=== PATIENT | male | born 1965 | race Caucasian/White ===

== ENCOUNTER 2021-11-30 10:17 | Emergency (ER) | payer OTHER, SELFPAY ==
--- NOTE | 2021-11-30 10:21 | ED.URI ---
HPI - URI/Sore Throat General Chief Complaint: Upper Respiratory Infection Stated Complaint: Sinus,Rt Ear Irritation Time Seen by Provider: 11/30/21 10:21 Source: patient and RN notes reviewed History of Present Illness HPI Narrative: Patient is a 56-year-old male who presents the urgent care with complaints of right sinus congestion/facial pain. Patient states its extending from the right ear. States that he had COVID last week and this is his first day out of quarantine. Patient states most of his symptoms were fatigue and some sinus congestion. Patient took Tylenol and ibuprofen and is denied of any fevers recently. Patient had not had treatment for COVID. No other acute complaints. No acute distress noted. Patient aware of the plan of care. Some parts of this dictation were generated by voice recognition software and may contain typographical and/or grammatical inaccuracies. Related Data Home Medications Medication Instructions Recorded Confirmed aspirin 81 mg tablet,delayed 81 mg PO DAILY 11/30/21 11/30/21 release atorvastatin 20 mg tablet 20 mg PO DAILY 11/30/21 11/30/21 telmisartan 40 1 tablet PO DAILY 11/30/21 11/30/21 mg-hydrochlorothiazide 12.5 mg tablet Allergies Allergy/AdvReac Type Severity Reaction Status Date / Time No Known Allergies Allergy Verified 11/30/21 10:28 Review of Systems Review of Systems: CONSTITUTIONAL: Denies fever, chills, or sweats. EYES: Denies visual changes, redness, or discharge. ENT: Denies rhinorrhea, congestion, sore throat, or otalgia. Reports of right facial pain CARDIOVASCULAR: Denies chest pain, palpitations, or edema. RESPIRATORY: Denies cough or dyspnea. GASTROINTESTINAL: Denies abdominal pain, nausea, vomiting, or diarrhea. GENITOURINARY: Denies dysuria or hematuria. SKIN: Denies rash or itching. MUSCULOSKELETAL: Denies back pain, joint pain, or myalgia. NEUROLOGIC: Denies headache, numbness, or weakness. All other systems reviewed are negative, except as documented in HPI. [facility] Family History Family History (Updated 07/23/12 @ 10:52 by DOCTOR UNKNOWN) Other Diabetes mellitus Hypertension Social History Social History Alcohol intake: current Comments At the time of my signature, I reviewed and agree with the nursing past medical, surgical, social, and family history. There is no relevant family history pertinent to the patient complaint. Exam Narrative: GENERAL: This is a well-nourished, well-developed patient, in no apparent distress. HEAD: normocephalic, atraumatic. Mild maxillary sinus tenderness to the right EYES: PERRL. Sclera clear/white. Vision is grossly intact. EARS: External ears normal, auditory canals clear and without drainage, TMs normal without perforation. Hearing grossly intact. NOSE: External nose normal with no obvious nasal discharge, nares without redness, no rhinorrhea. THROAT: Mucous membranes moist, posterior pharynx clear. Mild postnasal drainage NECK: Neck supple, non-tender without lymphadenopathy CARDIOVASCULAR: Regular rate and rhythm without murmurs, gallops, or rubs. RESPIRATORY: Clear to auscultation. Breath sounds equal bilaterally. No wheezes, rales, or rhonchi. SKIN: warm, intact with no suspicious lesions or rash, good texture and turgor. NEURO: awake, alert, and oriented to person, place and time. There were no obvious focal neurologic abnormalities. Facial nerve intact. Facial symmetry EXTREMITIES: No clubbing, cyanosis, or edema. Course Course Level of Care: Express Care Visit Vital Signs Vital signs: Vital Signs Temperature 97.3 F L 11/30/21 10:23 Pulse Rate 60 11/30/21 10:23 Respiratory Rate 16 11/30/21 10:23 Blood Pressure 147/77 H 11/30/21 10:23 Pulse Oximetry 99 11/30/21 10:23 Oxygen Delivery Room Air 11/30/21 10:23 Temperature 97.3 F L 11/30/21 10:28 Pulse Rate 60 11/30/21 10:28 Respiratory Rate 16 11/30/21 10:28 Blood Pressure 147/77 H
[2021-11-30 10:23] VITALS: BP 147/77; PULSE 60; RESP 16; TEMP 36.3; O2SAT 99
[2021-11-30 10:28] VITALS: BP 147/77; PULSE 60; RESP 16; TEMP 36.3; O2SAT 99
== END 2021-11-30 10:56 | disposition home or self-care (01) ==
PROVIDERS: Emergency Provider Nurse Practitioner Family
DX: R53.83 Other fatigue (principal); J34.89 Other specified disorders of nose and nasal sinuses; U09.9 Post COVID-19 condition, unspecified; E78.00 Pure hypercholesterolemia, unspecified; I10 Essential (primary) hypertension
CPT/HCPCS: 99213; G0463

== ENCOUNTER 2022-09-27 00:13 | Day surgery (SDC) | payer OTHER, SELFPAY ==
[2022-09-12 14:30] VITALS: BMI 38.2
--- NOTE | 2022-09-26 15:00 | PM.HPGS ---
History of Present Illness History of Present Illness Consent: Risks, benefits, and alternatives have been discussed and questions answered. Patient agrees to proceed with procedure. Chief complaint: personal hx of colon polyps Narrative: Adriel Kenny is a 57 year old male referred for colon cancer screening. His last colonoscopy, 5 years ago was unremarkable except for diverticulosis. He does however have a prior history of having had polyps. He had a polyp or 2 removed about 8 years ago elsewhere. He has a family history of colon cancer in his maternal grandmother. Also a Nephew as Crohn's disease. Review of Systems Review of Systems: All systems reviewed & are unremarkable except as noted in HPI and below PMFSH Family History Family History Other Diabetes mellitus Hypertension Social History Social History Smoking packs per day: 1 Smoking cigarettes per day: 20.0 Years smoked: 30 Smoking pack-years: 30.00 Smoking status: Former smoker Alcohol intake: current Alcohol use details: socially Substance use: never Substance use type: does not use Living arrangements: with family Spiritual care concerns: No Meds Home Medications and Allergies Home Medications Medication Instructions Recorded Confirmed Type aspirin 81 mg tablet,delayed 81 mg PO DAILY 11/30/21 09/12/22 History release atorvastatin 20 mg tablet 20 mg PO DAILY 11/30/21 09/12/22 History fluticasone propionate 50 2 spray intranasal DAILY #15.8 mL 11/30/21 09/12/22 Rx mcg/actuation nasal spray,suspension (Flonase Allergy Relief) prednisone 20 mg tablet 40 mg PO DAILY 7 days #14 tabs 11/30/21 09/12/22 Rx telmisartan 40 1 tablet PO DAILY 11/30/21 09/12/22 History mg-hydrochlorothiazide 12.5 mg tablet Allergies Allergy/AdvReac Type Severity Reaction Status Date / Time No Known Allergies Allergy Verified 09/27/22 06:48 Exam Resp: Auscultation: clear to auscultation bilaterally Cardio: Rate: regular rate Rhythm: regular rhythm GI: GI Palp: Yes Soft to palpation and No Tenderness to palpation present (GI) Assessment and Plan Assessment and plan (1) Colon cancer screening: Code(s): Z12.11 - Encounter for screening for malignant neoplasm of colon Status: Acute Assessment and Plan: Colonoscopy with possible biopsy or polypectomy or cautery or injection of substances.
[2022-09-27 06:49] VITALS: BP 142/78; PULSE 72; RESP 18; TEMP 36.2; O2SAT 99
[2022-09-27] MEDS: LACTATED RINGERS 1,000 ML 150 ML IV CONT (07:02)
--- NOTE | 2022-09-27 07:28 | P.PNAN_ITS ---
Anes - Initial Pre Proc Eval Procedure: Operation Date: 09/27/22 08:00 Proposed Procedures p Colonoscopy - Nate Downs MD Date/Time: 09/27/22 07:28 Surgeon: Nate Downs MD Pre Op Diagnosis: personal hx of colon polyps Patient Data Age: 57 Gender: M Height: 1.73 m Weight: 116.5 kg Last Vital Signs Temp 97.1 F L 09/27/22 06:49 Pulse 72 09/27/22 06:49 Resp 18 09/27/22 06:49 BP 142/78 H 09/27/22 06:49 Pulse Ox 99 09/27/22 06:49 O2 Del Method Room Air 09/27/22 06:49 Allergies Allergy/AdvReac Type Severity Reaction Status Date / Time No Known Allergies Allergy Verified 09/27/22 06:48 Home Medications Medication Instructions Recorded Confirmed Type aspirin 81 mg tablet,delayed 81 mg PO DAILY 11/30/21 09/12/22 History release atorvastatin 20 mg tablet 20 mg PO DAILY 11/30/21 09/12/22 History fluticasone propionate 50 2 spray intranasal DAILY #15.8 mL 11/30/21 09/12/22 Rx mcg/actuation nasal spray,suspension (Flonase Allergy Relief) prednisone 20 mg tablet 40 mg PO DAILY 7 days #14 tabs 11/30/21 09/12/22 Rx telmisartan 40 1 tablet PO DAILY 11/30/21 09/12/22 History mg-hydrochlorothiazide 12.5 mg tablet Patient hx anesthesia problems: none Family hx anesthesia problems: none Results Review: All pre-operative results and documents have been reviewed as part of the pre- operative evaluation. PMFSH Family History Family History Other Diabetes mellitus Hypertension Social History Social History Smoking packs per day: 1 Smoking cigarettes per day: 20.0 Years smoked: 30 Smoking pack-years: 30.00 Smoking status: Former smoker Alcohol intake: current Alcohol use details: socially Substance use: never Substance use type: does not use Living arrangements: with family Spiritual care concerns: No Anes - Eval Final PreProcedure Day of Procedure 05/17/23 07:28 Patient weight: morbidly obese Heart: regular rate and rhythm Lungs: clear to auscultation Airway: Mallampati scale class II Neurological: alert and oriented Last oral intake: >/= 8 hours ASA classification: III Emergent: no Anesthetic plan: proceed Anesthesia type and monitoring: general GIVS and standard monitoring Results Review: All pre-operative results and documents have been reviewed as part of the pre- operative evaluation. Informed Consent: The patient's anesthetic plan and its attendant risks and benefits were discussed with the patient/family/POA. Questions were solicited and answers provided to the satisfaction of the patient/family/POA.
[2022-09-27 08:12] VITALS: BP 116/72; PULSE 76; RESP 18; O2SAT 99
[2022-09-27 08:22] VITALS: BP 116/80; PULSE 72; RESP 20; O2SAT 100
[2022-09-27 08:32] VITALS: BP 125/83; PULSE 65; RESP 18; O2SAT 100
== END 2022-09-27 08:42 | disposition home or self-care (01) ==
PROVIDERS: Visit Provider Internal Medicine Gastroenterology
PROC: 0DJD8ZZ Inspection of Lower Intestinal Tract, Via Natural or Artificial Opening Endoscopic (ICD-10-PCS; CPT 45378; principal; 2022-09-27 08:00)
DX: Z12.11 Encounter for screening for malignant neoplasm of colon (principal); D12.0 Benign neoplasm of cecum; K57.30 Diverticulosis of large intestine without perforation or abscess without bleeding; Z87.891 Personal history of nicotine dependence
CPT/HCPCS: 45385; 88305; J2704; J7120

== ENCOUNTER 2024-11-23 08:42 | Emergency (ER) | payer OTHER, SELFPAY ==
--- OUTSIDE RECORDS SUMMARY | 2024-11-23 08:46 | XMS_ITS | Encounter Summary ---
Author Organization [facility] Address [address] [place] [id number] Care Team Providers Care Batch Heat Treat Operator Name Role Phone Keeley Parra Primary Care Provider [phone] Encounter Details Date Type Department Care Team (Late Contact Info) Description 11/22/2023 [place] Message Enc [facility] [address] [place] [address] Tho, [facility] Provider Stress test looks good Social History Tobacco Use Types Packs/Day Years Used Date Smoking Tobacco: Former Cigarettes Q uit: 08/28/2015 Smokeless Tobacco: Never Alcohol Use Standard Drinks/Week Comments Yes 20 (1 standard drink = 0.6 oz pu re alcohol) Sex and Gender Information Value Date Recorded Sex Assigned at Not on file 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 [facility] [address] [place], [place] [id number] documented as of this encounter Visit Diagnoses Not on filedocumented in this encounter Care Teams Batch Heat Treat Operator Relationship Specialty Start Date End Date Keeley Parra PA [address] [facility] [address] [place], [place] [id number] PCP - General PHYSICIAN AWAKE OVERNIGHT MONITOR 08/16/23 documented as of this encounter
--- OUTSIDE RECORDS SUMMARY | 2024-11-23 08:46 | XMS_ITS | Continuity of Care Document ---
Author Name [facility] Organization [facility] Care Team Providers [employer] Teacher Name Role Phone [facility] Unavailable Unavailable Problems Combined list of problems from 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 It does not include entries that were removed or entered in error. Problem Status Onset Date Problem Type Date of Resolution Comments Source Essential hypertension Active 025 Diagnosis - [facility] Well adult monitoring check done Active 025 Diagnosis [facility] Sinusitis Active 025 Diagnosis - [facility] Cervicalgia Active Condition [facility] Diabetes Mellitus Type 2 ([facility] [id number]) Active Condition [facility] Exposure to potentially hazardous substance Active Condition [facility] h/o tobacco use Active Condition Jan 07, 2023 Entered By: JASON CONTRERAS Comment: in remission since 2015 [facility] H/O: multiple allergies Active Condition Jan 07, 2023 Entered By: JASON CONTRERAS Comment: seeing sample selector [facility] HTN - Hypertension (SCT [id number]) Active Condition [facility] Hyperlipidemia ([facility] [id number]) Active Condition [facility] LBP - Low back pain Active Condition Jan 07, 2023 Entered By: JASON CONTRERAS Comment: with radiculopathy [facility] Obesity (SCT [id number]) Active Condition [facility] Coronary artery disease Active Condition [facility] Hyperlipidemia Active Condition [facility] Hypertension Active Condition [facility] Morbid obesity Active Condition Unknown Organization Sinusitis Active Condition [facility] Type 2 diabetes mellitus Active Condition [facility] Abnormal results of function studies of other organs and systems Active Condition [facility] Essential (primary) hypertension Active Condition [facility] Hyperlipidemia, unspecified Active Condition [facility] PREDIABETES (IMPAIRED GLUCOSE TOLERANCE) Active Condition Do[facility] PIRIFORMIS SYNDROME Inactive Condition Do[facility] Shoulder Muscle Spasm Trapezius Inactive Condition DoD GANGLION LEFT KNEE Active Condition Do[facility] COMPOUND NEVUS Active Condition DoD CERVICALGIA Active Condition [facility] NON-NEOPLASTIC NEVUS Active Condition [facility] Body Mass Index Inactive Condition [facility] Outpatient Physician Consultation Active Condition [facility] ABSCESS OF LIPS Active Condition DoD anxiety Active Condition DoD joint pain, localized in the wrist Active Condition DoD PINGUECULA Active Condition DoD CATARACT SENILE NUCLEAR Active Condition DoD ACUTE BRONCHITIS Inactive Condition DoD blurry vision Active Condition DoD HYPERLIPIDEMIA Active Condition [facility] SINUSITIS Active Condition Do[facility] visit for: administrative purpose Inactive Condition DoD PRESBYOPIA Active Condition DoD ASTIGMATISM Active Condition DoD REFRACTIVE ERROR - MYOPIA Active Condition DoD HYPOGLYCEMIA REACTIVE Inactive Condition Do[facility] Laboratory Studies Inactive Condition DoD visit for: issue repeat prescription for medication Inactive Condition [facility] ASSESSMENT OF PATIENT CONDITION WORK-RELATED Inactive Condition DoD DIABETIC HYPOGLYCEMIA Inactive Condition DoD ACROCHORDON Inactive Condition DoD MUSCLE SPASM Inactive Condition DoD COMMON COLD Inactive Condition Avoid decongestants due to effects on BP. DoD FAILURE TO THRIVE IN CHILDHOOD Inactive Condition DoD visit for: services physical Inactive Condition DoD ESSENTIAL HYPERTENSION Inactive Condition will trial switch clases if still with Ed problems recommend back to lisinopril and trail of ED meds DoD BUNDLE BRANCH BLOCK RIGHT INCOMPLETE Inactive Condition echo normal - no wall abnormaliteis - discussed meaning of rbbb > 20 minutes with pt - also advised strongly to stop smoking - will get cholesterol accomplished by next week and f/u with pcm DoD Laboratory Studies Inactive Condition PICC removal DoD HOSPITAL-ACQUIRED PNEUMONIA Inactive Condition PICC dressing change DoD HYPERTENSION (SYSTEMIC) Active Condition Avoid decongestants. Home BPs weekly. RTC quarterly for rechecks. Lifestyle. DoD tobacco use Active Condition DoD OBESITY Active Condition DoD joint pain in the toes Inactive Condition DoD visit for: screening exam hypertension Inactive Condition DoD Blood Pressure Isolated Elevated Inactive Condition See above for BP measured after 15 min of rest. DoD difficulty breathing (dyspnea) Inactive Condition DoD accident caused by hand tools Inactive Condition DoD SUPERFICIAL INJURY OF HANDS Inactive Condition No bony ttp. No s/s of infection. Home obs. RTC if sx worsen. DoD ESSENTIAL HYPERTENSION BENIGN Inactive Condition RTC when need RF. Do another bp check without pain. No cp, sob, de dios, hematuria. F/u in 30 d or less. DoD Diagnosis: ICD-10-CM Z00.00 Encntr for general adult medical exam w/o abnormal findings Active Diagnosis [facility] Diagnosis: ICD-10-CM M54.50 Low back pain, unspecified Active Diagnosis [facility] Diagnosis: ICD-10-CM M54.[address] [facility] Diagnosis: ICD-10-CM E11.9 Type 2 diabetes mellitus without complications Active Diagnosis [facility] Medications Combined list of outpatient medications from 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Medications provided include 1) outpatient medications from the last 15 months, and 2) patient-reported medications. Medication Details Route Status Patient Instructions Prescription Expires Prescription Number Last Dispense Date Ordering Provider Order Date Order Qty Source ASPIRIN 81MG TAB,EC TAKE ONE TABLET BY MOUTH ONCE A DAY ORAL ACTIVE ROSARIO CONTRERAS [address] [facility] ASPIRIN EC (U/D) 81 MG ORAL TBEC Take with food/mil sybil.Daviano w whole. 04/29/2024 [id number] 3 2023 90 [facility] [place] ([facility] aspirin EC 81 mg tablet See Instruct ions, # 90 EA, 2 total refill(s ), Acute Complet ed 04/16/2023 3 2022 90.0 Ambulat ory Pharmac y Aspirin Low Dose 81 mg oral delayed release tablet 1 tab(s), Oral, Daily, 90 tab(s), 0 Refill(s ), # 90 tab(s), 0 total refill(s ), Hard Stop, Pharmacy : [facility] Oral (given by mouth) Complet ed 09/08/2024 5 2024 90.0 0055C[facility] Aspirin Low Dose 81 mg oral delayed release tablet 90 tab(s), 0 Refill(s ), 0 total refill(s ), Soft Stop Discont inued 04/30/20232022 0055C-3 [facility] Aspirin Low Dose 81 mg oral delayed release tablet 1 tab(s), Oral, Daily, 90 tab(s), 0 Refill(s ), # 90 tab(s), 3 total refill(s ), Hard Stop, Pharmacy : [facility] Oral (given by mouth) Complet ed 06/16/2024 4 2024 90.0 0055C-[address] [place] [address] Aspirin Low Dose 81 mg oral delayed release tablet 1 tab(s), Oral, Daily, # 30 tab(s), 0 total refill(s ), Hard Stop, Pharmacy : [facility] Oral (given by mouth) Complet ed 10/03/2024 5 2024 30.0 0055C-[address] [place] [address] Aspirin Low Dose 81 mg oral delayed release tablet 1 tab(s), Oral, Daily, # 90 tab(s), 3 total refill(s ), [facility], Pharmacy : [facility] Oral (given by mouth) Ordered 5 2024 90.0 0055C-[address] [place] [address] atorvastati n 20 mg oral tablet 1 tab(s), Oral, Daily, 90 tab(s), 0 Refill(s ), # 90 tab(s), 3 total refill(s ), [facility], Pharmacy : [facility] Oral (given by mouth) Discont inued 04/30/2023 3 2022 90.0 0055C-[address] [place] [address] atorvastati n 20 mg oral tablet 1 tab(s), Oral, Daily, 90 tab(s), 0 Refill(s ), # 90 tab(s), 3 total refill(s ), [facility], Pharmacy : [facility] Oral (given by mouth) Discont inued 01/16/2024 4 2023 90.0 0055C-3 [facility] atorvastati n 20 mg oral tablet 90 tab(s), 0 Refill(s ), 0 total refill(s ), Soft Stop Discont inued 04/30/20232022 0055C-[address] [place] [address] atorvastati n 20 mg tablet See Instruct ions, # 90 EA, 2 total refill(s ), Acute Complet ed 04/16/2023 3 2022 90.0 Ambulat ory Pharmac y atorvastati n 40 mg oral tablet 40 mg, Oral, Daily, # 90 EA, 0 total refill(s ), Hard Stop, Pharmacy : [facility] Oral (given by mouth) Complet ed 09/08/2024 5 2024 90.0 0055C-3 [facility] atorvastati n 40 mg oral tablet 40 mg, Oral, Daily, # 30 EA, 0 total refill(s ), Hard Stop, Pharmacy : [facility] Oral (given by mouth) Complet ed 10/03/2024 5 2024 30.0 0055C-3 [facility] atorvastati n 40 mg oral tablet 40 mg, Oral, Daily, # 30 EA, 0 total refill(s ), Hard Stop, Pharmacy : [facility] Oral (given by mouth) Discont inued 10/03/20242024 30.0 0055C-3 [facility] atorvastati n 40 mg oral tablet 40 mg, Oral, Daily, # 90 EA, 3 total refill(s ), Hard Stop, Pharmacy : [facility] Oral (given by mouth) Cancele d 10/07/20242024 90.0 0055C-3 [facility] atorvastati n 40 mg oral tablet 40 mg, Oral, Daily, # 90 EA, 3 total refill(s ), Hard Stop, [id number] Oral (given by mouth) Complet ed 06/16/20242024 90.0 0055C-3 [facility] atorvastati n 40 mg oral tablet 40 mg, Oral, Daily, # 90 tab(s), 3 total refill(s ), Maintena nce, Pharmacy : [facility] Oral (given by mouth) Ordered 5 2024 90.0 0055C-3 [facility] atorvastati n 40 mg tablet = 1 tab(s), Oral, Daily, # 90 EA, 2 total refill(s ), Hard Stop Oral (given by mouth) Discont inued 06/16/2024 4 2024 90.0 Ambulat ory Pharmac y atorvastati n 40 mg tablet 40 mg, Oral, Daily, # 90 EA, 1 total refill(s ), Hard Stop Oral (given by mouth) Discont inued 04/23/2024 4 2023 90.0 Ambulat ory Pharmac y ATORVASTATI N CA 80MG TAB TAKE ONE-HALF TABLET BY MOUTH EVERY EVENING ORAL ACTIVE Hao CHERRY [address] [facility] CETIRIZINE (U/D) 10 MG ORAL TAB May cause drowsine ss.Obtmerced n advice for OTCs. 04/29/2024 [id number] 3 2023 90 [facility] [place] ([facility] cetirizine 10 mg oral tablet 1 tab(s), Oral, Daily, 90 tab(s), 0 Refill(s ), # 90 tab(s), 0 total refill(s ), Hard Stop, 09/08/24 2:25:44 PM CDT, Pharmacy : [facility] Oral (given by mouth) Complet ed 09/08/2024 5 2024 90.0 0055C-3 [facility] cetirizine 10 mg oral tablet 1 tab(s), Oral, Daily, 90 tab(s), 0 Refill(s ), # 90 tab(s), 3 total refill(s ), Mary aze, Pharmacy : [facility] Oral (given by mouth) Discont inued 04/30/2023 3 2022 90.0 0055C-3 [facility] cetirizine 10 mg oral tablet 1 tab(s), Oral, Daily, 90 tab(s), 0 Refill(s ), # 90 tab(s), 3 total refill(s ), Hard Stop, 06/16/24 4:25:28 PM ACTUARIAL TRAINEE, Pharmacy : [facility] Oral (given by mouth) Complet ed 06/16/2024 4 2024 90.0 0055C-3 [facility] cetirizine 10 mg oral tablet 1 tab(s), Oral, Daily, # 30 tab(s), 0 total refill(s ), Hard Stop, 10/03/24 10:44:16 AM CDT, Pharmacy : [facility] Oral (given by mouth) Complet ed 10/03/2024 5 2024 30.0 0055C-3 [facility] cetirizine 10 mg oral tablet 1 tab(s), Oral, Daily, # 30 tab(s), 0 total refill(s ), Hard Stop, 10/03/24 4:11:10 PM CDT, Pharmacy : [facility] Oral (given by mouth) Discont inued 10/03/20242024 30.0 0055C-3 [facility] cetirizine 10 mg oral tablet 1 tab(s), Oral, Daily, # 90 tab(s), 3 total refill(s ), Hard Stop, 10/07/24 11:53:25 AM CDT, Pharmacy : [facility] Oral (given by mouth) Cancele d 10/07/20242024 90.0 0055C-3 [facility] cetirizine 10 mg oral tablet 90 tab(s), 0 Refill(s ), 0 total refill(s ), Soft Stop Discont inued 04/30/20232022 0055C-3 [facility] cetirizine 10 mg oral tablet 1 tab(s), Oral, Daily, # 90 tab(s), 3 total refill(s ), Maintena nce, Pharmacy : [facility] Oral (given by mouth) Ordered 5 2024 90.0 0055C-3 [facility] cetirizine 10 mg tablet See Instruct ions, # 90 EA, 2 total refill(s ), Acute Complet ed 04/16/2023 3 2022 90.0 Ambulat ory Pharmac y CETIRIZINE HCL 10MG TAB TAKE ONE TABLET BY MOUTH ONCE A DAY ORAL ACTIVE ROSARIO CONTRERAS 2022 [facility] Flonase 50 mcg/inh nasal spray 50 mcg, Nostril- Both, BID, shake well before using, # 16 g, 0 total refill(s ), Hard Stop, Pharmacy : [facility] Nostri l-Both (into the nose) Complet ed 09/08/2024 5 2024 16.0 0055C-3 [facility] Flonase 50 mcg/inh nasal spray 50 mcg, Nostril- Both, BID, shake well before using, # 16 g, 5 total refill(s ), Maintena nce, Pharmacy : [facility] Nostri l-Both (into the nose) Discont inued 04/30/2023 3 2022 16.0 0055C-3 [facility] Flonase 50 mcg/inh nasal spray 50 mcg, Nostril- Both, BID, shake well before using, # 16 g, 5 total refill(s ), Hard Stop, Pharmacy : [facility] Nostri l-Both (into the nose) Complet ed 06/16/2024 4 2024 16.0 0055C-3 [facility] Flonase 50 mcg/inh nasal spray 50 mcg, Nostril- Both, BID, shake well before using, # 16 g, 0 total refill(s ), Hard Stop, Pharmacy : [facility] Nostri l-Both (into the nose) Complet ed 10/03/2024 5 2024 16.0 0055C-3 [facility] Flonase 50 mcg/inh nasal spray 50 mcg, Nostril- Both, BID, shake well before using, # 16 g, 0 total refill(s ), Hard Stop, Pharmacy : [facility] Nostri l-Both (into the nose) Cancele d 10/07/20242024 16.0 0055C-3 [facility] FLONASE-OTC (BRAND) 50 MCG ANCA SPSN [9.9] Take or use exactly as directed .For the nose. 04/29/2024 [id number] 3 2023 16 [facility] [place] ([facility] fluticasone 50 mcg/inh nasal spray 50 mcg, Nostril- Both, BID, # 16 g, 5 total refill(s ), Maintena nce, Pharmacy : [facility] Nostri l-Both (into the nose) Ordered 5 2024 16.0 0055C-3 [facility] fluticasone 50 mcg/inh nasal spray [16g] See dose instruct ions in comments , # 32 g, 1 total refill(s ), Acute Complet ed 04/16/2023 3 2022 32.0 Ambulat ory Pharmac y FLUTICASONE PROPIONATE 50MCG/SPRAY SOLN,NASAL, 16GM INSTILL 2 SPRAYS IN NOSTRIL( S) ONCE A DAY NASAL ACTIVE ROSARIO CONTRERAS 2022 [facility] HYDROCHLORO THIAZIDE 12.5MG/TELM ISARTAN 40MG TAB TAKE ONE TABLET BY MOUTH ONCE A DAY ORAL ACTIVE Hao CHERRYE 2023 [facility] meclizine 25 mg oral tablet 1 tab(s), Oral, TID, PRN as needed for dizzines s, # 30 tab(s), 0 total refill(s ), Acute, 07/29/24 12:00:00 AM CDT, Pharmacy : [id number] Oral (given by mouth) Complet ed 07/29/20242024 30.0 0055C-3 [facility] metFORMIN 1000 mg oral tablet 1 tab(s), Oral, BID, for diabetes , # 180 tab(s), 3 total refill(s ), Maintena aze, Pharmacy : [facility] Oral (given by mouth) Ordered 5 2024 180.0 0055C-3 [facility] metFORMIN 500 mg oral tablet 1 tab(s), Oral, BID, Take with food, # 60 tab(s), 0 total refill(s ), Maintena aze, Pharmacy : [facility] Oral (given by mouth) Discont inued 04/16/20244 60.0 0055C-3 [facility] metFORMIN 500 mg oral tablet, extended release 1 tab(s), Oral, BID, Take one tablet two times daily with food for blood sugar, # 60 tab(s), 0 total refill(s ), Maintena nce, Pharmacy : [facility] Oral (given by mouth) Discont inued 01/16/2024 4 2023 60.0 0055C-3 [facility] metFORMIN 500 mg oral tablet, extended release 1 tab(s), Oral, BID, # 180 tab(s), 0 total refill(s ), Hard Stop, Pharmacy : [facility] Oral (given by mouth) Complet ed 09/08/2024 5 2024 180.0 0055C-3 [facility] metFORMIN 500 mg oral tablet, extended release See Instruct ions, Oral, take one tablet by mouth every evening with food for 7 days, then take one tablet two times daily with food for blood sugar., # 53 tab(s), 0 total refill(s ), Maintena nce, 30 days, Pharmacy : [facility] Oral (given by mouth) Discont inued 04/30/2023 3 2022 53.0 0055C-3 [facility] metFORMIN 500 mg oral tablet, extended release See Instruct ions, Oral, take one tablet by mouth every evening with food for 7 days, then take one tablet two times daily with food for blood sugar., # 53 tab(s), 0 total refill(s ), Maintena nce, 30 days, Pharmacy : [facility] Oral (given by mouth) Discont inued 06/04/20232023 53.0 0055C-3 [facility] metFORMIN 500 mg oral tablet, extended release 1 tab(s), Oral, BID, # 60 tab(s), 0 total refill(s ), Maintena nce, Pharmacy : [facility] Oral (given by mouth) Ordered 5 2024 60.0 0055C-3 [facility] metFORMIN 500 mg oral tablet, extended release 1 tab(s), Oral, BID, # 60 tab(s), 0 total refill(s ), Maintena nce, Pharmacy : [facility] Oral (given by mouth) Discont inued 04/23/2024 2023 60.0 0055C-3 [facility] metFORMIN 500 mg oral tablet, extended release 1 tab(s), Oral, BID, # 180 tab(s), 1 total refill(s ), Hard Stop, Pharmacy : [id number] Oral (given by mouth) Complet ed 06/16/20242024 180.0 0055C-3 [facility] metFORMIN 500 mg oral tablet, extended release See Instruct ions, Oral, Take one tablet two times daily with food for blood sugar., # 120 tab(s), 0 total refill(s ), Maintena nce, bridge to f/u appointn ment, Pharmacy : [facility][id number] Oral (given by mouth) Cancele d 12/28/20232023 120.0 0055A-3 [facility] metFORMIN 500 mg oral tablet, extended release See Instruct ions, Oral, Take one tablet two times daily with food for blood sugar., # 120 tab(s), 0 total refill(s ), Hard Stop, bridge to f/u appointn ment, Pharmacy : [facility] #[id number] Oral (given by mouth) Complet ed 11/09/20232023 120.0 0055C-3 [facility] metFORMIN 500 mg oral tablet, extended release See Instruct ions, Oral, Take one tablet two times daily with food for blood sugar., # 120 tab(s), 0 total refill(s ), Maintena nce, 30 days, Pharmacy : [facility] Oral (given by mouth) Discont inued 08/08/2023 2023 120.0 0055C-3 [facility] metFORMIN 500 mg oral tablet, extended release 1 tab(s), Oral, BID, Take one tablet two times daily with food for blood sugar, # 60 tab(s), 0 total refill(s ), Maintena nce, Pharmacy : [facility] Oral (given by mouth) Discont inued 10/03/2024 4 2024 60.0 0055C[facility]3 [facility] metFORMIN 500 mg oral tablet, extended release See Instruct ions, Oral, Take one tablet two times daily with food for blood sugar., # 180 tab(s), 0 total refill(s ), Mary yu, 30 days, Pharmacy : [facility] Oral (given by mouth) Discont inued 11/02/2023 4 2023 180.0 0055C-3 [facility] METFORMIN HCL 500MG 24HR TAB,SA TAKE ONE TABLET BY MOUTH ONCE A DAY ORAL ACTIVE Hao CHERRY 2023 [facility] METFORMIN HCL ER (metformin HCl), 500 MG, TAB ER 24H, ORAL, GRANULES PHARMA, 1000 ea. BOTTLE Active [id number] 4 2023 120 Pharmac y [employer] y metFORMIN XR 500 mg/24 hour tablet = 1 tab(s), Oral, BID, # 180 EA, 0 total refill(s ), Hard Stop Oral (given by mouth) Discont inued 10/07/2024 4 2024 180.0 Ambulat ory Pharmac y Micardis HCT 40 mg- 12.5 mg tablet See Instruct ions, # 90 EA, 2 total refill(s ), Acute Complet ed 04/16/2023 3 2022 90.0 Ambulat ory Pharmac y propranolol 40 mg oral tablet 60 tab(s), 0 Refill(s ), 0 total refill(s ), Soft Stop Discont inued 07/10/20242024 0055C-3 [facility] Sudafed 30 mg oral tablet 2 tab(s), Oral, every 6 hr, PRN as needed for congesti on, # 48 tab(s), 0 total refill(s ), Acute, 07/10/24 8:23:00 AM ACTUARIAL TRAINEE, Pharmacy : [id number] Oral (given by mouth) Discont inued 07/10/20242024 48.0 0055C-3 [facility] telmisartan -hydroCHLOR Othiazide 40mg-12.5mg oral tablet 1 tab(s), Oral, Daily, # 90 tab(s), 0 total refill(s ), Hard Stop, Pharmacy : [facility] Oral (given by mouth) Complet ed 09/08/2024 5 2024 90.0 0055C-3 [facility] telmisartan -hydroCHLOR Othiazide 40mg-12.5mg oral tablet 1 tab(s), Oral, Daily, 90 tab(s), 0 Refill(s ), # 90 tab(s), 3 total refill(s ), Mainbharata aimee, Pharmacy : [facility] Oral (given by mouth) Discont inued 04/30/2023 3 2022 90.0 0055C-3 [facility] telmisartan -hydroCHLOR Othiazide 40mg-12.5mg oral tablet 1 tab(s), Oral, Daily, 90 tab(s), 0 Refill(s ), # 90 tab(s), 3 total refill(s ), Hard Stop, Pharmacy : [facility] Oral (given by mouth) Complet ed 06/16/2024 4 2024 90.0 0055C-3 [facility] telmisartan -hydroCHLOR Othiazide 40mg-12.5mg oral tablet 1 tab(s), Oral, Daily, # 30 tab(s), 0 total refill(s ), Hard Stop, Pharmacy : [facility] Oral (given by mouth) Complet ed 10/03/2024 5 2024 30.0 0055C-3 [facility] telmisartan -hydroCHLOR Othiazide 40mg-12.5mg oral tablet 90 tab(s), 0 Refill(s ), 0 total refill(s ), Soft Stop Discont inued 04/30/20232022 0055C-3 [facility] telmisartan -hydroCHLOR Othiazide 40mg-12.5mg oral tablet 1 tab(s), Oral, Daily, # 90 tab(s), 3 total refill(s ), Mary isake, Pharmacy : [facility] Oral (given by mouth) Ordered 5 2024 90.0 0055C-3 [facility] telmisartan /HCTZ (UD) 40-12.5MG ORAL TAB Be careful if taking OTCs.Vince e with food/mil k.Avoid exposure to sun.Take or use exactly as directed .Do not take if . 04/29/2024 [id number] 3 [address] [place] [address] [facility] ([facility] Allergies, Adverse Reactions, Alerts Combined list of allergies from 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 It does not include entries that were removed or entered in error. Substance Category Reaction Severity Reaction type Status Date Reported Comments Source No Known Allergies Drug allergy (disorder) active 04/30/[address] [place] [address] [facility] ([facility] Immunizations Combined list of available immunizations from the 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 Immunization Series Date Given Administered By Site Reaction Lot Number CVX Code Drug Manager Commission Status Comments Source INFLUENZA, UNSPECIFIED FORMULATION 2021 88 complet ed HISTORICA L INFORMATI ON - FROM PATIENT'S RECALL, [facility] zoster vaccine, inactivated 2021 zzRig ht Arm [id number] 187 [employer] complet ed zoster vaccine, inactivat ed 07/21/21 Given Ambulat ory Pharmac y zoster vaccine recombinant 1 2021 Unknown, Provider 5F3T5 187 [facility] ([facility]) complet ed zoster vaccine recombina nt DoD zoster vaccine, inactivated 2020 zzLef t Arm [id number] 187 [employer] complet ed zoster vaccine, inactivat ed 04/26/21 Given Ambulat ory Pharmac y tetanus-dipht h toxoids (Td) adult/adol 2020 zzLef t Arm [id number] 09 sanofi pasteur complet ed tetanus-d iphth toxoids (Td) adult/ado l 04/26/21 Given Ambulat ory Pharmac y tetanus and diphtheria toxoids, adsorbed, preservative free, for adult use (2 Lf of tetanus toxoid and 2 Lf of diphtheria toxoid) 1 2020 Unknown, Provider [id number] Sanofi Pasteur (PMC) complet ed tetanus and diphtheri a toxoids, adsorbed, preservat frandy free, for adult use (2 Lf of tetanus toxoid and 2 Lf of diphtheri a toxoid) [facility] zoster vaccine recombinant 1 2020 Unknown, Provider [id number] [facility] (SKB) complet ed zoster vaccine recombina nt DoD influenza virus vaccine, unspecified 2020 TRANSCR IBED 88 complet ed influenza virus vaccine, unspecifi ed 03/30/21 Given Ambulat ory Pharmac y INFLUENZA, INJECTABLE, MDCK, PRESERVATIVE FREE, QUADRIVALENT 4 2020 171 complet ed HISTORICA L INFORMATI ON - [facility] influenza virus vaccine, unspecified formulation 1 2020 Unknown, Provider 88 Transcribed (TRS) complet ed influenza virus vaccine, unspecifi ed formulati on [facility] Influenza, injectable, MDCK, preservative free, quadrivalent 2020 RAÚL, () Not Given Influenza , injectabl e, MDCK, preservat frandy free, quadrival ent DoD COVID Vaccine Pfizer 2020 [id number] PFIZER complet ed COVID Vaccine Pfizer 08/05/20 Given Ambulat ory Pharmac y COVID-19 (PFIZER), MRNA, LNP-S, PF, 30 MCG/0.3 ML DOSE 2 2020 208 complet ed HISTORICA L INFORMATI ON - FROM OTHER REGISTRY, [facility] SARS-COV-2 (COVID-19) vaccine, mRNA, spike protein, LNP, preservative free, 30 mcg/0.3mL dose 2 2020 Unknown, Provider [id number] Pfizer, Inc (PFR) complet ed SARS-COV- 2 (COVID-19 ) vaccine, mRNA, spike protein, LNP, preservat frandy free, 30 mcg/0.3mL dose DoD COVID Vaccine Pfizer 2020 [id number] PFIZER complet ed COVID Vaccine Pfizer 07/15/20 Given Ambulat ory Pharmac y COVID-19 (PFIZER), MRNA, LNP-S, PF, 30 MCG/0.3 ML DOSE 1 2020 208 complet ed HISTORICA L INFORMATI ON - FROM OTHER [facility], [facility] SARS-COV-2 (COVID-19) vaccine, mRNA, spike protein, LNP, preservative free, 30 mcg/0.3mL dose 1 2020 Unknown, Provider [id number] Pfizer, Inc (PFR) complet ed SARS-COV- 2 (COVID-19 ) vaccine, mRNA, spike protein, LNP, preservat frandy free, 30 mcg/0.3mL dose DoD influenza virus vaccine, inactivated 2019 88 Seqirus complet ed influenza virus vaccine, inactivat ed 02/20/20 Given Ambulat ory Pharmac y INFLUENZA, INJECTABLE, MDCK, PRESERVATIVE FREE, QUADRIVALENT 3 2019 171 complet ed HISTORICA L INFORMATI ON - FROM OTHER [facility], [facility] Influenza, injectable, MDCK, preservative free, quadrivalent 2019 ALUL, () Not Given Influenza , injectabl e, MDCK, preservat frandy free, quadrival ent DoD INFLUENZA, INJECTABLE, QUADRIVALENT 2018 158 complet ed HISTORICA L INFORMATI ON - FROM OTHER PROVIDER, Partner: [facility]. Administe red by: RAMA TOBAR ([phone]). Partner 58 Lot#: [id number] Mfr: SEQIRUS; Dosage: 0.5 [facility] influenza, injectable, quadrivalent, preservative free 2018 ALUL, () Not Given influenza , injectabl e, quadrival ent, preservat frandy free DoD influenza, injectable, quadrivalent- pf 2017 150 sanofi pasteur complet ed influenza , injectabl e, quadrival ent-pf 03/19/18 Given Ambulat ory Pharmac y INFLUENZA, INJECTABLE, QUADRIVALENT, PRESERVATIVE FREE 1 2017 150 complet ed HISTORICA L INFORMATI ON - FROM OTHER [facility], [facility] influenza, seasonal, injectable-pf 2015 zzClarita Arm [id number] Seqirus complet ed influenza , seasonal, injectabl e-pf 04/13/16 Given Ambulat ory Pharmac y Influenza, seasonal, injectable, preservative free 1 2015 Unknown, Provider [id number] 140 Seqirus (SEQ) complet ed Influenza , seasonal, injectabl e, preservat frandy free DoD influenza, live, intranasal,qu adrivalent 2013 [id number] Medimmune Inc comple t ed influenza , live, intranasa l,quadriv alent 04/01/14 Given Ambulat ory Pharmac y influenza, live, intranasal, quadrivalent 1 2013 Unknown, Provider [id number] 149 MedImmune, Inc. (MED) complet ed influenza , live, intranasa l, quadrival ent DoD influenza, live, intranasal,qu adrivalent 2012 [id number] 149 Medimmune Inc comple t ed influenza , live, intranasa l,quadriv alent 02/28/13 Given Ambulat ory Pharmac y influenza, live, intranasal, quadrivalent 14 2012 Unknown, Provider [id number] 149 MedImmune, Inc. (MED) complet ed influenza , live, intranasa l, quadrival ent DoD influenza virus vaccine, live 2011 [id number] 111 Medimmune Inc comple t ed influenza virus vaccine, live 03/19/12 Given Ambulat ory Pharmac y influenza virus vaccine, live, attenuated, for intranasal use 13 2011 Unknown, Provider [id number] 111 MedImmune, Inc. (MED) complet ed influenza virus vaccine, live, attenuate d, for intranasa l use DoD influenza, seasonal, injectable 2010 zNelia t Arm [id number] 141 sanofi pasteur complet ed influenza , seasonal, injectabl e 02/22/11 Given Ambulat ory Pharmac y Influenza, seasonal, injectable 1 2010 Unknown, Provider [id number] 141 Sanofi Pasteur ([facility]) complet ed Influenza , seasonal, injectabl e DoD tetanus, diphtheria, acellular pertu is 2007 [id number] 115 sanofi pasteur complet ed tetanus, diphtheri a, acellular pertussis 12/16/07 Given Ambulat ory Pharmac y tetanus toxoid, reduced diphtheria toxoid, and acellular pertu is vaccine, adsorbed 1 2007 [id number] 115 Sanofi Pasteur ([facility]) complet ed tetanus toxoid, reduced diphtheri a toxoid, and acellular pertussis vaccine, adsorbed DoD influenza virus vaccine,split 2006 [id number] 15 sanofi pasteur complet ed influenza virus vaccine,s plit 03/20/07 Given Ambulat ory Pharmac y influenza virus vaccine, split virus (incl. purified surface antigen)-reti red CODE 1 2006 [id number] 15 Sanofi Pasteur ([facility]) complet ed influenza virus vaccine, split virus (incl. purified surface antigen)- retired CODE DoD influenza virus vaccine,split 2005 [id number] 15 sanofi pasteur complet ed influenza virus vaccine,s plit 04/24/06 Given Ambulat ory Pharmac y influenza virus vaccine, split virus (incl. purified surface antigen)-reti red CODE 1 2005 [id number] 15 Sanofi Pasteur ([facility]) complet ed influenza virus vaccine, split virus (incl. purified surface antigen)- retired CODE DoD influenza virus vaccine, live 2004 [id number] 111 Medimmune Inc comple t ed influenza virus vaccine, live 02/22/05 Given Ambulat ory Pharmac y influenza virus vaccine, live, attenuated, for intranasal use 1 2004 [id number] 111 MedImmune, Inc. (MED) complet ed influenza virus vaccine, live, attenuate d, for intranasa l use DoD influenza virus vaccine, live 2004 [id number] 111 Medimmune Inc comple t ed influenza virus vaccine, live 06/09/04 Given Ambulat ory Pharmac y influenza virus vaccine, live, attenuated, for intranasal use 0 2004 [id number] 111 MedImmune, Inc. (MED) complet ed influenza virus vaccine, live, attenuate d, for intranasa l use [facility] tuberculin purified protein derivative 2002 zzLef t Arm [id number] 96 sanofi pasteur complet ed Patient Tolerance : Negative Ambulat ory Pharmac y tuberculin skin test; purified protein derivative solution, intradermal 1 2002 Unknown, Provider [id number] 96 Sanofi Pasteur (PMC) complet ed tuberculi n skin test; purified protein derivativ e solution, intraderm al [facility] influenza virus vaccine, whole virus 2002 [id number] 16 [employer] complet ed influenza virus vaccine, whole virus 03/09/03 Given Ambulat ory Pharmac y influenza virus vaccine, whole virus 0 2002 [id number] 16 [employer] (PWJ) complet ed influenza virus vaccine, whole virus DoD tuberculin purified protein derivative 2001 zzLef t Arm [id number] 96 sanofi pasteur complet ed Patient Tolerance : Negative Ambulat ory Pharmac y tuberculin skin test; purified protein derivative solution, intradermal 1 2001 Unknown, Provider [id number] 96 Sanofi Pasteur (PMC) complet ed tuberculi n skin test; purified protein derivativ e solution, intraderm al DoD influenza virus vaccine, whole virus 2001 [id number] 16 [facility] complet ed influenza virus vaccine, whole virus 04/03/02 Given Ambulat ory Pharmac y influenza virus vaccine, whole virus 0 2001 [id number] 16 [facility] ([facility]) complet ed influenza virus vaccine, whole virus [facility] Ecuadorean Encephalitis vaccine, RI 2001 [id number] 39 sanofi pasteur complet ed Ecuadorean Encephali tis vaccine, RI 08/30/01 Given Ambulat ory Pharmac y Ecuadorean Encephalitis Vaccine RI 3 2001 [id number] 39 Sanofi Pasteur (PMC) complet ed Ecuadorean Encephali tis Vaccine [facility] Ecuadorean Encephalitis vaccine, RI 2001 [id number] 39 sanofi pasteur complet ed Ecuadorean Encephali tis vaccine, RI 08/23/01 Given Ambulat ory Pharmac y Ecuadorean Encephalitis Vaccine RI 2 2001 [id number] 39 Sanofi Pasteur (PMC) complet ed Ecuad[place] Encephali tis Vaccine [facility] Ecuadorean Encephalitis vaccine, RI 2001 [id number] 39 sanofi pasteur complet ed Ecuadorean Encephali tis vaccine, RI 08/16/01 Given Ambulat ory Pharmac y Ecuadorean Encephalitis Vaccine RI 1 2001 [id number] 39 Sanofi Pasteur (PMC) complet ed Ecu[place] Encephali tis Vaccine [facility] influenza virus vaccine, whole virus 2001 [id number] 16 sanofi pasteur complet ed influenza virus vaccine, whole virus 05/29/01 Given Ambulat ory Pharmac y influenza virus vaccine, whole virus 0 2001 [id number] 16 Sanofi Pasteur (PMC) complet ed influenza virus vaccine, whole virus DoD tuberculin purified protein derivative 2000 [id number] 96 [facility] complet ed Patient Tolerance : Negative Ambulat ory Pharmac y tuberculin skin test; purified protein derivative solution, intradermal 1 2000 Unknown, Provider [id number] 96 [facility] (CON) complet ed tuberculi n skin test; purified protein derivativ e solution, intraderm al DoD influenza virus vaccine, whole virus 1999 [id number] 16 [facility] complet ed influenza virus vaccine, whole virus 04/16/00 Given Ambulat ory Pharmac y influenza virus vaccine, whole virus 0 1999 [id number] 16 [facility] (CON) complet ed influenza virus vaccine, whole virus DoD anthrax vaccine 1998 [id number] 24 [employer] complet ed anthrax vaccine 04/11/99 Given Ambulat ory Pharmac y anthrax vaccine 5 1998 [id number] 24 [facility] complet ed anthrax vaccine DoD influenza virus vaccine, whole virus 1998 [id number] 16 [facility] complet ed influenza virus vaccine, whole virus 03/28/99 Given Ambulat ory Pharmac y influenza virus vaccine, whole virus 0 1998 [id number] 16 [facility] (CON) complet ed influenza virus vaccine, whole virus DoD tuberculin purified protein derivative 1998 [id number] 96 [facility] complet ed Patient Tolerance : Negative Ambulat ory Pharmac y tuberculin skin test; purified protein derivative solution, intradermal 1 1998 Unknown, Provider [id number] 96 [facility] complet ed tuberculi n skin test; purified protein derivativ e solution, intraderm al DoD anthrax vaccine 1998 [id number] 24 [employer] complet ed anthrax vaccine 10/05/98 Given Ambulat ory Pharmac y tuberculin purified protein derivative 1998 [id number] 96 [facility] complet ed tuberculi n purified protein derivativ e 10/05/98 Given Ambulat ory Pharmac y anthrax vaccine 4 1998 [id number] 24 [facility] complet ed anthrax vaccine DoD anthrax vaccine 1997 [id number] 24 [employer] complet ed anthrax vaccine 03/26/98 Given Ambulat ory Pharmac y influenza virus vaccine, whole virus [id number] 16 P[employer] complet ed influenza virus vaccine, whole virus 03/26/98 Given Ambulat ory Pharmac y influenza virus vaccine, whole virus 0 [id number] 16 [employer] (Inactive) ([place]) complet ed influenza virus vaccine, whole virus DoD anthrax vaccine 3 1997 [id number] 24 [employer] ([facility]) complet ed anthrax vaccine DoD anthrax vaccine 1997 [id number] 24 [employer] complet ed anthrax vaccine 03/05/98 Given Ambulat ory Pharmac y anthrax vaccine 2 1997 [id number] 24 [employer] [place] (MIP) complet ed anthrax vaccine DoD anthrax vaccine 1997 [id number] 24 [employer] complet ed anthrax vaccine 02/19/98 Given Ambulat ory Pharmac y anthrax vaccine 1 1997 [id number] 24 [employer] [place] ([facility]) complet ed anthrax vaccine DoD meningococcal polysaccharid e (MPSV4) [id number] 32 [facility] complet ed meningoco ccal polysacch aride (MPSV4) 11/23/97 Given Ambulat ory Pharmac y typhoid vaccine, live, oral 1997 [id number] 25 [employer] complet ed typhoid vaccine, live, oral 11/23/97 Given Ambulat ory Pharmac y typhoid vaccine, live, oral 0 1997 [id number] 25 [facility] ([place]) complet ed typhoid vaccine, live, oral DoD meningococcal polysaccharid e vaccine (MPSV4) 0 [id number] 32 [facility] (CON) complet ed meningoco ccal polysacch aride vaccine (MPSV4) DoD tuberculin purified protein derivative 1997 596 96 [facility] complet ed Patient Tolerance : Negative Ambulat ory Pharmac y tetanus-dipht h toxoids (Td) adult/adol 1997 09 complet ed tetanus-d iphth toxoids (Td) adult/ado l 09/21/97 Given Ambulat ory Pharmac y tetanus and diphtheria toxoids, adsorbed, preservative free, for adult use (2 Lf of tetanus toxoid and 2 Lf of diphtheria toxoid) 0 1997 09 () complet ed tetanus and diphtheri a toxoids, adsorbed, preservat frandy free, for adult use (2 Lf of tetanus toxoid and 2 Lf of diphtheri a toxoid) DoD tuberculin skin test; purified protein derivative solution, intradermal 1 1997 Unknown, Provider [id number] 96 [place] ([place]) complet ed tuberculi n skin test; purified protein derivativ e solution, intraderm al DoD influenza virus vaccine, whole virus [id number] 16 [employer] complet ed influenza virus vaccine, whole virus 03/16/97 Given Ambulat ory Pharmac y influenza virus vaccine, whole virus 0 19962352 [id number] 16 [employer] (Inactive) ([place]) complet ed influenza virus vaccine, whole virus DoD hepatitis A adult vaccine 19958150 [id number] 52 [employer] complet ed hepatitis A adult vaccine 10/03/95 Given Ambulat ory Pharmac y hepatitis A vaccine, adult dosage 2 19957096 [id number] 52 [employer] (Inactive) ([place]) complet ed hepatitis A vaccine, adult dosage DoD yellow fever vaccine 19941837 [id number] 37 P[employer] complet ed yellow fever vaccine 10/22/94 Given Ambulat ory Pharmac y yellow fever vaccine 0 19947690 [id number] 37 [employer] (Inactive) ([place]) complet ed yellow fever vaccine DoD yellow fever vaccine 19943534 [id number] 37 [employer] complet ed yellow fever vaccine 05/24/94 Given Ambulat ory Pharmac y yellow fever vaccine 0 19948399 [id number] 37 [place] (CON) complet ed yellow fever vaccine DoD measles/mumps /rubella virus vaccine 1989 03 complet ed measles/m umps/rube lla virus vaccine 10/04/89 Given Ambulat ory Pharmac y measles, mumps and rubella virus vaccine 0 1989 03 () complet ed measles, mumps and rubella virus vaccine DoD tetanus-dipht h toxoids (Td) adult/adol 1985 09 complet ed tetanus-d iphth toxoids (Td) adult/ado l 02/09/86 Given Ambulat ory Pharmac y tetanus and diphtheria toxoids, adsorbed, preservative free, for adult use (2 Lf of tetanus toxoid and 2 Lf of diphtheria toxoid) 0 1985 09 () complet ed tetanus and diphtheri a toxoids, adsorbed, preservat frandy free, for adult use (2 Lf of tetanus toxoid and 2 Lf of diphtheri a toxoid) DoD poliovirus vaccine, live, oral 1983 02 complet ed polioviru s vaccine, live, oral 08/20/83 Given Ambulat ory Pharmac y trivalent poliovirus vaccine, live, oral 0 1983 02 () complet ed trivalent polioviru s vaccine, live, oral DoD Results Combined list of recent chemistry, hematology and other laboratory results from [facility], ranging from 15 months to all on record, depending upon the facility. Order Name Results Value Reference Range Date Interpretation Specimen Comments Source Hematology Baso Absolute 0.0 x10^3/ mcL 0.0 - 0.1103 10/01 N 005-[address] [place] [address] Hematology Eosinophil % Auto 4 % 0 - 5 10/01 N 0055A-[address] [place] [address] Hematology Eos Absolute 0.3 x10^3/ mcL 0.0 - 0.7103 10/01 N 0055A-[address] [place] [address] Hematology Monocyte % Auto 8 % 1 - 12 10/01 N 0055A-[address] [place] [address] Hematology Moody Absolute 0.6 x10^3/ mcL 0.2 - 0.8103 10/01 N 0055A-[address] [place] [address] Hematology Basophil % Auto 0.5 % 0.0 - 2.5 10/01 N 0055A-[address] [place] [address] Hematology Neutro Absolute 4.0 x10^3/ mcL 2.0 - 7.0103 10/01 N 0055A-[address] [place] [address] Hematology Lymphocyte % Auto 32 % 20 - 40 10/01 N 0055A-[address] [place] [address] Hematology Lymph Absolute 2.3 x10^3/ mcL 1.2 - 4.0103 10/01 N 0055A-[address] [place] [address] Hematology Neutrophil % Auto 55 % 46 - 77 10/01 N 0055A-[address] [place] [address] Chemistry Hemoglobin A1c 6.9 % 4.0 - 5.6 10/01 H Interpretive Data: Normal: 4.0 - 5.6% Increased Risk: 5.7 - 6.4% Diabetic Range: 6.5% For patients without diabetes, the normal range for the hemoglobin A1c test is between 4% and 5.6%. Hemoglobin A1c levels between 5.7% and 6.4% indicate increased risk of diabetes, and levels of 6.5% or higher indicate diabetes. Because studies have repeatedly shown that [id number] ol diabetes results in complication s from the disease, the goal for people with diabetes is a hemoglobin A1c less than 7%. The higher the hemoglobin A1c, the higher the risks of developing complication s related to diabetes. If confirmation is needed, consider recalling the patient and ordering Hemoglobin Electrophore sis. [address] [place] [address] Chemistry eAvg Glucose 151 mg/dL 10/[address] [place] [address] Chemistry HDL Cholesterol 38 mg/dL 40 - 59 10/01 L Interpretive Data: HDL (HIGH DENSITY LIPOPROTEIN) : ADULTS: Low: < 40 mg/dL High: >/= 60 mg/dL AGES 0 -19: Low: < 40 mg/dL Borderline Low: 40 - 45 mg/dL Acceptable: > 45 mg/dL [address] [place] [address] Chemistry LDL 66 mg/dL 100 - 130 10/01 L Interpretive Data: AGES 0-19: Desirable: < 110 mg/dL Borderline High: 110-129 mg/dL High: >/= 130 mg/dL ADULTS: Desirable: <100 mg/dL Near/above optimal: 100-130 mg/dL Borderline High: 131-159 mg/dL High: 160-189 mg/dL Very High: 190 mg/dL [address] [place] [address] Chemistry LDL/HDL 2 10/[address] [place] [address] Chemistry Triglycerid es 131 mg/dL 7 - 149 10/01 N Interpretive Data: AGES 0-9: Desirable: < 75 mg/dL Borderline High: 75-99 mg/dL High: >/= 100 mg/dL AGES 10-19: Desirable: < 90 mg/dL Borderline High: 90-129 mg/dL High: >/= 130 mg/dL ADULTS: Desirable: < 150 mg/dL Borderline High: 150-199 mg/dL High: >/= 240 mg/dL Very High: >/= 500 mg/dL [address] [place] [address] Chemistry Chol/HDL 3 mg/dL 10/[address] [place] [address] Chemistry Cholesterol Total 114 mg/dL 10/01 N Interpretive Data: According to the [place]: AGES 0-19: Desirable: < 170 mg/dL Borderline High: 170-199 mg/dL High Blood Cholesterol: >/= 200 mg/dL ADULTS: Desirable < 200 mg/dL Borderline High: 200-239 mg/dL High Blood Cholesterol: >/= 240 mg/dL [address] [place] [address] Hematology WBC 7.3 x10^3/ mcL 4.0 - 11.0103 10/01 N - [address] [place] [address] Hematology MCH 33 pg 28 - 33 10/01 N - [address] [place] [address] Hematology MCV 93 fL 80 - 97 10/01 N -[address] [place] [address] Hematology RDW 11.8 % 11.0 - 14.9 10/01 N -[address] [place] [address] Hematology Platelets 232 x10^3/ mcL 150 - [id number] 10/01 N -[address] [place] [address] Hematology MCHC 35.2 g/dL 33.0 - 36.5 10/01 N -[address] [place] [address] Hematology Differentia l? Auto ( 7:49 AM) 10/01 N -[address] [place] [address] Hematology MPV 9.2 fL 7.4 - 10.4 10/01 N -[address] [place] [address] Hematology Hematocrit 41 % 40 - 49 10/01 N -[address] [place] [address] Hematology Hemoglobin 14.3 g/dL 13.0 - 16.3 10/01 N -[address] [place] [address] RBC 4.4 x10^6/ mcL 4.0 - 5.6106 10/01 N -[address] [place] [address] Chemistry Potassium Lvl 4.3 mmol/L 3.5 - 5.1 10/01 N 0055A-[address] [place] [address] Chemistry Sodium 138 mmol/L 136 - 145 10/01 N 0055A-[address] [place] [address] Chemistry Creatinine Level 0.68 mg/dL 0.72 - 1.25 10/01 L 5A-[address] [place] [address] Chemistry Glucose Lvl 162 mg/dL 74 - 99 10/01 H 5A-[address] [place] [address] Chemistry Chloride 99 mmol/L 98 - 107 10/01 N 0055A-[address] [place] [address] Chemistry CO2 28 mmol/L 22 - 29 10/01 N 5A-[address] [place] [address] Chemistry Calcium 9.3 mg/dL 8.4 - 10.2 10/01 N -[address] [place] [address] Chemistry Protein Total 6.9 g/dL 6.4 - 8.3 10/01 N 5A-[address] [place] [address] Chemistry Bilirubin Total 0.7 mg/dL 0.2 - 1.2 10/01 N 0055A-[address] [place] [address] Chemistry BUN 8 mg/dL 8 - 26 10/01 N 5A-[address] [place] [address] Chemistry BUN/Creat Ratio 12 mg/dL 12 - 20 10/01 N 5A-[address] [place] [address] Chemistry AST 26 U/L 5 - 34 10/01 N 5A-[address] [place] [address] Chemistry ALT 27 U/L 5 - 55 10/01 N 0055A-[address] [place] [address] Chemistry Alk Phos 61 U/L 40 - 150 10/01 N 0055A-[address] [place] [address] Chemistry Albumin 4.10 g/dL 3.50 - 5.20 10/01 N 0055A-[address] [place] [address] Chemistry AGAP 11.00 0.00 - 15.00 10/01 N 0055A-[address] [place] [address] Chemistry eGFR CKD EPI 106 mL/min /1.73_ m2 10/01 Interpretive Data: Estimated Glomerular Filtration Rate (eGFR) calculated using the 2020 Chronic Kidney Disease-Epid emiology (CKD-EPI) Collaboratio n creatinine equation; units of measure are mL/min/1.73 m2. Results are only valid for adults (>=18 years) whose serum creatinine is in steady state. eGFR calculations are not valid for patients with acute kidney injury and for patients on dialysis. Creatinine-b ased estimates of kidney function may also be inaccurate in patients with reduced creatinine generation due to decreased muscle mass (e.g., malnutrition , severe hypoalbumine candice, sarcopenia, chronic neuromuscula r disease, amputations, severe heart failure or liver disease) and in patients with increased creatinine generation due to increased muscle mass (e.g., muscle builders, anabolic steroids) or increased dietary intake. CKD is diagnosed based on abnormalitie s of kidney structure or function, present for >3 months, with implications for health and disease. CKD is classified and staged based on cause, eGFR and albuminuria (quantified as urine albumin to creatinine ratio). An eGFR >60 mL/min/1.73 m2 in the absence of increased urine albumin excretion or structural abnormalitie s does not CKD. eGFR provides only an estimate of measured GFR within +/- 30% for most patients. As mentioned, nutritional status and muscle mass, among many factors, may lead to inaccuracy in the estimate. Consider ordering the creatinine-c ystatin C panel if better accuracy is needed for clinical decision-oz ing. eGFR (mL/min/1.73 m2) CKD stage Interpretati on Normal 60-89 Mild decrease 45-59 Mild to moderate decrease 30-44 Moderate to severe decrease 15-29 Severe decrease <15 Kidney failure -[address] [place] [address] Neutrophil % Auto 57.6 % 46.0 - 77.0 06/26 N -[address] [place] [address] Hematology Baso Absolute 0.0 x10^3/ mcL 0.0 - 0.1103 06/26 N -[address] [place] [address] Hematology Basophil % Auto 0.6 % 0.0 - 2.5 06/26 N - [address] [place] [address] Hematology Eosinophil % Auto 3 % 0 - 5 06/26 N -[address] [place] [address] Eos Absolute 0.3 x10^3/ mcL 0.0 - 0.7103 06/[address] [place] [address] Hematology Moody Absolute 0.6 x10^3/ mcL 0.2 - 0.8103 06/26 N 0055A-[address] [place] [address]- [facility] Neutro Absolute 4.8 x10^3/ mcL 2.0 - 7.0103 06/26 N 0055A-[address] [place] [address] Hematology Monocyte % Auto 7 % 1 - 12 06/26 N 0055A-[address] [place] [address]- [facility] Lymph Absolute 2.6 x10^3/ mcL 1.2 - 4.0103 06/26 N 005-[address] [place] [address]- [facility] Lymphocyte % Auto 31.2 % 20.0 - 40.0 06/26 N 0055A-[address] [place] [address]- [facility] Chemistry BUN/Creat Ratio 13 mg/dL 12 - 20 06/26 N 005-[address] [place] [address] Chemistry Bilirubin Total 0.9 mg/dL 0.2 - 1.2 06/26 N 0055A-[address] [place] [address]- [facility] Chemistry BUN 9 mg/dL 8 - 26 06/26 N 0055A-[address] [place] [address] Chemistry AST 33 U/L 5 - 34 06/26 N 0055A-[address] [place] [address]- [facility] Chemistry Albumin 4.40 g/dL 3.50 - 5.20 06/26 N 0055A-[address] [place] [address]- [facility] Chemistry AGAP 8.00 0.00 - 15.00 06/26 N 0055A-[address] [place] [address]- [facility] Chemistry ALT 41 U/L 5 - 55 06/26 N 0055A-[address] [place] [address] Chemistry Alk Phos 61 U/L 40 - 150 06/26 N 0055A-[address] [place] [address]- [facility] Chemistry Calcium 9.5 mg/dL 8.4 - 10.2 06/26 N 0055A-[address] [place] [address]- [facility] Chloride 98 mmol/L 98 - 107 06/26 N 0055A-[address] [place] [address]- [facility] Protein Total 7.7 g/dL 6.4 - 8.3 06/26 N 0055A-[address] [place] [address]- [facility] Chemistry Sodium 132 mmol/L 136 - 145 06/26 L 5A-[address] [place] [address]- [facility] Potassium Lvl 4.2 mmol/L 3.5 - 5.1 06/[address] [place] [address] Chemistry Glucose Lvl 180 mg/dL 74 - 99 06/[address] [place] [address] Chemistry Creatinine Level 0.70 mg/dL 0.72 - 1.25 06/[address] [place] [address] Chemistry CO2 26 mmol/L 22 - 29 06/[address] [place] [address] Chemistry Hemoglobin A1c 7.2 % 4.0 - 5.6 06/26 H Interpretive Data: Normal: 4.0 - 5.6% Increased Risk: 5.7 - 6.4% Diabetic Range: 6.5% For patients without diabetes, the normal range for the hemoglobin A1c test is between 4% and 5.6%. Hemoglobin A1c levels between 5.7% and 6.4% indicate increased risk of diabetes, and levels of 6.5% or higher indicate diabetes. Because studies have repeatedly shown that zio-ap-uvkbg ol diabetes results in complication s from the disease, the goal for people with diabetes is a hemoglobin A1c less than 7%. The higher the hemoglobin A1c, the higher the risks of developing complication s related to diabetes. If confirmation is needed, consider recalling the patient and ordering Hemoglobin Electrophore sis. [address] [place] [address] Chemistry eAvg Glucose 160 mg/dL 06/[address] [place] [address] Chemistry LDL 60 mg/dL 100 - 130 06/26 L Interpretive Data: AGES 0-19: Desirable: < 110 mg/dL Borderline High: 110-129 mg/dL High: >/= 130 mg/dL ADULTS: Desirable: <100 mg/dL Near/above optimal: 100-130 mg/dL Borderline High: 131-159 mg/dL High: 160-189 mg/dL Very High: 190 mg/dL [address] [place] [address] Chemistry HDL Cholesterol 38 mg/dL 40 - 59 06/26 L Interpretive Data: HDL (HIGH DENSITY LIPOPROTEIN) : ADULTS: Low: < 40 mg/dL High: >/= 60 mg/dL AGES 0 -19: Low: < 40 mg/dL Borderline Low: 40 - 45 mg/dL Acceptable: > 45 mg/dL [address] [place] [address] Chemistry Triglycerid es 156 mg/dL 7 - 149 06/26 H Interpretive Data: AGES 0-9: Desirable: < 75 mg/dL Borderline High: 75-99 mg/dL High: >/= 100 mg/dL AGES 10-19: Desirable: < 90 mg/dL Borderline High: 90-129 mg/dL High: >/= 130 mg/dL ADULTS: Desirable: < 150 mg/dL Borderline High: 150-199 mg/dL High: >/= 240 mg/dL Very High: >/= 500 mg/dL [address] [place] [address] Chemistry LDL/HDL 2 06/[address] [place] [address] Chemistry Cholesterol Total 96 mg/dL 06/26 N Interpretive Data: According to the [employer]: AGES 0-19: Desirable: < 170 mg/dL Borderline High: 170-199 mg/dL High Blood Cholesterol: >/= 200 mg/dL ADULTS: Desirable < 200 mg/dL Borderline High: 200-239 mg/dL High Blood Cholesterol: >/= 240 mg/dL [address] [place] [address] Chemistry Chol/HDL 3 mg/dL 06/[address] [place] [address] Hematocrit 40 % 40 - 49 06/26 N - [address] [place] [address] Hematology Hemoglobin 14.2 g/dL 13.0 - 16.3 06/[address] [place] [address] Hematology MCH 32 pg 28 - 33 06/26 N [address] [place] [address] Hematology WBC 8.2 x10^3/ mcL 4.0 - 11.0103 06/26 N -[address] [place] [address] Hematology RDW 11.9 % 11.0 - 14.9 06/26 N - [address] [place] [address] Hematology Platelets 208.0 x10^3/ mcL 150.0 - 450.0103 06/26 N -[address] [place] [address] Hematology MPV 8.6 fL 7.4 - 10.4 06/[address] [place] [address] Hematology RBC 4.4 x10^6/ mcL 4.0 - 5.6106 06/26 N - [address] [place] [address] Hematology MCV 92 fL 80 - 97 06/[address] [place] [address] Hematology MCHC 35.2 g/dL 33.0 - 36.5 06/[address] [place] [address] Chemistry eGFR CKD EPI 106 mL/min /1.73_ m2 06/26 Interpretive Data: Estimated Glomerular Filtration Rate (eGFR) calculated using the 2020 Chronic Kidney Disease-Epid emiology (CKD-EPI) Collaboratio n creatinine equation; units of measure are mL/min/1.73 m2. Results are only valid for adults (>=18 years) whose serum creatinine is in steady state. eGFR calculations are not valid for patients with acute kidney injury and for patients on dialysis. Creatinine-b ased estimates of kidney function may also be inaccurate in patients with reduced creatinine generation due to decreased muscle mass (e.g., malnutrition , severe hypoalbumine candice, sarcopenia, chronic neuromuscula r disease, amputations, severe heart failure or liver disease) and in patients with increased creatinine generation due to increased muscle mass (e.g., muscle builders, anabolic steroids) or increased dietary intake. CKD is diagnosed based on abnormalitie s of kidney structure or function, present for >3 months, with implications for health and disease. CKD is classified and staged based on cause, eGFR and albuminuria (quantified as urine albumin to creatinine ratio). An eGFR >60 mL/min/1.73 m2 in the absence of increased urine albumin excretion or structural abnormalitie s does not CKD. eGFR provides only an estimate of measured GFR within +/- 30% for most patients. As mentioned, nutritional status and muscle mass, among many factors, may lead to inaccuracy in the estimate. Consider ordering the creatinine-c ystatin C panel if better accuracy is needed for clinical decision-oz ing. eGFR (mL/min/1.73 m2) CKD stage Interpretati on Normal 60-89 Mild decrease 45-59 Mild to moderate decrease 30-44 Moderate to severe decrease 15-29 Severe decrease <15 Kidney failure [facility] Chemistry Prostate Specific Ag LC 0.4 ng/mL 0.0 - 4.0 06/26 Result Comment: David ECLIA methodology. According to the [place] [employer], Serum PSA should decrease and remain at undetectable levels after radical prostatectom y. The AUA defines biochemical recurrence as an initial PSA value 0.2 ng/mL or greater followed by a subsequent confirmatory PSA value 0.2 ng/mL or greater. Values obtained with different assay methods or kits cannot be used interchangea [place]ville. Results cannot be interpreted as absolute evidence of the presence or absence of malignant disease. [facility] % Free PSA LC 40.0 % 06/26 Result Comment: The table below lists the probability of prostate cancer for men with non-suspicio us BURKE results and total PSA between 4 and 10 ng/mL, by patient age (Estrella et al, LESLY 1998, 279:1542). % Free PSA 50-64 yr 65-75 yr 0.00-10.00% 56% 55% 10.01-15.00% 24% 35% 15.01-20.00% 17% 23% 20.01-25.00% 10% 20% >25.00% 5% 9% Please note: Estrella et al did not make specific recommendati ons regarding the use of percent free PSA for any other population of men. Performed At: [address] [id number] Carolynn Olvera PhD Ph:[phone] [facility] PSA Free LC 0.16 ng/mL N/A 06/26 Result Comment: David ECLIA methodology. [address] [place], [place] [id number] Ur Microalb/Ur Creat Ratio TNP 01/07 Result Comment: Result out of detectable range of analyzer, calculation can not be performed.// [facility] Ur Creat 52 mg/dL 01/[address] [place], [place] [address] Ur Microalbumi n <5 mg/L 01/07 N Result Comment: Below detectable range of analyzer.//K MB Interpretive Data: To minimize intra-indivi dual variation, analysis of three random urine samples collected over the course of a week has also been recommended. [facility] eAvg Glucose 140 mg/dL 01/[address] [place] [address] Chemistry Hemoglobin A1c 6.5 % 4.0 - 5.6 01/07 H Interpretive Data: Normal: 4.0 - 5.6% Increased Risk: 5.7 - 6.4% Diabetic Range: 6.5% For patients without diabetes, the normal range for the hemoglobin A1c test is between 4% and 5.6%. Hemoglobin A1c levels between 5.7% and 6.4% indicate increased risk of diabetes, and levels of 6.5% or higher indicate diabetes. Because studies have repeatedly shown that gmc-mh-pbvab ol diabetes results in complication s from the disease, the goal for people with diabetes is a hemoglobin A1c less than 7%. The higher the hemoglobin A1c, the higher the risks of developing complication s related to diabetes. If confirmation is needed, consider recalling the patient and ordering Hemoglobin Electrophore sis. [address] [place] [address] Chemistry Triglycerid es 156 mg/dL 7 - 149 01/07 H Interpretive Data: AGES 0-9: Desirable: < 75 mg/dL Borderline High: 75-99 mg/dL High: >/= 100 mg/dL AGES 10-19: Desirable: < 90 mg/dL Borderline High: 90-129 mg/dL High: >/= 130 mg/dL ADULTS: Desirable: < 150 mg/dL Borderline High: 150-199 mg/dL High: >/= 240 mg/dL Very High: >/= 500 mg/dL [address] [place] [address] [facility] LDL/HDL 2 01/[address] [place] [address] Chemistry LDL 63 mg/dL 100 - 130 01/07 L Interpretive Data: AGES 0-19: Desirable: < 110 mg/dL Borderline High: 110-129 mg/dL High: >/= 130 mg/dL ADULTS: Desirable: <100 mg/dL Near/above optimal: 100-130 mg/dL Borderline High: 131-159 mg/dL High: 160-189 mg/dL Very High: 190 mg/dL [address] [place] [address] [facility] HDL Cholesterol 40 mg/dL 40 - 59 01/07 N Interpretive Data: HDL (HIGH DENSITY LIPOPROTEIN) : ADULTS: Low: < 40 mg/dL High: >/= 60 mg/dL AGES 0 -19: Low: < 40 mg/dL Borderline Low: 40 - 45 mg/dL Acceptable: > 45 mg/dL [address] [place] [address]- [facility] Chemistry Cholesterol Total 118 mg/dL 01/07 N Interpretive Data: According to the [employer]: AGES 0-19: Desirable: < 170 mg/dL Borderline High: 170-199 mg/dL High Blood Cholesterol: >/= 200 mg/dL ADULTS: Desirable < 200 mg/dL Borderline High: 200-239 mg/dL High Blood Cholesterol: >/= 240 mg/dL [address] [place] [address]- [facility] Chemistry Chol/HDL 3 mg/dL 01/07-[address] [place] [address] Chemistry Creatinine Level 0.80 mg/dL 0.72 - 1.25 01/07 N -[address] [place] [address] Chemistry Protein Total 7.1 g/dL 6.4 - 8.3 01/07 N -[address] [place] [address] Chemistry Sodium 135 mmol/L 136 - 145 01/07 L -[address] [place] [address] Chemistry Potassium Lvl 4.2 mmol/L 3.5 - 5.1 01/07 N -[address] [place] [address] Chemistry Glucose Lvl 151 mg/dL 74 - 99 01/07 H -[address] [place] [address] Chemistry BUN/Creat Ratio 12 mg/dL 12 - 20 01/07 N -[address] [place] [address] Chemistry BUN 10 mg/dL 8 - 26 01/07 N 5A-[address] [place] [address] Chemistry CO2 26 mmol/L 22 - 29 01/07 N 5A-[address] [place] [address] Chemistry Chloride 99 mmol/L 98 - 107 01/07 N 5A-[address] [place] [address] Chemistry Calcium 9.6 mg/dL 8.4 - 10.2 01/07 N 5A-[address] [place] [address] Chemistry Alk Phos 60 U/L 40 - 150 01/07 N 0055A-[address] [place] [address] Chemistry Albumin 4.20 g/dL 3.50 - 5.20 01/07 N 5A-[address] [place] [address] Chemistry AGAP 10.00 0.00 - 15.00 01/[address] [place] [address] Chemistry Bilirubin Total 0.8 mg/dL 0.2 - 1.2 01/[address] [place] [address] Chemistry AST 21 U/L 5 - 34 01/[address] [place] [address] Chemistry ALT 25 U/L 5 - 55 01/[address] [place] [address] Chemistry eGFR CKD EPI 102 mL/min /1.73_ m2 01/07 Interpretive Data: Estimated Glomerular Filtration Rate (eGFR) calculated using the 2020 Chronic Kidney Disease-Epid emiology (CKD-EPI) Collaboratio n creatinine equation; units of measure are mL/min/1.73 m2. Results are only valid for adults (>=18 years) whose serum creatinine is in steady state. eGFR calculations are not valid for patients with acute kidney injury and for patients on dialysis. Creatinine-b ased estimates of kidney function may also be inaccurate in patients with reduced creatinine generation due to decreased muscle mass (e.g., malnutrition , severe hypoalbumine candice, sarcopenia, chronic neuromuscula r disease, amputations, severe heart failure or liver disease) and in patients with increased creatinine generation due to increased muscle mass (e.g., muscle builders, anabolic steroids) or increased dietary intake. CKD is diagnosed based on abnormalitie s of kidney structure or function, present for >3 months, with implications for health and disease. CKD is classified and staged based on cause, eGFR and albuminuria (quantified as urine albumin to creatinine ratio). An eGFR >60 mL/min/1.73 m2 in the absence of increased urine albumin excretion or structural abnormalitie s does not CKD. eGFR provides only an estimate of measured GFR within +/- 30% for most patients. As mentioned, nutritional status and muscle mass, among many factors, may lead to inaccuracy in the estimate. Consider ordering the creatinine-c ystatin C panel if better accuracy is needed for clinical decision-oz ing. eGFR (mL/min/1.73 m2) CKD stage Interpretati on Normal 60-89 Mild decrease 45-59 Mild to moderate decrease 30-44 Moderate to severe decrease 15-29 Severe decrease <15 Kidney failure - [address] [place] [address] Chemistry Glucose Lvl 154 mg/dL 74 - 99 10/[address] [place] [address] Chemistry Creatinine Level 0.80 mg/dL 0.72 - 1.25 10/29 N 0055A-[address] [place] [address] Chemistry AGAP 9.00 0.00 - 15.00 10/29 N 0055A-[address] [place] [address] Chemistry Potassium Lvl 4.3 mmol/L 3.5 - 5.1 10/29 N 0055A-[address] [place] [address] Chemistry Protein Total 6.7 g/dL 6.4 - 8.3 10/29 N 0055A-[address] [place] [address] Chemistry Sodium 136 mmol/L 136 - 145 10/29 N 5A-[address] [place] [address] Chemistry Albumin 4.20 g/dL 3.50 - 5.20 10/29 N 5A-[address] [place] [address] Chemistry Bilirubin Total 0.7 mg/dL 0.2 - 1.2 10/29 N 5A-[address] [place] [address] Chemistry AST 20 U/L 5 - 34 10/29 N 0055A-[address] [place] [address] Chemistry ALT 24 U/L 5 - 55 10/29 N 5A-[address] [place] [address] Chemistry Alk Phos 57 U/L 40 - 150 10/29 N 0055A-[address] [place] [address] Chemistry BUN/Creat Ratio 15 mg/dL 12 - 20 10/29 N 0055A-[address] [place] [address] Chemistry BUN 12 mg/dL 8 - 26 10/29 N 0055A-[address] [place] [address] Chemistry Calcium 9.2 mg/dL 8.4 - 10.2 10/29 N 0055A-[address] [place] [address] Chemistry Chloride 100 mmol/L 98 - 107 10/29 N 0055A-[address] [place] [address] Chemistry CO2 27 mmol/L 22 - 29 10/29 N 0055A-[address] [place] [address] Chemistry Ur Microalbumi n <5 mg/L 10/29 N Result Comment: Below detectable range of analyzer. Interpretive Data: To minimize intra-indivi dual variation, analysis of three random urine samples collected over the course of a week has also been recommended. 0055A-[address] [place] [address] Chemistry Hemoglobin A1c 6.8 % 4.0 - 5.6 10/29 H Interpretive Data: Normal: 4.0 - 5.6% Increased Risk: 5.7 - 6.4% Diabetic Range: 6.5% For patients without diabetes, the normal range for the hemoglobin A1c test is between 4% and 5.6%. Hemoglobin A1c levels between 5.7% and 6.4% indicate increased risk of diabetes, and levels of 6.5% or higher indicate diabetes. Because studies have repeatedly shown that zcf-ue-shvaz ol diabetes results in complication s from the disease, the goal for people with diabetes is a hemoglobin A1c less than 7%. The higher the hemoglobin A1c, the higher the risks of developing complication s related to diabetes. If confirmation is needed, consider recalling the patient and ordering Hemoglobin Electrophore sis. [address] [place] [address] Chemistry eAvg Glucose 148 mg/dL 10/[address] [place] [address] Chemistry Chol/HDL 3 mg/dL 10/[address] [place] [address] Chemistry HDL Cholesterol 36 mg/dL 40 - 59 10/29 L Interpretive Data: HDL (HIGH DENSITY LIPOPROTEIN) : ADULTS: Low: < 40 mg/dL High: >/= 60 mg/dL AGES 0 -19: Low: < 40 mg/dL Borderline Low: 40 - 45 mg/dL Acceptable: > 45 mg/dL [address] [place] [address] Chemistry Cholesterol Total 114 mg/dL 10/29 N Interpretive Data: According to the [employer]: AGES 0-19: Desirable: < 170 mg/dL Borderline High: 170-199 mg/dL High Blood Cholesterol: >/= 200 mg/dL ADULTS: Desirable < 200 mg/dL Borderline High: 200-239 mg/dL High Blood Cholesterol: >/= 240 mg/dL [address] [place] [address] Chemistry LDL/HDL 2 10/[address] [place] [address] Chemistry LDL 62 mg/dL 100 - 130 10/29 L Interpretive Data: AGES 0-19: Desirable: < 110 mg/dL Borderline High: 110-129 mg/dL High: >/= 130 mg/dL ADULTS: Desirable: <100 mg/dL Near/above optimal: 100-130 mg/dL Borderline High: 131-159 mg/dL High: 160-189 mg/dL Very High: 190 mg/dL [facility] Chemistry Triglycerid es 112 mg/dL 7 - 149 10/29 N Interpretive Data: AGES 0-9: Desirable: < 75 mg/dL Borderline High: 75-99 mg/dL High: >/= 100 mg/dL AGES 10-19: Desirable: < 90 mg/dL Borderline High: 90-129 mg/dL High: >/= 130 mg/dL ADULTS: Desirable: < 150 mg/dL Borderline High: 150-199 mg/dL High: >/= 240 mg/dL Very High: >/= 500 mg/dL [facility] Chemistry eGFR CKD EPI 102 mL/min /1.73_ m2 10/29 Interpretive Data: Estimated Glomerular Filtration Rate (eGFR) calculated using the 2020 Chronic Kidney Disease-Epid emiology (CKD-EPI) Collaboratio n creatinine equation; units of measure are mL/min/1.73 m2. Results are only valid for adults (>=18 years) whose serum creatinine is in steady state. eGFR calculations are not valid for patients with acute kidney injury and for patients on dialysis. Creatinine-b ased estimates of kidney function may also be inaccurate in patients with reduced creatinine generation due to decreased muscle mass (e.g., malnutrition , severe hypoalbumine candice, sarcopenia, chronic neuromuscula r disease, amputations, severe heart failure or liver disease) and in patients with increased creatinine generation due to increased muscle mass (e.g., muscle builders, anabolic steroids) or increased dietary intake. CKD is diagnosed based on abnormalitie s of kidney structure or function, present for >3 months, with implications for health and disease. CKD is classified and staged based on cause, eGFR and albuminuria (quantified as urine albumin to creatinine ratio). An eGFR >60 mL/min/1.73 m2 in the absence of increased urine albumin excretion or structural abnormalitie s does not CKD. eGFR provides only an estimate of measured GFR within +/- 30% for most patients. As mentioned, nutritional status and muscle mass, among many factors, may lead to inaccuracy in the estimate. Consider ordering the creatinine-c ystatin C panel if better accuracy is needed for clinical decision-oz ing. eGFR (mL/min/1.73 m2) CKD stage Interpretati on Normal 60-89 Mild decrease 45-59 Mild to moderate decrease 30-44 Moderate to severe decrease 15-29 Severe decrease <15 Kidney failure 5A-[address] [place] [address] Chemistry eAvg Glucose 137 mg/dL 08/02-[address] [place] [address] Chemistry Hemoglobin A1c 6.4 % 4.0 - 5.6 08/02 H Interpretive Data: Normal: 4.0 - 5.6% Increased Risk: 5.7 - 6.4% Diabetic Range: 6.5% For patients without diabetes, the normal range for the hemoglobin A1c test is between 4% and 5.6%. Hemoglobin A1c levels between 5.7% and 6.4% indicate increased risk of diabetes, and levels of 6.5% or higher indicate diabetes. Because studies have repeatedly shown that cdv-sb-virlu ol diabetes results in complication s from the disease, the goal for people with diabetes is a hemoglobin A1c less than 7%. The higher the hemoglobin A1c, the higher the risks of developing complication s related to diabetes. If confirmation is needed, consider recalling the patient and ordering Hemoglobin Electrophore sis. 0055A-[address] [place] [address] Chemistry AGAP 12.00 0.00 - 15.00 05/01 N 0055A-[address] [place] [address] Chemistry Albumin 4.30 g/dL 3.50 - 5.20 05/01 N 0055A-[address] [place] [address] Chemistry Alk Phos 68 U/L 40 - 150 05/01 N 0055A-[address] [place] [address] Chemistry ALT 36 U/L 5 - 55 05/01 N 0055A-[address] [place] [address] Chemistry AST 32 U/L 5 - 34 05/01 N 0055A-[address] [place] [address] Chemistry Bilirubin Total 0.8 mg/dL 0.2 - 1.2 05/01 N 0055A-[address] [place] [address] Chemistry BUN/Creat Ratio 10 mg/dL 12 - 20 05/01 L 0055A-[address] [place] [address] Chemistry Calcium 9.8 mg/dL 8.4 - 10.2 05/01 N 0055A-[address] [place] [address] Chemistry Chloride 95 mmol/L 98 - 107 05/[address] [place] [address] Chemistry BUN 8 mg/dL 8 - 26 05/[address] [place] [address] Chemistry Glucose Lvl 197 mg/dL 74 - 99 05/[address] [place] [address] Chemistry Potassium Lvl 3.9 mmol/L 3.5 - 5.1 05/[address] [place] [address] Chemistry Sodium 134 mmol/L 136 - 145 05/[address] [place] [address] Chemistry CO2 27 mmol/L 22 - 29 05/[address] [place] [address] Chemistry Creatinine Level 0.80 mg/dL 0.72 - 1.25 05/[address] [place] [address] Chemistry Protein Total 7.4 g/dL 6.4 - 8.3 05/[address] [place] [address] Chemistry % Free PSA LC N/A 05/[address] [place] [address] Chemistry Free PSA LC 0.083 ng/mL 05/01 Result Comment: Reference Range: Probability of prostate cancer based on Total PSA and Percent Free PSA results. Tot.PSA % Free PSA Probability of Cancer <2.0 N/A 1 2.0-4.0 N/A 15 4.1-10.0 0.0-10.0 56 10.1-15.0 28 15.1-20.0 20 20.1-25.0 16 >25.0 8 >10.0 N/A >50 Performed At: [address] [address] [place] [address] [id number] Maciej Dick MD Ph:[phone] [address] [place] [address] Chemistry Prostate Specific Antigen LC 0.441 ng/mL 05/01 Result Comment: This PSA result was determined using the Marco chemiluminom etric immunoassay and values obtained cannot be evaluated interchangea orville with different assay methods or kits. This PSA result alone cannot be interpreted as absolute evidence of the presence or absence of disease. Reference Range: >=40y: 97% of controls are <4.0. PSA levels have been reported to correlate with prostate size. Values >4.0 are common in patients with prostatic hyperplasia. - [facility] [employer] Osmolality. LC 280 mOsm/k g 05/01 Result Comment: Performed At: [address] [id number] Federico Monge MD Ph:[phone] - [facility] [employer] Chemistry eGFR CKD EPI 103 mL/min /1.73_ m2 05/01 Interpretive Data: Estimated Glomerular Filtration Rate (eGFR) calculated using the 2020 Chronic Kidney Disease-Epid emiology (CKD-EPI) Collaboratio n creatinine equation; units of measure are mL/min/1.73 m2. Results are only valid for adults (>=18 years) whose serum creatinine is in steady state. eGFR calculations are not valid for patients with acute kidney injury and for patients on dialysis. Creatinine-b ased estimates of kidney function may also be inaccurate in patients with reduced creatinine generation due to decreased muscle mass (e.g., malnutrition , severe hypoalbumine candice, sarcopenia, chronic neuromuscula r disease, amputations, severe heart failure or liver disease) and in patients with increased creatinine generation due to increased muscle mass (e.g., muscle builders, anabolic steroids) or increased dietary intake. CKD is diagnosed based on abnormalitie s of kidney structure or function, present for >3 months, with implications for health and disease. CKD is classified and staged based on cause, eGFR and albuminuria (quantified as urine albumin to creatinine ratio). An eGFR >60 mL/min/1.73 m2 in the absence of increased urine albumin excretion or structural abnormalitie s does not CKD. eGFR provides only an estimate of measured GFR within +/- 30% for most patients. As mentioned, nutritional status and muscle mass, among many factors, may lead to inaccuracy in the estimate. Consider ordering the creatinine-c ystatin C panel if better accuracy is needed for clinical decision-oz ing. eGFR (mL/min/1.73 m2) CKD stage Interpretati on Normal 60-89 Mild decrease 45-59 Mild to moderate decrease 30-44 Moderate to severe decrease 15-29 Severe decrease <15 Kidney failure 5A-3 75th [facility] Chemistry Hemoglobin A1c 7.6 % 4.0 - 5.6 04/17 H Interpretive Data: Normal: 4.0 - 5.6% Increased Risk: 5.7 - 6.4% Diabetic Range: 6.5% For patients without diabetes, the normal range for the hemoglobin A1c test is between 4% and 5.6%. Hemoglobin A1c levels between 5.7% and 6.4% indicate increased risk of diabetes, and levels of 6.5% or higher indicate diabetes. Because studies have repeatedly shown that doe-nk-hrvah ol diabetes results in complication s from the disease, the goal for people with diabetes is a hemoglobin A1c less than 7%. The higher the hemoglobin A1c, the higher the risks of developing complication s related to diabetes. If confirmation is needed, consider recalling the patient and ordering Hemoglobin Electrophore sis. -[address] [place] [address] Chemistry eAvg Glucose 171 mg/dL 04/[address] [place] [address] Chemistry ALT 27 U/L 5 - 55 04/17 N 0055A-[address] [place] [address] Chemistry Alk Phos 63 U/L 40 - 150 04/17 N 0055A-[address] [place] [address] Chemistry AGAP 11.00 0.00 - 15.00 04/17 N 0055A-[address] [place] [address] Chemistry Albumin 4.20 g/dL 3.50 - 5.20 04/17 N 0055A-[address] [place] [address] Chemistry BUN/Creat Ratio 12 mg/dL 12 - 20 04/17 N 0055A-[address] [place] [address] Chemistry AST 28 U/L 5 - 34 04/17 N 0055A-[address] [place] [address] Chemistry Bilirubin Total 1.0 mg/dL 0.2 - 1.2 04/17 N 0055A-[address] [place] [address] Chemistry BUN 10 mg/dL 8 - 26 04/17 N 0055A-[address] [place] [address] Chemistry Calcium 9.8 mg/dL 8.4 - 10.2 04/17 N 0055A-[address] [place] [address] Chemistry Chloride 95 mmol/L 98 - 107 04/17 L 5A-[address] [place] [address] Chemistry CO2 27 mmol/L 22 - 29 04/17 N 0055A-[address] [place] [address] Chemistry Creatinine Level 0.80 mg/dL 0.72 - 1.25 04/[address] [place] [address] Chemistry Glucose Lvl 192 mg/dL 74 - 99 04/[address] [place] [address] Chemistry Potassium Lvl 4.0 mmol/L 3.5 - 5.1 04/[address] [place] [address] Chemistry Sodium 133 mmol/L 136 - 145 04/[address] [place] [address] Chemistry Protein Total 7.2 g/dL 6.4 - 8.3 04/[address] [place] [address] Chemistry HDL Cholesterol 36 mg/dL 40 - 59 04/17 L Interpretive Data: HDL (HIGH DENSITY LIPOPROTEIN) : ADULTS: Low: < 40 mg/dL High: >/= 60 mg/dL AGES 0 -19: Low: < 40 mg/dL Borderline Low: 40 - 45 mg/dL Acceptable: > 45 mg/dL [address] [place] [address] Chemistry LDL 70 mg/dL 100 - 130 04/17 L Interpretive Data: AGES 0-19: Desirable: < 110 mg/dL Borderline High: 110-129 mg/dL High: >/= 130 mg/dL ADULTS: Desirable: <100 mg/dL Near/above optimal: 100-130 mg/dL Borderline High: 131-159 mg/dL High: 160-189 mg/dL Very High: 190 mg/dL [address] [place] [address] Chemistry LDL/HDL 2 04/[address] [place] [address] Chemistry Triglycerid es 179 mg/dL 7 - 149 04/17 H Interpretive Data: AGES 0-9: Desirable: < 75 mg/dL Borderline High: 75-99 mg/dL High: >/= 100 mg/dL AGES 10-19: Desirable: < 90 mg/dL Borderline High: 90-129 mg/dL High: >/= 130 mg/dL ADULTS: Desirable: < 150 mg/dL Borderline High: 150-199 mg/dL High: >/= 240 mg/dL Very High: >/= 500 mg/dL [address] [place] [address] Chemistry Chol/HDL 3 mg/dL 04/[address] [place] [address] Chemistry Cholesterol Total 125 mg/dL 04/17 N Interpretive Data: According to the [employer]: AGES 0-19: Desirable: < 170 mg/dL Borderline High: 170-199 mg/dL High Blood Cholesterol: >/= 200 mg/dL ADULTS: Desirable < 200 mg/dL Borderline High: 200-239 mg/dL High Blood Cholesterol: >/= 240 mg/dL - 75[facility] Chemistry eGFR CKD EPI 103 mL/min /1.73_ m2 04/17 Interpretive Data: Estimated Glomerular Filtration Rate (eGFR) calculated using the 2020 Chronic Kidney Disease-Epid emiology (CKD-EPI) Collaboratio n creatinine equation; units of measure are mL/min/1.73 m2. Results are only valid for adults (>=18 years) whose serum creatinine is in steady state. eGFR calculations are not valid for patients with acute kidney injury and for patients on dialysis. Creatinine-b ased estimates of kidney function may also be inaccurate in patients with reduced creatinine generation due to decreased muscle mass (e.g., malnutrition , severe hypoalbumine candice, sarcopenia, chronic neuromuscula r disease, amputations, severe heart failure or liver disease) and in patients with increased creatinine generation due to increased muscle mass (e.g., muscle builders, anabolic steroids) or increased dietary intake. CKD is diagnosed based on abnormalitie s of kidney structure or function, present for >3 months, with implications for health and disease. CKD is classified and staged based on cause, eGFR and albuminuria (quantified as urine albumin to creatinine ratio). An eGFR >60 mL/min/1.73 m2 in the absence of increased urine albumin excretion or structural abnormalitie s does not CKD. eGFR provides only an estimate of measured GFR within +/- 30% for most patients. As mentioned, nutritional status and muscle mass, among many factors, may lead to inaccuracy in the estimate. Consider ordering the creatinine-c ystatin C panel if better accuracy is needed for clinical decision-oz ing. eGFR (mL/min/1.73 m2) CKD stage Interpretati on Normal 60-89 Mild decrease 45-59 Mild to moderate decrease 30-44 Moderate to severe decrease 15-29 Severe decrease <15 Kidney failure - 75[facility] Vital Signs Combined list of inpatient and outpatient Vital Signs from Department of Defense and Veterans Affairs, ranging from 12 months to all on record, depending upon the facility. Vital Sign Value Date Comments Source SYSTOLIC BLOOD PRESSURE 152 01/02/2024 10:47:[address] [facility] DIASTOLIC BLOOD PRESSURE 79 01/02/2024 10:47:49 [facility] PULSE OXIMETRY 98 01/02/2024 10:47:49 S James IAM [facility] WEIGHT 267.2 01/02/2024 10:47:49 [facility] BMI 41 kg/m2 01/02/2024 10:47:[address] [facility] PAIN 0 01/02/2024 10:47:[address] [facility] HEIGHT 68 01/02/2024 10:47:[address] [facility] TEMPERATURE 98.3 01/02/2024 10:47:49 [facility] PULSE 63 01/02/2024 10:47:[address] [facility] RESPIRATION 18 01/02/2024 10:47:49 [facility] Mean Arterial Pressure, Calc 105 mm[Hg] 07/30/2023 15:43:00 [facility] Systolic Blood Pressure 149 mm[Hg] 07/30/2023 15:43:00 [facility] Diastolic Blood Pressure 83 mm[Hg] 07/30/2023 15:43:00 [facility] Peripheral Pulse Rate 68 bpm 07/30/2023 15:43:00 [facility] Temperature Oral 36.5 Nanda 07/30/2023 15:43:00 [facility] BP Site Left arm 07/30/2023 15:43:00 [facility] Respiratory Rate 14 br/min 07/30/2023 15:43:00 [facility] Blood Pressure Manual Automatic 07/30/2023 15:43:00 [facility] Mean Arterial Pressure, Calc 107 mm[Hg] 04/30/2023 15:25:00 [facility] Systolic Blood Pressure 156 mm[Hg] 04/30/2023 15:25:00 [facility] Diastolic Blood Pressure 83 mm[Hg] 04/30/2023 15:25:00 [facility] BP Site Left arm 04/30/2023 15:25:00 [facility] Temperature Oral 36.6 Nanda 04/30/2023 15:25:00 [facility] Peripheral Pulse Rate 68 bpm 04/30/2023 15:25:00 [facility] Respiratory Rate 16 br/min 04/30/2023 15:25:00 [facility] Peripheral Pulse Rate 77 bpm 07/10/2024 14:17:00 [facility] Mean Arterial Pressure, Calc 100 mm[Hg] 07/10/2024 14:17:00 [facility] Systolic Blood Pressure 153 mm[Hg] 07/10/2024 14:17:00 [facility] Diastolic Blood Pressure 74 mm[Hg] 07/10/2024 14:17:00 [facility] Mean Arterial Pressure, Calc 94 mm[Hg] 04/30/2023 17:59:00 [facility] Systolic Blood Pressure 126 mm[Hg] 04/30/2023 17:59:00 [facility] Diastolic Blood Pressure 78 mm[Hg] 04/30/2023 17:59:00 [facility] Temperature Oral 36.5 Nanda 02/22/2023 13:23:00 [facility] BP Site Right arm 02/22/2023 13:23:00 [facility] Respiratory Rate 20 br/min 02/22/2023 13:23:00 [facility] Peripheral Pulse Rate 67 bpm 02/22/2023 13:23:00 [facility] Mean Arterial Pressure, Calc 92 mm[Hg] 02/22/2023 13:23:00 [facility] Blood Pressure Manual Automatic 02/22/2023 13:23:00 [facility] Systolic Blood Pressure 129 mm[Hg] 02/22/2023 13:23:00 [facility] Diastolic Blood Pressure 73 mm[Hg] 02/22/2023 13:23:00 [facility] Encounters Combined list of: 1) Encounters from Department of Veterans Affairs facilities going backup to the last 18 months, not all VA inpatient encounters are included; 2) Encounters from the Department of Defense facilities going backup to 280 months. Location Location Details Encounter Type Encounter Number Reason For Visit Attending Provider ADM Date DC Date Status Disposition Source [facility] Primary Care) OUTPATIENT [id number] injury to l hand/pu ncture w/ screwdr iver SARINA MARKS 06/02 Released w/o Limitations [facility] Primary Care) [facility] Primary Care) OUTPATIENT [id number] Issues regardi ng fitness assesme nt testing SARINA MARKS 01/24 Released w/o Limitations [facility] Primary Care) [facility] Primary Care) TELE CONSULT [id number] 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 AGUEDA CAI 01/29 [facility] Primary [facility]) [facility] Primary Care) OUTPATIENT [id number] 3 day blood pressue check MARYANNE ROMO 02/09 [facility] Limitations [facility] Primary Care) [facility] Primary Care[facility] OUTPATIENT [id number] 1st BP check ESTELLE US 03/07 Released w/o Limitations [facility] Primary Care) [facility] Primary Care) OUTPATIENT [id number] f/u 3 day blood pressur e check SARINA MARKS 03/13 Released w/o Limitations [facility] Primary Care) [facility] Primary Care) OUTPATIENT [id number] f/u SARINA MARKS 04/24 Released w/o Limitations [facility] Primary Care) [place] [address](Rad iology Procedure s, [facility]) OUTPATIENT [id number] PICC dressin g change, labs per PICC - 2006 YOSHI BAILEY 06/25 [facility]ased w/o Limitations [facility] [place] [place] [address](R adiolog y Procedu res, [facility]) [facility] Primary Care) TELE CONSULT [id number] lab result SARINA MARKS Jennifer 06/26 [facility] Primary Care) [facility] Primary Care) OUTPATIENT [id number] f/u CONSUELO TAYLOR A 07/05 Released w/o Limitations [facility] Primary [facility]) [place] [address](Rad iology Procedure s, [facility]) OUTPATIENT [id number] PICC dressin g change and labs - October, YOSHI BAILEY 10/26 Released w/o Limitations [facility] [place] [address](R adiolog y Procedu res, [facility]) [facility] Primary Care) OUTPATIENT [id number] fitness form/cl earance for fitness CONSUELO TAYLOR A 01/21 Released w/o Limitations [facility] Primary Care) [facility] Primary Care) OUTPATIENT [id number] needs PHA LAMBERT CONRAD 01/22 Released w/o Limitations [facility] Primary Care) [place] [address](Rad iology Procedure s, [facility]) OUTPATIENT [id number] PICC placeme nt - 7A - , 2006 YOSHI BAILEY 03/28 Released w/o Limitations [facility] [place] [address](R adiolog y Procedu res, [facility]) [facility] Primary Care) OUTPATIENT [id number] sinus x2wks/m ed refill (hypert ension) ALISIA GRACIA 04/30 Released w/o Limitations [facility] Primary Care) [facility] Primary Care) OUTPATIENT [id number] upper back pain x 1 week ALISIA GRACIA BETH 09/04 Released w/o Limitations [facility] Primary Care) [facility] Primary Care) OUTPATIENT [id number] Ret Physica l CARLOSCH, LAMBERT N 12/15 Released w/o Limitations [facility] Primary Care) [facility] Primary Care) OUTPATIENT [id number] skin tag removal CARLOSCH, LAMBERT N 12/19 Released w/o Limitations [facility] Primary Care) [facility] Primary Care) OUTPATIENT [id number] online complet ed pha ALISIA GRACIAH 01/21 Released w/o Limitations [facility] Primary Care) [address] [place] [address] [facility] ([facility]Fam kiet Practice Non-GME FHI1) TELE CONSULT [id number] med refill 1 pill left CLAUDIA DUFFY 06/[address] [place] [address] [facility] ([facility])(F amily Practic e Non-GME FHI1) [address] [place] [address] [facility])(Fam kiet Med Tm B Non-AD BCC) TELE CONSULT [id number] lab results and f/u per LOUIS Vides 06/[address] [place] [address] [facility] ([facility])(F amily Med Tm B Non-AD BCC) [address] [place] [address] [facility])(Sco tt [facility] Team 3) OUTPATIENT [id number] f/u 2H GTT-don e Jun ODALYS PRESLEY A 07/07 Released w/o Limitations [address] [place] [address] [facility] ([facility])(S cott [facility] Team 3) [address] [place] [address] [facility] ([facility])(Opt ometry) OUTPATIENT [id number] HYPOGLY CEMIA REACTIV E CAESAR NELSON 07/16 Released w/o Limitations [address] [place] [address] [place] ([facility])(O ptometr y) [address] [place] [address] [facility] Team 3) OUTPATIENT [id number] REC REV AND AHLTA 2766 TRANSCI PTION MICAELANOE PARADA P 10/12 Released w/o Limitations [address] [place] [address] [facility] Team 3) [address] [place] [address] [employer] [facility] Team 3) OUTPATIENT [id number] Eval sinus issues [phone] RIVERA NIEVES 01/12 Released w/o Limitations [address] [place] [address] [employer] [facility] Team 3) [address] [place] [address] [employer] [facility] Team 3) TELE CONSULT [id number] T Con for med refill Dr Nelson Phone [phone] CLAUDIA DUFFY 01/[address] [place] [address] [facility])([facility] Team 3) [address] [place] [address] [employer] [facility] Team 3) OUTPATIENT [id number] f/u meds MONIQUE NELSON 02/03 Released w/o Limitations [address] [place] [address] [place] ([facility])([facility] Team 3) [address] [place] [address] [employer] [facility])(Opt ometry) OUTPATIENT [id number] eye exam... [id number] CAESAR NELSON 03/03 Released w/o Limitations [address] [place] [address] [employer] ([facility])(O ptometr y) [address] [place] [address] [employer] [facility] Team 3) OUTPATIENT [id number] cold... [id number] MONIQUE NELSON 03/04 Released w/o Limitations [address] [place] [address] [employer] [facility])([facility] Team 3) [address] [place] [address] [employer] [facility] Team 3) TELE CONSULT [id number] Per Dr. Nelson : Continu e meds and follow up in 6wks if smptom present or woren. AMIRA ARANDA 03/07 Referred for Appointment [address] [place] [address] [facility] Team 3) [address] [place] [address] [place] [facility] Team 3) TELE CONSULT [id number] renewal karyn lane cad/dkk [id number] ROSELINE FRANCOIS 11/[address] [place] [address] [place] [facility])([facility] Team 3) [address] [place] [address] [place] B [facility])([facility] Team 3) TELE CONSULT [id number] f/u labs results - Justin - roshni/pmh NESTORENRIQUETRACYOlivia AMIRA Patten 12/[address] [place] [address] [facility])([facility] Team 3) [address] [place] [address] [facility])([facility] Team 3) OUTPATIENT [id number] pt w/potas sium 5.4, pcm reqst for f/u MONIQUE NELSON 12/19 Released w/o Limitations [address] [place] [address] [place] [facility])([facility] Team 3) [address] [place] [address] [facility])([facility] Team 3) TELE CONSULT [id number] Results needed/ Justin /gal ALISIA GOEL 02/[address] [place] [address] [facility])([facility] Team 3) [address] [place] [address] [facility])([facility] Team 3) OUTPATIENT [id number] F/U HTN/HCT Z added in Dec/ l bring home B/P log to apt. MONIQUE NELSON 02/22 Released w/o Limitations [address] [place] [address] [facility])([facility] Team 3) [address] [place] [address] [place] B [facility])([facility] Team 3) TELE CONSULT [id number] Notes Entered by: TANYA GARCIA 19 Jul 2011 0803 ------- ------- ------- ------- -- Medicat ion refill- Antwan y/229-5 530/cad kk ROSELINE FRANCOIS 07/[address] [place] [address] [place] [facility] Team 3) [address] [place] [address] Drake [facility])([facility] Team 3) TELE CONSULT [id number] Notes Entered by: PATRICE ODEN 24 Aug 2011 0821 ------- ------- ------- ------- -- Med renewal /229.55 30/mnm ROSELINE FRANCOIS 08/[address] [place] [address])([facility] Team 3) [address] [place] [address])([facility] Team 3) TELE CONSULT [id number] Notes Entered by: ROBERTA MEHTA 04 Oct 2011 1237 ------- ------- ------- ------- -- Med refills Burkhol cintia cad AMIRA Coley 10/[address] [place] [address])([facility] Team 3) [address] [place] [address])(Opt ometry) OUTPATIENT [id number] routine eye exam glasses [id number] JETT REEVES 10/10 Released w/o Limitations [address] [place] [address])(O ptometr y) [address] [place] [address])([facility] Team 3) TELE CONSULT [id number] Notes Entered by: SHAHIDA TSE CIA 04 Jan 2012 0909 ------- ------- ------- ------- -- Med renewal and labs needed - Burkhol cintia - cad/[facility] PARMINDER SOLO 01/[address] [place] [address])([facility] Team 3) [address] [place] [address])(War rior Op Med Cln Tm A Ad) OUTPATIENT [id number] Wrist pain CRISTIAN ACHARYA 06/10 Released w/o Limitations [address] [place] [address])([facility] ar[facility] Op Med Cln Tm A Ad) [address] [place] [address])(War rior Op Med Cln Tm A Ad) TELE CONSULT [id number] Notes Entered by: DAMI DUMONT 14 Jun 2012 1040 ------- ------- ------- ------- -- Fear being enclose d request meds Jun/Mark contreras/[phone] PARMINDER SOLO 06/[address] [place] [address])(W arrior Op Med Cln Tm A Ad) [address] [place] [address])(War rior Op Med Cln Tm A Ad) TELE CONSULT [id number] Notes Entered by: ALICIA ACHARYA 20 Jun 2012 1543 ------- ------- ------- ------- -- Radiolo gy PARMINDER SOLO 06/[address] [place] [address])(W arrior Op Med Cln Tm A Ad) [address] [place] [address])(War rior Op Med Cln Tm A Ad) TELE CONSULT [id number] Notes Entered by: JETT THOMPSON 03 Jul 2012 0924 ------- ------- ------- ------- -- F/U x rays Dr Acharya ph [phone] PARMINDER SOLO 07/[address] [place] [address])(W arrior Op Med Cln Tm A Ad) [address] [place] [address])(War rior Op Med Cln Tm A Ad) OUTPATIENT [id number] MALGORZATA Franks 08/01 Released w/o Limitations [address] [place] [address])(W arrior Op Med Cln Tm A Ad) [address] [place] [address])(War rior Op Med Cln Tm A Ad) TELE CONSULT [id number] Notes Entered by: Itzel OCHOA 01 Jan 2013 0752 ------- ------- ------- ------- -- MICARE message left for med refills /Onesimo /[phone] [place] 01/01 Referred for Appointment [address] [place] [address])(W arrior Op Med Cln Tm A Ad) [employer] [facility])(Sco tt [facility] Team 3) TELE CONSULT [id number] Notes Entered by: BREONNA STEIN 16 Jan 2013 1340 ------- ------- ------- ------- -- Network Results - Orthope dics 07/23/12 CRISTIAN ACHARYA 01/16 [employer] ([facility])(S cott [facility] Team 3) [facility])(War rior Op Med Cln Tm A Ad) OUTPATIENT [id number] annual check up/labs done in Jun CRISTIAN ACHARYA 01/21 Released w/o Limitations [employer] ([facility])(W arrior Op Med Cln Tm A Ad) [facility])(War rior Op Med Cln Tm A Ad) OUTPATIENT [id number] Neck/sh oulder CRISTIAN ACHARYA 01/24 Released w/o Limitations [employer] [facility])(W arrior Op Med Cln Tm A Ad) [facility])(Cintia matology) OUTPATIENT [id number] non neoplas tic DRAKE Bey 02/28 Released w/o Limitations [employer] ([facility])(D ermatol ogy) [facility])(War rior Op Med Cln Tm A Ad) OUTPATIENT [id number] Knee pain CRISTIAN ACHARYA 03/28 Released w/o Limitations [employer] [facility])(W arrior Op Med Cln Tm A Ad) [facility])(War rior Op Med Cln Tm A Ad) OUTPATIENT [id number] shootin g pain down left leg x 2 days/ [phone] 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 DRIVER 05/20 Released w/o Limitations [employer] [facility])(W arrior Op Med Cln Tm A Ad) [address] [place] [address])(War rior Op Med Cln Tm A Ad) TELE CONSULT [id number] Notes Entered by: Eloy OCHOA 23 May 2013 0644 ------- ------- ------- ------- -- Needs aubrey [facility] GRIFFIN LEACH 05/23 Referred for Appointment [address] [place] [address])(W arrior Op Med Cln Tm A Ad) [address] [place] [address])(War rior Op Med Cln Tm A Ad) TELE CONSULT [id number] Notes Entered by: ESTEPHANIA ROSS 04 Jun 2013 1619 ------- ------- ------- ------- -- [facility] Stevenson 06/[address] [place] [address])(W arrior Op Med Cln Tm A Ad) [address] [place] [address])(War rior Op Med Cln Tm A Ad) TELE CONSULT [id number] Notes Entered by: ANMOL GIFFORD 13 Jun 2013 1503 ------- ------- ------- ------- -- Network Results - Physica l Therapy 4 CRISTIAN ACHARYA 06/[address] [place] [address])(W arrior Op Med Cln Tm A Ad) [address] [place] [address])(War rior Op Med Cln Tm A Ad) OUTPATIENT [id number] Followu p for back/le g numbnes s and pain CRISTIAN ACHARYA 06/24 Released w/o Limitations [address] [place] [address])(W arrior Op Med Cln Tm A Ad) [address] [place] [address])(War rior Op Med Cln Tm A Ad) TELE CONSULT [id number] Notes Entered by: ANMOL GIFFORD 24 Jun 2013 1435 ------- ------- ------- ------- -- Network Results - Physica l Therapy 4 CRISTIAN ACHARYA 06/[address] [place] [address])(W arrior Op Med Cln Tm A Ad) [address] [place] [address])(War rior Op Med Cln Tm A Ad) TELE CONSULT [id number] Notes Entered by: ALICIA ACHARYA 25 Jun 2013 1135 ------- ------- ------- ------- -- X-ray CRISTIAN ACHARYA 06/[address] [place] [address])(W arrior Op Med Cln Tm A Ad) [address] [place] [address])(War rior Op Med Cln Tm A Ad) TELE CONSULT [id number] Notes Entered by: ANMOL GIFFORD 10 Jul 2013 0757 ------- ------- ------- ------- -- Network Results - Physica l Therapy 4 CRISTIAN ACHARYA 07/[address] [place] [address])(W arrior Op Med Cln Tm A Ad) [address] [place] [address])(War rior Op Med Cln Tm A Ad) TELE CONSULT [id number] Notes Entered by: Eloy OCHOA 18 Jul 2013 0807 ------- ------- ------- ------- -- Med for anxiety Onesimo ROSELINE FRANCOIS 07/[address] [place] [address])(W arrior Op Med Cln Tm A Ad) [address] [place] [address])(War rior Op Med Cln Tm A Ad) TELE CONSULT [id number] Notes Entered by: JANINE BOTELLO 22 Jul 2013 1420 ------- ------- ------- ------- -- [facility] ROSELINE Padilla 07/22 [facility] [employer] ([facility])(W arrior Op Med Cln Tm A Ad) [address] [place] [address] Group [employer] ([facility])(War rior Op Med Cln Tm A Ad) TELE CONSULT [id number] Notes Entered by: ALICIA ACHARYA 12 Aug 2013 0928 ------- ------- ------- ------- -- [facility] CRISTIAN Rosales 08/[address] [place] [address] Group [employer] ([facility])(W arrior Op Med Cln Tm A Ad) [facility] [employer] ([facility])(Sco tt [facility] FAMRES Tm Blue) OUTPATIENT [id number] 2nd floor:S AFB/Pre op clinic DULCE CHAVEZ 08/25 Released w/o Limitations [facility] [employer] ([facility])(S cott [facility] FAMRES Tm Blue) [address] [place] [address] [facility])(Sco tt [facility] Fam Res Tm Green) OUTPATIENT [id number] 2nd floor [employer]/Sc GERTRUDE Solorzano 09/16 Released w/o Limitations [address] [place] [address] [facility])(S cott [facility] Fam Res Tm Green) [address] [place] [address] [employer] [facility])(War rior Op Med Cln Tm A Ad) TELE CONSULT [id number] Notes Entered by: CHAO QUAN 17 Sep 2013 0944 ------- ------- ------- ------- -- Network Results - PAIN MANAGEM ENT - 07/14 - 08/04 and 09/02/13 CRISTIAN ACHARYA 09/[address] [place] [address] Group [employer] [facility])(W arrior Op Med Cln Tm A Ad) [address] [place] [address] [employer] [facility])(Sco tt [facility] FAMRES Tm Blue) TELE CONSULT [id number] Notes Entered by: KARLA SCHMITT 18 Sep 2013 1353 ------- ------- ------- ------- -- Call back C-scope on [id number] - KARLA Aguayo 09/[address] [place] [address] [facility])(S [facility] FAMRES Tm Blue) [address] [place] [address] [facility])(Sco [facility] Fam Res Tm Green) TELE CONSULT [id number] Notes Entered by: GERTRUDE CHAO 25 Sep 2013 0740 ------- ------- ------- ------- -- Biopsy results GERTRUDE CHAO 09/[address] [place] [address] [facility])(S [facility] Fam Res Tm Green) [address] [place] [address] [facility])(Fam kiet Med Tm B Non-AD BCC) TELE CONSULT [id number] Notes Entered by: CHAO QUAN 31 Oct 2013 0804 ------- ------- ------- ------- -- Network Results - PAIN MANAGEM ENT - 08/04/13 CRISTIAN ACHARYA 10/[address] [place] [address] [facility])(F amily Med Tm B Non-AD BCC) [address] [place] [address] [facility])(Fam kiet Med Tm B Non-AD BCC) TELE CONSULT [id number] Notes Entered by: CHAO QUAN 02 Dec 2013 1544 ------- ------- ------- ------- -- Network Results - PAIN MANAGEM ENT - 10/28/13 and 09/22/13 CRISTIAN ACHARYA 12/[address] [place] [address] [facility])(F amily Med Tm B Non-AD BCC) [address] [place] [address] [facility])(Med ication Refill Clinic) TELE CONSULT [id number] Notes Entered by: Sybil MURDOCK 19 Jan 2014 0919 ------- ------- ------- ------- -- [facility] Lisbeth dias / HANSA Marroquin 01/[address] [place] [address] [facility])(Anjum toussaint on Refill Clinic) [address] [place] [address])(War rior Op Med Cln Tm A Ad) TELE CONSULT [id number] Notes Entered by: ALICIA ACHARYA 20 Jan 2014 1641 ------- ------- ------- ------- -- Hyperli pidemia and elevate d White blood cell count CRISTIAN ACHARYA 01/[address] [place] [address])(W arrior Op Med Cln Tm A Ad) [address] [place] [address])(War rior Op Med Cln Tm A Ad) OUTPATIENT [id number] Annual screeni CRISTIAN Savage 01/28 Released w/o Limitations [address] [place] [address])(W arrior Op Med Cln Tm A Ad) [address] [place] [address])(War rior Op Med Cln Tm A Ad) TELE CONSULT [id number] Notes Entered by: ALICIA ACHARYA 30 Jan 2014 1311 ------- ------- ------- ------- -- Elevate d White blood cell CRISTIAN ACHARYA 01/[address] [place] [address])(W arrior Op Med Cln Tm A Ad) [address] [place] [address])(War rior Op Med Cln Tm A Ad) TELE CONSULT [id number] Notes Entered by: ALICIA ACHARYA 04 Feb 2014 0726 ------- ------- ------- ------- -- Prediab CRISTIAN Moran 02/[address] [place] [address])(W arrior Op Med Cln Tm A Ad) [address] [place] [address])([facility] kiet Med Tm B Non-AD BCC) TELE CONSULT [id number] Notes Entered by: BREONNA STEIN 17 Feb 2014 1315 ------- ------- ------- ------- -- Network Results -PAIN MANAGEM ENT 12/29 and 01/22 and 12/31/13 CRISTIAN ACHARYA 02/[address] [place] [address] [employer] [facility])(F amily Med Tm B Non-AD BCC) [address] [place] [address] [facility])(War rior Op Med Cln Tm A Ad) TELE CONSULT [id number] Notes Entered by: ALICIA ACHARYA 27 Feb 2014 0721 ------- ------- ------- ------- -- Santiago labs CRISTIAN ACHARYA 02/[address] [place] [address] [facility])(W arrior Op Med Cln Tm A Ad) [address] [place] [address] [facility])(War rior Op Med Cln Tm A Ad) TELE CONSULT [id number] Notes Entered by: ALICIA ACHARYA 01 Apr 2014 1558 ------- ------- ------- ------- -- leukocy tosis CRISTIAN ACHARYA 04/[address] [place] [address] [facility])(W arrior Op Med Cln Tm A Ad) [address] [place] [address] [facility])(Fam kiet Med Tm B Non-AD BCC) TELE CONSULT [id number] Notes Entered by: NORMAN CANDELARIA 09 Feb 2015 1459 ------- ------- ------- ------- -- Bonniere Prescri ption - Renewal Request NORMAN CANDELARIA 02/09 Referred for Appointment [address] [place] [address] [employer] [facility])(F amily Med Tm B Non-AD BCC) [address] [place] [address] [facility])(War rior Op Med Cln Tm A Ad) OUTPATIENT [id number] Annual prescri ption renewal , LENNOX Sanon 02/23 Released w/o Limitations [address] [place] [address] [facility])(W arrior Op Med Cln Tm A Ad) [address] [place] [address] [facility])(Fam kiet Med Tm B Non-AD BCC) OUTPATIENT [id number] Discuss Quittin g Smoking PABLO POLLOCKKARISSA BURGESS 08/16 Released w/o Limitations [address] [place] [address] [employer] ([facility])(F amily Med Tm B Non-AD BCC) [address] [place] [address] [facility])(War rior Op Med Cln Tm A Ad) TELE CONSULT [id number] Notes Entered by: GILSON BORRERO 10 Sep 2015 1349 ------- ------- ------- ------- -- Medicat ion Refill JUAN JOSE WORTHY 09/[address] [place] [address] [employer] [facility])(W arrior Op Med Cln Tm A Ad) [address] [place] [address] [facility])(Fam kiet Med Tm B Non-AD BCC) OUTPATIENT [id number] Swollen and red area under armpit. PABLO POLLOCKKARISSA BURGESS 10/31 Released w/o Limitations [address] [place] [address] [facility])(F amily Med Tm B Non-AD BCC) [address] [place] [address] [facility])(Fam kiet Med Tm B Non-AD BCC) OUTPATIENT [id number] left armpit cyst follow up PHILL DULCE BURGESS 11/03 Released w/o Limitations [address] [place] [address] [employer] ([facility])(F amily Med Tm B Non-AD BCC) [address] [place] [address] [facility])(Cintia matology) OUTPATIENT [id number] L cheek poss cyst/TB SE CARLOZ MANZANO 12/09 Released w/o Limitations [address] [place] [address] [employer] ([facility])(D ermatol ogy) [address] [place] [address] [facility])(Cintia matology) OUTPATIENT [id number] L cheek cyst growth CARLOZ MANZANO 02/27 Released w/o Limitations [address] [place] [address] [facility])(D ermatol ogy) [address] [place] [address] [facility])(Cintia matology) OUTPATIENT [id number] F/u Cyst CARLOZ MANZANO 03/07 Released w/o Limitations [address] [place] [address] [facility])(D ermatol ogy) [address] [place] [address] [employer] ([facility])(Cintia matology) OUTPATIENT [id number] f/u cyst on L cheek CARLOZ MANZANO 04/03 Released w/o Limitations [address] [place] [address] [facility] [employer] ([facility])(D ermatol ogy) [address] [place] [address] [facility])(Cintia matology) OUTPATIENT [id number] Excisio n L cheek cyst CARLOZ MANZANO 04/11 Released w/o Limitations [address] [place] [address] [facility] ([facility])(D ermatol ogy) [address] [place] [address] [facility])(Fam kiet Med Tm B Non-AD BCC) OUTPATIENT [id number] Annual Check Up/Med refills DULCE POLLOCK 04/12 Released w/o Limitations [address] [place] [address] [facility] ([facility])(F amily Med Tm B Non-AD BCC) [address] [place] [address])([facility] matology) OUTPATIENT [id number] Notes Entered by: MARIA ELENA TORREZ 17 Apr 2016 0948 ------- ------- ------- ------- -- Suture Removal CARLOZ MANZANO 04/17 Released w/o Limitations [address] [place] [address] [facility] [place] ([facility])(D ermatol ogy) [address] [place] [address] [facility])(War rior Op Med Cln Tm A Ad) OUTPATIENT [id number] walk in throat culture YARI CHAMBERLAIN 06/02 Released w/o Limitations [address] [place] [address] [facility])(W arrior Op Med Cln Tm A Ad) [address] [place] [address] [facility])(Fam kiet Med Tm B Non-AD BCC) OUTPATIENT [id number] Annual Check Up/Pres criptio n Renew DULCE POLLOCK 03/19 Released w/o Limitations [address] [place] [address] [facility] ([facility])(F amily Med Tm B Non-AD BCC) [address] [place] [address] [facility])(Fam kiet Med Tm B Non-AD BCC) OUTPATIENT [id number] Foot Pain Big Toe STACI GRAYSON 08/24 Released w/o Limitations [address] [place] [address] [facility])(F amily Med Tm B Non-AD BCC) [facility] [employer] [facility] ([facility])(Fam kiet Med Tm B Non-AD BCC) TELE CONSULT [id number] Notes Entered by: ROBERT TOTH 28 Aug 2017 1455 ------- ------- ------- ------- -- XR results CLIFFORD WAGGONER 08/28 Referred for Appointment [employer] [facility] ([facility])(F amily Med Tm B Non-AD BCC) [facility] [employer] [facility] ([facility])(Fam kiet Med Tm B Non-AD BCC) OUTPATIENT [id number] Left Foot pain numbnes HARISH Carter 10/29 Released w/o Limitations [address] [place] [address] [employer] [facility] ([facility])(F amily Med Tm B Non-AD BCC) [address] [place] [address] [facility] ([facility])(Fam kiet Med Tm B Non-AD BCC) OUTPATIENT [id number] 6 Umbelli gus Hernia EZEQUIEL MAE 04/16 Released w/o Limitations [address] [place] [address] Group [employer] [facility] ([facility])(F amily Med Tm B Non-AD BCC) [address] [place] [address] Group [facility])(Sco tt Disease Managemen t) TELE CONSULT [id number] Notes Entered by: Sybil DUNCAN 16 Apr 2018 1519 ------- ------- ------- ------- -- Disease Managem ent-due for GURWINDER DUNCAN 04/16 Referred for [facility]ointment [facility] [employer] [facility] ([facility])(S cott Disease Managem ent) [facility] [employer] [facility] ([facility])(War rior Op Med Cln Tm A Ad) OUTPATIENT [id number] 4 resched ule- annual check-u p JAYLEEN AVILES 04/30 Released w/o Limitations [address] [place] [address] [employer] ([facility])(W arrior Op Med Cln Tm A Ad) [employer] ([facility])(Fam kiet Med Tm B Non-AD BCC) TELE CONSULT [id number] Notes Entered by: JAYLEEN TAI 05 May 2019 0744 ------- ------- ------- ------- -- f/u labs FLORECITA CHICAS Liya 05/05 Other Not Elsewhere Classified [address] [place] [address])(F amily Med Tm B Non-AD BCC) [address] [place] [address])(Fam kiet Med Tm B Non-AD BCC) TELE CONSULT [id number] Notes Entered by: JAYLEEN TAI 03 Jun 2019 1255 ------- ------- ------- ------- -- f/u CT chest screeni ng results LIANG CHICASFadia Nickerson 06/03 Other Not Elsewhere Classified [address] [place] [address])(F amily Med Tm B Non-AD BCC) [address] [place] [address])(War rior Op Med Cln Tm A Ad) TELE CONSULT [id number] Notes Entered by: Fadia MELGAR 15 Jul 2019 1114 ------- ------- ------- ------- -- Network results Cardiol ogy 020 JAYLEEN GILLIS 07/[address] [place] [address])(W arrior Op Med Cln Tm A Ad) [address] [place] [address])(War rior Op Med Cln Tm A Ad) TELE CONSULT [id number] Notes Entered by: Fadia MELGAR 31 Jul 2019 0932 ------- ------- ------- ------- -- Network results Cardiol ogy 020 ALD DANY LOWE 07/[address] [place] [address])(W arrior Op Med Cln Tm A Ad) [address] [place] [address])(War rior Op Med Cln Tm A Ad) TELE CONSULT [id number] Notes Entered by: MOUNIKA BARNES 28 Aug 2019 0932 ------- ------- ------- ------- -- Network Results [facility]ARDIOL OGY 08/27/19 [facility] [place] [address])(W arrior Op Med Cln Tm A Ad) [address] [place] [address])(War rior Op Med Cln Tm A Ad) TELE CONSULT [id number] Notes Entered by: MOUNIKA BARNES 11 Sep 2019 1437 ------- ------- ------- ------- -- Network Results CARDIOL OGY 07/29/19 [facility] 09[facility] [place] [address])(W arrior Op Med Cln Tm A Ad) [address] [place] [address])(Fam kiet Med Tm B Non-AD BCC) OUTPATIENT [id number] KENDRICK LEIGH 02/12 Released w/o Limitations [address] [place] [address] [facility])(F amily Med Tm B Non-AD BCC) [address] [place] [address])(War rior Op Med Cln Tm A Ad) TELE CONSULT [id number] Notes Entered by: ARLEN PRINCE 16 Feb 2020 1242 ------- ------- ------- ------- -- Lab and Xray Results KENDRICK LEIGH 02/[address] [place] [address])(W arrior Op Med Cln Tm A Ad) [address] [place] [address])(Fam kiet Med Tm B Non-AD BCC) TELE CONSULT [id number] Notes Entered by: Fadia MELGAR 04 Mar 2020 1039 ------- ------- ------- ------- -- Network results Physica l Therapy 020 ALD KENDRICK LEIGH 03/[address] [place] [address])(F amily Med Tm B Non-AD BCC) [address] [place] [address] [facility])(Fam kiet Med Tm B Non-AD BCC) TELE CONSULT [id number] Notes Entered by: NORMAN CANDELARIA 24 Jun 2020 0952 ------- ------- ------- ------- -- [facility]: Office Message SUREKHA OLIVER 06/24 Other Not Elsewhere Classified [address] [place] [address] [facility])(F amily Med Tm B Non-AD BCC) [address] [place] [address] Darke [facility])(Fam kiet Med Tm B Non-AD BCC) OUTPATIENT [id number] Foot /Ankle Pain JULIUS SOTO 01/27 Released w/o Limitations [address] [place] [address] [facility])(F amily Med Tm B Non-AD BCC) [address] [place] [address] [facility])(Fam kiet Med Tm B Non-AD BCC) TELE CONSULT [id number] Notes Entered by: JULIUS SOTO 27 Jan 2021 1139 ------- ------- ------- ------- -- XR results JULIUS SOTO 01/[address] [place] [address] [facility])(F amily Med Tm B Non-AD BCC) [address] [place] [address] [facility])(Fam kiet Med Tm B Non-AD BCC) TELE CONSULT [id number] Notes Entered by: Enma STRINGER 04 Mar 2021 1612 ------- ------- ------- ------- -- Network results PT Dischar ge Report 1 JULIUS CARRILLO 03/[address] [place] [address] [facility])(F amily Med Tm B Non-AD BCC) [address] [place] [address] [facility])(Fam kiet Med Tm B Non-AD BCC) TELE CONSULT [id number] Notes Entered by: WAQAS MARTINEZ 07 Mar 2021 1127 ------- ------- ------- ------- -- Network results Orthope dics 021 BF JULIUS SOTO 03/[address] [place] [address] [facility])(F amily Med Tm B Non-AD BCC) [address] [place] [address] [facility])(Fam kiet Med Tm B Non-AD BCC) TELE CONSULT [id number] Notes Entered by: NORMAN CANDELARIA 13 Apr 2021 1513 ------- ------- ------- ------- -- GENE Secure Marge recinos Note to Office NORMAN CANDELARIA 04/13 Released to Self Care [address] [place] [address] [facility])(F amily Med Tm B Non-AD BCC) [address] [place] [address] [facility])(Fam kiet Med Tm B Non-AD BCC) OUTPATIENT [id number] Annual Check Up, Complet e Labs, Prescri ptions Renewal JULIUS SOTO 04/20 Released w/o Limitations [address] [place] [address] [facility])(F amily Med Tm B Non-AD BCC) [address] [place] [address] [facility])(Fam kiet Med Tm B Non-AD BCC) TELE CONSULT [id number] Notes Entered by: JULIUS SOTO 28 Apr 2021 1225 ------- ------- ------- ------- -- CT results JULIUS SOTO 04/[address] [place] [address] [facility])(F amily Med Tm B Non-AD BCC) [address] [place] [address] [facility])(Fam kiet Med Tm B Non-AD BCC) OUTPATIENT [id number] DANY DIAMOND 08/25 Released w/o Limitations [address] [place] [address] [facility])(F amily Med Tm B Non-AD BCC) [address] [place] [address] [facility])(Fam kiet Med Tm B Non-AD BCC) OUTPATIENT [id number] Knee pain JULIUS SOTO 08/30 Released w/o Limitations [address] [place] [address])(F amily Med Tm B Non-AD BCC) [address] [place] [address] [facility])(Fam kiet Med Tm B Non-AD BCC) TELE CONSULT [id number] Notes Entered by: JULIUS SOTO 01 Sep 2021 1004 ------- ------- ------- ------- -- XR results JULIUS SOTO 09/[address] [place] [address])(F amily Med Tm B Non-AD BCC) [address] [place] [address])(Fam kiet Med Tm B Non-AD BCC) TELE CONSULT [id number] Notes Entered by: NORMAN CANDELARIA 07 Dec 2021 0834 ------- ------- ------- ------- -- GENE Secure Messagi ng Note to Office DANY DIAMOND 12/[address] [place] [address] [facility])(F amily Med Tm B Non-AD BCC) [address] [place] [address])(Fam kiet Med Tm B Non-AD BCC) OUTPATIENT [id number] [email or web address] Post COVID Sinus Numbnes s DANY DIAMOND 12/12 Released w/o Limitations [address] [place] [address] [facility])(F amily Med Tm B Non-AD BCC) [address] [place] [address] Drake [facility])([facility] kiet Med Tm B Non-AD BCC) TELE CONSULT [id number] Notes Entered by: NORMAN CANDELARIA 22 Mar 2022 1316 ------- ------- ------- ------- -- GENE Secure Messagi ng Note to Office NORMAN CANDELARIA 03/22 Released to Self Care [address] [place] [address])(F amily Med Tm B Non-AD BCC) [address] [place] [address] Drake P[facility]RA ([facility])(Fam kiet Med Tm B Non-AD BCC) OUTPATIENT [id number] Pastora taylor EVER JOHN J 03/29 Released w/o Limitations [address] [place] [address] Drake PEREYRA ([facility])(F amily Med Tm B Non-AD BCC) [address] [place] [address] Drake [facility] ([facility])(Fam kiet Med Tm B Non-AD BCC) OUTPATIENT [id number] Annual Check Up and Prescri ption Renewal s DANY DIAMOND 04/14 Released w/o Limitations [address] [place] [address] Drake Rima ([facility])(F amily Med Tm B Non-AD BCC) [address] [place] [address] Drake [facility])(Fam kiet Med Tm B Non-AD BCC) TELE CONSULT [id number] Notes Entered by: KEITH OLSEN 09 Jun 2022 0912 ------- ------- ------- ------- -- Network results Otolary ngology [ENT] 023 DANY GOMEZ 06/[address] [place] [address] Drake NEWMAN ([facility])(F amily Med Tm B Non-AD BCC) [address] [place] [address] Drake [facility])(Sco tt Internal Medicine Tm) TELE CONSULT [id number] Notes Entered by: GUERRERO CASAS 01 Aug 2022 1424 ------- ------- ------- ------- -- MELI Ramírez 08/01 Other Not Elsewhere Classified [address] [place] [address] Drake HAFSA ([facility])(S cott Interna l Medicin e Tm) [address] [place] [address] Drake TRENT ([facility])(Fam kiet Med Tm B Non-AD BCC) OUTPATIENT [id number] Left foot numb, ROSELINE Villarreal 08/03 Released w/o Limitations [address] [place] [address] Drake HAFSA ([facility])(F amily Med Tm B Non-AD BCC) [address] [place] [address] Drake HAFSA ([facility])(Fam kiet Med Tm B Non-AD BCC) TELE CONSULT [id number] Notes Entered by: Micah HUGO 08 Aug 2022 1316 ------- ------- ------- ------- -- Santiago dimas/ Colonos copy referra wynne /RAZIA Newman 08/08 Other Not Elsewhere Classified [address] [place] [address] Drake [facility])(F amily Med Tm B Non-AD BCC) [address] [place] [address] Drake [facility])(Fam kiet Med Tm B Non-AD BCC) TELE CONSULT [id number] 2 Notes Entered by: NORMAN CANDELARIA 28 Sep 2022 1039 ------- ------- ------- ------- -- NORMAN Laguna 09/28 Released to Self Care [address] [place] [address] Drake [facility] ([facility])(F amily Med Tm B Non-AD BCC) [facility] [id number] [id number] Diagnos is: ICD-10- CM E11.9 Type 2 diabete s mellitu s without complic ations NIMO STALEY 06/05 [facility] MANUAL THERAPY [place] [id number] Diagnos is: ICD-10- CM M54.50 Low back pain, unspeci fied MONO CORNELIUS TTHEW J 06/28 [facility] Outpatient Encounter [id number] 07/03 [facility] / [place] [id number] Diagnos is: ICD-10- CM M54.50 Low back pain, unspeci fied MONO CORNELIUS TTHEW J 07/23 [facility] MANUAL THERAPY 1/> [place] [id number] [id number] Diagnos is: ICD-10- CM M54.50 Low back pain, unspeci fied MONO CORNELIUS TTHEW J 08/13 [facility] ACUPUNCT W/O STIMUL 15 MIN [id number] [id number] Diagnos is: ICD-10- CM M54.50 Low back pain, unspeci fied MONO CORNELIUS TTHEW J 09/03 [facility] MANUAL THERAPY 1/> [place] [id number] [id number] Diagnos is: ICD-10- CM M54.2 Cervica lgia MONO CORNELIUS TTHEW J 09/03 [facility] ACUPUNCT W/O STIMUL 15 MIN [id number] [id number] Diagnos is: ICD-10- CM M54.50 Low back pain, unspeci fied MONO CORNELIUS TTHEW J 09/24 [facility] MANUAL THERAPY 1/> [place] 00025-9.65 [id number] Diagnos is: ICD-10- CM M54.50 Low back pain, unspeci fied MONO CORNELIUS TTHEW J 09/24 [facility] MANUAL THERAPY 1/> [place] 58361-8.65 [id number] Diagnos is: ICD-10- CM M54.50 Low back pain, unspeci fied MONO CORNELIUS TTHEW J 10/21 [facility] Outpatient Encounter [id number] 10/21 [facility] DIVISIO N [facility] Outpatient Encounter [id number] 10/29 [facility] N [facility] Outpatient Encounter [id number] 10/29 [facility] N [facility] Outpatient Encounter [id number] 11/05 [facility] MANUAL THERAPY 1/> [place] [id number] [id number] Diagnos is: ICD-10- CM M54.2 Cervica steffia MONO CORNELIUS TTHEW J 11/18 [facility] SELF CARE MNGMENT TRAINING [id number] [id number] Diagnos is: ICD-10- CM M54.50 Low back pain, unspeci THEO Cooper 12/25 [facility] OFFICE O/P EST MOD 30 MIN [id number] [id number] Diagnos is: ICD-10- CM Z00.00 Encntr for general adult medical exam w/o abnorma l finding s ARCHANA CHERRY 01/01 [facility] Outpatient Encounter [id number] 01/10 [facility] N 0055C-375 th [facility] Between Visit [id number] 09/08 Discharge Disposition: Home or Self Care 0055C-[address] [facility] 0055C-375 [facility] Between Visit [id number] 09/10 Discharge Disposition: Home or Self Care 0055C-3 [facility] [facility] 0055A-375 th [facility] Outpatient [id number] POLO ALVAREZ 10/01 Discharge Disposition: Home or Self Care 0055A-3 [facility] [facility] 0055C-375 th [facility] Between Visit [id number] Ely al (primar y) hyperte nsion,E ncounte r for general adult medical examina tion without abnorma l finding s,Chron ic sinusit is, unspeci fied 10/01 Discharge Disposition: Home or Self Care 5C- [address] [place] [address] [facility] -[address] [facility] Between Visit [id number] 10/07 Discharge Disposition: Home or Self Care - [address] [place] [address] Procedures Combined list of: 1) Procedures from Department of Veterans Affairs facilities going back up to thelast 18 months, not all VA non-surgical procedures are included; 2) All procedures from the Department of Defense facilities. Procedure Procedure Type Code Date Perfomer Comments Sourc e Colonoscopy Colonoscopy (procedure) [id number] [address] [place] [address] REMOVAL OF SKIN TAGS, MULTIPLE FIBROCUTANEOUS TAGS, ANY AREA; UP TO AND INCLUDING 15 LESIONS 2007 [facility] VISUAL FIELD EXAMINATION, UNI OR BILATERAL, WITH MEDICAL DIAGNOSTIC EVAL; LIMITED EXAM (EG, TANGENT SCREEN, AUTOPLOT, ARC PERIMETER, OR SINGLE STIMULUS LEVEL AUTO TEST, EG OCTOPUS 3 OR 7 EQUIVALENT) 2006 [facility] CARDIOVASCULAR STRESS TEST USING MAXIMAL OR SUBMAXIMAL TREADMILL OR BICYCLE EXERCISE,CONTINUOUS ELECTROCARDIOGRAPHIC MONITORING,AND/OR PHARMACOLOGICAL STRESS;W SUPERVISION,INTERPRETA TION AND REPORT 2004 [facility] SPIROMETRY, INCLUDING GRAPHIC RECORD, TOTAL AND TIMED VITAL CAPACITY, EXPIRATORY FLOW RATE MEASUREMENT(S), WITH OR WITHOUT MAXIMAL VOLUNTARY VENTILATION 2004 [facility] RHYTHM ECG, 1-3 LEADS; INTERPRETATION AND REPORT ONLY 2004 [facility] PRESCRIPTION OF OPTICAL AND PHYSICAL CHARACTERISTICS OF AND FITTING OF CONTACT LENS, WITH MEDICAL SUPERVISION OF ADAPTATION; CORNEAL LENS, BOTH EYES, EXCEPT FOR APHAKIA 2003 [facility] OPHTHALMOLOGICAL SERVICES: MEDICAL EXAMINATION AND EVALUATION, WITH INITIATION OR CONTINUATION OF DIAGNOSTIC AND TREATMENT PROGRAM; INTERMEDIATE, ESTABLISHED PATIENT 1998 [facility] OPHTHALMOLOGICAL SERVICES: MEDICAL EXAMINATION AND EVALUATION WITH INITIATION OF DIAGNOSTIC AND TREATMENT PROGRAM; INTERMEDIATE, NEW PATIENT 1998 [facility] TELE ASSESS & MGT SRV PROV QUAL NONPHYS HLTH CARE PRO TO EST PAT,PARENT,GUARD NOT ORIG REL ASSESS & MGT SRV PROV W/IN PREV 7 DAYS NOR LEAD ASSESS & MGT SRV/PX W/IN NXT 24 HR/SOON APT;5-10 MIN MED DIS 2022 DoD TELE ASSESS & MGT SRV PROV QUAL NONPHYS HLTH CARE PRO TO EST PAT,PARENT,GUARD NOT ORIG REL ASSESS & MGT SRV PROV W/IN PREV 7 DAYS NOR LEAD ASSESS & MGT SRV/PX W/IN NXT 24H/SOON APT; 11-20 MIN MED DIS 2022 DoD TELE ASSESS & MGT SRV PROV QUAL NONPHYS HLTH CARE PRO TO EST PAT,PARENT,GUARD NOT ORIG REL ASSESS & MGT SRV PROV W/IN PREV 7 DAYS NOR LEAD ASSESS & MGT SRV/PX W/IN NXT 24 HR/SOON APT;5-10 MIN MED DIS 2021 DoD TELE ASSESS & MGT SRV PROV QUAL NONPHYS HLTH CARE PRO TO EST PAT,PARENT,GUARD NOT ORIG REL ASSESS & MGT SRV PROV W/IN PREV 7 DAYS NOR LEAD ASSESS & MGT SRV/PX W/IN NXT 24 HR/SOON APT;5-10 MIN MED DIS 2021 DoD SELF-CARE EDUCATION PROVIDED TO PATIENT (HF) 2021 DoD TELE ASSESS & MGT SRV PROV QUAL NONPHYS HLTH CARE PRO TO EST PAT,PARENT,GUARD NOT ORIG REL ASSESS & MGT SRV PROV W/IN PREV 7 DAYS NOR LEAD ASSESS & MGT SRV/PX W/IN NXT 24 HR/SOON APT;5-10 MIN MED DIS 2020 DoD TELE ASSESS & MGT SRV PROV QUAL NONPHYS HLTH CARE PRO TO EST PAT,PARENT,GUARD NOT ORIG REL ASSESS & MGT SRV PROV W/IN PREV 7 DAYS NOR LEAD ASSESS & MGT SRV/PX W/IN NXT 24 HR/SOON APT;5-10 MIN MED DIS 2020 DoD TELE ASSESS & MGT SRV PROV QUAL NONPHYS HLTH CARE PRO TO EST PAT,PARENT,GUARD NOT ORIG REL ASSESS & MGT SRV PROV W/IN PREV 7 DAYS NOR LEAD ASSESS & MGT SRV/PX W/IN NXT 24 HR/SOON APT;5-10 MIN MED DIS 2019 DoD TELE ASSESS & MGT SRV PROV QUAL NONPHYS HLTH CARE PRO TO EST PAT,PARENT,GUARD NOT ORIG REL ASSESS & MGT SRV PROV W/IN PREV 7 DAYS NOR LEAD ASSESS & MGT SRV/PX W/IN NXT 24H/SOON APT; 21-30 MIN MED DIS 2017 DoD SELF-CARE EDUCATION PROVIDED TO PATIENT (HF) 2016 DoD POSTOPERATIVE FOLLOW-UP VISIT, NORMALLY INCLUDED IN THE SURGICAL PACKAGE, INDICATE THAT EVALUATION & MANAGEMENT SERVICE WAS PERFORMED DURING A POSTOPERATIVE PERIOD REASON RELATED ORIGINAL PROCEDURE 2015 DoD REPAIR, INTERMEDIATE, WOUNDS OF FACE, EARS, EYELIDS, NOSE, LIPS AND/OR MUCOUS MEMBRANES; 2.6 CM TO 5.0 CM 2015 DoD INCISION AND DRAINAGE OF ABSCESS (EG, CARBUNCLE, SUPPURATIVE HIDRADENITIS, CUTANEOUS OR SUBCUTANEOUS ABSCESS, CYST, FURUNCLE, OR PARONYCHIA); SIMPLE OR SINGLE 2015 DoD BODY MASS INDEX (BMI), DOCUMENTED (PV) 2013 DoD COLONOSCOPY, FLEXIBLE; WITH BIOPSY, SINGLE OR MULTIPLE 2013 DoD TELE ASSESS & MGT SRV PROV QUAL NONPHYS HLTH CARE PRO TO EST PAT,PARENT,GUARD NOT ORIG REL ASSESS & MGT SRV PROV W/IN PREV 7 DAYS NOR LEAD ASSESS & MGT SRV/PX W/IN NXT 24 HR/SOON APT;5-10 MIN MED DIS 2013 DoD TELE ASSESS & MGT SRV PROV QUAL NONPHYS HLTH CARE PRO TO EST PAT,PARENT,GUARD NOT ORIG REL ASSESS & MGT SRV PROV W/IN PREV 7 DAYS NOR LEAD ASSESS & MGT SRV/PX W/IN NXT 24 HR/SOON APT;5-10 MIN MED DIS 2013 DoD TELE ASSESS & MGT SRV PROV QUAL NONPHYS HLTH CARE PRO TO EST PAT,PARENT,GUARD NOT ORIG REL ASSESS & MGT SRV PROV W/IN PREV 7 DAYS NOR LEAD ASSESS & MGT SRV/PX W/IN NXT 24H/SOON APT; 21-30 MIN MED DIS 2012 DoD DETERMINATION OF REFRACTIVE STATE 2011 DoD TELE ASSESS & MGT SRV PROV QUAL NONPHYS HLTH CARE PRO TO EST PAT,PARENT,GUARD NOT ORIG REL ASSESS & MGT SRV PROV W/IN PREV 7 DAYS NOR LEAD ASSESS & MGT SRV/PX W/IN NXT 24 HR/SOON APT;5-10 MIN MED DIS 2011 DoD TELE ASSESS & MGT SRV PROV QUAL NONPHYS HLTH CARE PRO TO EST PAT,PARENT,GUARD NOT ORIG REL ASSESS & MGT SRV PROV W/IN PREV 7 DAYS NOR LEAD ASSESS & MGT SRV/PX W/IN NXT 24 HR/SOON APT;5-10 MIN MED DIS 2011 DoD TELE ASSESS & MGT SRV PROV QUAL NONPHYS HLTH CARE PRO TO EST PAT,PARENT,GUARD NOT ORIG REL ASSESS & MGT SRV PROV W/IN PREV 7 DAYS NOR LEAD ASSESS & MGT SRV/PX W/IN NXT 24 HR/SOON APT;5-10 MIN MED DIS 2010 DoD TELE ASSESS & MGT SRV PROV QUAL NONPHYS HLTH CARE PRO TO EST PAT,PARENT,GUARD NOT ORIG REL ASSESS & MGT SRV PROV W/IN PREV 7 DAYS NOR LEAD ASSESS & MGT SRV/PX W/IN NXT 24 HR/SOON APT;5-10 MIN MED DIS 2010 DoD FITTING OF SPECTACLES, EXCEPT FOR APHAKIA; BIFOCAL 2009 DoD DETERMINATION OF REFRACTIVE STATE 2008 DoD OPHTHALMOLOGICAL SERVICES: MEDICAL EXAMINATION AND EVALUATION WITH INITIATION OF DIAGNOSTIC AND TREATMENT PROGRAM; INTERMEDIATE, NEW PATIENT 2001 [facility] Non-Physician Phone Call To Pt/Provider Lengthy (21-30 min) Non-Physician Phone Call To Pt/Provider Lengthy (21-30 min) [id number] 2017 GURWINDER DUNCAN [facility] Disease management program, follow-up/mary e ment 2017 GURWINDER DUNCAN [facility] Patient Counseling Medical Management Individual Patient Patient Counseling Medical Management Individual Patient [id number] 2017 GURWINDER DUNCAN [facility] Oropharynx Culture Streptococcus Group A Beta Hemolytic Oropharynx Culture Streptococcus Group A Beta Hemolytic 73892 2016 NORMAN CANDELARIA Patient in for walk-in Strep test result, Negative, specimen sent to the lab. Patient instructed to return to clinic if condition does not improve or sooner if condition worsens. Patient education done per clinic protocol. E.g. warm salt water gargles BID, increase clear fluid intake (H2O) 2-3liters per day. Get a new tooth brush. Clean bed sheets & pillow cases. Take Motrin as directed for the anti-inflammat ory effect. If lab results are positive patient informed he/ she will be contacted and medication will be ready for pick-up. Patient verbalized understanding of instructions given. [facility] Postoperative Visit, Without Charge Postoperative Visit, Without Charge 08917 2015 CARLOZ MANZANO Layer Closure Of Wound Face 2.6 to 5.0 cm Layer Closure Of Wound Face 2.6 to 5.0 cm 78732 2015 CARLOZ MANZANO Excision Of Lesion Face Benign 1.1 to 2cm Excision Of Lesion Face Benign 1.1 to 2cm 09804 2015 CARLOZ MANZANO Incision And Drainage Of Skin Absce , Simple Incision And Drainage Of Skin Abscess, Simple 51614 2015 DULCE POLLOCK [facility] Preventive Medicine Results Documented/Reviewed Body Ma Index Preventive Medicine Results Documented/Reviewe d Body Mass Index 3008F 2013 CRISTIAN ACHARYA Colonoscopy For Forceps Biopsy 2013 GERTRUDE CHAO Complete Colonoscopy For Polyp Removal 2013 GERTRUDE CHAO Colorectal cancer screening; colonoscopy on individual not meeting criteria for high risk 2013 GERTRUDE CHAO Non-Physician Phone Call To Patient/Provider Brief (5-10min) Non-Physician Phone Call To Patient/Provider Brief (5-10min) 29167 2013 ROSELINE FRANCOIS Non-Physician Phone Call To Patient/Provider Brief (5-10min) Non-Physician Phone Call To Patient/Provider Brief (5-10min) 09817 2013 ROSELINE FRANCOIS Non-Physician Phone Call To Pt/Provider Lengthy (21-30 min) Non-Physician Phone Call To Pt/Provider Lengthy (21-30 min) [id number] 2012 LOUIS UNDERWOOD [facility] Determination Of Refractive State Determination Of Refractive State 45359 2011 JETT REEVES Ophthalmological Prior Patient Start Comprehensive Care Ophthalmological Prior Patient Start Comprehensive Care 58353 2011 JETT REEVES Non-Physician Phone Call To Patient/Provider Brief (5-10min) Non-Physician Phone Call To Patient/Provider Brief (5-10min) 28218 2011 ROSELINE FRANCOIS Non-Physician Phone Call To Patient/Provider Brief (5-10min) Non-Physician Phone Call To Patient/Provider Brief (5-10min) [id number] 2011 ROSELINE FRANCOIS Non-Physician Phone Call To Patient/Provider Brief (5-10min) Non-Physician Phone Call To Patient/Provider Brief (5-10min) 25505 2010 AMANDOALISIA Hyacinth Non-Physician Phone Call To Patient/Provider Brief (5-10min) Non-Physician Phone Call To Patient/Provider Brief (5-10min) 33246 2010 ROSELINE FRANCOIS [employer] [facility] Fitting Bifocals (Not For Aphakia) [employer] [facility] Fitting Bifocals (Not For Aphakia) 56065 2009 CAESAR NELSON Determination Of Refractive State Determination Of Refractive State 96028 2009 CAESAR NELSON Ophthalmological Prior Patient Start Comprehensive Care Ophthalmological Prior Patient Start Comprehensive Care [id number] 2009 CAESAR NELSON Visual Craig Test Intermediate Examination Visual Craig Test Intermediate Examination 96875 2008 CAESAR NELSON Determination Of Refractive State Determination Of Refractive State 23523 2008 CAESAR NELSON Ophthalmological New Patient Start Comprehensive Care Ophthalmological New Patient Start Comprehensive Care 06622 2008 CAESAR NELSON Skin Tag Removal Skin Tag Removal 52845 2007 LAMBERT VILLALTA Central IV Catheter Left Brachial Central IV Catheter Left Brachial 51138 2006 YOSHI BAILEY Visual Craig Test Limited Examination Visual Craig Test Limited Examination 88332 2006 LAMBERT CONRAD passed Amsler grid Near Visual Acuity R: 20/20 L: 20/20 OU: 20/30 uncorrected [facility] Hepatic Function Panel Hepatic Function Panel 11789 2006 YOSHI BAILEY Serum Testosterone, Total Serum Testosterone, Total 80421 2006 YOSHI BAILEY Serum Vitamin D Serum Vitamin D 14731 2006 YOSHI BAILEY Serum Intact PTH Serum Intact PTH 19116 2006 YOSHI BAILEY Renal Function Panel Renal Function Panel 69467 2006 YOSHI BAILEY [facility] TSH (3rd Generation) TSH (3rd Generation) 87037 2006 YOSHI BAILEY [facility] Serum Magnesium Serum Magnesium 00526 2006 YOSHI BAILEY [facility] Blood Counts - CBC Blood Counts - CBC 56635 2006 YOSHI BAILEY [facility] Coagulation Studies: INR Coagulation Studies: INR 05507 2006 YOSHI BAILEY [facility] Prothrombin Time (PT) Prothrombin Time (PT) 99179 2006 YOSHI BAILEY [facility] Renal Function Panel Renal Function Panel 78649 2006 YOSHI BAILEY [facility] Tonsillectomy With Adenoidectomy Tonsillectomy With Adenoidectomy 98989 2005 MEDELLIN, 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, With Neurectomy (Each) Amputation Of Little Finger, With Neurectomy (Each) 25418 1979 MEDELLIN, SOUZA P partial DoD Non-Physician Phone Call To Patient/Provider Brief (5-10min) Non-Physician Phone Call To Patient/Provider Brief (5-10min) 84420 FLORECITA CHICAS Non-Physician Phone Call To Pt/Provider Intermed (11-20 min) Non-Physician Phone Call To Pt/Provider Intermed (11-20 min) 65213 RAZIA CORRAL [facility] Social History Combined list of available smoking, tobacco, and other social history from 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 Social History Type Response Date Comment Sour e Tobacco smoking status NHIS VA-TOBACCO FORMER USER 01/02/2024 [facility] History of tobacco use [place]TO[place]AC[place] QUIT 1 5 YRS OR MORE 01/02/2024 [facility] History of tobacco use VA-TOBACCO FORMER USER 01/05/2023 [facility] Sex Representation Male (finding) 07/06/2022 Un known Organization Tobacco Frequent/Daily exposure to secondhand smoke in indoor/confined spaces No. Former-cigarette user Cigarette use:. About 2016 Years *Stopped cigarettes age (*required for former users to complete the Recommendation). Never-other tobacco user (not cigarettes) Other Tobacco use:. [facility] Sexual Orientation [facility] Gender identity [facility] This section is an empty social history section. DoD Assessment and Plan Combined list of future care activities from Department of Defense and Veterans Affairs facilities (e.g., assessment and plan notes, appointments, orders, and referrals). Additional future care activities may be listed in the Plan of Care section. Result Assessment and Plan Date Source Assessment and Plan Extracted from:Title : 0055 BCC annual/tinnitus Author: POLO IRBY NP, Family Medicine Date: 07/10/24 1. A bnormal wellness exam 58 y/o m anupama p resents for routine annual visit. D enies any recent UC/ED visits or hospitalizations. Has been doing well in the interim and is without complaints today. Outside MTF p roviders: Cardiology: sees every 9 months; stress test completed 6 months ago with normal results - R eviewedLabs -Discussed healthy diet (vegetable, fruits, lean meats) -Discussed intentional exercise (3-5x/week, 20-30 minutes of sustained cardiovascular training) General Prevention: 10yr ASCVD risk: Colon Cancer Screening: u tdrepeat in 5 years; n o blood i n stool, abnormal weight loss Lung CA screening: n /a q uit August 2015; s moked x 20 years; due for CT chest Flu Immunization: n /a PCV Immunization: n /a Zoster Immunization: n /a AAA screening (65-75): Osteoporosis screenin. H ypertension 58 y/o m anupama w ith hx of HTN. Currently well controlled. No firm evidence to suggest secondary hypertension. E levated during clinic appt. Checks BPs at home and stated to run in 130s/80s. Denies any chest pain, vision changes, headaches, swelling in legs, or changes in urinary output. - No medication changes currently -Recommended continued home BP monitoring and validating monitor -Discussed importance of low salt <2g/day, BP control, and exercise (5x/week, 20-30 sustained) -Follow up in 1 year or sooner as needed for elevated BPs 3. T ype 2 diabetes mellitus Not currently well-controlled. A1C elevated to 7.2 on recent labs. Previous values below 7. He reports lack of exercise in recent months d/t weather and knows what he has to do to improve values. Currently maintained on Metformin 500mg BID. No medication changes at this time. He will increase his activity and improve diet and we will repeat labs in 3 months. - Taking PEG-I/ARB, Statin, and ASA. - Checking f asting glucose a s recommended. - HgA1C slightly above goal at 7.2; no med changes at this time. Will consider in 3 months. Consider adding Jardiance for additional cardiovascular protection given hx. - LDL at goal of ~ 70 - Microalbumin/Cr at goal <30 -CKD stage: n o CKD - Discussed importance of healthy diet and exercise (5x/week, 20-30 minutes) - Follow up in 3 months or sooner if needed, call ahead for lab entry: Recheck BMP, A1C - Patient agrees with this plan 4. H yperlipidemia Currently well-controlled on atorvastatin. TG mildly elevated above goal. No SE. - Discussed importance of healthy diet and exercise (5x/week, 20-30 minutes of sustained cardiovascular training) - Recommended OTC fish oil ([place] 3) - will consider additional medication lowering TG, however at this point stressed dietary and lifestyle m odifications 5. C oronary artery disease Stable. Followed by outside [facility]. Stress testing completed 6 months ago with normal results. Denies CP, SOB, palpitations. 6. B uzzing in ear Located to left ear. Onset 1 month ago. He has been taking Sudafed with s ome temporary i mprovement. The h umming is s tated to rima e constant. S ome difficulty h earing on t hat s whtiney. N o fevers, drainage from ear. PE unremarkable. No evidence of fluid level, no edema, erythema. No TTP. Likely tinnitus. - referral to Audiology for exam 40 minutes total time spent on evaluation and management. Polo Irby R., Pablo, BENDING SHED WORKER-C [facility] [place] [address] Ordered: Referral Request 2.0 - DoD Extracted from:Title: 0055 [facility] Virtual lab f/u Author: CARLOZ ELIAS PA Date: 01/16/24 1. T ype 2 diabetes mellitus 58 Years-old M anupama p resenting v irtually f or l ab r esults. Verified name and . Pt has not other concerns at this time D iscussed the following findings: FINDINGS: - A1C 6.5% PLAN: - Refill Metformin 500mg BID - Follow up in clinic: 6 -12 months - All questions answered. Patient verbalized understanding and expressed comfort with this plan. Orders: metFORMIN(metFORMIN 500 mg oral tablet, extended release), 1 tab(s), Oral, BID, Take one tablet two times daily with food for blood sugar, # 60 tab(s), 0 total refill(s), Maintenance, 1 tab(s) Oral BID,Instr:Take one tablet two times daily with food for blood sugar, Pharmacy: [facility] [Not filled] Carloz Elias, 1st [employer], P A-[facility] [place] [address] Extracted from:Title: 0055 [facility] Virtual DM f/u Author: CARLOZ ELIAS PA Date: 08/08/23 1. T ype 2 diabetes mellitus 58 y /o m anupama here for virtual appointment. Verified name and . Discussed the following: F/u DM - Well controlled with no evidence of nephropathy, neuropathy, or retinopathy. - Taking PEG-I/ARB, Statin, and ASA. - Checking f asting glucose a s recommended. - HgA1C <7: No DM med changes currently. -No change to Metformin 1000mg Daily - Ordered the following screening tests: HgA1C, Lipids, Microalb/Cr, CMP - Discussed importance of healthy diet and exercise (5x/week, 20-30 minutes) - Follow up in 3 months or sooner if needed, call ahead for lab entry - Patient agrees with this plan Ordered: Comprehensive Metabolic Panel Hemoglobin A1c Lipid Panel Microalbumin Panel, Urine Orders: metFORMIN(metFORMIN 500 mg oral tablet, extended release), See Instructions, Oral, Take one tablet two times daily with food for blood sugar., # 180 tab(s), 0 total refill(s), Maintenance, 30 days, Take one tablet two times daily with food for blood sugar., Pharmacy: [facility] [Not filled] Extracted from:Title: 0055 [facility] Congestion / Dizziness Author: DANY DIAMOND PA Date: 07/30/23 1. C ongestion of mucosa 57 y/o male with a history of seasonal allergic rhinitis presents complaining of congestion with humming of the left ear along with Intermittent d izziness for the past 2-3 days. Patient states the dizziness lasts longer than a minute and is not reproducible by moving his head. Santee-Hallpike maneuver was negative. Patient does have mucus in his middle ears bilaterally. N o signs or symptoms of ear infections. Patient states he is currently taking Zyrtec and Flonase once daily. -Increase Zyrtec to 20 mg a day for the next 30 days then decrease back down to 10 mg. -Increase Flonase to 2 sprays per nostril once daily. -Take Sudafed 30 mg once every 6 hours as needed for congestion. -Take meclizine 25 mg 3 times a day as needed for dizziness. -F/u as needed. Ordered: pseudoephedrine(Sudafed 30 mg oral tablet), 2 tab(s), Oral, every 6 hr, PRN as needed for congestion, # 48 tab(s), 0 total refill(s), Acute, 07/29/2024, 2 tab(s) Oral every 6 hr,PRN:as needed for congestion, Pharmacy: [facility] #[id number] [External Rx] 2. D izziness Same as above. Orders: meclizine(meclizine 25 mg oral tablet), 1 tab(s), Oral, TID, PRN as needed for dizziness, # 30 tab(s), 0 total refill(s), Acute, 07/29/2024, 1 tab(s) Oral TID,PRN:as needed for dizziness, Pharmacy: [facility] #[id number] [External Rx] Extracted from:Title: 0055 [facility] Virtual Medication question Author: DANY DIAMOND PA Date: 07/10/23 1. A dministrative reason for encounter 57-year-old male presents for virtual appointment to discuss a prescription for Metanx. The pt states his cigarette inspector advised him to take it for his nerve pain. Pt was advised that this medications is not covered. Advised pt to discuss other options with cigarette inspector. F/u as needed. Extracted from:Title: 0055 [facility] Virtual Administrative Note Author: DANY DIAMOND PA Date: 06/11/23 1. A dministrative reason for encounter 57-year-old male with a history of diabetes presents via virtual appointment on the way that this appointment was made. Patient discussed his medications with ROSARIO Elias last week and does not have any further concerns at this time. Extracted from:Title: 0055 [facility] Virtual- Lab/CT review/Perscription renewal Author: CARLOZ ELIAS PA Date: 06/04/23 1. T ype 2 diabetes mellitus 57 y /o m anupama here for virtual appointment. Verified name and . Discussed the following: Pt needed refill on M etformin. Currently take 1000mg a day. 500mg in the morning and 500mg in the evening. States h e started taking medication after Marguerite. H e has n o complaints or AE at this time. -Will check A1C in 2mo -Will adjust dose is necessary -f/u as needed 2. C oronary artery disease Pt had questions on CT finding of severe Coronary artery disease. Pt has had no chest pains, SOB, pain referred to L arm/jaw, or s yncope. Discussed with pt the ways to manage stable CAD ( which is ASA 81mg daily, BP control, Cholesterol control, DM management, Exercise, Smoking cessation). He has BP and Cholesterol under control, We are working on DM management. Pt no longer smokes. -Discussed benefit of OTC fish oil supplement to prevent CV events -Recommended increase diet of fruits/vegetables (Mediterranean diet/DASH) and aerobic e xercise >150min/wk -Pt aware of signs of CV event (symptoms we discussed) -f/u as needed 3. W ell adult monitoring status Pt wanted to ensure his PSA was within normal limits which it is. No current LUT symptoms. -f/u as needed Orders: metFORMIN(metFORMIN 500 mg oral tablet, extended release), See Instructions, Oral, Take one tablet two times daily with food for blood sugar., # 120 tab(s), 0 total refill(s), Maintenance, 30 days, Take one tablet two times daily with food for blood sugar., Pharmacy: [facility] [Not filled] Extracted from:Title: 0055 [facility] Annual Well exam/TY2DM Initial Author: CARLOZ ELIAS PA Date: 04/30/23 1. W ell adult monitoring check done 57 y /o m anupama presents for routine annual visit. Pt is well appearing on exam, hoever h e had 1+ pitting edema on bilateral legs that he states is chronic. Kidney function/liver function look normal, pt is getting chest CT for lung cancer screen to eval cardiopulm. No abn finding on heart and lung auscultation. Pts concerns were addressed below. -Discussed lab results below -Discussed healthy diet (vegetable, fruits, lean meats) -Discussed intentional exercise (3-5x/week, 20-30 minutes of sustained cardiovascular training) -Pt gets annual PSA for the past several years; reordered for this year but discussed possibility of no longer needing checks is values are within range + no LUTS + no family hx General Prevention: 10yr ASCVD risk: 1 3% Colon Cancer Screening: u td Lung CA screening: s cheduled Flu Immunization: u td PCV Immunization: n /a Zoster Immunization: n /a Pt taking 81mg ASA Prostate Cancer Screening: Risks and benefits of PSA discussed, patient r equests testing Ordered: aspirin(Aspirin Low Dose 81 mg oral delayed release tablet), 1 tab(s), Oral, Daily, 90 tab(s), 0 Refill(s), # 90 tab(s), 3 total refill(s), Maintenance, 1 tab(s) Oral Daily,Instr:90 tab(s), 0 Refill(s), Pharmacy: [facility] [Federal Rx: #90 last filled 04/30/23] Free + Total PSA [id number] CT Low Dose Lung Screening 2. D iabetes mellitus type 2 Pts most recent A 1C was 7.6 and fasting glucose was 192. Looking at past labs shows A1C has been increasing steadily over the past few years. Pts renal and liver labs appear within range. Pt states he does not e at too many sweets and eats fairly healthy (meals consist of meat, starch+/-carb, vegetables, some fruits). His physical fitness has decreased since last year. Pt had foot surgery in 2021 and has balance issues and prolonged walking hurts. Pt states he has g ained weight since h is s urgery. Pt states b ilateral n umbness and tingling of feet all the time for the past 3 years. He reports no vision changes or or urinary changes. 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 -Will recommend if 3mo A1C check is still uncontrolled Ordered: metFORMIN(metFORMIN 500 mg oral tablet, extended release), See Instructions, Oral, take one tablet by mouth every evening with food for 7 days, then take one tablet two times daily with food for blood sugar., # 53 tab(s), 0 total refill(s), Maintenance, 30 days, take one tablet by mouth every evening with fo... Referral Request 2.0 3. E ssential hypertension Pt with hx of HTN. Currently well controlled s econd time taking BP was 126/78. No firm evidence to suggest secondary hypertension. - N o medication changes currently -Recommended continued home BP monitoring and validating monitor -Discussed importance of low salt <2g/day, BP control, and exercise (5x/week, 20-30 sustained) -Follow up in three months or sooner if needed (if BP is consistently >130/80 at home) Ordered: telmisartan-hydroCHLOROthiazide (telmisartan-hydroCHLOROthiazid e 40mg-12.5mg oral tablet), 1 tab(s), Oral, Daily, 90 tab(s), 0 Refill(s), # 90 tab(s), 3 total refill(s), Maintenance, 1 tab(s) Oral Daily,Instr:90 tab(s), 0 Refill(s), Pharmacy: [facility] [Not filled] 4. H yperlipidemia Pts lipid panel came back with HDL being decreased and triglycerides increased. LDL was within a good range. Pts ASCVD risk score was 13% and ACC recommends a mod-intensity statin for which the pt is already taking. -Continue with medication regimen of 20mg atorvastatin daily -f/u as needed Ordered: atorvastatin(atorvastatin 20 mg oral tablet), 1 tab(s), Oral, Daily, 90 tab(s), 0 Refill(s), # 90 tab(s), 3 total refill(s), Maintenance, 1 tab(s) Oral Daily,Instr:90 tab(s), 0 Refill(s), Pharmacy: [facility] [Not filled] 5. H yponatremia Pt had mild hyponatremia/hypochloremia on labs. He denies recent N/V, diarrhea/constipation, muscle aches, urinary changes. No polydipsia or polyuria. Pt h as been t aking HCTZ for the past few years with no complaints. Pt has untreated DM diagnosis as well. -Will recheck CMP and Sr Osm to narrow down cause of low sodium. -Discussed s/s of hyponatremia/hypochloremia to look out for -Discussed potential causes of decreased sodium/chloride (possible DM, renal causes, or HCTZ) -f/u in 1-2wks for lab results Ordered: Comprehensive Metabolic Panel Osmolality [id number] 6. S inusitis Chronic condition. Well controlled. No other concerns. -Will continue current medication regimen -f/u as needed Ordered: cetirizine(cetirizine 10 mg oral tablet), 1 tab(s), Oral, Daily, 90 tab(s), 0 Refill(s), # 90 tab(s), 3 total refill(s), Maintenance, 1 tab(s) Oral Daily,Instr:90 tab(s), 0 Refill(s), Pharmacy: [facility] [Not filled] fluticasone nasal(Flonase 50 mcg/inh nasal spray), 50 mcg, Nostril-Both, BID, shake well before using, # 16 g, 5 total refill(s), Maintenance, 50 mcg Nostril-Both BID,Instr:shake well before using, Pharmacy: [facility] [Not filled] Extracted from:Title: 0055 [facility] Finger cyst Author: ROSELINE FRANCOIS NP Date: 02/22/23 1. G anglion cyst Presentation most consistent with right second finger ganglion cyst. The patient would like this removed. We will send him to hand surgery for evaluation. Follow-up with primary care provider after being seen by a specialist. Ordered: Referral Request 2.0 [facility]20[id number] List of future care activities from [facility] facilities. Additional future care activities may be listed in the Assessment and Plan section. Date/Time Care Activity Care Activity Detail Facili ty 01/02/2025 AMBULATORY - MEDICINE AMBULATORY - MEDICI MISTY SANCHEZ [facility] Functional Status Combined list of recent functional and cognitive assessments recorded at Department of Defense and Veterans Affairs (VA).VA Functional [place] Measurement (FIM) Scale: 1 = Total Assistance (Subject = 0% +), 2 = Maximal Assistance (Subject = 25% +), 3 = Moderate Assistance (Subject = 50% +), 4 = Minimal Assistance (Subject = 75% +), 5 = Supervision, 6 = Modified [place] (Device), 7 = Complete [place] (Timely, Safely). Assessment Date/Time Source Assessment Type Assessment Skill Assessment Score Assessment Details No data available for this section
--- OUTSIDE RECORDS SUMMARY | 2024-11-23 08:46 | XMS_ITS | Clinical Summary ---
Author Organization [facility] Address [address] [place] [address] Care Team Providers Care Admin Secretary Name Role Phone Lyudmilahugo Ester Sheridan ROSARIO Primary Care Provider Dean Vásquez DO Unavailable [phone] Allergies No known active allergies Medications atorvastatin (LIPITOR) 20 mg tablet 01/26/2021 Active telmisartan-hydr ochlorothiazid (MICARDIS HCT) 40-12.5 mg per tablet 01/26/2021 Active aspirin 81 mg enteric coated tablet Take 1 tablet (81 mg total) by mouth 2 (two) times a day 30 tablet 05/17/2021 Active HYDROcodone-acet aminophen (NORCO) 5-325 mg per tabletIndication s:Pain Take 1 tablet by mouth every 6 (six) hours as needed for pain 30 tablet 05/17/2021 Active Active Problems Problem Noted Date Diagnosed Date Arthritis of right foot 04/19/2021 Overview (04/19/2021): Added automatically from request for surgery [id number] Surgical History Surgery Date Site/Laterality Comments HERNIA REPAIR 05/14/2018 - 05/13/2019 UMBILICAL TONSILLECTOMY 05/14/1969 - 05/13/1970 COLONOSCOPY W/ POLYPECTOMY 05/14/2015 - 05/13/2016 COLONOSCOPY 05/14/2018 - 05/13/2019 ok Medical History Medical History Date Comments Hypercholesteremia Hypertension Family History Medical History Relation Name Comments Heart disease Father Cancer Mother Diabetes Mother Heart disease Mother Relation Name Status Comments Father Mother Social History Tobacco Use Types Packs/Day Years Used Date Smoking Tobacco: Former Cigarettes Q uit: 2016 Smokeless Tobacco: Never AUDIT-C Answer Date Recorded Q1: How often do you have a drink containing alcohol? 4 or more times a week 05/05/2021 Q2: How many drinks containi ng alcohol do you have on a typical day when you are drinking? 1 or 2 Q3: How often do you have si x or more drinks on one occasion? 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 OFFICER Temperature 36.4 C (97.6 F) 05/17/2021 10:25 AM 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 VEHICLE OFFICER Respiratory Rate 18 05/17/2021 11:06 AM 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 OFFICER Oxygen Saturation 99% 05/17/2021 11:06 AM 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 VEHICLE OFFICER Inhaled Oxygen Concentration - - Weight 108.9 kg (240 lb) 03/02/2021 11:02 AM CDT Height 172.7 cm (5' 8) 03/02/2021 11:02 AM CDT Body Mass Index 36.49 03/02/2021 11:02 AM CDT Plan of Treatment Health Maintenance Due Date Last Done Comments Colon Cancer Screening-Colonoscopy 1964 Depression Screening 1964 Hepatitis C Screening 1964 Prostate Cancer Screening-PSA 1964 DTaP/Tdap/Td Vaccine (1 - Tdap) 08/08/1975 Hepatitis B Screening 1982 Regular Well Visit/Exam 18-64 1982 Zoster Vaccine (1 of 2) 2014 Covid-19 Vaccine (3 - 2023-2 5 season) 2024 08/05/2020, 07/15/2020 Influenza Vaccine (Season Ended) 2025 02/20/2020, 03/26/2019, 03/18/2018 Pneumococcal vaccine <65 Aged Out No longer eligible based on patient's age to complete this topic Medical Devices Implanted Type Area Mental Health Social Worker Device Identifier Shelf Expiration Date Model / Serial / Lot Right First Mtp Fusion Plate Implanted:Qty: 1 on 05/17/[address] [facility] Right: Ankle Synthes I ..230 / / Synthes .112 2.4mm 12mm Self Tap Lock Variable Angle Stardrive T8 Screw Bone - [id number] Implanted:Qty: 1 on 05/17/[address] [facility] Right: Ankle Synthes I .112 / / Synthes .116 2.4mm 16mm Self Tap Lock Variable Angle Stardrive T8 Screw Bone - [id number] Implanted:Qty: 1 on 05/17/[address] [facility] Right: Ankle Synthes I 210.116 / / Synthes .120 2.4mm 20mm Self Tap Lock Variable Angle Stardrive T8 Screw Bone - [id number] Implanted:Qty: 1 on 05/17/[address] [facility] Right: Ankle Synthes I 210.120 / / Synthes .118 2.4mm 18mm Self Tap Lock Variable Angle Stardrive T8 Screw Bone - [id number] Implanted:Qty: 3 on 05/17/[address] [facility] Right: Ankle Synthes I .118 / / Explanted Type Area Mental Health Social Worker Device Identifier Shelf Expiration Date Model / Serial / Lot Synthes 410 Lcp 1.6mm 150mm 10mm Thread Compression Wire Fixation Nonsterile - [id number] Explanted:Qty: 1 on 05/17/[address] [facility] Right: Ankle Synthes I .410 / / Description:For charge only. [place] [address] [facility] CLAIMS [place] [address] CLAIMS Care Teams Admin Secretary Relationship Specialty Start Date End Date Ester Nix PA [address] [place] [address] PCP - General Physician Hematology Nurse 02/03/21 Dean Vásquez DO [address] [facility] [address] [address] Consulting Physician Orthopedic Surgery 05/17/21
--- OUTSIDE RECORDS SUMMARY | 2024-11-23 08:46 | XMS_ITS | Data Portability ---
Author Organization [place] [facility], Main Office Address [address] [place] [address] Care Team Providers Care Hearing Dog Trainer Name Role Phone KOKI AFAdrianna REFERRAL MANAGEMENT Referring Provider Assessment No assessment recorded. Plan of Treatment Reminders Order Date Submit Date Provider Last Modified By Organization Details Last Modified Time Details Appointments None recorded. Lab None recorded. Referral None recorded. Procedures None recorded. Surgeries endoscopy, nasal/sinus , w/ maxillary antrostomy & tissue removal (SURG) 2022 023 [email or web address] Not available 3 08:56:05 septoplasty (SURG) 2022 023 [email or web address] Not available 3 08:56:05 endoscopy, nasal/sinus , with frontal sinus exploration (SURG) 2022 023 [email or web address] Not available 3 08:56:05 endoscopy, nasal/sinus , w/ total ethmoidecto my (SURG) 2022 023 [email or web address] Not available 3 08:56:05 Imaging None recorded. Medication Orders None recorded. Patient TargetsNo targets recorded. Patient Instructions Encounter Date Encounter Id Patient Instructions Last Modified By Organization Details Last Modified Time 09/14/2022 [id number] because of the eosinophilia the patient will be referred to an metal tank builder. [email or web address] Not available 09/14/2022 15:40:32 Reason for Referral None Reported. Results Created Date Observation Date Name Description Value Unit Range Abnormal Flag Note LastModifiedBy Organization Detail LastModifiedTime 09/09/19 23 09/08/2022 HEMOG LOBIN /MAI TOCRI T hemoglobin 14.4 g/dL 13.2-1 7.0 Not Available [facility] (Lab) [address] [place], [address], 09/08/2022 08:42:09 09/09/19 23 09/08/2022 HEMOG LOBIN /MAI TOCRI T hematocrit 42.3 % 39.3-5 0.0 Not Available [facility] (Lab) [address] [place], [address], 09/08/2022 08:42:09 09/09/19 23 09/08/2022 PLATE LET COUNT platelets 243 x10'3 /uL 150-40 0 Not Available [facility] (Lab) [address] [place], [address], 09/08/2022 08:42:12 09/09/19 23 09/08/2022 POTAS SIUM potassium 3.9 mmol/ L 3.5-5. 1 Not Available [facility] (Lab) [address] [place], [address], 09/08/2022 08:55:23 05/16/19 CT, sinus es, w/o contr ast No observ ation record ed. [email or web address]. Not Available 07/12/2022 20:41:47 05/16/19 23 04/03/2022 CT, head, w/o contr ast No observ ation record ed. [email or web address]. Not Available 07/12/2022 20:41:47 06/20/19 23 06/08/2022 CT, sinus es, w/o contr ast No observ ation record ed. [email or web address]. [facility] [address] [place], [address], 07/12/2022 20:41:47 06/23/19 23 06/16/2022 CT, sinus es, w/o contr ast No observ ation record ed. [email or web address]. Not Available 07/12/2022 20:41:47 Result Notes None recorded. Problems Name Problem SNOMED Code Status Onset Date Resolution Date Notes Provider Name and Address Organization Details Recorded Time Deviated nasal septum 720964217 Active 2022 Not Available [facility] 20:41:05 Hypertensi ve disorder 34435489 Active Not Available [facility] 20:41:05 Chronic sinusitis 81312942 Active 2022 Not Available [facility] 20:41:05 Chronic frontal sinusitis 34042591 Active 2022 Diallo Hammond MD [address], [address], [place], [address] , [facility] 15:46:13 Chronic ethmoidal sinusitis 55844587 Active 2022 Diallo Hammond MD [address], [address], [place], [address] , [facility] 15:46:22 Chronic maxillary sinusitis 75768772 Active 2022 Diallo Hammond MD [address], [address], [place], [address] , [facility] 15:46:31 Postoperat frandy pain 113304553 Active 2022 Diallo Hammond MD [address], [address], [place], [address] , [facility] 15:00:32 Acute postoperat frandy pain 4898663811615 05 Active 2022 Diallo Hammond MD [address], [place], [address] , [facility] 16:25:24 Seasonal allergic rhinitis 316741741 Active 2022 Cee Flood RN [facility], [facility] 15:38:42 Problem Notes None recorded. Procedures Surgical History Date Name Laterality Status Provider Name and Address Organization Details Recorded Time arthrodesis of interphalangeal joint of toe completed Not Available [facility] 07/12/2022 20:40:50 umbilical hernioplasty completed Not Available [facility] 07/12/2022 20:40:50 SEPTOPLASTY (SURG) completed Cee Flood RN [place] [facility] [employer] [facility] 09/11/2022 09:55:25 Imaging Results None recorded. Procedure Notes None recorded. Medical Equipment None Reported. Allergies No known drug allergies Medications Name Sig Start Date Stop Date Status Note LastModified by Organization Details LastModified Time telmisartan 40 mg-hydrochlo rothiazide 12.5 mg tablet active Not Available Not Available Not Available atorvastatin 20 mg tablet active Not Available Not Available Not Available cetirizine 10 mg tablet active Not Available Not Available Not Available atorvastatin 10 mg tablet 08/15 completed Not Available Not Available Not Available ibuprofen 800 mg tablet active Not Available Not Available Not Available hydrocodone 5 mg-acetamino phen 325 mg tablet 06/07 completed Not Available Not Available Not Available prednisone 20 mg tablet TAKE 2 TABLETS BY MOUTH DAILY FOR 7 DAYS 08/15 completed Not Available Not Available Not Available aspirin 81 mg tablet,delay ed release active Not Available Not Available N ot Available ketorolac 10 mg tablet 08/15 completed Not Available Not Available Not Available propranolol 40 mg tablet active Not Available Not Available Not Available hydrocodone 7.5 mg-acetamino phen 325 mg tablet Take 1 tablet every 4-6 hours by oral route as needed for 7 days. 09/12 completed Not Available Not Available Not Available fluticasone propionate 50 mcg/actuatio n nasal spray,suspen luann SHAKE LIQUID AND USE 2 SPRAYS IN EACH NOSTRIL DAILY active Not Available Not Available No t Available amoxicillin 875 mg-potassium clavulanate 125 mg tablet TAKE 1 TABLET BY MOUTH TWICE DAILY X 5 DAYS. 08/15 completed Not Available Not Available Not Available Voltaren 1 % topical gel 08/15 completed Not Available Not Available Not Available Fluzone Quad (PF) 60 mcg(15 mcgx4)/0.5 mL intramuscula r syringe ADM 0.5ML IM UTD active Not Available Not Available No t Available Vitals Date Recorded Body mass index (BMI) Body height Body temperature Body weight Provider Name and Address Organization Details Last Updated DateTime 06/08/2022 43.9 kg/m2 172.72 cm 97.8 [degF] 170887.1 9 g Not Available [employer] 07/12/2022 20:40:51 Date Recorded Body height Body mass index (BMI) Body weight Body temperature Provider Name and Address Organization Details Last Updated DateTime 08/16/2022 172.72 cm 40.7 kg/m2 012311.76 g 97.8 [degF] Jenny Bowersnasim [facility] [employer] 08/16/2022 15:33:22 Date Recorded Body height Body mass index (BMI) Body weight Body temperature Provider Name and Address Organization Details Last Updated DateTime 09/14/2022 172.72 cm 39.8 kg/m2 071514.2 g 97.8 [degF] Jenny Maxwell [facility] [employer] 09/14/2022 15:25:15 Social History None recorded. Functional Status Question Answer Note LastModified by Organization D etails LastModified Time What is your level of alcohol consumption? None [email or web address] Information not available 08/15/2022 Mental Status None recorded. Family History Relationship Description Onset Age of this Age Resolved Age Notes LastModified by Organization Details LastModified Time Father No current problems or disability [email or web address] Not available 08/15 15:12:34 Mother No current problems or disability [email or web address] Not available 08/15 15:12:34 Medical History Condition Response MRSA N SLEEP APNEA N ALLERGIES/HAYFEVER N LUNG DISEASE/DISORDER N HISTORY OF DRUG ABUSE N INSOMNIA N COPD N RADIATION / CHEMOTHERAPY N HIGH CHOLESTEROL / HYPERLIPIDEMIA N HYPERTHYROIDISM N BLOOD DISEASES N EAR OR HEARING PROBLEMS N HYPOTHYROIDISM N SHINGLES N DEPRESSION (INCLUDING POST ) N HAVE YOU BEEN HOSPITALIZED OR SEEN IN [facility] ER IN THE PAST YEAR ? N STROKE/TIA N ULCERS N OBESITY N ANEURYSM N HISTORY WITH COMPLICATIONS WITH ANESTHES IA ? N USE OF BLOOD THINNERS N NO SIGNIFICANT PAST MEDICAL HISTORY N DIABETES, TYPE N PARATHYROID DISEASE N ENT N SEASONAL ALLERGIES N HEARTBURN / REFLUX N HEPATITIS / LIVER DISEASE N SLEEP DISORDER N SEIZURES/EPILEPSY N HEADACHES/MIGRAINES N CHF N PACEMAKER N DIZZINESS N HEART DISEASE/HEART PROBLEMS N AIDS/HIV N FRACTURES N HYPERTENSION N CANCER: SPECIFY N TOURETTE'S N BLOOD TRANSFUSION N ANESTHESIA COMPLICATIONS N ANEMIA/BLOOD DISORDER N CHRONIC EAR INFECTIONS N AUTOIMMUNE DISEASE N TUBERCULOSIS N Past Encounters Encounter ID Performer Location Encounter Start Date Encounter Closed Date Diagnosis/Indication Diagnosis SNOMED-CT Code Diagnosis ICD10 Code Diagnosis Note [id number] MD [facility] [place] [address] [place] [address] 06/08/2022 00:00:00 06/08/2022 16:04:02 [id number] MD ARNEL [facility] [place] [address] [place] [address] 08/16/2022 15:28:12 08/16/2022 15:48:26 Deviated nasal septum 588172985 J34.2 Chronic sinusitis 854571 00 J32.9 Chronic fr ontal sinusitis 94579332 J32.1 Chronic et hmoidal sinusitis 92110474 J32.2 Chronic ma xillary sinusitis 00600758 J32.0 [id number] MD L[facility]I [facility] [place] [address] [place] [address] 09/14/2022 15:03:25 09/14/2022 16:05:15 Chronic sinusitis 29775461 J32.9 Health Concerns Section Related Observation LastModified by Organization Detai ls LastModified Time None Recorded Concern Status LastModified by Organization Details LastModified Time None Recorded Advance Directives Directive None Recorded Payers Insurance Date Sequence Insurance Name Policy Number Policy Davis Covered Member ID Davis Member ID Guarantor Name 09/12/2022 1 [facility] Adriel Kenny [id number] Adriel Kenny Notes Date Note Type Note Provider Name and Address Organization Details Recorded Time 08/16/2022 text/html the sinus CT reveals sphenoid sparing pansinusitis with left septal deviation and spur. Diallo Hammond MD [address], [place], [address], [facility] 08/16/2022 15:47:31 09/14/2022 text/html this patient is doing very well following sinus surgery. The pathology revealed eosinophilia. Diallo Hammond MD [address], [place], [address], [place] [facility] 09/14/2022 15:40:51
--- OUTSIDE RECORDS SUMMARY | 2024-11-23 08:46 | XMS_ITS | Encounter Summary ---
Author Organization [facility] Address [address] [place] [address] Care Team Providers Care Ceiling Cleaner Name Role Phone Keeley Parra Primary Care Provider [phone] Encounter Details Date Type Department Care Team (Late st Contact Info) Description 10/15/2023 Abstract [facility] [address] [place] [address] Elías Faulkner MA Social History Tobacco Use Types Packs/Day Years Used Date Smoking Tobacco: Never Assessed Sex and Gender Information Value Date Recorded Sex Assigned at Not on file Legal Sex 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 [facility] [address] [place] [address] documented as of this encounter Procedures Procedure Name Priority Date/Time Associated Diagnosis Comments HEMOGLOBIN, GLYCOSYLATED Routine 08/03/2023 COMPREHENSIVE METABOLIC PANEL Routine 04/17/2023 LIPID PANEL Routine 04/17/2023 HEMOGLOBIN, GLYCOSYLATED Routine 04/17/2023 documented in this encounter Results * HEMOGLOBIN, GLYCOSYLATED (08/03/2023) HGB A1C 6.4 % 08/03/2023 us Default History Genericprovider LABORATORY Final Result * (ABNORMAL) COMPREHENSIVE METABOLIC PANEL (04/17/2023) Pathologist [facility] SODIUM S/P/B 134 POTASSIUM S/P/B 3.9 CO2 27 CHLORIDE S/P/B 95 GLUCOSE 197 mg/dL CALCIUM S/P/B 9.8 BUN 8 CREATININE S/P/B 0.80 0.7 - 1.3 EGFR NON-AFR. AMER. 103(A) <=90 ALKALINE PHOSPHATASE S/P/B 68 ALT 36 AST 32 BILIRUBIN TOTAL S/P/B 0.8 ALBUMIN S/P/B 4.3 3.5 - 5.0 TOTAL PROTEIN S/P/B 7.4 04/17/2023 us Default History Genericprovider LABORATORY Edited Result - Final * HEMOGLOBIN, GLYCOSYLATED (04/17/2023) Pathologist [facility] HGB A1C 7.6 % 04/17/2023 Default History Genericprovider LABORATORY Edited Result - Final * LIPID PANEL (04/17/2023) Pathologist [facility] CHOLESTEROL 125 HDL 36 TRIGLYCERIDES 179 LDL (CALCULATED) 70 04/17/2023 Default History Genericprovider LABORATORY Edited Result - Final documented in this encounter Visit Diagnoses Not on filedocumented in this encounter Care Teams Ceiling Cleaner Relationship Specialty Start Date End Date Keeley Parra PA [address] [facility] [address] [place] [address] PCP - General PHYSICIAN SHAPE BRICK MOLDER 08/16/23 documented as of this encounter
--- OUTSIDE RECORDS SUMMARY | 2024-11-23 08:46 | XMS_ITS | Data Portability ---
Author Organization MD - [facility] OFFICE Address [address] [place] [address] Care Team Providers Care Tool Smith Name Role Phone JAYLEEN AVILES Primary Care Provider Unavailabl e Assessment No assessment recorded. Plan of Treatment Reminders Order Date Submit Date Provider Last Modified By Organization Details Last Modified Time Details Appointments None recorded. Lab None recorded. Referral None recorded. Procedures None recorded. Surgeries None recorded. Imaging US, echocardio gram, transthora cic, complete, w/ color flow 2019 020 [email or web address] Not available 0 09:22:51 Medication Orders atorvastat in 20 mg tablet 2019 020 INTERFACE [facility], [address] [place] [address], [id number], 0 22:25:05 atorvastat in 20 mg tablet 2019 020 INTERFACE [facility], [address] [place] [address], [id number], 0 16:56:55 Patient TargetsNo targets recorded. Patient Instructions Encounter Date Encounter Id Patient Instructions Last Modified By Organization Details Last Modified Time 06/10/2019 [id number] Weight loss 20 pounds Exercise advised Low cholesterol diet advised Low sodium diet advised Not available 06/10/2019 16:54:26 Scribed by Verenice Sommer PA-C Not available 06/10/2019 16:54:33 07/14/2019 [id number] Weight loss 20 pounds Exercise advised Low cholesterol diet advised Low sodium diet advised. [email or web address] Not available 07/14/2019 22:24:25 07/29/2019 [id number] Exercise advised Low cholesterol diet advised Low sodium diet advised Not available 07/29/2019 10:29:29 Scribed by Verenice Sommer PA-C Not available 07/29/2019 10:30:33 Reason for Referral None Reported. Results Created Date Observation Date Name Description Value Unit Range Abnormal Flag Note LastModifiedBy Organization Detail LastModifiedTime 06/13/19 20 06/10/2019 elect david gil am No observ ation record ed. [email or web address] Not Available 2019 12:40:50 06/16/19 20 06/06/2019 XR, chest , 1 view No observ ation record ed. [email or web address] Not Available 06/25 18:07:08 06/16/19 20 06/03/2019 LDCT, chest , for lung cance r laura tangg No observ ation record ed. [email or web address] Not Available 06/25 18:07:08 06/30/19 20 06/27/2019 US, echoc ardio gram No observ ation record ed. [facility] [address] [facility], [place], [address], 07/12/2019 07:51:01 07/16/19 20 06/27/2019 , echoc ardio gram No observ ation record ed. [email or web address] Not Available 2019 13:53:30 07/24/19 20 07/02/2019 tread mill nucle ar stres s test (PROC ) No observ ation record ed. [email or web address] Not Available 2019 16:19:35 08/22/19 20 06/24/2013 XR, lumba r spine No observ ation record ed. Not Available 2019 12:35:08 10/29/19 24 07/23/2019 paige cabezas ght - proce dure (PROC ) No observ ation record ed. [email or web address] Not Available 2023 09:26:43 Result Notes None recorded. Problems Name Problem SNOMED Code Status Onset Date Resolution Date Notes Provider Name and Address Organization Details Recorded Time Chest pain 75632710 Active 2019 Sita Mora [facility], [place] - [facility] 0 07:45:38 Dyspnea on exertion 37513627 Active 2019 Buckneradriel Mora [facility], [place] - [facility] 0 07:45:46 Family history of coronary arterioscleros is 980723695 Active 2019 Buckneradriel Mora [facility], [facility] 0 07:45:53 Essential hypertension 51661397 Active 2019 Buckneradriel Mora [facility], [facility] 0 07:46:00 Hyperlipidemia 74277325 Active 2019 Buckneradriel Mora [facility], [facility] 0 07:46:08 Heart murmur 94736094 Active 2019 Buckneradriel Mora [facility], [facility] 0 07:46:15 Obstructive sleep apnea syndrome 06502695 Active 2019 Buckneradriel Mora [facility] 0 11:23:04 Problem Notes None recorded. Medical Equipment None Reported. Medications Name Sig Start Date Stop Date Status Note LastModified by Organization Details LastModified Time atorvastatin 20 mg tablet Take 1 tablet every day by oral route. active Not Available Not Available No t Available Low-Dose Aspirin 81 mg tablet Take by oral route. active Not Available Not Available No t Available Micardis HCT 40 mg-12.5 mg tablet Take 1 tablet every day by oral route. 2019 active Not Available Not Available Not Avai lable Lipitor 10 mg tablet Take 1 tablet every day by oral route. 07/28 completed Not Available Not Available Not Available Vitals Date Recorded Body height Body mass index (BMI) Body weight Heart rate Oxygen saturation Oxygen saturation in Arterial blood by Pulse oximetry Systolic And Diastolic Provider Name and Address Organization Details Last Updated DateTime 0 172.72 cm 40 kg/m2 394032. 79 g 76 /min 96 % 96 % 138/88 mm[Hg] KORTNEY TIDWELL [facility] 0 16:16:42 Date Recorded Body height Body mass index (BMI) Body weight Heart rate Oxygen saturation Oxygen saturation in Arterial blood by Pulse oximetry Systolic And Diastolic Provider Name and Address Organization Details Last Updated DateTime 0 172.72 cm 39.2 kg/m2 461805. 83 g 74 /min 98 % 98 % 128/80 mm[Hg] Verenice Sommer [facility] - [facility] 0 10:13:54 Social History None recorded. Functional Status None recorded. Mental Status None recorded. Family History Nothing Reported. Medical History Condition Response Hyperlipidemia Y Hypertension Y Sleep Apnea Y Past Encounters Encounter ID Performer Location Encounter Start Date Encounter Closed Date Diagnosis/Indication Diagnosis SNOMED-CT Code Diagnosis ICD10 Code Diagnosis Note [id number] Nicko Cannon MD [facility] [address] [place] [address] 06/10/2019 15:44:40 08/04/2019 11:54:38 Chest pain 52246344 R07.9 Treadmill Myoview Stress test, has high [place] Risk score. Has Known CAD, or CAD risk equivalent . To look for any ischemia. Dyspnea on exertion 6084 5006 R06.09 Will order echo to evaluate for structural disease. Family his tory of coronary arteriosclerosis 574175211 Z82.49 CT scan -screen for lung cancer, showed calcificat ion of left main and LAD. Essential hypertension 72787390 I10 Fair control Hyperlipidemia 89757325 E78.5 Needs to keep LDL less than 70, and HDL more than 40 Will get fasting lipids for follow up05/01/20 19 LDL 101Will increase Atorvastat in to 20mg daily. Heart murmur 55501740 R0 1.1 Will order echo to evaluate for structural disease. [id number] Nicko Cannon MD [facility] [facility] [place] [address] 07/14/2019 15:49:56 07/14/2019 15:58:34 Chest pain 40928648 R07.9 Treadmill Myoview Stress test, was positive with inf ischemia The patient will be scheduled for left heart catheteriz ation, with coronary angiogram, and possible PTCA/Stent . The procedure was discussed with the patient, and risks, benefits, and alternativ e options were explained. The patient was given informatio n about heart catheteriz ation and interventi onal procedures . The patient agrees to proceed. Dyspnea on exertion 6084 5006 R06.09 The patient will be scheduled for left heart catheteriz ation, with coronary angiogram, and possible PTCA/Stent . The procedure was discussed with the patient, and risks, benefits, and alternativ e options were explained. The patient was given informatio n about heart catheteriz ation and interventi onal procedures . The patient agrees to proceed. Family his tory of coronary arteriosclerosis 187223453 Z82.49 CT scan -screen for lung cancer, showed calcificat ion of left main and LAD. Essential hypertension 00302125 I10 Fair control Hyperlipidemia 03253199 E78.5 Needs to keep LDL less than 70, and HDL more than 40 Will get fasting lipids for follow up05/01/20 19 LDL 101Will increase Atorvastat in to 20mg daily. Heart murmur 69056671 R0 1.1 with TR Obstructiv e sleep apnea syndrome 84633198 G47.33 Home sleep studyHe has leg swelling, fatigue, and snoring [id number] Nicko Cannon MD [facility] [address] [place] [address] 07/29/2019 09:40:08 07/30/2019 18:18:16 Chest pain 41530260 R07.9 LHC showed mild disease. Needs to keep LDL less than 70, and HDL more than 40 Symptoms resolved. Will get fasting lipids for follow up Dyspnea on exertion 6084 5006 R06.09 Recommend exercise. Family his tory of coronary arteriosclerosis 858448946 Z82.49 Essential hypertension 62180157 I10 Controlled . Hyperlipidemia 65316156 E78.5 Needs to keep LDL less than 70, and HDL more than 40 Will get fasting lipids for follow up05/01/20 19 LDL 101Recentl y increased Atorvastat in to 20mg daily. Heart murmur 52697791 R0 1.1 with TR Obstructiv e sleep apnea syndrome 46900550 G47.33 Home sleep study scheduled for 10/2019.He has leg swelling, fatigue, and snoring Health Concerns Section Related Observation LastModified by Organization Detai ls LastModified Time None Recorded Concern Status LastModified by Organization Details LastModified Time None Recorded Advance Directives Directive None Recorded Payers Insurance Date Sequence Insurance Name Policy Number Policy Davis Covered Member ID Davis Member ID Guarantor Name 02/01/2020 1 [employer] [facility] () Adriel Centeno [id number] Adriel Kenny Notes Date Note Type Note Provider Name and Address Organization Details Recorded Time 06/10/2019 text/html 06/10/19 CC: chest pain Patient is a 53 year old male with HTN, HLD, prediabetes, family history of early cardiovascular disease, presents for cardiac consultation. Had recent CT of chest showing significant calcification of the LAD and left main.Reports chest pain over past 2 months; episodes occur about once weekly, at rest. He does not exercise; reports dyspnea with exertion when climbing stairs; otherwise feels well and reports no limitations to daily activites. No shortness of breath at rest. No orthopnea. No PND's. No dizziness. No palpitation. No syncope or near syncope. No leg swelling. No nausea and vomiting. No side effects from medications. Former smoker, 30 pack year history; quit 2015. Brother with CABG age 51Mother had RI s/p PCI age 60Father had RI age 46, CABG age 58 Nicko Cannon MD [address] [place], [address], [facility] 08/04/2019 11:54:36 07/14/2019 text/html CC: chest pain Patient is a 53 year old male with HTN, HLD, prediabetes, family history of early cardiovascular disease, presents for cardiac consultation. Had recent CT of chest showing significant calcification of the LAD and left main.Reports chest pain over past 2 months; episodes occur about once weekly, at rest. He does not exercise; reports dyspnea with exertion when climbing stairs; otherwise feels well and reports dyspnea on exertion. Had a stress test with inferior ischemia No shortness of breath at rest. No orthopnea. No PND's. No dizziness. No palpitation. No syncope or near syncope. No leg swelling. No nausea and vomiting. No side effects from medications. Former smoker, 30 pack year history; quit 2015. Brother with CABG age 51Mother had RI s/p PCI age 60Father had RI age 46, CABG age 58 Nicko Cannon MD [address] [place], [address], [facility] 07/14/2019 22:25:06 07/29/2019 text/html 07/29/2019 CC: chest pain Patient is a 53 year old male with HTN, HLD, prediabetes, family history of early cardiovascular disease, presents for follow up after undergoing LHC, which showed mild disease. Had recent CT of chest showing significant calcification of the LAD and left main. cardiac catheterization was done showed mild LAD disease with most of the calcification residing externally with about 40% luminal disease Reports no recurrence of chest pain. He does not exercise; reports dyspnea with exertion when climbing stairs; otherwise feels well. No shortness of breath at rest. No orthopnea. No PND's. No dizziness. No palpitation. No syncope or near syncope. No leg swelling. No nausea and vomiting. No side effects from medications. Former smoker, 30 pack year history; quit 2015. Brother with CABG age 51Mother had RI s/p PCI age 60Father had RI age 46, CABG age 58 Results from this visit, or from the past:07/16/2019 : Glucose 122,BUN 13,Creati 0.80,Na 140,K 4.2,Cl 101,CO2 29,Ca 10.0 CBC: WBC 6.1,RBC 4.38,HGB 13.8,HCT 40.8,PLT 247; PT 11.2 INR 1.1 Nicko Cannon MD [address] [place], [address], [facility] 07/30/2019 18:18:15
--- OUTSIDE RECORDS SUMMARY | 2024-11-23 08:46 | XMS_ITS | Referral Summary ---
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 Sexual Orientation Straight 05/30/2021 11 :48 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 Last Filed Vital Signs Vital Sign Reading Time Taken Comments Blood Pressure 125/78 05/17/2021 11:06 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 Pulse 77 05/17/2021 11:06 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 Temperature 36.4 C (97.6 F) 05/17/2021 10:25 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 Respiratory Rate 18 05/17/2021 11:06 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 Oxygen Saturation 99% 05/17/2021 11:06 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 Inhaled Oxygen Concentration - - Weight 108.9 kg (240 lb) 03/02/2021 11:02 AM CDT Height 172.7 cm (5' 8) 03/02/2021 11:02 AM CDT Body Mass Index 36.49 03/02/2021 11:02 AM CDT Plan of Treatment Not on file Medical Devices Implanted Type Area Meat Clerk Device Identifier Shelf Expiration Date Model / Serial / Lot Right First Mtp Fusion Plate Implanted:Qty: 1 on 05/17/2021 at [facility] Right: Ankle Synthes I 02..230 / / Synthes .112 2.4mm 12mm Self Tap Lock Variable Angle Stardrive T8 Screw Bone - [id number] Implanted:Qty: 1 on 05/17/2021 at [facility] Right: Ankle Synthes I .112 / / Synthes .116 2.4mm 16mm Self Tap Lock Variable Angle Stardrive T8 Screw Bone - [id number] Implanted:Qty: 1 on 05/17/2021 at [facility] Right: Ankle Synthes I ..116 / / Synthes 210.120 2.4mm 20mm Self Tap Lock Variable Angle Stardrive T8 Screw Bone - [id number] Implanted:Qty: 1 on 05/17/2021 at [facility] Right: Ankle Synthes I 02.210.120 / / Synthes 210.118 2.4mm 18mm Self Tap Lock Variable Angle Stardrive T8 Screw Bone - [id number] Implanted:Qty: 3 on 05/17/2021 at [facility] Right: Ankle Synthes I 118 / / Explanted Type Area Meat Clerk Device Identifier Shelf Expiration Date Model / Serial / Lot Synthes Lcp 1.6mm 150mm 10mm Thread Compression Wire Fixation Nonsterile - [id number] Explanted:Qty: 1 on 05/17/2021 at [facility] Right: Ankle Synthes I / / Description:For charge only. Insurance [facility] CLAIMS [facility] CLAIMS Care Teams Tank Tester Relationship Specialty Start Date End Date Ester Nix PA [address] [place] [address] PCP - General Physician Courtesy Clerk 02/03/21 Dean Vásquez DO [address] [place] [address] Consulting Physician Orthopedic Surgery 05/17/21
--- OUTSIDE RECORDS SUMMARY | 2024-11-23 08:46 | XMS_ITS | Encounter Summary ---
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 This section includes the names of all active insurance providers for the patient. Insurance Provider Type of Coverage Plan Name Start of Policy Coverage End of Policy Coverage Group Number Member ID Insurance Provider's Telephone Number Policy Davis's Name Patient's Relationship to Policy Davis [facility] May 14, 2017 [facility] [id number] IRMAHENRI CHAVEZ PATIENT [facility] 2024 [facility] May 14, 2024 [facility] [id number] IRMA HENRI PATIENT Selected Encounter This section includes the information on record at [place] for the Encounter. Date/Time Encounter Type Encounter Description Reason Provider Source Dec 26, 2023 01:00 PM SELF CARE MNGMENT TRAINING PHYSICAL THERAPY ICD-10-CM M54.50 Low back pain, unspecified DULCE MELTON [facility] Encounter Template Text not used by [facility] Assessments - Encounter Diagnoses This section includes the primary and secondary diagnoses documented for the Encounter. Date/Time Primary/Secondary Diagnosis Diagnosis Name Provider Source Dec 26, 2023 02:03 PM PRIMARY Low back pain, unspecified DULCE MELTON [facility] Plan of Treatment: Future Appointments (+ 6 months) and Future Tests (+/- 45 days) The Plan of Treatment section includes future care activities for the patient from all [place] [facility]. This section includes future appointments and future orders which are active, pending or scheduled. Future Appointments This section includes appointments that were scheduled to occur 6 months from the date of the Encounter, up to a maximum of 20 appointments. The data comes from all [place] treatment facilities. Appointment Date/Time Appointment Type Appointme nt Facility Name Jan 02, 2024 11:00 AM AMBULATORY - MEDICINE [facility] Social History: Smoking Status (Most current) and Tobacco Use (All prior to encounter date) This section includes the most current, and the historical, smoking and tobacco- related health factors from the [place] facility where the Encounter took place. Current Smoking Status This section includes the most current smoking, or tobacco-related health factor, from the [place] facility where the Encounter took place. Date/Time Current Smoking Status Comment Facil ity Jan 05, 2023 08:30 AM [place] FORMER US[place] [facility] Tobacco Use History This section includes a history of the smoking, or tobacco-related health factors, that were collected on or before the date of the Encounter. The data comes from the [place] facility where the Encounter took place. Date/Time Smoking Status/Tobacco Use Comment F acility Jan 05, 2023 08:30 AM [place] 5 TO < 15 YRS [facility] Encounter Notes: All associated encounter notes This section contains the clinical notes associated to the Encounter. Date/Time Encounter Note(s) Provider Source Dec 26, 2023 07:34 AM PHYSICAL THERAPY C ONSULT: LOCAL TITLE: PT CONSULT ST[facility] STANDARD TITLE: PHYSICAL THERAPY CONSULT DATE OF NOTE: DEC 26, 2023@07:34 ENTRY DATE: DEC 26, 2023@07:34:14 AUTHOR: DULCE MELTON EXP COSIGNER: URGENCY: STATUS: COMPLETED Chart Review: PMH: SURGERIES: sinus surgery/deviated septum repair-09/2022 toe fusion R big toe 05/2021; hallux umbilical hernia in 2020 wisdom teeth and tonsillectomy Chart Reveiw: Imaging: --- Referring provider: KIMMY CORNELIUS Start of Care: 12/26/2023 Reevaluation due:01/26/2024 POC through: 03/27/2024 Visits to date: 1 No shows/cancellations: 0 Diagnosis: Low back pain, unspecified(ICD-10-CM M54.50) Treatment time: Total: 50 mins. Evaluation: 20 mins. Therapeutic exercise:15 mins. Self-care management:15 mins. Manual Therapy: mins SUBJECTIVE: Pt reports low back pain with numbness and pain down the left leg due to herniated disk down to the knee. States pain increases with standing, able to walk 10-15 minutes, holding weight. --Onset: Patient reports back pain for years. Reports having injections, chiro, PT, accupuncture. States injections helped for about a year. Hx of right big toe fusion. 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 --Pain Rating (0-10):Current: 3 Worst: 8 --Pt. goal(s): pain relief Oswestry Score: OBJECTIVE: Assistive Device: Cognition: Pt. is alert and oriented. Pt. is appropriate in conversation and answers questions directly. Gait: decreased push off on right SLS: poor stability b/l Functional squat:NT Posture: left toe out Active Trunk Motions: (*=pain) -sidebend right -sidebend left -forward bend WNL*(increased left trunk rotation, decreased rotation, less pain after repositiong) -trunk extension Neural Tension: L R Sciatic - - Femoral Strength: /5 L R Hip abd 5 5 Hip flex 5 5 Hip ext Hip add Hip IR 5 5 Hip ER 5 5 Knee ext 5 5 Knee flex 5 5 BKFO (bent knee fall out): Quadruped Rock Back: NT Functional abilities: bed mobility: supine to sitting: sit <-> stand: pulls back right foot Flexibility: L R Hamstring WNL WNL Hip flexor (Colton's) Pos Neg External rotators Internal rotators Treatment: Initial Evaluation Therapeutic exercise: Pt was instructed in and demonstrated independence with current HEP x 1 including: -reviewed current HEP(LTR, SKTC, clamshells, core strengthening -90/90 hip lift for left anterior innominate -supine piriformis stretch, hold 20 seconds x 3; 2x daily Patient education: -Patient was educated on sitting, driving, sleeping in sidelying, and standing postures. Patient was educated on repetitive lifting and rotating activities, proper lifting techniques. Manual Therapy: ASSESSMENT: Pt. presents in PT today with complaints of low back pain with radiating symptoms in left LE to the knee. Patient demonstrates pain with forward bending, Positive Obers on left indicating hip flexor tightness on left. Patient is also likely limited by 1st MTP fusion on right affection push off and increased supination with right stance. Patient woud benefit from PT to improve core strength, functional mobility, posture awareness. tx tolerance: decreased pain with forward bending after pelvic repositioning. CPT CODES: [x] [id number] PHYSICAL THERAPY EVALUATION: LOW COMPLEXITY Minutes spent on above code: [ ] [id number] PHYSICAL THERAPY EVALUATION: MODERATE COMPLEXITY Minutes spent on above code: [ ] [id number] PHYSICAL THERAPY EVALUATION: HIGH COMPLEXITY Minutes spent on above code: Goals: Short term: 3-4 weeks 1) Pt. will demonstrate independence with current HEP x 1 2) Pt. will report 6/10 pain at worst 3) Pt. to demonstrate independence with proper sitting, standing, and sleeping postures prison: 1) Pt to demonstrate independence with final HEP x 1 2) Pt. to report 4/10 pain at worst 3) Pt. to report improving walking tolerance to 45 mins --PATIENT'S RESPONSE TO PHYSICAL THERAPY INTERVENTION: --BARRIERS: [] NONE. [] Complexities/Conditions/Circ umstances that may impact treatment: [] Cognition: [] Home environment: [] Distance patient lives from facility: [] Support of family/friends to assist: [] Transportation to facility issues: [] Patients willingness to participate: [] Work issues: [] Difficulty getting time off: [] Requires certain time slots to accommodate work schedule: [x] Co-morbidities: right big toe fusion [x] Other: chronicity --REHABILITATION POTENTIAL: [] POOR - Limited potential for improvement. [] GUARDED - There exists a question of the potential for improvement [x] FAIR - Presents with the potential to improve in some areas while other deficits may remain unchanged. [] GOOD - Presents with the potential to improve to a level of functional independence, though may continue to demonstrate certain minimal limitations with consistent performance of HEP. [] EXCELLENT - Presents with the potential to fully recover with no residual deficits. --CONTINUED SKILLED THERAPY NEEDED TO ADDRESS THE FOLLOWING IMPAIRMENTS/FUNCTIONAL LIMITATIONS AND EDUCATIONAL NEEDS: [x] Pain: [x] Physiological impairments of: [x] Balance: [x] ROM: [] Strength: [] Other: [] ADL deficits: [] WB activities: [] Self-care: [] Other: [] Education needs: Individual(s) involved: [] Patient: [] Caregiver: [] Achieving (I) with home program: [] Gain further of understanding of self-management of condition: [] Self-Care: [] Caregiver education: [] Other: Equipment: Plan: Cont. PT 1X/2-4 wks. for up to 12 weeks for ROM, muscle strengthening, postural re-education, joint/soft tissue mobilization. --PATIENT EDUCATION DOCUMENTATION: Person(s) who received education: [x] Patient; [] Family: [] Other: Education Topic/Teaching Needs: [x] Home program: [] Why compliance with home program is important [] Regarding automated call/letter regarding scheduled appointment; two no show policy; late arriving for appointment; follow up appointment lengths. [] TENS [] Nature of condition [] Other: Methods used Included: [x] Handout(s): [x] Home program: [] Why compliance with home program is important [] Regarding automated call/letter regarding scheduled appointment; two no show policy; late arriving for appointment; follow up appointment lengths. [] TENS [] Other: [x] One-on one: [x] Verbal instructions [x] Visual instructions [x] Tactile cues. [] Other: Teaching Outcomes: [x] Good; [] Fair; [] Poor [x] Patient acknowledged understanding of instruction [] Family/Other acknowledged understanding of instruction /es/ DULCE MELTON Physical Therapist Signed: 12/26/2023 14:04 DULCE MELTON [facility]
--- NOTE | 2024-11-23 08:47 | ED_ITS ---
HPI - Back Pain/Injury General Chief Complaint: Back Pain/Injury Stated Complaint: Back Pain Time Seen by Provider: 11/23/24 08:53 Source: patient and RN notes reviewed Mode of arrival: ambulatory Limitations: no limitations History of Present Illness HPI Narrative: 59 year old male presents with concern for right mid-back pain for 1 week. He denies injury or fall. He reports he has had similar pain in the past but it went away with taking ibuprofen. Reports this pain is not improved with ibuprofen very much. He denies loss of bowel or bladder function, perianal anesthesia weakness in any extremity. He denies rash, redness, warmth. Denies abdominal pain or fever. MD elicited complaint: back pain Related Data Home Medications ?Medication ?Instructions ?Recorded ?Confirmed ?Last Taken ?Type aspirin 81 mg tablet,delayed 81 mg PO DAILY 11/30/21 11/23/24 09/26/22 History release atorvastatin 20 mg tablet 20 mg PO DAILY 11/30/21 11/23/24 09/26/22 History telmisartan 40 1 tablet PO DAILY 11/30/21 11/23/24 09/26/22 History mg-hydrochlorothiazide 12.5 mg tablet cetirizine 10 mg tablet mg 11/23/24 Unknown History metformin 1,000 mg tablet mg 11/23/24 Unknown History Allergies Allergy/AdvReac Type Severity Reaction Status Date / Time No Known Allergies Allergy Verified 11/23/24 08:47 Review of Systems Review of Systems: CONSTITUTIONAL: Denies malaise, chills, sweats, or fever. CARDIOVASCULAR: Denies chest pain, palpitations, or edema. RESPIRATORY: Denies cough or dyspnea. GASTROINTESTINAL: Denies abdominal pain, nausea, vomiting, diarrhea, loss of bowel function GENITOURINARY: Denies dysuria, hematuria, frequency, loss of bladder function. SKIN: Denies rash or itching. MUSCULOSKELETAL: Reports right mid-back pain NEUROLOGIC: Denies numbness, weakness, or headache. All systems reviewed & are unremarkable except as noted in HPI and below PMFSH Family History Family History Other Diabetes mellitus Hypertension Social History Social History Smoking packs per day: 1 Smoking cigarettes per day: 20.0 Years smoked: 30 Smoking pack-years: 30.00 Smoking status: Former smoker Alcohol intake: current Alcohol use details: socially Substance use: never Substance use type: does not use Living arrangements: with family Spiritual care concerns: No Comments At time of signature, agree with nursing past medical, surgical, social and family history. There is no relevant family history pertinent to the presenting complaint Exam Narrative: GENERAL: Well-appearing, well-nourished, and in no acute distress. HEAD: Normocephalic, atraumatic. EYES: PERRLA and EOMI. NECK: Supple. No lymphadenopathy. CHEST: Clear to auscultation. No respiratory distress. HEART: Regular rate and rhythm. Distal pulses palpable and equal, cap refill <3 seconds ABDOMEN: Soft, nontender, nondistended, normal active bowel sounds, no palpable or pulsatile masses. No CVA tenderness MUSCULOSKELETAL: Normal range of motion and strength in all extremities; 5/5 strength with hip flexion and extension, dorsiflexion and extension, knee flexion and extension, plantar flexion and extension. Normal sensation in dermatomal distributions with sensitivity to light touch and pain. No midline back tenderness to palpation. No paraspinal tenderness. Transfers from lying to sitting to standing. SKIN: Warm, dry, no rash. No ecchymosis, erythema, open wounds to back. NEURO: No focal deficits. Alert and oriented x3. Reflexes intact. Normal gait. PSYCH: Normal mood and affect Course Course Emergency Course: Patient is aware of diagnosis, understands and agrees to treatment plan. Anticipatory guidance given. Patient agrees to follow-up as directed and is aware of reasons to seek care at the emergency department. Portions of this record may have been created with voice recognition software Level of Care: Express Care Visit Vital Signs Vital signs: Reviewed. MDM - Back Pain/Injury MDM Narrative Medical decision making narrative: I evaluated this in the express care. History is obtained from patient who is an independent historian and physical exam was performed.? Available medical records were reviewed. ? Exam findings and relevant testing show no acute concerns or changes; patient is non-toxic appearing and is in no distress. No risk factors or findings concerning for epidural abscess, diskitis, vertebral osteomyelitis, cord compression, cauda equina, vertebral fracture or bone malignancy, AAA, or pyelonephritis. Patient instructed to consider further imaging and workup through their primary care physician as an outpatient if symptoms persist. ? Differential diagnosis and treatment plan were discussed with the patient. Shantell nt agrees with discussion and after shared medical decision making agrees with plan of care. All questions were answered to the patient's satisfaction. Patient is appropriate for outpatient treatment and follow-up. Critical Care Time Critical Care Time Critical Care Time: No Discharge Plan Discharge Clinical Impression: Back pain Patient Disposition: Home Condition: Stable Instructions: Back Pain (ED) Additional Instructions: Please follow up with your Primary Care Doctor within 48-72 hours - call for an appointment. Walking and other gentle exercising several times a week has been shown to improve back pain; bed rest is not recommended. Take prednisone as directed, take muscle relaxers every 8 hours as needed for muscle spasm- do not drive or make any important decisions while on this medication for it can make you drowsy. You may apply heat or cold to the area as needed. If you experience any worsening pain, swelling, numbness, weakness please go to ER. Contact your doctor or go to the emergency department if you develop problems with bladder or bowel function, weakness or loss of feeling in one or both of your legs, or any other serious concerns. Patient Language: Latvian Prescriptions: New cyclobenzaprine 10 mg tablet 10 mg PO TID PRN (Reason: muscle spasm) Qty: 20 0RF prednisone 50 mg tablet 50 mg PO DAILY 5 Days Qty: 5 0RF No Action cetirizine 10 mg tablet metformin 1,000 mg tablet telmisartan-hydrochlorothiazid 40-12.5 mg tablet 1 tablet PO DAILY atorvastatin 20 mg tablet 20 mg PO DAILY aspirin 81 mg tablet,delayed release (DR/EC) 81 mg PO DAILY fluticasone propionate [Flonase Allergy Relief] 50 mcg/actuation spray,s uspension 2 spray NASAL DAILY Qty: 15.8 0RF Rx Instructions: administer into each nostril Follow-up/Referrals: HAMILTON, [Primary Care Provider] - Time of Disposition: 09:15
--- OUTSIDE RECORDS SUMMARY | 2024-11-23 08:47 | XMS_ITS | Encounter Summary ---
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 This section includes the names of all active insurance providers for the patient. Insurance Provider Type of Coverage Plan Name Start of Policy Coverage End of Policy Coverage Group Number Member ID Insurance Provider's Telephone Number Policy Davis's Name Patient's Relationship to Policy Davis [facility] May 14, 2017 [facility] [id number] IRMAHENRI CHAVEZ PATIENT [facility] 2024 [facility]R May 14, 2024 [facility] [id number] IRMA HENRI PATIENT Selected Encounter This section includes the information on record at [place] for the Encounter. Date/Time Encounter Type Encounter Description Reason Provider Source Jan 02, 2024 11:00 AM OFFICE O/P EST MOD 30 MIN PRIMARY CARE/MEDICINE ICD-10-CM Z00.00 Encntr for general adult medical exam w/o abnormal findings ARMINDA CHERRY Encounter Template Text not used by [facility] Assessments - Encounter Diagnoses This section includes the primary and secondary diagnoses documented for the Encounter. Date/Time Primary/Secondary Diagnosis Diagnosis Name Provider Source Jan 02, 2024 12:01 PM PRIMARY Encntr for general adult medical exam w/o abnormal findings ARMINDA CHERRY [facility] Jan 02, 2024 12:01 PM SECONDARY Allergy status to unspecified drug/meds/biol subst ARMINDA CHERRY [facility] Jan 02, 2024 12:01 PM SECONDARY Athscl heart disease of [place] coronary artery w/o ang pctrs ARMINDA CHERRY [facility] Jan 02, 2024 12:01 PM SECONDARY Essential (primary) hypertension ARMINDA CHERRY [facility] Jan 02, 2024 12:01 PM SECONDARY Hyperlipidemia, unspecified PIPERDIPTIARMINDA E [facility] Jan 02, 2024 12:01 PM SECONDARY Low back pain, unspecified ARMINDA CHERRY [facility] Jan 02, 2024 12:01 PM SECONDARY Type 2 diabetes mellitus without complications PIPERDIPTIARMINDA E [facility] Vital Signs: All taken on the encounter date This section contains inpatient and outpatient Vital Signs collected on the date of the Encounter. Date/Time Temperature Pulse Blood Pressure Respiratory Rate SP02 Pain Height Weight Body Mass Index Source Jan 02, 2024 10:55 AM 128/72 [facility] Jan 02, 2024 10:47 AM 98.3 63 152/79 18 98 0 68 267.2 41 [facility] Social History: Smoking Status (Most current) and Tobacco Use (All prior to encounter date) This section includes the most current, and the historical, smoking and tobacco- related health factors from the [place] facility where the Encounter took place. Current Smoking Status This section includes the most current smoking, or tobacco-related health factor, from the [place] facility where the Encounter took place. Date/Time Current Smoking Status Comment Facil ity Jan 02, 2024 11:00 AM VA-TOBACCO FORMER USER [facility] Tobacco Use History This section includes a history of the smoking, or tobacco-related health factors, that were collected on or before the date of the Encounter. The data comes from the [place] facility where the Encounter took place. Date/Time Smoking Status/Tobacco Use Comment F acility Jan 02, 2024 11:00 AM [place]-TOBACCO QUIT 15 YRS OR MORE [facility] Jan 05, 2023 08:30 AM [place]-TOBACCO FORMER USER [facility] Jan 05, 2023 08:30 AM [place]-TOBACCO QUIT 5 TO < 15 YRS [facility] Encounter Notes: All associated encounter notes This section contains the clinical notes associated to the Encounter. Date/Time Encounter Note(s) Provider Source Jan 02, 2024 11:16 AM PRIMARY CARE NOTE: LOCAL TITLE: PRIMARY CARE PROVIDER ESTABLISHED VISIT [facility] STANDARD TITLE: PRIMARY CARE NOTE DATE OF NOTE: JAN 02, 2024@11:16 ENTRY DATE: JAN 02, 2024@11:16:37 AUTHOR: ARA CHERRY COSIGNER: URGENCY: STATUS: COMPLETED ESTABLISHED PATIENT [id number]: REASON FOR VISIT/CHIEF COMPLAINT: 58yo male here for f/u visit, last visit Dec 2022. NonVA Providers: PCP: NANCY Cardiology: Dr. Boo Podiatry: foot and ankle, Dr. Tejeda HPI: Here for annual f[facility] with the [facility] to remain established. Hx of DM2, with last A1c=6.8% in October 2023. Has started metformin 500mg BID in May 2023 and tolerates it well. --last eye exam May 2023 w/o retinopathy --has seen Podiatry in Jun 2023 due to tingling of feet, monofilament normal but advised is likely 2/2 diabetic neuropathy Seeing nonVA Cardiology for hx of non-obstructive CAD--found to have calcification of the LAD and left main on a CT of the chest. --cardiac cath done in 2019 showing mild nonobstructive CAD. --recent repeat stress test/jose perfusion test with overall low risk, results below. WHAT IS YOUR GOAL FOR TODAY? 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 SOCIAL HISTORY: NICOTINE: quit smoking in 2016; smoked abt 20 years, 1ppd ILLICIT DRUGS: none ALCOHOL: 2-3 beers/day EXERCISE/DIET: walking as tolerated due to back pain, swimming MARITAL STATUS: ALLERGIES: Patient has answered NKA ALLERGY REVIEW: Allergy list reviewed and remains current. 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 Handwritten corrections, additions and/or deletions were made to the list. Corrected Outpatient Medication List was provided to the patient/caregiver. REVIEW OF SYSTEMS: Neg other than as noted in HPI PHYSICAL EXAMINATION: VITALS (most recent, as listed in the electronic record): Temperature: 98.3 F [36.8 C] (01/02/2024 10:47) BP: 128/72 (01/02/2024 10:55) Pulse: 63 (01/02/2024 10:47) Resp: 18 (01/02/2024 10:47) PulsOx: 98% (01/02/2024 10:47) Pain: 0 (01/02/2024 10:47) Weight: Measurement DT WEIGHT LB(KG)[BMI] 01/02/2024 10:47 267.2(121.20)[41*] 01/05/2023 08:33 262.8(119.20)[40*] Gen: NAD EYE: PERRLA Cardiovascular: RRR, no murmurs, no edema Respiratory: Lungs CTAB Abd/GI: Abdomen non-distended Extremities: adequate ROM, no edema Hemo/lymph: no adenopathy, excessive bruising Endo: Thyroid without palpable nodules, no excess hair growth Psych: mood and affect appropriate Neuro: Alert and oriented, CN2-12 grossly intact Skin: Clear and intact DATA REVIEW: No HEMOGLOBIN A1C EO data found == Lipid Panel: No LIPID PANEL EO data found CMP: No COMPREHENSIVE METABOLIC PANEL EO data found = CBC: No CBC EO data found == No PSA (LAST 10 5Y) EO data found == TSH: No TSH (1YR) EO data found = No VITAMIN D EO data found == INR: No INR EO data found == UA: No URINALYSIS EO data found == IM - IMMUNIZATIONS ADMINISTERED Immunization Series Date Facility Reaction Info COVID-19 (PFIZER), MRNA, LNP-S, * 2 08/05/2020 [facility] COVID-19 (PFIZER), MRNA, LNP-S, * 1 07/15/2020 [facility] INFLUENZA, MDCK, QUADRIVALENT, PF 4 03/30/2021 [facility] INFLUENZA, MDCK, QUADRIVALENT, PF 3 02/20/2020 [facility] INFLUENZA, SPLIT VIRUS, QUADRIVA* 1 03/18/2018 [facility] INFLUENZA, SPLIT VIRUS, QUADRIVA* 03/26/2019 [facility]* <C> INFLUENZA, UNSPECIFIED FORMULATI* [facility] CONTRAINDICATED No data available REFUSED ======= Immunization Date Facility Info PNEUMOCOCCAL CONJUGATE, UNSPECIF* [facility]/02/[facility]24 [facility]> [facility] 01/02/[facility] <I> ZOSTER RECOMBINANT 01/02/2024 [facility] 10/30/[facility]: Na: 136 K: 4.3 Glucose: 154 Cr: 0.8 AST: 20 ALT: 24 Chol: 114 T HDL: 36 LDL: 62 A1c: 6.8% 05/01/2023: PSA: 0.441 Patient's Hemoglobin A1c from a non-VA lab. Date: October 30, 2023 Result 6.8 Myocardial perfusion 11/20/2023: SUMMARY: ++++++++++++++++++++++++++++++++++ ++ Stress conclusion: 1. Clinically positive for shortness of breath. 2. Electrocardiographically negative treadmill test for ischemia. Stress EKG showed rare PVCs. 3. Adequate exercise capacity. 4. Cm Treadmill Score is 8, which indicates low risk. 5. Blood pressure response was hypertensive. Blood pressure at baseline was elevated. 6. Scintigraphic images to follow. Perfusion conclusion: 1. Good study quality. No motion correction was applied to images. Diaphragm attenuation is noted. Prone imaging was performed. 2. Mildly abnormal myocardial perfusion SPECT imaging. Images show a small area of irreversibility present in the basal and mid inferolateral and lateral wall(s). This area did not improve with prone imaging. 3. Normal wall motion with an ejection fraction of 76%. 4. Stress test with myocardial perfusion imaging shows overall low risk for a cardiac event. ++++++++++++++++++++++++++++++++++ ++ FINDINGS: ++++++++++++++++++++++++++++++++++ ++ Protocol: The images were processed using the standard SPECT technique. A gated study was performed on the stress images. Impression: SPECT images demonstrate a small irreversible perfusion abnormality present in the basal and mid inferolateral and lateral region(s) of mild intensity. Heart Size: The left ventricle is normal. LV Wall Motion: The LVEF is calculated to be 76%. Gated SPECT images reveal normal wall motion. Transient Ischemic Dilatation: The TID is 0.98. There is no evidence of Transient Ischemic Dilatation. ASSESSMENT/PLAN: 1) Here for [facility] with the [facility], reports no new concerns. --labs done by PCP at [facility] as above. --hx of smoking, LDCT done 05/01/2023, [facility] 2. Repeat Apr 2023 at [facility]. --reports colon cancer screening through [facility], uncertain when last done. 2) DM2: controlled, A1c=6.8% in October 2023. Now on Metformin 500mg BID. --eye exam May 2023 w/o retinopathy --seeing nonVA Podiatry, last visit Jun 2023; reports issues with neuropathy. --urine microalb/cr done October 2023 and normal, on ARB. --on statin 3) mild CAD/HTN/HLD: seeing nonVA Cardiology. Recent stress test with overall low risk. Continue medication management. --HTN: controlled, reports home BP similar to today, continue current medication. --HLD: cardiology has advised LDL <55; dose increased from 20mg to 40mg. Monitored by Cardiology and PCP. 4) LBP: has completed chiropractic treatment and has now started PT. 5) Allergic rhinitis: continue zyrtec and flonase; reports no longer seeing ENT/allergy. RETURN TO CLINIC: 12 months SUMMARY STATEMENT: Plan of care has been discussed with including expected therapeutic benefits and potential side effects of prescribed medication and treatments. verbalizes understanding and is in agreement with the plan of care. Patient was instructed to keep all scheduled appointments and contact head shipper for any additional problems. PREVENTION & SCREENING: ALCOHOL: Clinical Reminder not due now or within a month COLORECTAL CANCER: Clinical Reminder not due now or within a month BLOOD PRESSURE: Clinical Reminder not due now or within a month HEMOGLOBIN A1C: Clinical Reminder not due now or within a month PAVE Foot Check: Patient indicates foot exam (including monofilament test for sensation) was performed in the past year in the private sector: Date: July 03, 2023 Result: Abnormal Assess Statin Use - Lipids (CVD/DM): The patient is currently on a moderate or high dose statin. Sexual Orientation: The patient thinks of their sexual orientation as: Straight or Heterosexual Diabetes: Kidney Health Evaluation: Last eGFR: Most recent eGFR within past 12 months No data available for: uACR (PB-MA) URINE ALBUMIN (MA) URINE ALBUMIN (PB-STL) MICROALBUMIN-RU (PB-sendout)No data available for: EGFR (CKD-EPI 2020) Last uACR: Most recent uACR/MicroAlbumin within past 12 months No data available for: uACR (PB-MA) URINE ALBUMIN (MA) URINE ALBUMIN (PB-STL) MICROALBUMIN-RU (PB-sendout)No data available for: EGFR (CKD-EPI 2020) eGFR and uACR (estimated Glomerular Filtration Rate and Urine Albumin-Creatinine Ratio)* Previous uACR completed at a location other than this [place] Previous uACR with actual (numeric) results Date: October 30, 2023 Location: [facility] uACR: 5 mg/g /es/ ARA CHERRY Staff Physician Signed: 01/02/2024 12:01 ARA CHERRY [facility] Jan 02, 2024 10:49 AM NURSING NOTE: LOCAL TITLE: V15 PACT FACE TO FACE NOTE STL STANDARD TITLE: NURSING NOTE DATE OF NOTE: JAN 02, 2024@10:49 ENTRY DATE: JAN 02, 2024@10:49:45 AUTHOR: GURWINDER UNGER COSIGNER: URGENCY: STATUS: COMPLETED Provider Visit: Patient Identifiers : Full Name Date of Reason for visit: Established Follow-Up Mode of Arrival: Ambulatory Allergy Review: Patient has answered NKA Allergy list reviewed and remains current. Recent Vital Signs: Temperature: 98.3 F [36.8 C] (01/02/2024 10:47) Pulse: 63 (01/02/2024 10:47) Respiration: 18 (01/02/2024 10:47) B/P: 152/79 (01/02/2024 10:47) Pain: 0 (01/02/2024 10:47) Wt: 267.2 lb [121.20 kg] (01/02/2024 10:47) Ht: 68 in [172.7 cm] (01/02/2024 10:47) BMI: 40.7 POX: 98% (01/02/2024 10:47) Blood sugar glucometer reading: declined Would you like to discuss any personal problem, family problem, alcohol use, drug use, or a mental or emotional illness? No Contact provided Primary Care phone number and encouraged to call if any questions or concerns. Review that after hours nurse line [phone] and emergency room are available 04/12 for patient use. Contact verbalized good understanding. Suicide Screen: C-SSRS Screening [place]le-Suicide Severity Rating Scale (C-SSRS Screener) 1. Over the past month, have you wished you were or wished you could go to sleep and not wake up? No 2. Over the past month, have you had any actual thoughts of killing yourself? No 3. Over the past month, have you been thinking about how you might do this? Response not required due to responses to other questions. 4. Over the past month, have you had these thoughts and had some intention of acting on them? Response not required due to responses to other questions. 5. Over the past month, have you started to work out or worked out the details of how to kill yourself? Response not required due to responses to other questions. 6. If yes, at any time in the past month did you intend to carry out this plan? Response not required due to responses to other questions. 7. In your lifetime, have you ever done anything, started to do anything, or prepared to do anything to end your life (for example, collected pills, obtained a gun, gave away valuables, went to the roof but didn't jump)? No 8. If YES, was this within the past 3 months? Response not required due to responses to other questions. Alcohol Use Screen (AUDIT-C): Alcohol Screen: SCREEN FOR ALCOHOL (AUDIT-C) An alcohol screening test (AUDIT-C) was negative (score=4). 1. How often did you have a drink containing alcohol in the past year? Consider a drink to be a 12 ounce can or bottle of regular beer, 8 ounces of malt liquor, a 5 ounce glass of table wine, or a 1.5 ounce shot of liquor (like scotch, gin, or vodka). Four or more times a week 2. How many drinks containing alcohol did you have on a typical day when you were drinking in the past year? One or two drinks 3. How often did you have six or more drinks on one occasion in the past year? Never Depression Screening: Perform PHQ-2 A PHQ-2 screen was performed. The score was 0 which is a negative screen for depression. Over the past two weeks, how often have you been bothered by the following problems? 1. Little interest or pleasure in doing things Not at all 2. Feeling down, depressed, or hopeless Not at all Influenza Immunization: The patient has received the seasonal influenza vaccine for the current season at another location. Documented: INFLUENZA, UNSPECIFIED FORMULATION Historical Date Administered: Feb 2022 Exact date unknown Outside Location: [facility] Information Source: FROM PATIENT'S RECALL Tobacco Use Screening: The patient is a former tobacco user. The patient quit fifteen or more years ago. Herpes Zoster (Shingles) Vaccine: The patient declines to receive the recommended dose of zoster (shingles) vaccine. Immunization: ZOSTER RECOMBINANT Refusal Reason: PATIENT DECISION Patient refuses all immunization(s) in the ZOSTER group Date Documented: 01/02/24 10:53 Pneumococcal Conjugate Vaccine (PCV15/PCV20): Refuses PCV vaccine Immunization: PNEUMOCOCCAL CONJUGATE, UNSPECIFIED FORMULATION Refusal Reason: PATIENT DECISION Patient refuses all immunization(s) in the PneumoPCV group Date Documented: 01/02/24 10:53 Tdap Immunization: The patient declines to receive the recommended dose of Tdap vaccine. Immunization: TDAP Refusal Reason: PATIENT DECISION Patient refuses all immunization(s) in the TDAP group Date Documented: 01/02/24 10:53 /brandon/ GURWINDER UNGER LPN LICENSED PRACTIAL NURSE Signed: 01/02/2024 10:55 GURWINDER UNGER [facility]
--- OUTSIDE RECORDS SUMMARY | 2024-11-23 08:47 | XMS_ITS ---
Author Organization [facility] [place] ([address]) Address [address] [place] [address] Care Team Providers Care Punch Hand Name Role Phone Deven Sanchez Primary Care Provider Unavailab le Nelson Carrera Unavailable [phone] [facility], Provider Unavailable Unavailab le REASON FOR VISIT [facility] To [facility] Conversion Encounter Medications Medication SIG (Take, Route, Frequency, Duration) Notes Start Date End Date Status Fluticasone Propionate 50 MCG/ACT 2 spray(s) in each nostril BID; Duration: 30 day(s) 01/01/2023 Active Cetirizine HCl 10 MG 1 tab(s) orally once a day; Duration: 30 days 01/01/2023 Active VANICREAM MOISTURIZING CREAM N/A NECESSARY APPLY TO EXTERNAL SURFACES OFTEN NEEDED TO FACE, HANDS, FEET OR BODY FOR DAILY USE BY THE ENTIRE FAMILY; Duration: 30 DAY(S) *Please review for potential replacement for e-prescription and drug interaction check* 01/01/2023 Active Micardis HCT 40-12.5 MG 1 tab(s) orally once a day; Duration: 30 day(s) Active Lipitor 20 MG 1 tab(s) orally once a day; Duration: 30 day(s) Active ZyrTEC Allergy 10 MG 1 tab(s) orally once a day Active Encounters Encounter Location Date Provider Diagnosis [facility] [place] [address] [place] [address] 10/27/2023 Provider Jina Allergic rhinitis due to pollen J30.1 and Pruritus, unspecified L29.9 Assessments Encounter Date Diagnosis (ICD Code) Assessment Notes Treatment Notes Treatment Clinical Notes Section Notes 10/27/2023 Allergic rhinitis due to pollen (ICD-10 - J30.1) 10/27/2023 Pruritus, unspecified (ICD-10 - L29.9) Plan Of Treatment Medication Medication Name Sig Start Date Stop Date Notes Fluticasone Propionate 50 MCG/ACT 2 spray(s) in each nostril BID; Duration: 30 day(s) 01/01/2023 Cetirizine HCl 10 MG 1 tab(s) orally onc e a day; Duration: 30 days 01/01/2023 VANICREAM MOISTURIZING CREAM N/A NECESSARY APPLY TO EXTERNAL SURFACES OFTEN NEEDED TO FACE, HANDS, FEET OR BODY FOR DAILY USE BY THE ENTIRE FAMILY; Duration: 30 DAY(S) 01/01/2023 *Please review for potential replacement for e-prescription and drug interaction check* Progress Notes * Adriel SOLISDOB: [birth year] (59 yo M)Acc No.[id number]:10/27/2023 Patient: Adriel KUHN Provider: Trace Zapien :1965 A ge:58 Y S ex:Male Date:10/27/2023 Address:[address] [place] [address] , [id number] Pcp:Deven Sanchez Subjective: * Chief Complaints: * 1 . [facility] Conversion Encounter. * Medical History: * Medications: T aking ZyrTEC Allergy 10 MG Tablet 1 tab(s) orally once a day , Taking Lipitor 20 MG Tablet 1 tab(s) orally once a day , Taking Micardis HCT 40-12.5 MG Tablet 1 tab(s) orally once a day Objective: * Vitals: Assessment: * Assessment: 1. A llergic rhinitis due to pollen - J30.1 (Primary) 2 . P ruritus, unspecified - L29.9 Plan: * Treatment: 2. P ruritus, unspecified Sample VANICREAM MOISTURIZING CREAM MOISTURIZING CREAM, N/A, NECESSARY, APPLY TO EXTERNAL SURFACES OFTEN NEEDED TO FACE, HANDS, FEET OR BODY, FOR DAILY USE BY THE ENTIRE FAMILY, 30 DAY(S), 1 LB. (453 G), Refills PRN, Notes to Pharmacist: *Please review for potential replacement for e-prescription and drug interaction check*. * Billing Information: * Visit Code: * Procedure Codes: * Electronic signature of Carol ROJO-Migration on 11/23/2024 at 08:47 AM CDT Sign off status: Pending * Provider: Trace zepeda Migration Date: 0 10/27/2023 Generated for Syed recinos/Margot/Mahinitting on: 0 11/23/2024 08:47 AM CDT
--- OUTSIDE RECORDS SUMMARY | 2024-11-23 08:47 | XMS_ITS | Clinical Summary ---
Author Organization [facility] Address [address] [place] [id number] Care Team Providers Care Building Rental Manager Name Role Phone Keeley Parra Primary Care Provider [phone] Allergies No known active allergies Medications atorvastatin (LIPITOR) 40 MG tablet Take 1 tablet (40 mg total) by mouth daily. NEW DOSE 10/16/2023 OV 90 tablet 1 10/16/2023 Active metFORMIN ER (GLUCOPHAGE-XR) 500 MG 24 hr tablet Take 1 tablet (500 mg total) by mouth daily. 01/02/2024 Active Active Problems Problem Noted Date Diagnosed Date Coronary artery disease 10/16/2023 Morbid obesity 10/16/2023 Dizziness 07/30/2023 Obstructive sleep apnea syndrome 07/26/2019 Chest pain 07/11/2019 Dyspnea on exertion 07/11/2019 Heart murmur 07/11/2019 Hyperlipidemia, unspecified 07/11/2019 Essential (primary) hypertension 07/11/2019 Resolved Problems Problem Noted Date Diagnosed Date Resolved Date Tobacco user 10/16/2023 02/19/2024 Family History Medical History Relation Comments CABG Brother Amyloid B related angitis- A BRA, brain bleeding disorder Father CABG Father CO Father dementia Father CO Mother Stent Cardiac Mother CO Paternal Grandfather Relation Status Comments Brother Alive Father Alive Mother Alive Paternal Grandfather (Age 65) Sister 1 Alive Sister 2 Alive Social History Tobacco Use Types Packs/Day Years Used Date Smoking Tobacco: Former Cigarettes Q uit: 08/28/2015 Smokeless Tobacco: Never Tobacco Cessation:Counseling Given: Not Answered Alcohol Use Standard Drinks/Week Comments Yes 20 (1 standard drink = 0.6 oz pu re alcohol) Sex and Gender Information Value Date Recorded Sex Assigned at Not on file Legal 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 Gender Identity Not on file Sexual Orientation Not on file 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 Not on file Not on file 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 [employer] Not on file Not on file Not o n file Last Filed Vital Signs Vital Sign Reading Time Taken Comments Blood Pressure 140/80 02/20/2024 2:15 PM CDT Pulse 73 02/20/2024 2:15 PM CDT Temperature - - Respiratory Rate - - Oxygen Saturation 98% 02/20/2024 2:15 PM CDT Inhaled Oxygen Concentration - - Weight 122 kg (269 lb) 02/20/2024 2:15 PM CDT Height 172.7 cm (5' 8) 02/20/2024 2:15 PM CDT Body Mass Index 40.9 02/20/2024 2:15 PM CDT Plan of Treatment Upcoming Encounters Date Type Department Care Team (Late st Contact Info) Description 11/24/2024 2:00 PM CDT Office Visit [facility] [place] [address] Kaelyn Edmonds MD [facility]. [facility] [address] [place] [address] Health Maintenance Due Date Last Done Comments Colorectal Cancer Screening Colonoscopy (10 Years) 1964 Annual Physical 08/08/1967 Hepatitis C 1982 Pneumococcal Vaccine: 50+ Years (1 of 2 - PCV) 08/08/1983 COVID-19 Vaccine (3 - season) 2024 08/05/2020, 07/15/2020 ASCVD LDL 04/17/2024 04/17/2023 RSV Immunization or 60+ Years (1 - Risk 60-74 years 1-dose series) 2024 DTaP, Tdap and Td Vaccines (3 - Td or Tdap) 04/26/2031 04/26/2021, 12/16/2007, 09/21/1997, Additional history exists Meningococcal Vaccine Aged Out 11/23/1997 No beba fabiola eligible based on patient's age to complete this topic Zoster Vaccines Completed 07/21/2021, 04/26/2021 Meningococcal B Vaccine Aged Out No l onger eligible based on patient's age to complete this topic RSV Immunizations Under 20 Months Aged Out No longer eligible based on patient's age to complete this topic Procedures Procedure Name Priority Date/Time Associated Diagnosis Comments LIPID PANEL Routine 04/17/2023 from Last 3 Months or Most Recently Relevant to Health Maintenance Results * LIPID PANEL (04/17/2023) CHOLESTEROL 125 HDL 36 TRIGLYCERIDES 179 LDL (CALCULATED) 70 04/17/2023 us Default History Genericprovider LABORATORY Edited Result - Final from Last 3 Months or Most Recently Relevant to Health Maintenance [place] [address] [facility] Care Teams Building Rental Manager Relationship Specialty Start Date End Date Keeley Parra PA [facility] Armando [facility] [address] [facility] [place] [address] PCP - General PHYSICIAN REPAIR WEAVER 08/16/23
--- OUTSIDE RECORDS SUMMARY | 2024-11-23 08:47 | XMS_ITS | Patient Health Record ---
Author Organization [facility] ([id number]) Address [address] [facility] [address] [place] [address] Care Team Providers Care Tool And Die Engineer Name Role Phone Deven Sanchez Primary Care Provider Nelson Jewell Unavailable [phone] Allergies No Known Allergies Reason For Referral No Information Medications Medication SIG (Take, Route, Frequency, Duration) Notes Start Date End Date Status ZYRTEC 10 mg 1 tab(s) orally once a day Active Fluticasone Propionate 50 MCG/ACT 2 spray(s) in each nostril BID; Duration: 30 day(s) 01/01/2023 Active LIPITOR 20 mg 1 tab(s) orally once a day; Duration: 30 day(s) Active Cetirizine HCl 10 MG 1 tab(s) orally once a day; Duration: 30 days 01/01/2023 Active MICARDIS HCT 12.5 mg-40 mg 1 tab(s) orally once a day; Duration: 30 day(s) Active VANICREAM MOISTURIZING CREAM N/A NECESSARY APPLY TO EXTERNAL SURFACES OFTEN NEEDED TO FACE, HANDS, FEET OR BODY FOR DAILY USE BY THE ENTIRE FAMILY; Duration: 30 DAY(S) *Please review for potential replacement for e-prescription and drug interaction check* 01/01/2023 Active ZyrTEC Allergy 10 MG 1 tab(s) orally once a day Active Micardis HCT 40-12.5 MG 1 tab(s) orally once a day; Duration: 30 day(s) Active CETIRIZINE 10 mg 1 tab(s) orally once a day; Duration: 30 days 01/01/2023 Active Lipitor 20 MG 1 tab(s) orally once a day; Duration: 30 day(s) Active FLUTICASONE NASAL 50 mcg/inh 2 spray(s) in each nostril BID; Duration: 30 day(s) 01/01/2023 Active Immunizations Vaccine Route Administration Date Status Comme nts FluZone Quadrivalent Unknown 03/19/2018 Administered Po rtal Information NOC Tdap Unknown 04/26/2021 Administered Portal Infor mation Hepatitis A Unknown 10/03/1995 Administered Portal Info rmation Social History Tobacco Use: Social History Observation Description Date Details (start date - stop date) Former Smoker NA - NA Smoking Smart Form: Question Answer Notes Are you a: former smoker Problems Problem Type SNOMED Code ICD Code Onset Dates Problem Status W/U Status Risk Notes Problem Other chronic allergic conjunctivitis (H10.45) Active confirmed Problem Allergic rhinitis caused by pollen (disorder) (62823306) Allergic rhinitis due to pollen (J30.1) Active confirmed Problem Allergic rhinitis (07436205) Other allergic rhinitis (J30.89) Active confirmed Problem Allergic rhinitis caused by animal hair and dander ([id number] [id number]) Allergic rhinitis due to animal (cat) (dog) hair and dander (J30.81) Active confirmed Problem Pruritus (566637488) Pruritus, unspecified (L29.9) Active confirmed Plan Of Treatment No Information Insurance Providers Payer Name Payer Address Payer Phone Subscriber Number Group Number Insured Name Patient Relationship to Insured Coverage Start Date Coverage End Date [facility] [address] [place] [phone] [id number] Adriel Kenny Self - patient is the insured Medical (General) History Surgical History Surgery Date(Month/Year) Sinus/Deviated Septum 09/27/2022 Rt Toe Fusion 05/17/2021 Umbellic Hernia 06/21/2020 Tonsillectomy 11/17/1969 Right Hand Fracture 06/19/1984
--- OUTSIDE RECORDS SUMMARY | 2024-11-23 08:47 | XMS_ITS | Continuity of Care Document ---
Author Name [facility] Organization [facility] Care Team Providers Care Type Casting Machine Operator Name Role Phone [facility] Unavailable Unavailable Problems Combined list of problems from 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 It does not include entries that were removed or entered in error. Problem Status Onset Date Problem Type Date of Resolution Comments Source Essential hypertension Active 025 Diagnosis [facility] Well adult monitoring check done Active 025 Diagnosis [facility] Sinusitis Active 025 Diagnosis [facility] Cervicalgia Active Condition [facility] Diabetes Mellitus Type 2 ([facility] [id number]) Active Condition [facility] Exposure to potentially hazardous substance Active Condition [facility] h/o tobacco use Active Condition Jan 07, 2023 Entered By: JASON CONTRERAS Comment: in remission since 2015 [facility] H/O: multiple allergies Active Condition Jan 07, 2023 Entered By: JASON CONTRERAS Comment: seeing news camera person [facility] HTN - Hypertension (SCT [id number]) Active Condition [facility] Hyperlipidemia ([facility] [id number]) Active Condition [facility] LBP - Low back pain Active Condition Jan 07, 2023 Entered By: JASON CONTRERAS Comment: with radiculopathy [facility] Obesity (SCT [id number]) Active Condition [facility] Abnormal results of function studies of other organs and systems Active Condition [facility] Essential (primary) hypertension Active Condition [facility] Hyperlipidemia, unspecified Active Condition [facility] PREDIABETES (IMPAIRED GLUCOSE TOLERANCE) Active Condition [facility] PIRIFORMIS SYNDROME Inactive Condition [facility] Shoulder Muscle Spasm Trapezius Inactive Condition [facility] GANGLION LEFT KNEE Active Condition [facility] COMPOUND NEVUS Active Condition [facility] CERVICALGIA Active Condition [facility] NON-NEOPLASTIC NEVUS Active Condition [facility] Body Mass [...] F/u in 30 d or less. [facility] Coronary artery disease Active Condition [facility] Hyperlipidemia Active Condition - [facility] Hypertension Active Condition [facility] Morbid obesity Active Condition Unknown Organization Sinusitis Active Condition [facility] Type 2 diabetes mellitus Active Condition [facility] Diagnosis: ICD-10-CM Z00.00 Encntr for general adult medical exam w/o abnormal findings Active Diagnosis [facility] Diagnosis: ICD-10-CM M54.50 Low back pain, unspecified Active Diagnosis [facility] Diagnosis: ICD-10-CM M54.[address] [facility] Diagnosis: ICD-10-CM E11.9 Type 2 diabetes mellitus without complications Active Diagnosis [facility] Medications Combined list of outpatient [...] ORAL ACTIVE ROSARIO CONTRERAS [address] [facility] ASPIRIN EC (U/D) 81 MG ORAL TBEC Take with food/mil sybil.Daviano w whole. 04/29/2024 [id number] 3 2023 90 [facility] [place] ([facility]) aspirin EC 81 mg tablet See Instruct ions, # 90 EA, 2 total refill(s ), Acute Complet ed 04/16/2023 3 2022 90.0 Ambulat ory Pharmac y Aspirin Low Dose 81 mg oral delayed release tablet 1 tab(s), Oral, Daily, 90 tab(s), 0 Refill(s ), # 90 tab(s), 0 total refill(s ), Hard Stop, Pharmacy : [facility] Oral (given by mouth) Complet ed 09/08/2024 5 2024 90.0 0055C[facility]3 [facility] Aspirin Low Dose 81 mg oral delayed release tablet 90 tab(s), 0 Refill(s ), 0 total refill(s ), Soft Stop Discont inued 04/30/20232022 0055C-3 [facility] Aspirin Low Dose 81 mg oral delayed release tablet 1 tab(s), Oral, Daily, 90 tab(s), 0 Refill(s ), # 90 tab(s), 3 total refill(s ), Hard Stop, Pharmacy : [facility] Oral (given by mouth) Complet ed 06/16/2024 4 2024 90.0 0055C-[address] [place] [address] Aspirin Low Dose 81 mg oral delayed release tablet 1 tab(s), Oral, Daily, # 30 tab(s), 0 total refill(s ), Hard Stop, Pharmacy : [facility] Oral (given by mouth) Complet ed 10/03/2024 5 2024 30.0 0055C-[address] [place] [address] Aspirin Low Dose 81 mg oral delayed release tablet 1 tab(s), Oral, Daily, # 90 tab(s), 3 total refill(s ), [facility], Pharmacy : [facility] Oral (given by mouth) Ordered 5 2024 90.0 0055C-[address] [place] [address] atorvastati n 20 mg oral tablet 1 tab(s), Oral, Daily, 90 tab(s), 0 Refill(s ), # 90 tab(s), 3 total refill(s ), [facility], Pharmacy : [facility] Oral (given by mouth) Discont inued 04/30/2023 3 2022 90.0 0055C-[address] [place] [address] atorvastati n 20 mg oral tablet 1 tab(s), Oral, Daily, 90 tab(s), 0 Refill(s ), # 90 tab(s), 3 total refill(s ), [facility], Pharmacy : [facility] Oral (given by mouth) Discont inued 01/16/2024 4 2023 90.0 0055C-3 75[facility] atorvastati n 20 mg oral tablet 90 tab(s), 0 Refill(s ), 0 total refill(s ), Soft Stop Discont inued 04/30/20232022 0055C-[address] [place] [address] atorvastati n 20 mg tablet See Instruct ions, # 90 EA, 2 total refill(s ), Acute Complet ed 04/16/2023 3 2022 90.0 Ambulat ory Pharmac y atorvastati n 40 mg oral tablet 40 mg, Oral, Daily, # 90 EA, 0 total refill(s ), Hard Stop, Pharmacy : [facility] Oral (given by mouth) Complet ed 09/08/2024 5 2024 90.0 0055C-3 [facility] atorvastati n 40 mg oral tablet 40 mg, Oral, Daily, # 30 EA, 0 total refill(s ), Hard Stop, Pharmacy : [facility] Oral (given by mouth) Complet ed 10/03/2024 5 2024 30.0 0055C-3 [facility] atorvastati n 40 mg oral tablet 40 mg, Oral, Daily, # 30 EA, 0 total refill(s ), Hard Stop, Pharmacy : [facility] Oral (given by mouth) Discont inued 10/03/20242024 30.0 0055C-3 [facility] atorvastati n 40 mg oral tablet 40 mg, Oral, Daily, # 90 EA, 3 total refill(s ), Hard Stop, Pharmacy : [facility] Oral (given by mouth) Cancele d 10/07/20242024 90.0 0055C-3 [facility] atorvastati n 40 mg oral tablet 40 mg, Oral, Daily, # 90 EA, 3 total refill(s ), Hard Stop, [id number] Oral (given by mouth) Complet ed 06/16/20242024 90.0 0055C-3 [facility] atorvastati n 40 mg oral tablet 40 mg, Oral, Daily, # 90 tab(s), 3 total refill(s ), Maintena nce, Pharmacy : [facility] Oral (given by mouth) Ordered 5 2024 90.0 0055C-3 [facility] atorvastati n 40 mg tablet = [...] ORAL ACTIVE Hao CHERRY 20[address] [facility] CETIRIZINE (U/D) 10 MG ORAL TAB May cause drowsine ss.Obtmerced n advice for OTCs. 04/29/2024 [id number] 3 2023 90 [facility] ([facility]) cetirizine 10 mg oral tablet 1 tab(s), Oral, Daily, 90 tab(s), 0 Refill(s ), # 90 tab(s), 0 total refill(s ), Hard Stop, 09/08/24 2:25:44 PM CDT, Pharmacy : [facility] Oral (given by mouth) Complet ed 09/08/2024 5 2024 90.0 0055C-3 [facility] cetirizine 10 mg oral tablet 1 tab(s), Oral, Daily, 90 tab(s), 0 Refill(s ), # 90 tab(s), 3 total refill(s ), Mary ile, Pharmacy : [facility] Oral (given by mouth) Discont inued 04/30/2023 3 2022 90.0 0055C-3 [facility] cetirizine 10 mg oral tablet 1 tab(s), Oral, Daily, 90 tab(s), 0 Refill(s ), # 90 tab(s), 3 total refill(s ), Hard Stop, 06/16/24 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, Pharmacy : [facility] Oral (given by mouth) Complet ed 06/16/2024 4 2024 90.0 0055C-3 [facility] cetirizine 10 mg oral tablet 1 tab(s), Oral, Daily, # 30 tab(s), 0 total refill(s ), Hard Stop, 10/03/24 10:44:16 AM CDT, Pharmacy : [facility] Oral (given by mouth) Complet ed 10/03/2024 5 2024 30.0 0055C-3 [facility] cetirizine 10 mg oral tablet 1 tab(s), Oral, Daily, # 30 tab(s), 0 total refill(s ), Hard Stop, 10/03/24 4:11:10 PM CDT, Pharmacy : [facility] Oral (given by mouth) Discont inued 10/03/20242024 30.0 0055C-3 [facility] cetirizine 10 mg oral tablet 1 tab(s), Oral, Daily, # 90 tab(s), 3 total refill(s ), Hard Stop, 10/07/24 11:53:25 AM CDT, Pharmacy : [facility] Oral (given by mouth) Cancele d 10/07/20242024 90.0 0055C-3 [facility] cetirizine 10 mg oral tablet 90 tab(s), 0 Refill(s ), 0 total refill(s ), Soft Stop Discont inued 04/30/20232022 0055C-3 [facility] cetirizine 10 mg oral tablet 1 tab(s), Oral, Daily, # 90 tab(s), 3 total refill(s ), Maintena nce, Pharmacy : [facility] Oral (given by mouth) Ordered 5 2024 90.0 0055C-3 [facility] cetirizine 10 mg tablet See Instruct ions, # 90 EA, 2 total refill(s ), Acute Complet ed 04/16/2023 3 2022 90.0 Ambulat ory Pharmac y CETIRIZINE HCL 10MG TAB TAKE ONE TABLET BY MOUTH ONCE A DAY ORAL ACTIVE ROSARIO CONTRERAS 2022 [facility] Flonase 50 mcg/inh nasal spray 50 mcg, Nostril- Both, BID, shake well before using, # 16 g, 0 total refill(s ), Hard Stop, Pharmacy : [facility] Nostri l-Both (into the nose) Complet ed 09/08/2024 5 2024 16.0 0055C[facility] Flonase 50 mcg/inh nasal spray 50 mcg, Nostril- Both, BID, shake well before using, # 16 g, 5 total refill(s ), Maintena nce, Pharmacy : [facility] Nostri l-Both (into the nose) Discont inued 04/30/2023 3 2022 16.0 0055C-[facility] Flonase 50 mcg/inh nasal spray 50 mcg, Nostril- Both, BID, shake well before using, # 16 g, 5 total refill(s ), Hard Stop, Pharmacy : [facility] Nostri l-Both (into the nose) Complet ed 06/16/2024 4 2024 16.0 0055C-3 [facility] Flonase 50 mcg/inh nasal spray 50 mcg, Nostril- Both, BID, shake well before using, # 16 g, 0 total refill(s ), Hard Stop, Pharmacy : [facility] Nostri l-Both (into the nose) Complet ed 10/03/2024 5 2024 16.0 0055C-3 [facility] Flonase 50 mcg/inh nasal spray 50 mcg, Nostril- Both, BID, shake well before using, # 16 g, 0 total refill(s ), Hard Stop, Pharmacy : [facility] Nostri l-Both (into the nose) Cancele d 10/07/20242024 16.0 0055C-[facility] FLONASE-OTC (BRAND) 50 MCG ANCA SPSN [9.9] Take or use exactly as directed .For the nose. 04/29/2024 [id number] 3 2023 16 [facility] ([facility]) fluticasone 50 mcg/inh nasal spray 50 mcg, Nostril- Both, BID, # 16 g, 5 total refill(s ), Maintena nce, Pharmacy : [facility] Nostri l-Both (into the nose) Ordered 5 2024 16.0 0055C-3 [facility] fluticasone 50 mcg/inh nasal spray [16g] See dose instruct ions in comments , # 32 g, 1 total refill(s ), Acute Complet ed 04/16/2023 3 2022 32.0 Ambulat ory Pharmac y FLUTICASONE PROPIONATE 50MCG/SPRAY SOLN,NASAL, 16GM INSTILL 2 SPRAYS IN NOSTRIL( S) ONCE A DAY NASAL ACTIVE ROSARIO CONTRERAS 2022 [facility] HYDROCHLORO THIAZIDE 12.5MG/TELM ISARTAN 40MG TAB TAKE ONE TABLET BY MOUTH ONCE A DAY ORAL ACTIVE Hao CHERRYE 2023 [facility] meclizine 25 mg oral tablet 1 tab(s), Oral, TID, PRN as needed for dizzines s, # 30 tab(s), 0 total refill(s ), Acute, 07/29/24 12:00:00 AM CDT, Pharmacy : [id number] Oral (given by mouth) Complet ed 07/29/20242024 30.0 0055C-3 [facility] metFORMIN 1000 mg oral tablet 1 tab(s), Oral, BID, for diabetes , # 180 tab(s), 3 total refill(s ), Maintena ile, Pharmacy : [facility] Oral (given by mouth) Ordered 5 2024 180.0 0055C-3 [facility] metFORMIN 500 mg oral tablet 1 tab(s), Oral, BID, Take with food, # 60 tab(s), 0 total refill(s ), Maintena ile, Pharmacy : [facility] Oral (given by mouth) Discont inued 04/16/20244 60.0 0055C[facility]3 [facility] metFORMIN 500 mg oral tablet, extended release 1 tab(s), Oral, BID, Take one tablet two times daily with food for blood sugar, # 60 tab(s), 0 total refill(s ), Maintena nce, Pharmacy : [facility] Oral (given by mouth) Discont inued 01/16/2024 4 2023 60.0 0055C-3 [facility] metFORMIN 500 mg oral tablet, extended release 1 tab(s), Oral, BID, # 180 tab(s), 0 total refill(s ), Hard Stop, Pharmacy : [facility] Oral (given by mouth) Complet ed 09/08/2024 5 2024 180.0 0055C-3 [facility] metFORMIN 500 mg oral tablet, extended release See Instruct ions, Oral, take one tablet by mouth every evening with food for 7 days, then take one tablet two times daily with food for blood sugar., # 53 tab(s), 0 total refill(s ), Maintena nce, 30 days, Pharmacy : [facility] Oral (given by mouth) Discont inued 04/30/2023 3 2022 53.0 0055C-3 [facility] metFORMIN 500 mg oral tablet, extended release See Instruct ions, Oral, take one tablet by mouth every evening with food for 7 days, then take one tablet two times daily with food for blood sugar., # 53 tab(s), 0 total refill(s ), Maintena nce, 30 days, Pharmacy : [facility] Oral (given by mouth) Discont inued 06/04/20232023 53.0 0055C-3 [facility] metFORMIN 500 mg oral tablet, extended release 1 tab(s), Oral, BID, # 60 tab(s), 0 total refill(s ), Maintena nce, Pharmacy : [facility] Oral (given by mouth) Ordered 5 2024 60.0 0055C-3 [facility] metFORMIN 500 mg oral tablet, extended release 1 tab(s), Oral, BID, # 60 tab(s), 0 total refill(s ), Maintena nce, Pharmacy : [facility] Oral (given by mouth) Discont inued 04/23/2024 2023 60.0 0055C-3 [facility] metFORMIN 500 mg oral tablet, extended release 1 tab(s), Oral, BID, # 180 tab(s), 1 total refill(s ), Hard Stop, Pharmacy : [id number] Oral (given by mouth) Complet ed 06/16/20242024 180.0 0055C-3 [facility] metFORMIN 500 mg oral tablet, extended release See Instruct ions, Oral, Take one tablet two times daily with food for blood sugar., # 120 tab(s), 0 total refill(s ), Maintena nce, bridge to f/u appointn ment, Pharmacy : [facility] #[id number] Oral (given by mouth) Cancele d 12/28/20232023 120.0 0055A-3 [facility] metFORMIN 500 mg oral tablet, extended release See Instruct ions, Oral, Take one tablet two times daily with food for blood sugar., # 120 tab(s), 0 total refill(s ), Hard Stop, bridge to f/u appointn ment, Pharmacy : [facility] #[id number] Oral (given by mouth) Complet ed 11/09/20232023 [...] inued 10/03/2024 4 2024 60.0 [facility] metFORMIN 500 mg oral tablet, extended release See Instruct ions, Oral, Take one tablet two times daily with food for blood sugar., # 180 tab(s), 0 total refill(s ), Mary yu, 30 days, Pharmacy : [facility] Oral (given by mouth) Discont inued 11/02/2023 4 2023 180.0 [facility]3 [facility] METFORMIN HCL 500MG 24HR TAB,SA TAKE ONE TABLET BY MOUTH ONCE A DAY ORAL ACTIVE Hao CHERRY 2023 [facility] METFORMIN HCL ER (metformin HCl), 500 MG, TAB ER 24H, ORAL, GRANULES PHARMA, 1000 ea. 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, Pharmacy : [id number] Oral (given by mouth) Discont inued 07/10/20242024 48.0 0055C-3 75th [facility] telmisartan -hydroCHLOR Othiazide 40mg-12.5mg oral tablet 1 tab(s), Oral, Daily, # 90 tab(s), 0 total refill(s ), Hard Stop, Pharmacy : [facility] Oral (given by mouth) Complet ed 09/08/2024 5 2024 90.0 0055C-3 75[facility] telmisartan -hydroCHLOR Othiazide 40mg-12.5mg oral tablet 1 tab(s), Oral, Daily, 90 tab(s), 0 Refill(s ), # 90 tab(s), 3 total refill(s ), Mainbharata aimee, Pharmacy : [facility] Oral (given by mouth) Discont inued 04/30/2023 3 2022 90.0 0055C-3 75[facility] telmisartan -hydroCHLOR Othiazide 40mg-12.5mg oral tablet 1 tab(s), Oral, Daily, 90 tab(s), 0 Refill(s ), # 90 tab(s), 3 total refill(s ), Hard Stop, Pharmacy : [facility] Oral (given by mouth) Complet ed 06/16/2024 4 2024 90.0 0055C-3 75[facility] telmisartan -hydroCHLOR Othiazide 40mg-12.5mg oral tablet 1 tab(s), Oral, Daily, # 30 tab(s), 0 total refill(s ), Hard Stop, Pharmacy : [facility] Oral (given by mouth) Complet ed 10/03/2024 5 2024 30.0 0055C-3 75[facility] telmisartan -hydroCHLOR Othiazide 40mg-12.5mg oral tablet 90 tab(s), 0 Refill(s ), 0 total refill(s ), Soft Stop Discont inued 04/30/20232022 0055C-3 75[facility] telmisartan -hydroCHLOR Othiazide 40mg-12.5mg oral tablet 1 tab(s), Oral, Daily, # 90 tab(s), 3 total refill(s ), Mary isake, Pharmacy : [facility] Oral (given by mouth) Ordered 5 2024 90.0 0055C-3 [facility] telmisartan /HCTZ (UD) 40-12.5MG ORAL TAB Be careful if taking OTCs.Vince e with food/mil k.Avoid exposure to sun.Take or use exactly as directed .Do not take if . 04/29/2024 [id number] 3 [address] [place] [address] [facility] ([facility]) Allergies, Adverse Reactions, Alerts Combined list of allergies from 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 It does not include entries that were removed or entered in error. Substance Category Reaction Severity Reaction type Status Date Reported Comments Source No Known Allergies Drug allergy (disorder) active 04/30/[address] [place] [address] Drake [facility] ([facility]) Immunizations Combined list of available immunizations from the 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 Immunization Series Date Given Administered By Site Reaction Lot Number CVX Code Drug Risk Compliance Manager Status Comments Source INFLUENZA, UNSPECIFIED FORMULATION 2021 88 complet ed HISTORICA L INFORMATI ON - FROM PATIENT'S RECALL, [facility] zoster vaccine, inactivated 2021 zzRig ht Arm [id number] GlaxoSmithKli ne complet ed zoster vaccine, inactivat ed 07/21/21 Given Ambulat ory Pharmac y zoster vaccine recombinant 1 2021 Unknown, Provider [id number] 187 [facility] (B) complet ed zoster vaccine recombina nt DoD zoster vaccine, inactivated 2020 zzLef t Arm [id number] 187 GlaxoSmithKli ne complet ed zoster vaccine, inactivat ed 04/26/21 Given Ambulat ory Pharmac y tetanus-dipht h toxoids (Td) adult/adol 2020 zzLef t Arm [id number] 09 sanofi pasteur complet ed tetanus-d iphth toxoids (Td) adult/ado l 04/26/21 Given Ambulat ory Pharmac y tetanus and diphtheria toxoids, adsorbed, preservative free, for adult use (2 Lf of tetanus toxoid and 2 Lf of diphtheria toxoid) 1 2020 Unknown, Provider [id number] 09 Sanofi Pasteur (PMC) complet ed tetanus and diphtheri a toxoids, adsorbed, preservat frandy free, for adult use (2 Lf of tetanus toxoid and 2 Lf of diphtheri a toxoid) [facility] zoster vaccine recombinant 1 2020 Unknown, Provider [id number] [facility] RVX (SKB) complet ed zoster vaccine recombina nt DoD influenza virus vaccine, unspecified 2020 TRANSCR IBED 88 complet ed influenza virus vaccine, unspecifi ed 03/30/21 Given Ambulat ory Pharmac y INFLUENZA, INJECTABLE, MDCK, PRESERVATIVE FREE, QUADRIVALENT 4 2020 171 complet ed HISTORICA L INFORMATI ON - [facility] influenza virus vaccine, unspecified formulation 1 2020 Unknown, Provider 88 Transcribed (TRS) complet ed influenza virus vaccine, unspecifi ed formulati on [facility] Influenza, injectable, MDCK, preservative free, quadrivalent 2020 RAÚL, () Not Given Influenza , injectabl e, MDCK, preservat frandy free, quadrival ent DoD COVID Vaccine Pfizer 2020 [id number] 208 PFIZER complet ed COVID Vaccine Pfizer 08/05/20 Given Ambulat ory Pharmac y COVID-19 (PFIZER), MRNA, LNP-S, PF, 30 MCG/0.3 ML DOSE 2 2020 208 complet ed HISTORICA L INFORMATI ON - FROM OTHER REGISTRY, [facility] N SARS-COV-2 (COVID-19) vaccine, mRNA, spike protein, LNP, preservative free, 30 mcg/0.3mL dose 2 2020 Unknown, Provider [id number] 208 Pfizer, Inc (PFR) complet ed SARS-COV- 2 (COVID-19 ) vaccine, mRNA, spike protein, LNP, preservat frandy free, 30 mcg/0.3mL dose DoD COVID Vaccine Pfizer 2020 [id number] 208 PFIZER complet ed COVID Vaccine Pfizer 07/15/20 Given Ambulat ory Pharmac y COVID-19 (PFIZER), MRNA, LNP-S, PF, 30 MCG/0.3 ML DOSE 1 2020 208 complet ed HISTORICA L INFORMATI ON - FROM OTHER [facility], [facility] N SARS-COV-2 (COVID-19) vaccine, mRNA, spike protein, LNP, preservative free, 30 mcg/0.3mL dose 1 2020 Unknown, Provider [id number] 208 Pfizer, Inc (PFR) complet ed SARS-COV- 2 (COVID-19 ) vaccine, mRNA, spike protein, LNP, preservat frandy free, 30 mcg/0.3mL dose DoD influenza virus vaccine, inactivated 2019 88 Seqirus complet ed influenza virus vaccine, inactivat ed 02/20/20 Given Ambulat ory Pharmac y INFLUENZA, INJECTABLE, MDCK, PRESERVATIVE FREE, QUADRIVALENT 3 2019 171 complet ed HISTORICA L INFORMATI ON - FROM OTHER [facility], [facility] N Influenza, injectable, MDCK, preservative free, quadrivalent 2019 ALUL, () Not Given Influenza , injectabl e, MDCK, preservat frandy free, quadrival ent DoD INFLUENZA, INJECTABLE, QUADRIVALENT 2018 158 complet ed HISTORICA L INFORMATI ON - FROM OTHER PROVIDER, Partner: [facility]. Administe red by: RAMA TOBAR (KUZ=[phone]). Partner 58 Lot#: [id number] 1 Mfr: SEQIRUS; Dosage: 0.5 [facility] N influenza, injectable, quadrivalent, preservative free 2018 ALUL, () Not Given influenza , injectabl e, quadrival ent, preservat frandy free DoD influenza, injectable, quadrivalent- pf 2017 150 sanofi pasteur complet ed influenza , injectabl e, quadrival ent-pf 03/19/18 Given Ambulat ory Pharmac y INFLUENZA, INJECTABLE, QUADRIVALENT, PRESERVATIVE FREE 1 2017 150 complet ed HISTORICA L INFORMATI ON - FROM OTHER [facility], [facility] N influenza, seasonal, injectable-pf 2015 zzClarita Arm [id number] [employer] complet ed influenza , seasonal, injectabl e-pf 04/13/16 Given Ambulat ory Pharmac y Influenza, seasonal, injectable, preservative free 1 2015 Unknown, Provider [id number] [employer] (SEQ) complet ed Influenza , seasonal, injectabl e, preservat frandy free DoD influenza, live, intranasal,qu adrivalent 2013 [id number] [employer] comple t ed influenza , live, intranasa l,quadriv alent 04/01/14 Given Ambulat ory Pharmac y influenza, live, intranasal, quadrivalent 1 2013 Unknown, Provider [id number] [employer] Inc[employer] (MED) complet ed influenza , live, intranasa l, quadrival ent DoD influenza, live, intranasal,qu adrivalent 2012 [id number] [employer] comple t ed influenza , live, intranasa l,quadriv alent 02/28/13 Given Ambulat ory Pharmac y influenza, live, intranasal, quadrivalent 14 2012 Unknown, Provider [id number] 149 [employer] (MED) complet ed influenza , live, intranasa l, quadrival ent DoD influenza virus vaccine, live 2011 [id number] [employer] comple t ed influenza virus vaccine, live 03/19/12 Given Ambulat ory Pharmac y influenza virus vaccine, live, attenuated, for intranasal use 13 2011 Unknown, Provider [id number] 111 [employer] (MED) complet ed influenza virus vaccine, live, attenuate d, for intranasa l use DoD influenza, seasonal, injectable 2010 zNelia t Arm [id number] 141 sanofi pasteur complet ed influenza , seasonal, injectabl e 02/22/11 Given Ambulat ory Pharmac y Influenza, seasonal, injectable 1 2010 Unknown, Provider [id number] 141 Sanofi Pasteur ([facility]) complet ed Influenza , seasonal, injectabl e DoD tetanus, diphtheria, acellular pertu is 2007 [id number] 115 sanofi pasteur complet ed tetanus, diphtheri a, acellular pertussis 12/16/07 Given Ambulat ory Pharmac y tetanus toxoid, reduced diphtheria toxoid, and acellular pertu is vaccine, adsorbed 1 2007 [id number] 115 Sanofi Pasteur ([facility]) complet ed tetanus toxoid, reduced diphtheri a toxoid, and acellular pertussis vaccine, adsorbed DoD influenza virus vaccine,split 2006 [id number] 15 sanofi pasteur complet ed influenza virus vaccine,s plit 03/20/07 Given Ambulat ory Pharmac y influenza virus vaccine, split virus (incl. purified surface antigen)-reti red CODE 1 2006 [id number] 15 Sanofi Pasteur ([facility]) complet ed influenza virus vaccine, split virus (incl. purified surface antigen)- retired CODE DoD influenza virus vaccine,split 2005 [id number] 15 sanofi pasteur complet ed influenza virus vaccine,s plit 04/24/06 Given Ambulat ory Pharmac y influenza virus vaccine, split virus (incl. purified surface antigen)-reti red CODE 1 2005 [id number] 15 Sanofi Pasteur ([facility]) complet ed influenza virus vaccine, split virus (incl. purified surface antigen)- retired CODE DoD influenza virus vaccine, live 2004 [id number] [employer] Inc comple t ed influenza virus vaccine, live 02/22/05 Given Ambulat ory Pharmac y influenza virus vaccine, live, attenuated, for intranasal use 1 2004 [id number] 111 MedImmune[employer] Inc. (MED) complet ed influenza virus vaccine, live, attenuate d, for intranasa l use DoD influenza virus vaccine, live 2004 [id number] 111 [employer] comple t ed influenza virus vaccine, live 06/09/04 Given Ambulat ory Pharmac y influenza virus vaccine, live, attenuated, for intranasal use 0 2004 [id number] 111 [employer] Inc[employer] (MED) complet ed influenza virus vaccine, live, attenuate d, for intranasa l use [facility] tuberculin purified protein derivative 2002 zzLef t Arm [id number] 96 sanofi pasteur complet ed Patient Tolerance : Negative Ambulat ory Pharmac y tuberculin skin test; purified protein derivative solution, intradermal 1 2002 Unknown, Provider [id number] 96 Sanofi Pasteur ([facility]) complet ed tuberculi n skin test; purified protein derivativ e solution, intraderm al [facility] influenza virus vaccine, whole virus 2002 [id number] [employer] complet ed influenza virus vaccine, whole virus 03/09/03 Given Ambulat ory Pharmac y influenza virus vaccine, whole virus 0 2002 [id number] 16 [employer] (PWJ) complet ed influenza virus vaccine, whole virus DoD tuberculin purified protein derivative 2001 zzLef t Arm [id number] 96 sanofi pasteur complet ed Patient Tolerance : Negative Ambulat ory Pharmac y tuberculin skin test; purified protein derivative solution, intradermal 1 2001 Unknown, Provider [id number] 96 Sanofi Pasteur ([facility]) complet ed tuberculi n skin test; purified protein derivativ e solution, intraderm al DoD influenza virus vaccine, whole virus 2001 [id number] 16 [facility] complet ed influenza virus vaccine, whole virus 04/03/02 Given Ambulat ory Pharmac y influenza virus vaccine, whole virus 0 2001 [id number] 16 [facility] ([facility]) complet ed influenza virus vaccine, whole virus [facility] [place] Encephalitis vaccine, [place] 2001 [id number] 39 sanofi pasteur complet ed [place] Encephali tis vaccine, [place] 08/30/01 Given Ambulat ory Pharmac y [place] Encephalitis Vaccine [place] 3 2001 [id number] 39 Sanofi Pasteur ([facility]) complet ed [place] Encephali tis Vaccine [facility] [place] Encephalitis vaccine, [place] 2001 [id number] 39 sanofi pasteur complet ed [place] Enceph[place]is vaccine, [place] 08/23/01 Given Ambulat ory Pharmac y [place] Encephalitis Vaccine [place] 2 2001 [id number] 39 Sanofi Pasteur ([facility]MC) complet ed [place] Encephali [place]is Vaccine [facility] [place] Encephalitis vaccine, [place] 2001 [id number] 39 sanofi pasteur complet ed [place] Enceph[place] vaccine, [place] 08/16/01 Given Ambulat ory Pharmac y [place] Encephalitis Vaccine [place] 1 2001 [id number] 39 Sanofi Pasteur ([facility]MC) complet ed [place] Encephali [place]is Vaccine [facility] influenza virus vaccine, whole virus 2001 [id number] 16 sanofi pasteur complet ed influenza virus vaccine, whole virus 05/29/01 Given Ambulat ory Pharmac y influenza virus vaccine, whole virus 0 2001 [id number] 16 Sanofi Pasteur ([facility]MC) complet ed influenza virus vaccine, whole virus DoD tuberculin purified protein derivative 2000 [id number] 96 [facility] complet ed Patient Tolerance : Negative Ambulat ory Pharmac y tuberculin skin test; purified protein derivative solution, intradermal 1 2000 Unknown, Provider [id number] 96 [facility] (CON) complet ed tuberculi n skin test; purified protein derivativ e solution, intraderm al DoD influenza virus vaccine, whole virus 1999 [id number] 16 [facility] complet ed influenza virus vaccine, whole virus 04/16/00 Given Ambulat ory Pharmac y influenza virus vaccine, whole virus 0 1999 [id number] 16 [facility] (CON) complet ed influenza virus vaccine, whole virus DoD anthrax vaccine 1998 [id number] [employer] complet ed anthrax vaccine 04/11/99 Given Ambulat ory Pharmac y anthrax vaccine 5 1998 [id number] [facility] complet ed anthrax vaccine DoD influenza virus vaccine, whole virus 1998 [id number] 16 [facility] complet ed influenza virus vaccine, whole virus 03/28/99 Given Ambulat ory Pharmac y influenza virus vaccine, whole virus 0 1998 [id number] 16 [facility] (CON) complet ed influenza virus vaccine, whole virus DoD tuberculin purified protein derivative 1998 [id number] 96 [facility] complet ed Patient Tolerance : Negative Ambulat ory Pharmac y tuberculin skin test; purified protein derivative solution, intradermal 1 1998 Unknown, Provider [id number] 96 [facility] (PD) complet ed tuberculi n skin test; purified protein derivativ e solution, intraderm al DoD anthrax vaccine 1998 [id number] 24 [employer] complet ed anthrax vaccine 10/05/98 Given Ambulat ory Pharmac y tuberculin purified protein derivative 1998 [id number] 96 [facility] complet ed tuberculi n purified protein derivativ e 10/05/98 Given Ambulat ory Pharmac y anthrax vaccine 4 1998 [id number] [facility] complet ed anthrax vaccine DoD anthrax vaccine 1997 [id number] [employer] complet ed anthrax vaccine 03/26/98 Given Ambulat ory Pharmac y influenza virus vaccine, whole virus [id number] 16 [employer] complet ed influenza virus vaccine, whole virus 03/26/98 Given Ambulat ory Pharmac y influenza virus vaccine, whole virus 0 [id number] 16 Vel (Inactive) ([place]) complet ed influenza virus vaccine, whole virus DoD anthrax vaccine 3 1997 [id number] [employer] ([facility]) complet ed anthrax vaccine DoD anthrax vaccine 1997 [id number] 24 [employer] complet ed anthrax vaccine 03/05/98 Given Ambulat ory Pharmac y anthrax vaccine 2 1997 [id number] [employer] [place] (MIP) complet ed anthrax vaccine DoD anthrax vaccine 1997 [id number] 24 [employer] complet ed anthrax vaccine 02/19/98 Given Ambulat ory Pharmac y anthrax vaccine 1 1997 [id number] 24 [employer] [place] ([facility]) complet ed anthrax vaccine DoD meningococcal polysaccharid e (MPSV4) [id number] 32 [facility] complet ed meningoco ccal polysacch aride (MPSV4) 11/23/97 Given Ambulat ory Pharmac y typhoid vaccine, live, oral 1997 [id number] 25 [employer] [facility] [place] complet ed typhoid vaccine, live, oral 11/23/97 Given Ambulat ory Pharmac y typhoid vaccine, live, oral 0 1997 [id number] 25 [facility] ([place]) complet ed typhoid vaccine, live, oral DoD meningococcal polysaccharid e vaccine (MPSV4) 0 [id number] 32 [facility] (CON) complet ed meningoco ccal polysacch aride vaccine (MPSV4) DoD tuberculin purified protein derivative 1997 [id number] 96 [facility] complet ed Patient Tolerance : Negative Ambulat [...] al DoD influenza virus vaccine, whole virus 19961755 [id number] 16 [employer] complet ed influenza virus vaccine, whole virus 03/16/97 Given Ambulat ory Pharmac y influenza virus vaccine, whole virus 0 19969960 [id number] 16 [employer] (Inactive) ([place]) complet ed influenza virus vaccine, whole virus DoD hepatitis A adult vaccine 19954210 [id number] 52 [employer] complet ed hepatitis A adult vaccine 10/03/95 Given Ambulat ory Pharmac y hepatitis A vaccine, adult dosage 2 [id number] 52 [employer] (Inactive) ([place]) complet ed hepatitis A vaccine, adult dosage DoD yellow fever vaccine 19947169 [id number] 37 [employer] complet ed yellow fever vaccine 10/22/94 Given Ambulat ory Pharmac y yellow fever vaccine 0 [id number] 37 [employer] (Inactive) ([place]) complet ed yellow fever vaccine DoD yellow fever vaccine 19940235 [id number] 37 [employer] [employer] complet ed yellow fever vaccine 05/24/94 Given Ambulat ory Pharmac y yellow fever vaccine 0 [id number] 37 [place] (CON) complet ed yellow fever [...] Reference Range Date Interpretation Specimen Comments Source Chemistry Hemoglobin A1c 6.9 % 4.0 - [...] diabetes. Because studies have repeatedly shown that clr-zu-aonfu ol diabetes results in complication s from the disease, the goal for people with diabetes is a hemoglobin A1c less than 7%. The higher the hemoglobin A1c, the higher the risks of developing complication s related to diabetes. If confirmation is needed, consider recalling the patient and ordering Hemoglobin Electrophore sis. 0055A-3 [facility] Chemistry eAvg Glucose 151 mg/dL 10/01 0055A-3 [facility] Chemistry HDL Cholesterol 38 mg/dL 40 - 59 10/01 L Interpretive Data: HDL (HIGH DENSITY LIPOPROTEIN) : ADULTS: Low: < 40 mg/dL High: >/= 60 mg/dL AGES 0 -19: Low: < 40 mg/dL Borderline Low: 40 - 45 mg/dL Acceptable: > 45 mg/dL 5A-3 [facility] Chemistry LDL 66 mg/dL 100 - 130 10/01 L Interpretive Data: AGES 0-19: Desirable: < 110 mg/dL Borderline High: 110-129 mg/dL High: >/= 130 mg/dL ADULTS: Desirable: <100 mg/dL Near/above optimal: 100-130 mg/dL Borderline High: 131-159 mg/dL High: 160-189 mg/dL Very High: 190 mg/dL [address] [place] [address] [facility] LDL/HDL 2 10/[address] [place] [address] [facility] Triglycerid es 131 mg/dL 7 - 149 10/01 N Interpretive Data: AGES 0-9: Desirable: < 75 mg/dL Borderline High: 75-99 mg/dL High: >/= 100 mg/dL AGES 10-19: Desirable: < 90 mg/dL Borderline High: 90-129 mg/dL High: >/= 130 mg/dL ADULTS: Desirable: < 150 mg/dL Borderline High: 150-199 mg/dL High: >/= 240 mg/dL Very High: >/= 500 mg/dL [address] [place], [place] [address] Chol/HDL 3 mg/dL 10/[address] [place] [address] [facility] Cholesterol Total 114 mg/dL 10/01 N Interpretive Data: According to the [place] [employer]: AGES 0-19: Desirable: < 170 mg/dL Borderline High: 170-199 mg/dL High Blood Cholesterol: >/= 200 mg/dL ADULTS: Desirable < 200 mg/dL Borderline High: 200-239 mg/dL High Blood Cholesterol: >/= 240 mg/dL [address] [place], [place] [address] Potassium Lvl 4.3 mmol/L 3.5 - 5.1 10/01 N - [address] [place] [address] [facility] Sodium 138 mmol/L 136 - 145 10/01 N -[address] [place], [place] [address] Creatinine Level 0.68 mg/dL 0.72 - 1.25 10/01 L - [address] [place] [address] [facility] Glucose Lvl 162 mg/dL 74 - 99 10/01 H - [address] [place], [place] [address] Chloride 99 mmol/L 98 - 107 10/01 N - [address] [place] [address] [facility] CO2 28 mmol/L 22 - 29 10/01 N 0055A-[address] [place] [address] Chemistry Calcium 9.3 mg/dL 8.4 - 10.2 10/01 N 0055A-[address] [place] [address] Chemistry Protein Total 6.9 g/dL 6.4 - 8.3 10/01 N 0055A-[address] [place] [address] Chemistry Bilirubin Total 0.7 mg/dL 0.2 - 1.2 10/01 N 0055A-[address] [place] [address] Chemistry BUN 8 mg/dL 8 - 26 10/01 N 0055A-[address] [place] [address] Chemistry BUN/Creat Ratio 12 mg/dL 12 - 20 10/01 N 0055A-[address] [place] [address] Chemistry AST 26 U/L 5 - 34 10/01 N 5A-[address] [place] [address] Chemistry ALT 27 U/L 5 - 55 10/[address] [place] [address] Chemistry Alk Phos 61 U/L 40 - 150 10/01 N -[address] [place] [address] Chemistry Albumin 4.10 g/dL 3.50 - 5.20 10/01 N 5A3 [address] [place] [address] Chemistry AGAP 11.00 0.00 - 15.00 10/[address] [place] [address] Chemistry eGFR CKD EPI 106 mL/min /1.73_ [...] decrease 15-29 Severe decrease <15 Kidney failure [address] [place] [address] Baso Absolute 0.0 x10^3/ mcL 0.0 - 0.1103 10/[address] [place] [address] Eosinophil % Auto 4 % 0 - 5 10/[address] [place] [address] Eos Absolute 0.3 x10^3/ mcL 0.0 - 0.7103 10/[address] [place] [address] Monocyte % Auto 8 % 1 - 12 10/[address] [place] [address] [place] Absolute 0.6 x10^3/ mcL 0.2 - 0.8103 10/[address] [place] [address] Basophil % Auto 0.5 % 0.0 - 2.5 10/[address] [place] [address] Neutro Absolute 4.0 x10^3/ mcL 2.0 - 7.0103 10/01 N 005- [address] [place] [address] Lymphocyte % Auto 32 % 20 - 40 10/01 N - [address] [place] [address] Lymph Absolute 2.3 x10^3/ mcL 1.2 - 4.0103 10/[address] [place] [address] Neutrophil % Auto 55 % 46 - 77 10/01 N 0055A-[address] [place] [address] Hematology WBC 7.3 x10^3/ mcL 4.0 - 11.0103 10/01 N 005-[address] [place] [address] Hematology MCH 33 pg 28 - 33 10/01 N 005-[address] [place] [address] Hematology MCV 93 fL 80 - 97 10/01 N 005-[address] [place] [address] Hematology RDW 11.8 % 11.0 - 14.9 10/01 N 005-[address] [place] [address] Hematology Platelets 232 x10^3/ mcL 150 - 092001 10/01 N 005-[address] [place] [address] Hematology MCHC 35.2 g/dL 33.0 - 36.5 10/01 N 005-[address] [place] [address] Hematology Differentia l? Auto ( 7:49 AM) 10/01 N - [address] [place] [address] Hematology MPV 9.2 fL 7.4 - 10.4 10/01 N -[address] [place] [address] Hematology Hematocrit 41 % 40 - 49 10/01 N 005-[address] [place] [address] Hematology Hemoglobin 14.3 g/dL 13.0 - 16.3 10/01 N 005-[address] [place] [address] Hematology RBC 4.4 x10^6/ mcL 4.0 - 5.6106 10/01 N 0055A-[address] [place] [address] Chemistry BUN/Creat Ratio 13 mg/dL 12 - 20 06/26 N 0055A-[address] [place] [address] Chemistry Bilirubin Total 0.9 mg/dL 0.2 - 1.2 06/26 N 0055A-[address] [place] [address] Chemistry BUN 9 mg/dL 8 - 26 06/26 N 0055A-[address] [place] [address] Chemistry AST 33 U/L 5 - 34 06/26 N 0055A-[address] [place] [address] Chemistry Albumin 4.40 g/dL 3.50 - 5.20 06/26 N 0055A-[address] [place] [address] Chemistry AGAP 8.00 0.00 - 15.00 06/26 N 0055A-[address] [place] [address] Chemistry ALT 41 U/L 5 - 55 06/[address] [place] [address] Chemistry Alk Phos 61 U/L 40 - 150 06/[address] [place] [address] Chemistry Calcium 9.5 mg/dL 8.4 - 10.2 06/[address] [place] [address] Chemistry Chloride 98 mmol/L 98 - 107 06/[address] [place] [address] Chemistry Protein Total 7.7 g/dL 6.4 - 8.3 06/[address] [place] [address] Chemistry Sodium 132 mmol/L 136 - 145 06/[address] [place] [address] Chemistry Potassium Lvl 4.2 mmol/L 3.5 - 5.1 06/[address] [place] [address] Chemistry Glucose Lvl 180 mg/dL 74 - 99 06/[address] [place] [address] Chemistry Creatinine Level 0.70 mg/dL 0.72 - 1.25 06/[address] [place] [address] Chemistry CO2 26 mmol/L 22 - 29 06/[address] [place] [address] Chemistry Hemoglobin A1c 7.2 % 4.0 - [...] diabetes. Because studies have repeatedly shown that bfj-vv-qdyei ol diabetes results in complication s from the disease, the goal for people with diabetes is a hemoglobin A1c less than 7%. The higher the hemoglobin A1c, the higher the risks of developing complication s related to diabetes. If confirmation is needed, consider recalling the patient and ordering Hemoglobin Electrophore sis. [address] [place] [address] Chemistry eAvg Glucose 160 mg/dL 06/[address] [place] [address] Chemistry LDL 60 mg/dL 100 - 130 06/26 L Interpretive Data: AGES 0-19: Desirable: < 110 mg/dL Borderline High: 110-129 mg/dL High: >/= 130 mg/dL ADULTS: Desirable: <100 mg/dL Near/above optimal: 100-130 mg/dL Borderline High: 131-159 mg/dL High: 160-189 mg/dL Very High: 190 mg/dL [facility] HDL Cholesterol 38 mg/dL 40 - 59 06/26 L Interpretive Data: HDL (HIGH DENSITY LIPOPROTEIN) : ADULTS: Low: < 40 mg/dL High: >/= 60 mg/dL AGES 0 -19: Low: < 40 mg/dL Borderline Low: 40 - 45 mg/dL Acceptable: > 45 mg/dL [facility] Chemistry Triglycerid es 156 mg/dL 7 - 149 06/26 H Interpretive Data: AGES 0-9: Desirable: < 75 mg/dL Borderline High: 75-99 mg/dL High: >/= 100 mg/dL AGES 10-19: Desirable: < 90 mg/dL Borderline High: 90-129 mg/dL High: >/= 130 mg/dL ADULTS: Desirable: < 150 mg/dL Borderline High: 150-199 mg/dL High: >/= 240 mg/dL Very High: >/= 500 mg/dL [address] [place], [place] [address] LDL/HDL 2 06/[address] [place], [place] [address] Cholesterol Total 96 mg/dL 06/26 N Interpretive Data: According to the [employer]: AGES 0-19: Desirable: < 170 mg/dL Borderline High: 170-199 mg/dL High Blood Cholesterol: >/= 200 mg/dL ADULTS: Desirable < 200 mg/dL Borderline High: 200-239 mg/dL High Blood Cholesterol: >/= 240 mg/dL [facility] Chemistry Chol/HDL 3 mg/dL 06/[address] [place], [place] [address] Chemistry eGFR CKD EPI 106 mL/min /1.73_ [...] Severe decrease <15 Kidney failure 5A-3 [facility] Chemistry Prostate Specific Ag LC 0.4 ng/mL 0.0 - 4.0 06/26 Result Comment: David ECLIA methodology. According to the [place] [employer], Serum PSA should decrease and [...] the presence or absence of malignant disease. 5A-3 [facility] Chemistry % Free PSA LC 40.0 % [...] other population of men. Performed At: 01 [facility] [address] [place], [place] [id number] Carolynn Olvera PhD Ph:[phone] [place] [address] Chemistry PSA Free LC 0.16 ng/mL N/A 06/26 Result Comment: David ECLIA methodology. [address] [place] [address] Hematology Neutrophil % Auto 57.6 % 46.0 - 77.0 06/[address] [place] [address] Hematology Baso Absolute 0.0 x10^3/ mcL 0.0 - 0.1103 06/[address] [place] [address] Hematology Basophil % Auto 0.6 % 0.0 - 2.5 06/[address] [place] [address] Hematology Eosinophil % Auto 3 % 0 - 5 06/[address] [place] [address] Hematology Eos Absolute 0.3 x10^3/ mcL 0.0 - 0.7103 06/[address] [place] [address] Hematology [place] Absolute 0.6 x10^3/ mcL 0.2 - 0.8103 06/[address] [place] [address] Hematology Neutro Absolute 4.8 x10^3/ mcL 2.0 - 7.0103 06/26 N - [address] [place] [address] Hematology Monocyte % Auto 7 % 1 - 12 06/26 N - [address] [place] [address] Hematology Lymph Absolute 2.6 x10^3/ mcL 1.2 - 4.0103 06/[address] [place] [address] Hematology Lymphocyte % Auto 31.2 % 20.0 - 40.0 06/[address] [place] [address] Hematology Hematocrit 40 % 40 - 49 06/[address] [place] [address] Hematology Hemoglobin 14.2 g/dL 13.0 - 16.3 06/[address] [place] [address] Hematology MCH 32 pg 28 - 33 06/[address] [place] [address] Hematology WBC 8.2 x10^3/ mcL 4.0 - 11.0103 06/[address] [place] [address] Hematology RDW 11.9 % 11.0 - 14.9 06/[address] [place] [address] Hematology Platelets 208.0 x10^3/ mcL 150.0 - 450.0103 06/[address] [place] [address] Hematology MPV 8.6 fL 7.4 - 10.4 06/[address] [place] [address] Hematology RBC 4.4 x10^6/ mcL 4.0 - 5.6106 06/[address] [place] [address] Hematology MCV 92 fL 80 - 97 06/[address] [place] [address] Hematology MCHC 35.2 g/dL 33.0 - 36.5 06/[address] [place] [address] Chemistry Ur Microalb/Ur Creat Ratio TNP 01/07 Result Comment: Result out of detectable range of analyzer, calculation can not be performed.// KMB [address] [place] [address] Chemistry Ur Creat 52 mg/dL 01/[address] [place] [address] Chemistry Ur Microalbumi n <5 mg/L 01/07 N Result Comment: Below detectable range of analyzer.//K MB Interpretive Data: To minimize intra-indivi dual variation, analysis of three random urine samples collected over the course of a week has also been recommended. [address] [place] [address] Chemistry eAvg Glucose 140 mg/dL 01/[address] [place] [address] Chemistry Hemoglobin A1c 6.5 % 4.0 - [...] diabetes. Because studies have repeatedly shown that gah-bv-cgcrz ol diabetes results in complication s from the disease, the goal for people with diabetes is a hemoglobin A1c less than 7%. The higher the hemoglobin A1c, the higher the risks of developing complication s related to diabetes. If confirmation is needed, consider recalling the patient and ordering Hemoglobin Electrophore sis. [address] [place] [address] Chemistry Triglycerid es 156 mg/dL 7 - 149 01/07 H Interpretive Data: AGES 0-9: Desirable: < 75 mg/dL Borderline High: 75-99 mg/dL High: >/= 100 mg/dL AGES 10-19: Desirable: < 90 mg/dL Borderline High: 90-129 mg/dL High: >/= 130 mg/dL ADULTS: Desirable: < 150 mg/dL Borderline High: 150-199 mg/dL High: >/= 240 mg/dL Very High: >/= 500 mg/dL [address] [place] [address] [facility] LDL/HDL 2 01/[address] [place] [address] Chemistry LDL 63 mg/dL 100 - 130 01/07 L Interpretive Data: AGES 0-19: Desirable: < 110 mg/dL Borderline High: 110-129 mg/dL High: >/= 130 mg/dL ADULTS: Desirable: <100 mg/dL Near/above optimal: 100-130 mg/dL Borderline High: 131-159 mg/dL High: 160-189 mg/dL Very High: 190 mg/dL [address] [place] [address] [facility] HDL Cholesterol 40 mg/dL 40 - 59 01/07 N Interpretive Data: HDL (HIGH DENSITY LIPOPROTEIN) : ADULTS: Low: < 40 mg/dL High: >/= 60 mg/dL AGES 0 -19: Low: < 40 mg/dL Borderline Low: 40 - 45 mg/dL Acceptable: > 45 mg/dL [address] [place] [address]- [place] [facility] Cholesterol Total 118 mg/dL 01/07 N Interpretive Data: According to the [employer]: AGES 0-19: Desirable: < 170 mg/dL Borderline High: 170-199 mg/dL High Blood Cholesterol: >/= 200 mg/dL ADULTS: Desirable < 200 mg/dL Borderline High: 200-239 mg/dL High Blood Cholesterol: >/= 240 mg/dL [address] [place] [address]- [place] Chemistry Chol/HDL 3 mg/dL 01/07-[address] [place] [address] Chemistry Creatinine Level 0.80 mg/dL 0.72 - 1.25 01/07 N -[address] [place] [address] Chemistry Protein Total 7.1 g/dL 6.4 - 8.3 01/07 N -[address] [place] [address] Chemistry Sodium 135 mmol/L 136 - 145 01/07 L -[address] [place] [address] Chemistry Potassium Lvl 4.2 mmol/L 3.5 - 5.1 01/07 N -[address] [place] [address] Chemistry Glucose Lvl 151 mg/dL 74 - 99 01/07 H -[address] [place] [address] Chemistry BUN/Creat Ratio 12 mg/dL 12 - 20 01/07 N -[address] [place] [address] Chemistry BUN 10 mg/dL 8 - 26 01/07 N 5A-[address] [place] [address] Chemistry CO2 26 mmol/L 22 - 29 01/07 N 5A-[address] [place] [address] Chemistry Chloride 99 mmol/L 98 - 107 01/07 N 5A-[address] [place] [address] Chemistry Calcium 9.6 mg/dL 8.4 - 10.2 01/07 N 5A-[address] [place] [address] Chemistry Alk Phos 60 U/L 40 - 150 01/07 N 0055A-[address] [place] [address] Chemistry Albumin 4.20 g/dL 3.50 - 5.20 01/07 N 5A-[address] [place] [address] Chemistry AGAP 10.00 0.00 - 15.00 01/[address] [place] [address] Chemistry Bilirubin Total 0.8 mg/dL 0.2 - 1.2 01/[address] [place] [address] Chemistry AST 21 U/L 5 - 34 01/[address] [place] [address] Chemistry ALT 25 U/L 5 - 55 01/[address] [place] [address] Chemistry eGFR CKD EPI 102 mL/min /1.73_ [...] 15-29 Severe decrease <15 Kidney failure - [address] [place] [address] Chemistry Glucose Lvl 154 mg/dL 74 - 99 10/[address] [place] [address] Chemistry Creatinine Level 0.80 mg/dL 0.72 - 1.25 10/29 N 0055A-[address] [place] [address] Chemistry AGAP 9.00 0.00 - 15.00 10/29 N 0055A-[address] [place] [address] Chemistry Potassium Lvl 4.3 mmol/L 3.5 - 5.1 10/29 N 0055A-[address] [place] [address] Chemistry Protein Total 6.7 g/dL 6.4 - 8.3 10/29 N 0055A-[address] [place] [address] Chemistry Sodium 136 mmol/L 136 - 145 10/29 N 5A-[address] [place] [address] Chemistry Albumin 4.20 g/dL 3.50 - 5.20 10/29 N 5A-[address] [place] [address] Chemistry Bilirubin Total 0.7 mg/dL 0.2 - 1.2 10/29 N 5A-[address] [place] [address] Chemistry AST 20 U/L 5 - 34 10/29 N 0055A-[address] [place] [address] Chemistry ALT 24 U/L 5 - 55 10/29 N 5A-[address] [place] [address] Chemistry Alk Phos 57 U/L 40 - 150 10/29 N 0055A-[address] [place] [address] Chemistry BUN/Creat Ratio 15 mg/dL 12 - 20 10/29 N 0055A-[address] [place] [address] Chemistry BUN 12 mg/dL 8 - 26 10/29 N 0055A-[address] [place] [address] Chemistry Calcium 9.2 mg/dL 8.4 - 10.2 10/29 N 0055A-[address] [place] [address] Chemistry Chloride 100 mmol/L 98 - 107 10/29 N 0055A-[address] [place] [address] Chemistry CO2 27 mmol/L 22 - 29 10/29 N 0055A-[address] [place] [address] Chemistry Ur Microalbumi n <5 mg/L 10/29 N Result Comment: Below detectable range of analyzer. Interpretive Data: To minimize intra-indivi dual variation, analysis of three random urine samples collected over the course of a week has also been recommended. 0055A-[address] [place] [address] Chemistry Hemoglobin A1c 6.8 % 4.0 - [...] diabetes. Because studies have repeatedly shown that syo-vx-mbwoe ol diabetes results in complication s from the disease, the goal for people with diabetes is a hemoglobin A1c less than 7%. The higher the hemoglobin A1c, the higher the risks of developing complication s related to diabetes. If confirmation is needed, consider recalling the patient and ordering Hemoglobin Electrophore sis. [address] [place] [address] Chemistry eAvg Glucose 148 mg/dL 10/[address] [place] [address] Chemistry Chol/HDL 3 mg/dL 10/[address] [place] [address] Chemistry HDL Cholesterol 36 mg/dL 40 - 59 10/29 L Interpretive Data: HDL (HIGH DENSITY LIPOPROTEIN) : ADULTS: Low: < 40 mg/dL High: >/= 60 mg/dL AGES 0 -19: Low: < 40 mg/dL Borderline Low: 40 - 45 mg/dL Acceptable: > 45 mg/dL [address] [place] [address] Chemistry Cholesterol Total 114 mg/dL 10/29 N Interpretive Data: According to the [employer]: AGES 0-19: Desirable: < 170 mg/dL Borderline High: 170-199 mg/dL High Blood Cholesterol: >/= 200 mg/dL ADULTS: Desirable < 200 mg/dL Borderline High: 200-239 mg/dL High Blood Cholesterol: >/= 240 mg/dL [address] [place] [address] Chemistry LDL/HDL 2 10/[address] [place] [address] Chemistry LDL 62 mg/dL 100 - 130 10/29 L Interpretive Data: AGES 0-19: Desirable: < 110 mg/dL Borderline High: 110-129 mg/dL High: >/= 130 mg/dL ADULTS: Desirable: <100 mg/dL Near/above optimal: 100-130 mg/dL Borderline High: 131-159 mg/dL High: 160-189 mg/dL Very High: 190 mg/dL [facility] Chemistry Triglycerid es 112 mg/dL 7 - 149 10/29 N Interpretive Data: AGES 0-9: Desirable: < 75 mg/dL Borderline High: 75-99 mg/dL High: >/= 100 mg/dL AGES 10-19: Desirable: < 90 mg/dL Borderline High: 90-129 mg/dL High: >/= 130 mg/dL ADULTS: Desirable: < 150 mg/dL Borderline High: 150-199 mg/dL High: >/= 240 mg/dL Very High: >/= 500 mg/dL [facility] Chemistry eGFR CKD EPI 102 mL/min [...] 15-29 Severe decrease <15 Kidney failure 5A-[address] [place] [address] Chemistry eAvg Glucose 137 mg/dL 08/02-[address] [place] [address] Chemistry Hemoglobin A1c 6.4 % 4.0 - [...] diabetes. Because studies have repeatedly shown that ife-bd-iwlya ol diabetes results in complication s from the disease, the goal for people with diabetes is a hemoglobin A1c less than 7%. The higher the hemoglobin A1c, the higher the risks of developing complication s related to diabetes. If confirmation is needed, consider recalling the patient and ordering Hemoglobin Electrophore sis. 0055A-[address] [place] [address] Chemistry AGAP 12.00 0.00 - 15.00 05/01 N 0055A-[address] [place] [address] Chemistry Albumin 4.30 g/dL 3.50 - 5.20 05/01 N 0055A-[address] [place] [address] Chemistry Alk Phos 68 U/L 40 - 150 05/01 N 0055A-[address] [place] [address] Chemistry ALT 36 U/L 5 - 55 05/01 N 0055A-[address] [place] [address] Chemistry AST 32 U/L 5 - 34 05/01 N 0055A-[address] [place] [address] Chemistry Bilirubin Total 0.8 mg/dL 0.2 - 1.2 05/01 N 0055A-[address] [place] [address] Chemistry BUN/Creat Ratio 10 mg/dL 12 - 20 05/01 L 0055A-[address] [place] [address] Chemistry Calcium 9.8 mg/dL 8.4 - 10.2 05/01 N 0055A-[address] [place] [address] Chemistry Chloride 95 mmol/L 98 - 107 05/[address] [place] [address] Chemistry BUN 8 mg/dL 8 - 26 05/[address] [place] [address] Chemistry Glucose Lvl 197 mg/dL 74 - 99 05/[address] [place] [address] Chemistry Potassium Lvl 3.9 mmol/L 3.5 - 5.1 05/[address] [place] [address] Chemistry Sodium 134 mmol/L 136 - 145 05/[address] [place] [address] Chemistry CO2 27 mmol/L 22 - 29 05/[address] [place] [address] Chemistry Creatinine Level 0.80 mg/dL 0.72 - 1.25 05/[address] [place] [address] Chemistry Protein Total 7.4 g/dL 6.4 - 8.3 05/[address] [place] [address] Chemistry % Free PSA LC N/A 05/[address] [place] [address] Chemistry Free PSA LC 0.083 ng/mL 05/01 Result Comment: Reference Range: Probability of prostate cancer based on Total PSA and Percent Free PSA results. Tot.PSA % Free PSA Probability of Cancer <2.0 N/A 1 2.0-4.0 N/A 15 4.1-10.0 0.0-10.0 56 10.1-15.0 28 15.1-20.0 20 20.1-25.0 16 >25.0 8 >10.0 N/A >50 Performed At: 01 [employer] [address] [place] [address] [id number] Maciej Dick MD Ph:[phone] [address] [place] [address] Chemistry Prostate Specific Antigen LC 0.441 ng/mL [...] in patients with prostatic hyperplasia. - [facility] Osmolality. LC 280 mOsm/k g 05/01 Result Comment: Performed At: [address] [id number] Federico Monge MD Ph:[phone] 4 - [facility] Chemistry eGFR CKD EPI 103 mL/min /1.73_ [...] Severe decrease <15 Kidney failure 5A-3 [facility] Chemistry Hemoglobin A1c 7.6 % 4.0 [...] diabetes. Because studies have repeatedly shown that tkl-le-tegeu ol diabetes results in complication s from the disease, the goal for people with diabetes is a hemoglobin A1c less than 7%. The higher the hemoglobin A1c, the higher the risks of developing complication s related to diabetes. If confirmation is needed, consider recalling the patient and ordering Hemoglobin Electrophore sis. -[address] [place] [address] Chemistry eAvg Glucose 171 mg/dL 04/[address] [place] [address] Chemistry ALT 27 U/L 5 - 55 04/17 N 0055A-[address] [place] [address] Chemistry Alk Phos 63 U/L 40 - 150 04/17 N 0055A-[address] [place] [address] Chemistry AGAP 11.00 0.00 - 15.00 04/17 N 0055A-[address] [place] [address] Chemistry Albumin 4.20 g/dL 3.50 - 5.20 04/17 N 0055A-[address] [place] [address] Chemistry BUN/Creat Ratio 12 mg/dL 12 - 20 04/17 N 0055A-[address] [place] [address] Chemistry AST 28 U/L 5 - 34 04/17 N 0055A-[address] [place] [address] Chemistry Bilirubin Total 1.0 mg/dL 0.2 - 1.2 04/17 N 0055A-[address] [place] [address] Chemistry BUN 10 mg/dL 8 - 26 04/17 N 0055A-[address] [place] [address] Chemistry Calcium 9.8 mg/dL 8.4 - 10.2 04/17 N 0055A-[address] [place] [address] Chemistry Chloride 95 mmol/L 98 - 107 04/17 L 5A-[address] [place] [address] Chemistry CO2 27 mmol/L 22 - 29 04/17 N 0055A-[address] [place] [address] Chemistry Creatinine Level 0.80 mg/dL 0.72 - 1.25 04/[address] [place] [address] Chemistry Glucose Lvl 192 mg/dL 74 - 99 04/[address] [place] [address] Chemistry Potassium Lvl 4.0 mmol/L 3.5 - 5.1 04/[address] [place] [address] Chemistry Sodium 133 mmol/L 136 - 145 04/[address] [place] [address] Chemistry Protein Total 7.2 g/dL 6.4 - 8.3 04/[address] [place] [address] Chemistry HDL Cholesterol 36 mg/dL 40 - 59 04/17 L Interpretive Data: HDL (HIGH DENSITY LIPOPROTEIN) : ADULTS: Low: < 40 mg/dL High: >/= 60 mg/dL AGES 0 -19: Low: < 40 mg/dL Borderline Low: 40 - 45 mg/dL Acceptable: > 45 mg/dL [address] [place] [address] Chemistry LDL 70 mg/dL 100 - 130 04/17 L Interpretive Data: AGES 0-19: Desirable: < 110 mg/dL Borderline High: 110-129 mg/dL High: >/= 130 mg/dL ADULTS: Desirable: <100 mg/dL Near/above optimal: 100-130 mg/dL Borderline High: 131-159 mg/dL High: 160-189 mg/dL Very High: 190 mg/dL [address] [place] [address] Chemistry LDL/HDL 2 04/[address] [place] [address] Chemistry Triglycerid es 179 mg/dL 7 - 149 04/17 H Interpretive Data: AGES 0-9: Desirable: < 75 mg/dL Borderline High: 75-99 mg/dL High: >/= 100 mg/dL AGES 10-19: Desirable: < 90 mg/dL Borderline High: 90-129 mg/dL High: >/= 130 mg/dL ADULTS: Desirable: < 150 mg/dL Borderline High: 150-199 mg/dL High: >/= 240 mg/dL Very High: >/= 500 mg/dL [address] [place] [address] Chemistry Chol/HDL 3 mg/dL 04/[address] [place] [address] Chemistry Cholesterol Total 125 mg/dL 04/17 N Interpretive Data: According to the [employer]: AGES 0-19: Desirable: < 170 mg/dL Borderline High: 170-199 mg/dL High Blood Cholesterol: >/= 200 mg/dL ADULTS: Desirable < 200 mg/dL Borderline High: 200-239 mg/dL High Blood Cholesterol: >/= 240 mg/dL - [facility] Chemistry eGFR CKD EPI 103 mL/min [...] Severe decrease <15 Kidney failure - [facility] Vital Signs Combined list of inpatient and outpatient Vital Signs from Department of Defense and Veterans Affairs, ranging from 12 months to all on record, depending upon the facility. Vital Sign Value Date Comments Source SYSTOLIC BLOOD PRESSURE 152 01/02/2024 10:47:49 [facility] DIASTOLIC BLOOD PRESSURE 79 01/02/2024 10:47:49 [facility] PULSE OXIMETRY 98 01/02/2024 10:47:49 S James [facility] WEIGHT 267.2 01/02/2024 10:47:49 [facility] BMI 41 kg/m2 01/02/2024 10:47:[address] [facility] [facility] PAIN 0 01/02/2024 10:47:[address] [facility] [facility] HEIGHT 68 01/02/2024 10:47:49 [facility] TEMPERATURE 98.3 01/02/2024 10:47:49 [facility] PULSE 63 01/02/2024 10:47:49 [facility] RESPIRATION 18 01/02/2024 10:47:49 [facility] Mean Arterial Pressure, Calc 105 mm[Hg] 07/30/2023 [...] Blood Pressure 129 mm[Hg] 02/22/2023 13:23:00 [facility] Diastolic Blood Pressure 73 mm[Hg] 02/22/2023 13:23:00 [...] ADM Date DC Date Status Disposition Source [facility] Primary Care) OUTPATIENT [id number] injury to l hand/pu ncture w/ screwdr iver SARINA MARKS 06/02 Released w/o Limitations [facility] Primary Care) [facility] Primary Care) OUTPATIENT [id number] Issues regardi ng fitness assesme nt testing SARINA MARKS 01/24 Released w/o Limitations Former[facility] Primary Care) [facility] Primary Care) TELE CONSULT [id number] 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 AGUEDA CAI 01/29 [facility] Primary Care) OUTPATIENT [id number] 3 day blood pressue check MARYANNE ROMO 02/09 [facility]ased w/o Limitations [facility] Primary Care) [facility] Primary Care) OUTPATIENT [id number] 1st BP check ESTELLE US 03/07 [facility]ased w/o Limitations [facility] Primary [facility]) [facility] Primary Care) OUTPATIENT [id number] f/u 3 day blood pressur e check SARINA MARKS 03/13 Released w/o Limitations [facility]) [facility] N Primary Care) OUTPATIENT [id number] f/u SARINA MARKS 04/24 Released w/o Limitations [facility] Primary Care) [place] [address](Rad iology Procedure s, ASC) OUTPATIENT [id number] PICC dressin g change, labs per PICC - 2006 YOSHI BAILEY 06/25 Released w/o Limitations [facility] [place] [place] [address](R adiolog y Procedu res, [facility]) [facility] Primary Care) TELE CONSULT [id number] lab result SARINA MARKS Jennifer 06/26 [facility] Primary Care) [facility] Primary Care) OUTPATIENT [id number] f/u CONSUELO TAYLOR A 07/05 [facility]ased w/o Limitations [facility] Primary [facility] [place] [address](Rad iology Procedure s, [facility]) OUTPATIENT [id number] PICC dressin g change and labs - October, YOSHI BAILEY 10/26 Released w/o Limitations [facility] [place] [address](R adiolog y Procedu res, [facility]) [facility] Primary Care) OUTPATIENT [id number] fitness form/cl earance for fitness CONSUELO TAYLOR A 01/21 Released w/o Limitations [facility] Primary [facility]) [facility] Primary Care) OUTPATIENT [id number] needs PHA LAMBERT CONRAD 01/22 Released w/o Limitations [facility] Primary Care) [place] [address](Rad iology Procedure s, [facility]) OUTPATIENT [id number] PICC placeme nt - 7A - , 2006 YOSHI BAILEY 03/28 Released w/o Limitations [facility] [place] [address](R adiolog y Procedu res, [facility]) [facility] Primary Care) OUTPATIENT [id number] sinus x2wks/m ed refill (hypert ension) ALISIA GRACIA 04/30 Released w/o Limitations [facility] Primary Care) [facility] Primary Care) OUTPATIENT [id number] upper back pain x 1 week ALISIA GRACIA BETH 09/04 Released w/o Limitations [facility] Primary [facility]) [facility] Primary Care) OUTPATIENT [id number] Ret Physica l CARLOSCH, LAMBERT N 12/15 Released w/o Limitations [facility] Primary [facility]) [facility] Primary Care) OUTPATIENT [id number] skin tag removal CARLOSCH, LAMBERT N 12/19 Released w/o Limitations [facility] Primary [facility]) [facility] Primary Care) OUTPATIENT [id number] online complet ed pha ALISIA GRACIAH 01/21 Released w/o Limitations [facility] Primary Care) [address] [place] [address] [facility] ([facility])(Fam kiet Practice Non-GME FHI1) TELE CONSULT [id number] med refill 1 pill left CLAUDIA DUFFY 06/[address] [place] [address] [facility] ([facility])(F amily Practic e Non-GME FHI1) [address] [place] [address] [facility]Fam kiet Med Tm B Non-AD BCC) TELE CONSULT [id number] lab results and f/u per LOUIS Vides 06/[address] [place] [address] [facility] ([facility])(F amily Med Tm B Non-AD BCC) [address] [place] [address] [facility])(Sco tt [facility] Team 3) OUTPATIENT [id number] f/u 2H GTT-don e Jun ODALYS PRESLEY A 07/07 Released w/o Limitations [address] [place] [address] [facility] ([facility])(S cott [facility], [facility] Team 3) [address] [place] [address] [facility] ([facility])(Opt ometry) OUTPATIENT [id number] HYPOGLY CEMIA REACTIV E CAESAR NELSON 07/16 Released w/o Limitations [address] [place] [address] [facility] [place] ([facility])(O ptometr y) [address] [place] [address] [facility] Team 3) OUTPATIENT [id number] REC REV AND AHLTA 2766 TRANSCI PTION MICAELANOE PARADA P 10/12 Released w/o Limitations [address] [place] [address] [facility] Team 3) [address] [place] [address] [facility] [employer] [facility] Team 3) OUTPATIENT [id number] Eval sinus issues [phone] RIVERA NIEVES 01/12 Released w/o Limitations [address] [place] [address] [employer] [facility] Team 3) [address] [place] [address] [employer] [facility] Team 3) TELE CONSULT [id number] T Con for med refill Dr Nelson Phone [phone] CLAUDIA DUFFY 01/[address] [place] [address] [facility] Team 3) [address] [place] [address] [employer] [facility] Team 3) OUTPATIENT [id number] f/u meds MONIQUE NELSON 02/03 Released w/o Limitations [address] [place] [address] [facility] [place] ([facility] Team 3) [address] [place] [address] [employer] [facility])(Opt ometry) OUTPATIENT [id number] eye exam... [id number] CAESAR NELSON 03/03 Released w/o Limitations [address] [place] [address] [employer] ([facility])(O ptometr y) [address] [place] [address] [employer] [facility] Team 3) OUTPATIENT [id number] cold... [id number] MONIQUE NELSON 03/04 Released w/o Limitations [address] [place] [address] [employer] [facility] Team 3) [address] [place] [address] [employer] [facility] Team 3) TELE CONSULT [id number] Per Dr. Nelson : Continu e meds and follow up in 6wks if smptom present or woren. AMIRA ARANDA 03/07 Referred for Appointment [address] [place] [address] [facility] Team 3) [address] [place] [address] [facility] [place] [facility] Team 3) TELE CONSULT [id number] renewal karyn lane cad/dkk [id number] ROSELINE FRANCOIS 11/[address] [place] [address] [facility] B [facility] Team 3) [address] [place] [address] [facility] B [facility] Team 3) TELE CONSULT [id number] f/u labs results - Justin - roshni/pmh NESTORENRIQUETRACYOlivia AMIRA Patten 12/[address] [place] [address] [facility] Team 3) [address] [place] [address] [facility])([facility] Team 3) OUTPATIENT [id number] pt w/potas sium 5.4, pcm reqst for f/u MONIQUE NELSON 12/19 Released w/o Limitations [address] [place] [address] [facility] Team 3) [address] [place] [address] [facility])([facility] Team 3) TELE CONSULT [id number] Results needed/ Justin /gal ALISIA GOEL 02/[address] [place] [address] [facility])([facility] Team 3) [address] [place] [address] [facility])([facility] Team 3) OUTPATIENT [id number] F/U HTN/HCT Z added in Dec/ l bring home B/P log to apt. MONIQUE NELSON 02/22 Released w/o Limitations [address] [place] [address] [facility])([facility]) [address] [place] [address] Drake B [facility]) TELE CONSULT [id number] Notes Entered by: TANYA GARCIA 19 Jul 2011 0803 ------- ------- ------- ------- -- Medicat ion refill- Antwan y/229-5 530/cad kk ROSELINE FRANCOIS 07/[address] [place] [address] Drake TRENT[facility]) [address] [place] [address] Drake [facility])([facility]) TELE CONSULT [id number] Notes Entered by: PATRICE ODEN 24 Aug 2011 0821 ------- ------- ------- ------- -- Med renewal /229.55 30/mnm ROSELINE FRANCOIS 08/[address] [place] [address])([facility]) [address] [place] [address])([facility]) TELE CONSULT [id number] Notes Entered by: ROBERTA MEHTA 04 Oct 2011 1237 ------- ------- ------- ------- -- Med refills Burkhol cintia cad AMIRA Coley 10/[address] [place] [address])([facility]) [address] [place] [address])(Opt ometry) OUTPATIENT [id number] routine eye exam glasses [id number] JETT REEVES 10/10 Released w/o Limitations [address] [place] [address])(O ptometr y) [address] [place] [address])([facility]) TELE CONSULT [id number] Notes Entered by: SHAHIDA TSE CIA 04 Jan 2012 0909 ------- ------- ------- ------- -- Med renewal and labs needed - Burkhol cintia - cad/[facility] PARMINDER SOLO 01/[address] [place] [address])([facility]) [address] [place] [address])([facility] Med Cln Tm A Ad) OUTPATIENT [id number] Wrist pain CRISTIAN ACHARYA 06/10 Released w/o Limitations [address] [place] [address])([facility] ar[facility] Op Med Cln Tm A Ad) [address] [place] [address])(War rior Op Med Cln Tm A Ad) TELE CONSULT [id number] Notes Entered by: DAMI DUMONT 14 Jun 2012 1040 ------- ------- ------- ------- -- Fear being enclose d request meds Jun/Mark contreras/[phone] PARMINDER SOLO 06/[address] [place] [address])(W ar[facility] Op Med Cln Tm A Ad) [address] [place] [address])(War rior Op Med Cln Tm A Ad) TELE CONSULT [id number] Notes Entered by: ALICIA ACHARYA 20 Jun 2012 1543 ------- ------- ------- ------- -- Radiolo gy PARMINDER SOLO 06/[address] [place] [address])(W arrior Op Med Cln Tm A Ad) [address] [place] [address])(War rior Op Med Cln Tm A Ad) TELE CONSULT [id number] Notes Entered by: JETT THOMPSON 03 Jul 2012 0924 ------- ------- ------- ------- -- F/U x rays Dr Acharya ph [phone] PARMINDER SOLO 07/[address] [place] [address])(W arrior Op Med Cln Tm A Ad) [address] [place] [address])(War rior Op Med Cln Tm A Ad) OUTPATIENT [id number] MALGORZATA Franks 08/01 Released w/o Limitations [address] [place] [address])(W arrior Op Med Cln Tm A Ad) [address] [place] [address])(War rior Op Med Cln Tm A Ad) TELE CONSULT [id number] Notes Entered by: Itzel OCHOA 01 Jan 2013 0752 ------- ------- ------- ------- -- MICARE message left for med refills /Onesimo /[phone] [place] 01/01 Referred for Appointment [address] [place] [address])(W arrior Op Med Cln Tm A Ad) [employer] [facility]Sco tt [facility] Team 3) TELE CONSULT [id number] Notes Entered by: RBEONNA STEIN 16 Jan 2013 1340 ------- ------- ------- ------- -- Network Results - Orthope dics 07/23/12 CRISTIAN ACHARYA 01/16 [employer] [facility] ([facility])(S cott [facility] Team 3) 375 Medical [facility])(War rior Op Med Cln Tm A Ad) OUTPATIENT [id number] annual check up/labs done in Jun CRISTIAN ACHARYA 01/21 Released w/o Limitations [employer] [facility] ([facility])(W arrior Op Med Cln Tm A Ad) Medical [facility])(War rior Op Med Cln Tm A Ad) OUTPATIENT [id number] Neck/sh oulder CRISTIAN ACHARYA 01/24 Released w/o Limitations [employer] [facility])(W arrior Op Med Cln Tm A Ad) [facility] Medical [facility])(Cintia matology) OUTPATIENT [id number] non neoplas tic DRAKE Bey 02/28 Released w/o Limitations [employer] [facility] ([facility])(D ermatol ogy) Medical [facility])(War rior Op Med Cln Tm A Ad) OUTPATIENT [id number] Knee pain CRISTIAN ACHARYA 03/28 Released w/o Limitations [employer] [facility])(W arrior Op Med Cln Tm A Ad) Medical [facility])(War rior Op Med Cln Tm A Ad) OUTPATIENT [id number] shootin g pain down left leg x 2 days/ 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/o Limitations [employer] [facility])(W arrior Op Med Cln Tm A Ad) [address] [place] [address])(War rior Op Med Cln Tm A Ad) TELE CONSULT [id number] Notes Entered by: Eloy OCHOA 23 May 2013 0644 ------- ------- ------- ------- -- Needs aubrey [facility] GRIFFIN LEACH 05/23 Referred for Appointment [address] [place] [address])(W arrior Op Med Cln Tm A Ad) [address] [place] [address])(War rior Op Med Cln Tm A Ad) TELE CONSULT [id number] Notes Entered by: ESTEPHANIA ROSS 04 Jun 2013 1619 ------- ------- ------- ------- -- [facility] KAITY Stevenson 06/[address] [place] [address])(W arrior Op Med Cln Tm A Ad) [address] [place] [address])(War rior Op Med Cln Tm A Ad) TELE CONSULT [id number] Notes Entered by: ANMOL GIFFORD 13 Jun 2013 1503 ------- ------- ------- ------- -- Network Results - Physica l Therapy 4 CRISTIAN ACHARYA 06/[address] [place] [address])(W arrior Op Med Cln Tm A Ad) [address] [place] [address])(War rior Op Med Cln Tm A Ad) OUTPATIENT [id number] Followu p for back/le g numbnes s and pain CRISTIAN ACHARYA 06/24 Released w/o Limitations [address] [place] [address])(W arrior Op Med Cln Tm A Ad) [address] [place] [address])(War rior Op Med Cln Tm A Ad) TELE CONSULT [id number] Notes Entered by: ANMOL GIFFORD 24 Jun 2013 1435 ------- ------- ------- ------- -- Network Results - Physica l Therapy 4 CRISTIAN ACHARYA 06/[address] [place] [address])(W arrior Op Med Cln Tm A Ad) [address] [place] [address])(War rior Op Med Cln Tm A Ad) TELE CONSULT [id number] Notes Entered by: ALICIA ACHARYA 25 Jun 2013 1135 ------- ------- ------- ------- -- X-ray CRISTIAN ACHARYA 06/[address] [place] [address])(W arrior Op Med Cln Tm A Ad) [address] [place] [address])(War rior Op Med Cln Tm A Ad) TELE CONSULT [id number] Notes Entered by: ANMOL GIFFORD 10 Jul 2013 0757 ------- ------- ------- ------- -- Network Results - Physica l Therapy 4 CRISTIAN ACHARYA 07/[address] [place] [address])(W arrior Op Med Cln Tm A Ad) [address] [place] [address])(War rior Op Med Cln Tm A Ad) TELE CONSULT [id number] Notes Entered by: Eloy OCHOA 18 Jul 2013 0807 ------- ------- ------- ------- -- Med for anxiety Onesimo ROSELINE FRANCOIS 07/[address] [place] [address])(W arrior Op Med Cln Tm A Ad) [address] [place] [address])(War rior Op Med Cln Tm A Ad) TELE CONSULT [id number] Notes Entered by: JANINE BOTELLO 22 Jul 2013 1420 ------- ------- ------- ------- -- [facility] ROSELINE Padilla 07/22 [facility] Medical [employer] ([facility])(W arrior Op Med Cln Tm A Ad) [address] [place] [address] Group [employer] ([facility])(War rior Op Med Cln Tm A Ad) TELE CONSULT [id number] Notes Entered by: ALICIA ACHARYA 12 Aug 2013 0928 ------- ------- ------- ------- -- [facility] CRISTIAN Rosales 08/[address] [place] [address] Group [facility] [employer] ([facility])(W arrior Op Med Cln Tm A Ad) [facility] [employer] ([facility])(Sco tt [facility] FAMRES Tm Blue) OUTPATIENT [id number] 2nd floor:S AFB/Pre op clinic DULCE CHAVEZ 08/25 Released w/o Limitations [facility] [employer] ([facility])(S cott [facility] FAMRES Tm Blue) [address] [place] [address] Drake NEW[facility])(Sco tt [facility] [place] Fam Res Tm Green) OUTPATIENT [id number] 2nd floor [employer] GERTRUDE Solorzano 09/16 Released w/o Limitations [address] [place] [address] Drake [facility])(S cott [facility] Fam Res Tm Green) [address] [place] [address] [employer] [facility])(War rior Op Med Cln Tm A Ad) TELE CONSULT [id number] Notes Entered by: CHAO QUAN 17 Sep 2013 0944 ------- ------- ------- ------- -- Network Results - PAIN MANAGEM ENT - 07/14 - 08/04 and 09/02/13 CRISTIAN ACHARYA 09/[address] [place] [address] Group [facility])(W arrior Op Med Cln Tm A Ad) [address] [place] [address] [employer] [facility])(Sco tt [facility] FAMRES Tm Blue) TELE CONSULT [id number] Notes Entered by: KARLA SCHMITT 18 Sep 2013 1353 ------- ------- ------- ------- -- Call back C-scope on [id number] - KARLA Aguayo 09/[address] [place] [address] Drake [facility])(S [facility] FAMRES Tm Blue) [address] [place] [address] Drake [facility])(Sco [facility] Fam Res Tm Green) TELE CONSULT [id number] Notes Entered by: GERTRUDE CHAO 25 Sep 2013 0740 ------- ------- ------- ------- -- Biopsy results GERTRUDE CHAO 09/[address] [place] [address] Drake [facility])(S [facility] Fam Res Tm Green) [address] [place] [address] Drake [facility])(Fam kiet Med Tm B Non-AD BCC) TELE CONSULT [id number] Notes Entered by: CHAO QUAN 31 Oct 2013 0804 ------- ------- ------- ------- -- Network Results - PAIN MANAGEM ENT - 08/04/13 CRISTIAN ACHARYA 10/[address] [place] [address] [facility]F amily Med Tm B Non-AD BCC) [address] [place] [address] Drake [facility])(Fam kiet Med Tm B Non-AD BCC) TELE CONSULT [id number] Notes Entered by: CHAO QUAN 02 Dec 2013 1544 ------- ------- ------- ------- -- Network Results - PAIN MANAGEM ENT - 10/28/13 and 09/22/13 CRISTIAN ACHARYA 12/[address] [place] [address] Drake [facility])(F amily Med Tm B Non-AD BCC) [address] [place] [address] Drake [facility])(Med ication Refill Clinic) TELE CONSULT [id number] Notes Entered by: Sybil MURDOCK 19 Jan 2014 0919 ------- ------- ------- ------- -- [facility] Lisbeth dias / HANSA Marroquin 01/[address] [place] [address] Drake [facility]ima [facility])([facility]) [address] [place] [address])(War rior Op Med Cln Tm A Ad) TELE CONSULT [id number] Notes Entered by: ALICIA ACHARYA 20 Jan 2014 1641 ------- ------- ------- ------- -- Hyperli pidemia and elevate d White blood cell count CRISTIAN ACHARYA 01/[address] [place] [address])(W arrior Op Med Cln Tm A Ad) [address] [place] [address])(War rior Op Med Cln Tm A Ad) OUTPATIENT [id number] Annual screeni CRISTIAN Savage 01/28 Released w/o Limitations [address] [place] [address])(W arrior Op Med Cln Tm A Ad) [address] [place] [address])(War rior Op Med Cln Tm A Ad) TELE CONSULT [id number] Notes Entered by: ALICIA ACHARYA 30 Jan 2014 1311 ------- ------- ------- ------- -- Elevate d White blood cell CRISTIAN ACHARYA 01/[address] [place] [address])(W arrior Op Med Cln Tm A Ad) [address] [place] [address])(War rior Op Med Cln Tm A Ad) TELE CONSULT [id number] Notes Entered by: ALICIA ACHARYA 04 Feb 2014 0726 ------- ------- ------- ------- -- Prediab CRISTIAN Moran 02/[address] [place] [address])(W arrior Op Med Cln Tm A Ad) [address] [place] [address])([facility] kiet Med Tm B Non-AD BCC) TELE CONSULT [id number] Notes Entered by: BREONNA STEIN 17 Feb 2014 1315 ------- ------- ------- ------- -- Network Results -PAIN MANAGEM ENT 12/29 and 01/22 and 12/31/13 CRISTIAN ACHARYA 02/[address] [place] [address] Group [facility])(F amily Med Tm B Non-AD BCC) [address] [place] [address] [facility]War rior Op Med Cln Tm A Ad) TELE CONSULT [id number] Notes Entered by: ALICIA ACHARYA 27 Feb 2014 0721 ------- ------- ------- ------- -- Santiago labs CRISTIAN ACHARYA 02/[address] [place] [address] Group [facility])(W arrior Op Med Cln Tm A Ad) [address] [place] [address] Drake [facility])(War rior Op Med Cln Tm A Ad) TELE CONSULT [id number] Notes Entered by: ALICIA ACHARYA 01 Apr 2014 1558 ------- ------- ------- ------- -- leukocy tosis CRISTIAN ACHARYA 04/[address] [place] [address] Drake [facility])(W arrior Op Med Cln Tm A Ad) [address] [place] [address] [facility])(Fam kiet Med Tm B Non-AD BCC) TELE CONSULT [id number] Notes Entered by: NORMAN CANDELARIA 09 Feb 2015 1459 ------- ------- ------- ------- -- Bonniere Prescri ption - Renewal Request NORMAN CANDELARIA 02/09 Referred for Appointment [address] [place] [address] Group [facility])(F amily Med Tm B Non-AD BCC) [address] [place] [address] Drake [facility])(War rior Op Med Cln Tm A Ad) OUTPATIENT [id number] Annual prescri ption renewal , LENNOX Sanon 02/23 Released w/o Limitations [address] [place] [address] Drake [facility])(W arrior Op Med Cln Tm A Ad) [address] [place] [address] Drake [facility])(Fam kiet Med Tm B Non-AD BCC) OUTPATIENT [id number] Discuss Quittin g Smoking PABLO POLLOCKKARISSA BURGESS 08/16 Released w/o Limitations [address] [place] [address] Group [facility] ([facility])(F amily Med Tm B Non-AD BCC) [address] [place] [address] Drake [facility])(War rior Op Med Cln Tm A Ad) TELE CONSULT [id number] Notes Entered by: GILSON BORRERO 10 Sep 2015 1349 ------- ------- ------- ------- -- Medicat ion Refill JUAN JOSE WORTHY 09/[address] [place] [address] Group [facility])(W arrior Op Med Cln Tm A Ad) [address] [place] [address] Drake [facility])(Fam kiet Med Tm B Non-AD BCC) OUTPATIENT [id number] Swollen and red area under armpit. PABLO POLLOCKKARISSA BURGESS 10/31 Released w/o Limitations [address] [place] [address] Drake [facility])(F amily Med Tm B Non-AD BCC) [address] [place] [address] Drake [facility])(Fam kiet Med Tm B Non-AD BCC) OUTPATIENT [id number] left armpit cyst follow up PHILL DUCLE BURGESS 11/03 Released w/o Limitations [address] [place] [address] Drake [facility] ([facility])(F amily Med Tm B Non-AD BCC) [address] [place] [address] Drake [facility])(Cintia matology) OUTPATIENT [id number] L cheek poss cyst/TB SE CARLOZ MANZANO 12/09 Released w/o Limitations [address] [place] [address] Drake [facility] ([facility])(D ermatol ogy) [address] [place] [address] Drake [facility])(Cintia matology) OUTPATIENT [id number] L cheek cyst growth CARLOZ MANZANO 02/27 Released w/o Limitations [address] [place] [address] Drake [facility])(D ermatol ogy) [address] [place] [address] Drake [facility])(Cintia matology) OUTPATIENT [id number] F/u Cyst CARLOZ MANZANO 03/07 Released w/o Limitations [address] [place] [address] Drake [facility])(D ermatol ogy) [address] [place] [address] Drake [facility] ([facility])(Cintia matology) OUTPATIENT [id number] f/u cyst on L cheek CARLOZ MANZANO 04/03 Released w/o Limitations [address] [place] [address] Drake [facility] ([facility])(D ermatol ogy) [address] [place] [address] Drake [facility])(Cintia matology) OUTPATIENT [id number] Excisio n L cheek cyst CARLOZ MANZANO 04/11 Released w/o Limitations [address] [place] [address] Drake [facility] ([facility])(D ermatol ogy) [address] [place] [address] Drake [facility])(Fam kiet Med Tm B Non-AD BCC) OUTPATIENT [id number] Annual Check Up/Med refills DULCE POLLOCK 04/12 Released w/o Limitations [address] [place] [address] Drake [facility] ([facility])(F amily Med Tm B Non-AD BCC) [address] [place] [address])([facility] matology) OUTPATIENT [id number] Notes Entered by: MARIA ELENA TORREZ 17 Apr 2016 0948 ------- ------- ------- ------- -- Suture Removal CARLOZ MANZANO 04/17 Released w/o Limitations [address] [place] [address] Drake [facility] ([facility])(D ermatol ogy) [address] [place] [address] Drake [facility])(War rior Op Med Cln Tm A Ad) OUTPATIENT [id number] walk in throat culture YARI CHAMBERLAIN 06/02 Released w/o Limitations [address] [place] [address] Drake [facility])(W arrior Op Med Cln Tm A Ad) [address] [place] [address] Drake [facility])(Fam kiet Med Tm B Non-AD BCC) OUTPATIENT [id number] Annual Check Up/Pres criptio n Renew DULCE POLLOCK 03/19 Released w/o Limitations [address] [place] [address] Drake B ([facility])(F amily Med Tm B Non-AD BCC) [address] [place] [address] Drake [facility])(Fam kiet Med Tm B Non-AD BCC) OUTPATIENT [id number] Foot Pain Big Toe STACI GRAYSON 08/24 Released w/o Limitations [address] [place] [address] Drake [facility])(F amily Med Tm B Non-AD BCC) [facility] ([facility])(Fam kiet Med Tm B Non-AD BCC) TELE CONSULT [id number] Notes Entered by: ROBERT TOTH 28 Aug 2017 1455 ------- ------- ------- ------- -- XR results CLIFFORD WAGGONER 08/28 Referred for Appointment [employer] [facility] ([facility])(F amily Med Tm B Non-AD BCC) [facility] [employer] [facility] ([facility])(Fam kiet Med Tm B Non-AD BCC) OUTPATIENT [id number] Left Foot pain numbnes HARISH Carter 10/29 Released w/o Limitations [address] [place] [address] Group [facility] B ([facility])(F amily Med Tm B Non-AD BCC) [address] [place] [address] Drake B ([facility])(Fam kiet Med Tm B Non-AD BCC) OUTPATIENT [id number] Umbelli gus Hernia EZEQUIEL MAE 04/16 Released w/o Limitations [address] [place] [address] Group [facility] B ([facility])(F amily Med Tm B Non-AD BCC) [address] [place] [address] Group Drake [facility])(Sco tt Disease Managemen t) TELE CONSULT [id number] Notes Entered by: Sybil DUNCAN 16 Apr 2018 1519 ------- ------- ------- ------- -- Disease Managem ent-due for GURWINDER DUNCAN 04/16 Referred for Appointment [facility] ([facility])(S cott Disease Managem ent) [facility] [employer] [facility] ([facility])(War rior Op Med Cln Tm A Ad) OUTPATIENT [id number] 4 resched ule- annual check-u p JAYLEEN AVILES 04/30 Released w/o Limitations [address] [place] [address] [employer] ([facility])(W arrior Op Med Cln Tm A Ad) [employer] ([facility])(Fam kiet Med Tm B Non-AD BCC) TELE CONSULT [id number] Notes Entered by: JAYLEEN TAI 05 May 2019 0744 ------- ------- ------- ------- -- f/u labs FLORECITA CHICAS Liya 05/05 Other Not Elsewhere Classified [address] [place] [address])(F amily Med Tm B Non-AD BCC) [address] [place] [address])(Fam kiet Med Tm B Non-AD BCC) TELE CONSULT [id number] Notes Entered by: JAYLEEN TAI 03 Jun 2019 1255 ------- ------- ------- ------- -- f/u CT chest screeni ng results LIANG CHICASFadia Nickerson 06/03 Other Not Elsewhere Classified [address] [place] [address])(F amily Med Tm B Non-AD BCC) [address] [place] [address])(War rior Op Med Cln Tm A Ad) TELE CONSULT [id number] Notes Entered by: Fadia MELGAR 15 Jul 2019 1114 ------- ------- ------- ------- -- Network results Cardiol ogy 020 JAYLEEN GILLIS 07/[address] [place] [address])(W arrior Op Med Cln Tm A Ad) [address] [place] [address])(War rior Op Med Cln Tm A Ad) TELE CONSULT [id number] Notes Entered by: Fadia MELGAR 31 Jul 2019 0932 ------- ------- ------- ------- -- Network results Cardiol ogy 020 ALD DANY LOWE 07/[address] [place] [address])(W arrior Op Med Cln Tm A Ad) [address] [place] [address])(War rior Op Med Cln Tm A Ad) TELE CONSULT [id number] Notes Entered by: MOUNIKA BARNES 28 Aug 2019 0932 ------- ------- ------- ------- -- Network Results CARDIOL OGY 08/27/19 [facility] [place] [address])(W arrior Op Med Cln Tm A Ad) [address] [place] [address])(War rior Op Med Cln Tm A Ad) TELE CONSULT [id number] Notes Entered by: MOUNIKA BARNES 11 Sep 2019 1437 ------- ------- ------- ------- -- Network Results CARDIOL OGY 07/29/19 [facility] [place] [address])(W arrior Op Med Cln Tm A Ad) [address] [place] [address])(Fam kiet Med Tm B Non-AD BCC) OUTPATIENT [id number] KENDRICK LEIGH 02/12 Released w/o Limitations [address] [place] [address] Drake [facility])(F amily Med Tm B Non-AD BCC) [address] [place] [address])(War rior Op Med Cln Tm A Ad) TELE CONSULT [id number] Notes Entered by: ARLEN PRINCE 16 Feb 2020 1242 ------- ------- ------- ------- -- Lab and Xray Results KENDRICK LEIGH 02/[address] [place] [address])(W arrior Op Med Cln Tm A Ad) [address] [place] [address])(Fam kiet Med Tm B Non-AD BCC) TELE CONSULT [id number] Notes Entered by: Fadia MELGAR 04 Mar 2020 1039 ------- ------- ------- ------- -- Network results Physica l Therapy 020 ALD KENDRICK LEIGH 03/[address] [place] [address])(F amily Med Tm B Non-AD BCC) [address] [place] [address] [facility])(Fam kiet Med Tm B Non-AD BCC) TELE CONSULT [id number] Notes Entered by: NORMAN CANDELARIA 24 Jun 2020 0952 ------- ------- ------- ------- -- [facility]: Office Message SUREKHA OLIVER 06/24 Other Not Elsewhere Classified [address] [place] [address] [facility]F amily Med Tm B Non-AD BCC) [address] [place] [address] [facility])(Fam kiet Med Tm B Non-AD BCC) OUTPATIENT [id number] Foot /Ankle Pain JULIUS SOTO 01/27 Released w/o Limitations [address] [place] [address] [facility])(F amily Med Tm B Non-AD BCC) [address] [place] [address] [facility])(Fam kiet Med Tm B Non-AD BCC) TELE CONSULT [id number] Notes Entered by: JULIUS SOTO 27 Jan 2021 1139 ------- ------- ------- ------- -- XR results JULIUS SOTO 01/[address] [place] [address] [facility]F amily Med Tm B Non-AD BCC) [address] [place] [address] [facility])(Fam kiet Med Tm B Non-AD BCC) TELE CONSULT [id number] 2 Notes Entered by: Enma STRINGER 04 Mar 2021 1612 ------- ------- ------- ------- -- Network results PT Dischar ge Report 1 JULIUS CARRILLO 03/[address] [place] [address] [facility])(F amily Med Tm B Non-AD BCC) [address] [place] [address] [facility])(Fam kiet Med Tm B Non-AD BCC) TELE CONSULT [id number] 7 Notes Entered by: WAQAS MARTINEZ 07 Mar 2021 1127 ------- ------- ------- ------- -- Network results Orthope dics 021 BF JULIUS SOTO 03/[address] [place] [address] [facility]F amily Med Tm B Non-AD BCC) [address] [place] [address] [facility])(Fam kiet Med Tm B Non-AD BCC) TELE CONSULT [id number] Notes Entered by: NORMAN CANDELARIA 13 Apr 2021 1513 ------- ------- ------- ------- -- GENE Secure Marge recinos Note to Office NORMAN CANDELARIA 04/13 Released to Self Care [address] [place] [address] [facility])(F amily Med Tm B Non-AD BCC) [address] [place] [address] [facility])(Fam kiet Med Tm B Non-AD BCC) OUTPATIENT [id number] Annual Check Up, Complet e Labs, Prescri ptions Renewal JUILUS SOTO 04/20 Released w/o Limitations [address] [place] [address] [facility]F amily Med Tm B Non-AD BCC) [address] [place] [address] [facility])(Fam kiet Med Tm B Non-AD BCC) TELE CONSULT [id number] 7 Notes Entered by: JULIUS SOTO 28 Apr 2021 1225 ------- ------- ------- ------- -- CT results JULIUS SOTO 04/[address] [place] [address] [facility])(F amily Med Tm B Non-AD BCC) [address] [place] [address] [facility])(Fam kiet Med Tm B Non-AD BCC) OUTPATIENT [id number] [id number] DANY DIAMOND 08/25 Released w/o Limitations [address] [place] [address] [facility])(F amily Med Tm B Non-AD BCC) [address] [place] [address] [facility])(Fam kiet Med Tm B Non-AD BCC) OUTPATIENT [id number] Knee pain JULIUS SOTO 08/30 Released w/o Limitations [address] [place] [address])(F amily Med Tm B Non-AD BCC) [address] [place] [address] [facility])(Fam kiet Med Tm B Non-AD BCC) TELE CONSULT [id number] 1 Notes Entered by: JULIUS SOTO 01 Sep 2021 1004 ------- ------- ------- ------- -- XR results JULIUS SOTO 09/[address] [place] [address])(F amily Med Tm B Non-AD BCC) [address] [place] [address])(Fam kiet Med Tm B Non-AD BCC) TELE CONSULT [id number] 9 Notes Entered by: NORMAN CANDELARIA 07 Dec 2021 0834 ------- ------- ------- ------- -- GENE Secure Messagi ng Note to Office DANY DIAMOND 12/[address] [place] [address] [facility])(F amily Med Tm B Non-AD BCC) [address] [place] [address])(Fam kiet Med Tm B Non-AD BCC) OUTPATIENT [id number] [email or web address] Post COVID Sinus Numbnes s DANY DIAMOND 12/12 Released w/o Limitations [address] [place] [address] [facility])(F amily Med Tm B Non-AD BCC) [address] [place] [address] [facility])([facility] kiet Med Tm B Non-AD BCC) TELE CONSULT [id number] 7 Notes Entered by: NORMAN CANDELARIA 22 Mar 2022 1316 ------- ------- ------- ------- -- GENE Secure Messagi ng Note to Office NORMAN CANDELARIA 03/22 Released to Self Care [address] [place] [address])(F amily Med Tm B Non-AD BCC) [address] [place] [address] [place] [facility] ([facility])(Fam kiet Med Tm B Non-AD BCC) OUTPATIENT [id number] Pastora taylor EVER JOHN J 03/29 Released w/o Limitations [address] [place] [address] [place] [facility] ([facility])(F amily Med Tm B Non-AD BCC) [address] [place] [address] [facility] ([facility])(Fam kiet Med Tm B Non-AD BCC) OUTPATIENT [id number] Annual Check Up and Prescri ption Renewal s DANY DIAMOND 04/14 Released w/o Limitations [address] [place] [address] [place] Rima ([facility])(F amily Med Tm B Non-AD BCC) [address] [place] [address] [facility])(Fam kiet Med Tm B Non-AD BCC) TELE CONSULT [id number] 3 Notes Entered by: KEITH OLSEN 09 Jun 2022 0912 ------- ------- ------- ------- -- Network results Otolary ngology [ENT] 023 DANY GOMEZ 06/[address] [place] [address] [place] NEWMAN ([facility])(F amily Med Tm B Non-AD BCC) [address] [place] [address] [facility]Sco tt Internal Medicine Tm) TELE CONSULT [id number] 7 Notes Entered by: GUERRERO CASAS 01 Aug 2022 1424 ------- ------- ------- ------- -- MELI Ramírez 08/01 Other Not Elsewhere Classified [address] [place] [address] [facility] ([facility])(S cott Interna l Medicin e Tm) [address] [place] [address] [place] TRENT ([facility])(Fam kiet Med Tm B Non-AD BCC) OUTPATIENT [id number] Left foot numb, ROSELINE Villarreal 08/03 Released w/o Limitations [address] [place] [address] [place] [facility] ([facility])(F amily Med Tm B Non-AD BCC) [address] [place] [address] [place] [facility] ([facility])(Fam kiet Med Tm B Non-AD BCC) TELE CONSULT [id number] 2 Notes Entered by: Micah HUGO 08 Aug 2022 1316 ------- ------- ------- ------- -- Santiago dimas/ Colonos copy referra wynne /RAZIA Newman 08/08 Other Not Elsewhere Classified [address] [place] [address] [facility])(F amily Med Tm B Non-AD BCC) [address] [place] [address] [facility])(Fam kiet Med Tm B Non-AD BCC) TELE CONSULT [id number] 2 Notes Entered by: NORMAN CANDELARIA 28 Sep 2022 1039 ------- ------- ------- ------- -- NORMAN Laguna 09/28 Released to Self Care [address] [place] [address] [place] [facility] ([facility])(F amily Med Tm B Non-AD BCC) [facility] [place] [id number] Diagnos is: ICD-10- CM E11.9 Type 2 diabete s mellitu s without complic ations NIMO STALEY 06/05 [facility] MANUAL THERAPY [place] [id number] Diagnos is: ICD-10- CM M54.50 Low back pain, unspeci fied MONO CORNELIUS TTHEW J 06/28 [facility] Outpatient Encounter [id number] 07/03 [facility] [place] [id number] Diagnos is: ICD-10- CM M54.50 Low back pain, unspeci fied MONO CORNELIUS TTHEW J 07/23 [facility] MANUAL THERAPY 1/> [place] [id number] Diagnos is: ICD-10- CM M54.50 Low back pain, unspeci fied MONO CORNELIUS TTHEW J 08/13 [facility] ACUPUNCT W/O STIMUL 15 MIN [id number] Diagnos is: ICD-10- CM M54.50 Low back pain, unspeci fied MONO CORNELIUS TTHEW J 09/03 [facility] MANUAL THERAPY 1/> [place] [id number] [id number] Diagnos is: ICD-10- CM M54.2 Cervica lgia MONO CORNELIUS TTHEW J 09/03 [facility] ACUPUNCT W/O STIMUL 15 MIN [id number] [id number] Diagnos is: ICD-10- CM M54.50 Low back pain, unspeci fied MONO CORNELIUS TTHEW J 09/24 [facility] MANUAL THERAPY 1/> [place] [id number] [id number] Diagnos is: ICD-10- CM M54.50 Low back pain, unspeci fied MONO CORNELIUS TTHEW J 09/24 [facility] MANUAL THERAPY 1/> [place] [id number] [id number] Diagnos is: ICD-10- CM M54.50 Low back pain, unspeci fied MONO CORNELIUS TTHEW J 10/21 [facility] Outpatient Encounter [id number] 10/21 [facility] Outpatient Encounter [id number] 10/29 [facility] N [facility] Outpatient Encounter [id number] 10/29 [facility] N [facility] Outpatient Encounter [id number] 11/05 [facility] MANUAL THERAPY 1/> [place] [id number] Diagnos is: ICD-10- CM M54.2 Cervica steffia MONO CORNELIUS TTHEW J 11/18 [facility] SELF CARE MNGMENT TRAINING [id number] [id number] Diagnos is: ICD-10- CM M54.50 Low back pain, unspeci THEO Cooper 12/25 [facility] OFFICE O/P EST MOD 30 MIN [id number] [id number] Diagnos is: ICD-10- CM Z00.00 Encntr for general adult medical exam w/o abnorma l finding s ARCHANA CHERRY 01/01 [facility] Outpatient Encounter [id number] 01/10 [facility] N 0055C-375 th [facility] Between Visit [id number] 09/08 Discharge Disposition: Home or Self Care 0055C-[address] [facility] 0055C-375 th [facility] Between Visit [id number] 09/10 Discharge Disposition: Home or Self Care 0055C-3 [facility] [facility] 0055A-375 th [facility] Outpatient [id number] POLO ALVAREZ 10/01 Discharge Disposition: Home or Self Care 0055A-3 [facility] [facility] 0055C-375 th [facility] Between Visit [id number] Ely al (primar y) hyperte nsion,E ncounte r for general adult medical examina tion without abnorma l finding s,Chron ic sinusit is, unspeci fied 10/01 Discharge Disposition: Home or Self Care 5C-[address] [place], [place] [address]Bunny Juan 5C-375 th [facility] Between Visit [id number] 10/07 Discharge Disposition: Home or Self Care - [address] [place] [address] Procedures Combined list of: 1) Procedures from Department of Veterans Affairs facilities going back up to thelast 18 months, not all VA non-surgical procedures are included; 2) All procedures from the Department of Defense facilities. Procedure Procedure Type Code Date Perfomer Comments Sourc e REMOVAL OF SKIN TAGS, MULTIPLE FIBROCUTANEOUS TAGS, ANY AREA; UP TO AND INCLUDING 15 LESIONS 2007 [facility] VISUAL FIELD EXAMINATION, UNI OR BILATERAL, WITH MEDICAL DIAGNOSTIC EVAL; LIMITED EXAM (EG, TANGENT SCREEN, AUTOPLOT, ARC PERIMETER, OR SINGLE STIMULUS LEVEL AUTO TEST, EG OCTOPUS 3 OR 7 EQUIVALENT) 2006 [facility] CARDIOVASCULAR STRESS TEST USING MAXIMAL OR SUBMAXIMAL TREADMILL OR BICYCLE EXERCISE,CONTINUOUS ELECTROCARDIOGRAPHIC MONITORING,AND/OR PHARMACOLOGICAL STRESS;W SUPERVISION,INTERPRETA TION AND REPORT 2004 [facility] SPIROMETRY, INCLUDING GRAPHIC RECORD, TOTAL AND TIMED VITAL CAPACITY, EXPIRATORY FLOW RATE MEASUREMENT(S), WITH OR WITHOUT MAXIMAL VOLUNTARY VENTILATION 2004 [facility] RHYTHM ECG, 1-3 LEADS; INTERPRETATION AND REPORT ONLY 2004 [facility] PRESCRIPTION OF OPTICAL AND PHYSICAL CHARACTERISTICS OF AND FITTING OF CONTACT LENS, WITH MEDICAL SUPERVISION OF ADAPTATION; CORNEAL LENS, BOTH EYES, EXCEPT FOR APHAKIA 2003 [facility] OPHTHALMOLOGICAL SERVICES: MEDICAL EXAMINATION AND EVALUATION, WITH INITIATION OR CONTINUATION OF DIAGNOSTIC AND TREATMENT PROGRAM; INTERMEDIATE, ESTABLISHED PATIENT 1998 [facility] OPHTHALMOLOGICAL SERVICES: MEDICAL EXAMINATION AND EVALUATION WITH INITIATION OF DIAGNOSTIC AND TREATMENT PROGRAM; INTERMEDIATE, NEW PATIENT 1998 [facility] TELE ASSESS & MGT SRV PROV QUAL [...] OF SPECTACLES, EXCEPT FOR APHAKIA; BIFOCAL 2009 [facility] DETERMINATION OF REFRACTIVE STATE 2008 [facility] OPHTHALMOLOGICAL SERVICES: MEDICAL EXAMINATION AND EVALUATION WITH INITIATION OF DIAGNOSTIC AND TREATMENT PROGRAM; INTERMEDIATE, NEW PATIENT 2001 [facility] Non-Physician Phone Call To Pt/Provider Lengthy (21-30 min) Non-Physician Phone Call To Pt/Provider Lengthy (21-30 min) [id number] 2017 GURWINDER DUNCAN [facility] Disease management program, follow-up/mary e ment 2017 GURWINDER DUNCAN [facility] Patient Counseling Medical Management Individual Patient Patient Counseling Medical Management Individual Patient [id number] 2017 GURWINDER DUNCAN [facility] Oropharynx Culture Streptococcus Group A Beta Hemolytic Oropharynx Culture Streptococcus Group A Beta Hemolytic 26003 2016 NORMAN CANDELARIA Patient in for walk-in [...] pick-up. Patient verbalized understanding of instructions given. [facility] Postoperative Visit, Without Charge Postoperative Visit, Without Charge 37848 2015 CARLOZ MANZANO Layer Closure Of Wound Face 2.6 to 5.0 cm Layer Closure Of Wound Face 2.6 to 5.0 cm 50466 2015 CARLOZ MANZANO Excision Of Lesion Face Benign 1.1 to 2cm Excision Of Lesion Face Benign 1.1 to 2cm 32250 2015 CARLOZ MANZANO Incision And Drainage Of Skin Absce , Simple Incision And Drainage Of Skin Abscess, Simple 85179 2015 DULCE POLLOCK [facility] Preventive Medicine Results Documented/Reviewed Body Ma Index Preventive Medicine Results Documented/Reviewe d Body Mass Index 3008F 2013 CRISTIAN ACHARYA [facility] Colonoscopy For Forceps Biopsy 2013 GERTRUDE CHAO Complete Colonoscopy For Polyp Removal 2013 GERTRUDE CHAO Colorectal cancer screening; colonoscopy on individual not meeting criteria for high risk 2013 GERTRUDE CHAO Non-Physician Phone Call To Patient/Provider Brief (5-10min) Non-Physician Phone Call To Patient/Provider Brief (5-10min) 35506 2013 ROSELINE FRANCOIS Non-Physician Phone Call To Patient/Provider Brief (5-10min) Non-Physician Phone Call To Patient/Provider Brief (5-10min) 07842 2013 ROSELINE FRANCOIS Non-Physician Phone Call To Pt/Provider Lengthy (21-30 min) Non-Physician Phone Call To Pt/Provider Lengthy (21-30 min) 40224 2012 LOUIS UNDERWOOD [facility] Determination Of Refractive State Determination Of Refractive State 50169 2011 JETT REEVES Ophthalmological Prior Patient Start Comprehensive Care Ophthalmological Prior Patient Start Comprehensive Care 15459 2011 JETT REEVES Non-Physician Phone Call To Patient/Provider Brief (5-10min) Non-Physician Phone Call To Patient/Provider Brief (5-10min) 53918 2011 ROSELINE FRANCOIS Non-Physician Phone Call To Patient/Provider Brief (5-10min) Non-Physician Phone Call To Patient/Provider Brief (5-10min) 35325 2011 ROSELINE FRANCOIS Non-Physician Phone Call To Patient/Provider Brief (5-10min) Non-Physician Phone Call To Patient/Provider Brief (5-10min) 99077 2010 AMANDOALISIA Hyacinth Non-Physician Phone Call To Patient/Provider Brief (5-10min) Non-Physician Phone Call To Patient/Provider Brief (5-10min) 06203 2010 ROSELINE FRANCOIS [employer] Fitting Bifocals (Not For Aphakia) [employer] Fitting Bifocals (Not For Aphakia) 99901 2009 CAESAR NELSON Determination Of Refractive State Determination Of Refractive State 72044 2009 CAESAR NELSON Ophthalmological Prior Patient Start Comprehensive Care Ophthalmological Prior Patient Start Comprehensive Care 76729 2009 CAESAR NELSON Visual Craig Test Intermediate Examination Visual Craig Test Intermediate Examination 25355 2008 CAESAR NELSON Determination Of Refractive State Determination Of Refractive State 62554 2008 CAESAR NELSON Ophthalmological New Patient Start Comprehensive Care Ophthalmological New Patient Start Comprehensive Care 84373 2008 CAESAR NELSON Skin Tag Removal Skin Tag Removal 32585 2007 LAMBERT VILLALTA Central IV Catheter Left Brachial Central IV Catheter Left Brachial 62240 2006 YOSHI BAILEY Visual Craig Test Limited Examination Visual Craig Test Limited Examination 63775 2006 LAMBERT CONRAD passed Amsler grid Near Visual Acuity R: 20/20 L: 20/20 OU: 20/30 uncorrected [facility] Hepatic Function Panel Hepatic Function Panel 93638 2006 YOSHI BAILEY Serum Testosterone, Total Serum Testosterone, Total 35923 2006 YOSHI BAILEY Serum Vitamin D Serum Vitamin D 78451 2006 YOSHI BAILEY Serum Intact PTH Serum Intact PTH 14728 2006 YOSHI BAILEY Renal Function Panel Renal Function Panel 72199 2006 YOSHI BAILEY TSH (3rd Generation) TSH (3rd Generation) 71083 2006 YOSHI BAILEY [facility] Serum Magnesium Serum Magnesium 36978 2006 YOSHI BAILEY [facility] Blood Counts - CBC Blood Counts - CBC 67010 2006 YOSHI BAILEY [facility] Coagulation Studies: INR Coagulation Studies: INR 53773 2006 YOSHI BAILEY [facility] Prothrombin Time (PT) Prothrombin Time (PT) 68174 2006 YOSHI BAILEY [facility] Renal Function Panel Renal Function Panel 28765 2006 YOSHI BAILEY [facility] Tonsillectomy With Adenoidectomy Tonsillectomy With Adenoidectomy 87643 2005 MEDELLIN, 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, With Neurectomy (Each) Amputation Of Little Finger, With Neurectomy (Each) 27927 1979 MEDELLIN, SOUZA P partial DoD Non-Physician Phone Call To Patient/Provider Brief (5-10min) Non-Physician Phone Call To Patient/Provider Brief (5-10min) 98898 FLORECITA CHICAS [facility] Non-Physician Phone Call To Pt/Provider Intermed (11-20 min) Non-Physician Phone Call To Pt/Provider Intermed (11-20 min) 66500 RAZIA CORRAL [facility] Colonoscopy Colonoscopy (procedure) [id number] 2022 00[address]C-[address] [place] [address] Social History Combined list of available smoking, tobacco, and other social history from 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 Social History Type Response Date Comment [facility] e Tobacco smoking status [facility] VA-TOBACCO FORMER USER 01/02/2024 [facility] History of tobacco use FL-TOBACCO QUIT 1 5 YRS OR MORE 01/02/2024 [facility] History of tobacco use VA-TOBACCO FORMER USER 01/05/2023 [facility] Sex Representation Male (finding) 07/06/2022 Un known Organization This section is an empty social history section. [facility] Tobacco Frequent/Daily exposure to secondhand smoke in indoor/confined spaces No. Former-cigarette user Cigarette use:. About 2016 Years *Stopped cigarettes age (*required for former users to complete the Recommendation). Never-other tobacco user (not cigarettes) Other Tobacco use:. Ambulatory Pharmacy Sexual Orientation Ambula tory Pharmacy Gender identity Ambulator y Pharmacy Assessment and Plan Combined list of future [...] cardiovascular training) - Recommended OTC fish oil ([place] 3) - will consider additional medication lowering TG, however at this point stressed dietary and lifestyle m odifications 5. C oronary artery disease Stable. Followed by outside Teacher Of The Emotionally Disturbed. Stress testing completed 6 months ago with normal results. Denies CP, SOB, palpitations. 6. B uzzing in ear Located to left ear. Onset 1 month ago. He has been taking Sudafed with s ome temporary i mprovement. The h umming is s tated to rima e constant. S ome difficulty h earing on t hat s [place]. N o fevers, drainage from ear. PE unremarkable. No evidence of fluid level, no edema, erythema. No TTP. Likely tinnitus. - referral to Audiology for exam 40 minutes total time spent on evaluation and management. Polo Irby R., Pablo, [employer] [employer] [place] [address] Ordered: Referral Request 2.0 - DoD Extracted from:Title: [facility] Virtual lab f/u Author: CARLOZ ELIAS PA [...] daily with food for blood sugar, Pharmacy: [facility] [Not filled] Carloz Elias, 1st Lt, [facility] [place] [address] Extracted from:Title: [facility] Virtual DM f/u Author: CARLOZ ELIAS PA [...] daily with food for blood sugar., Pharmacy: [facility] [Not filled] Extracted from:Title: [facility] Congestion / Dizziness Author: DANY DIAMOND PA Date: 07/30/23 1. C ongestion of mucosa 57 y/o male with a history of seasonal allergic rhinitis presents complaining of congestion with humming of the left ear along with Intermittent d izziness for the past 2-3 days. Patient states the dizziness lasts longer than a minute and is not reproducible by moving his head. Calvin-Hallpike maneuver was negative. Patient does have mucus [...] every 6 hr,PRN:as needed for congestion, Pharmacy: [facility] #[id number] [External Rx] 2. D izziness Same as above. Orders: meclizine(meclizine 25 mg oral tablet), 1 tab(s), Oral, TID, PRN as needed for dizziness, # 30 tab(s), 0 total refill(s), Acute, 07/29/2024, 1 tab(s) Oral TID,PRN:as needed for dizziness, Pharmacy: [facility] #[id number] [External Rx] Extracted from:Title: [facility] Virtual Medication question Author: DANY DIAMOND PA Date: 07/10/23 1. A dministrative reason for encounter 57-year-old male presents for virtual appointment to discuss a prescription for Metanx. The pt states his merchant police advised him to take it for his nerve pain. Pt was advised that this medications is not covered. Advised pt to discuss other options with merchant police. F/u as needed. Extracted from:Title: [facility] Virtual Administrative Note Author: DANY DIAMOND PA Date: 06/11/23 1. A dministrative reason for encounter 57-year-old male with a history of diabetes presents via virtual appointment on the way that this appointment was made. Patient discussed his medications with ROSARIO Elias last week and does not have any further concerns at this time. Extracted from:Title: [facility] Virtual- Lab/CT review/Perscription renewal Author: CARLOZ ELIAS [...] [facility] [Not filled] Extracted from:Title: [facility] Annual Well exam/TY2DM Initial Author: CARLOZ ELIAS [...] tab(s) Oral Daily,Instr:90 tab(s), 0 Refill(s), Pharmacy: [facility] [Federal Rx: #90 last filled 04/30/23] Free + Total PSA [id number] CT Low Dose Lung Screening 2. D [...] 3mo A1C/glucose -Pt denied disease management and lactation nurse at this time. -Will recommend if 3mo [...] tab(s) Oral Daily,Instr:90 tab(s), 0 Refill(s), Pharmacy: [facility] [Not filled] 4. H yperlipidemia Pts [...] tab(s) Oral Daily,Instr:90 tab(s), 0 Refill(s), Pharmacy: [facility] [Not filled] 5. H yponatremia Pt [...] lab results Ordered: Comprehensive Metabolic Panel Osmolality [id number] 6. S inusitis Chronic condition. Well controlled. [...] specialist. Ordered: Referral Request 2.0 11/23/2024 [id number] [facility] List of future care activities from Department of [email or web address] Affairs facilities. Additional future care activities may be listed in the Assessment and Plan section. Date/Time Care Activity Care Activity Detail Facili ty 01/02/2025 AMBULATORY - MEDICINE AMBULATORY - MEDICI [facility] Functional Status Combined list of recent functional and cognitive assessments recorded at Department of Defense and Veterans Affairs (VA).VA Functional [place] Measurement (FIM) Scale: 1 = Total Assistance (Subject = 0% +), 2 = Maximal Assistance (Subject = 25% +), 3 = Moderate Assistance (Subject = 50% +), 4 = Minimal Assistance (Subject = 75% +), 5 = Supervision, 6 = Modified [place] (Device), 7 = Complete [place] (Timely, Safely). Assessment Date/Time Source Assessment Type Assessment Skill Assessment Score Assessment Details No data available for this section
[2024-11-23 08:51] VITALS: BP 164/73; PULSE 72; RESP 17; TEMP 36.1; O2SAT 99
[2024-11-23] MEDS: KETOROLAC (*BKC) 60 MG/2 ML VIAL IM (09:09)
== END 2024-11-23 09:17 | disposition home or self-care (01) ==
PROVIDERS: Emergency Provider Nurse Practitioner
DX: M54.6 Pain in thoracic spine (principal); Z87.891 Personal history of nicotine dependence; Z79.82 Long term (current) use of aspirin; I10 Essential (primary) hypertension; E78.00 Pure hypercholesterolemia, unspecified; E11.9 Type 2 diabetes mellitus without complications; Z79.84 Long term (current) use of oral hypoglycemic drugs
CPT/HCPCS: 96372; 99213; G0463; J1885

== ENCOUNTER 2025-04-08 12:07 | Emergency (ER) | payer OTHER, SELFPAY ==
[2025-04-08 12:14] VITALS: BP 156/85; PULSE 73; RESP 18; TEMP 36.3; O2SAT 99
--- OUTSIDE RECORDS SUMMARY | 2025-04-08 12:28 | XMS_ITS | Encounter Summary ---
Author Organization [facility] Address [address] [place] [address] Care Team Providers Care Bargeman Name Role Phone Keeley Parra Primary Care Provider [phone] Phyllis Ontiveros NP Primary Care Provider [phone] Encounter Details Date Type Department Care Team (Late st Contact Info) Description 10/15/2023 Abstract [place] [facility] [facility], [address] [address] Elías Faulkner MA Social History Tobacco Use Types Packs/Day Years Used Date Smoking Tobacco: Never Assessed Sex and Gender Information Value Date Recorded Sex Assigned at Male 12/01/2024 2:16 PM CDT 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 [address] [place] [address] Shikha Huizar APRN [facility]. [address] [place], [place] [address] documented as of this encounter Procedures Procedure Name Priority Date/Time Associated Diagnosis Comments COMPREHENSIVE METABOLIC PANEL Routine 10/01/2024 LIPID PANEL Routine 10/01/2024 CBC, MANUAL DIFF Routine 10/01/2024 COMPREHENSIVE METABOLIC PANEL Routine 06/26/2024 LIPID PANEL Routine 06/26/2024 CBC, MANUAL DIFF Routine 06/26/2024 LIPID PANEL Routine 01/08/2024 HEMOGLOBIN, GLYCOSYLATED Routine 08/03/2023 COMPREHENSIVE METABOLIC PANEL Routine 04/17/2023 LIPID PANEL Routine 04/17/2023 HEMOGLOBIN, GLYCOSYLATED Routine 04/17/2023 documented in this encounter Results * (ABNORMAL) COMPREHENSIVE METABOLIC PANEL (10/01/2024) SODIUM S/P/B 138 GLUCOSE 162 mg/dL AST 26 BUN 8 CREATININE S/P/B 0.68(A) 0.7 - 1.3 CALCIUM S/P/B 9.3 POTASSIUM S/P/B 4.3 CHLORIDE S/P/B 99 ALT 27 GFR ESTIMATE 106 us Default History Genericprovider LABORATORY Final Result * LIPID PANEL (10/01/2024) CHOLESTEROL 114 TRIGLYCERIDES 131 HDL 38 LDL (CALCULATED) 66 us Default History Genericprovider LABORATORY Final Result * CBC, MANUAL DIFF (10/01/2024) WBC 7.3 HGB 14.3 HCT 41 PLT 232 us Default History Genericprovider LABORATORY Final Result * COMPREHENSIVE METABOLIC PANEL (06/26/2024) SODIUM S/P/B 132 GLUCOSE 180 mg/dL BUN 9 CREATININE S/P/B 0.70 0.7 - 1.3 POTASSIUM S/P/B 4.2 CHLORIDE S/P/B 98 GFR ESTIMATE 106 us Default History Genericprovider LABORATORY Final Result * LIPID PANEL (06/26/2024) CHOLESTEROL 96 TRIGLYCERIDES 156 HDL 38 LDL (CALCULATED) 60 Result [facility] History Genericprovider LABORATORY Final Result * CBC, MANUAL DIFF (06/26/2024) WBC 8.2 HGB 14.2 HCT 40 PLT 208 Default History Genericprovider LABORATORY Final Result * LIPID PANEL (01/08/2024) CHOLESTEROL 118 TRIGLYCERIDES 156 HDL 40 LDL (CALCULATED) [address] [facility] Default [facility] Genericprovider LABORATORY Final Result * HEMOGLOBIN, GLYCOSYLATED (08/03/2023) HGB A1C 6.4 % 08/03/[address] [facility] Default History Genericprovider LABORATORY Final Result * (ABNORMAL) COMPREHENSIVE METABOLIC PANEL (04/17/2023) SODIUM S/P/B 134 POTASSIUM S/P/B 3.9 CO2 27 CHLORIDE S/P/B 95 GLUCOSE 197 mg/dL CALCIUM S/P/B 9.8 BUN 8 CREATININE S/P/B 0.80 0.7 - 1.3 EGFR NON-AFR. AMER. 103(A) <=90 ALKALINE PHOSPHATASE S/P/B 68 ALT 36 AST 32 BILIRUBIN TOTAL S/P/B 0.8 ALBUMIN S/P/B 4.3 3.5 - 5.0 TOTAL PROTEIN S/P/B 7.4 04/17/[address] [facility] Default History Genericprovider LABORATORY Edited Result - Final * HEMOGLOBIN, GLYCOSYLATED (04/17/2023) HGB A1C 7.6 % 04/17/2023 Default History Genericprovider LABORATORY Edited Result - Final * LIPID PANEL (04/17/2023) CHOLESTEROL 125 HDL 36 TRIGLYCERIDES 179 LDL (CALCULATED) 70 04/17/2023 us Default History Genericprovider LABORATORY Edited Result - Final documented in this encounter Visit Diagnoses Not on filedocumented in this encounter Care Teams Bargeman Relationship Specialty Start Date End Date Keeley Parra PA [address] [facility] [address] [place], [place] [id number] PCP - General PHYSICIAN PLANT AND MACHINERY VALUER 08/16/23 12/11/24 Phyllis Ontiveros NP [address] [place] [address] PCP - General Nurse Practitioner Family 12/12/24 documented as of this encounter
--- OUTSIDE RECORDS SUMMARY | 2025-04-08 12:28 | XMS_ITS | Encounter Summary ---
Author Organization [facility] Address [address] [place] [address] Care Team Providers Care Shaker Plate Operator Name Role Phone Keeley Parra Primary Care Provider [phone] Phyllis Ontiveros NP Primary Care Provider Encounter Details Date Type Department Care Team (Late st Contact Info) Description 11/22/2023 MyCGI Dynamicst Message Enc [place] [facility] [facility] [facility], [place] [address] [place], [place] [id number] Mychart, [facility] Provider Stress test looks good Social History Tobacco Use Types Packs/Day Years Used Date Smoking Tobacco: Former Cigarettes Q uit: 08/28/2015 Smokeless Tobacco: Never Alcohol Use Standard Drinks/Week Comments Yes 20 (1 standard drink = 0.6 oz pu re alcohol) Sex and Gender Information Value Date Recorded Sex Assigned at Male 12/01/2024 2:16 PM CDT 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 [address] [place], [place] [id number] documented as of this encounter Visit Diagnoses Not on filedocumented in this encounter Care Teams Shaker Plate Operator Relationship Specialty Start Date End Date Keeley Parra PA [address] [facility] [address] [facility], [place] [address] PCP - General PHYSICIAN HARNESS BUILDER 08/16/23 12/11/24 Phyllis Ontiveros NP [address] [facility], [place] [address] PCP - General Nurse Practitioner Family 12/12/24 documented as of this encounter
--- OUTSIDE RECORDS SUMMARY | 2025-04-08 12:28 | XMS_ITS | Encounter Summary ---
Author Organization [facility] Address [address] [place] [address] Care Team Providers Care Shipyard Painter Name Role Phone Keeley Parra Primary Care Provider [phone] Phyllis Ontiveros NP Primary Care Provider [phone] Encounter Details Date Type Department Care Team (Late st Contact Info) Description 12/03/2024 [employer] Learning[employer] Message Enc [place] [facility] [facility], [facility] [address] [place], [place] [id number] Mychart, [facility] Provider Echocardiogram reviewed Social History Tobacco Use Types Packs/Day Years Used Date Smoking Tobacco: Former Cigarettes 1 15 Q uit: 08/28/2015 Smokeless Tobacco: Never Alcohol Use Standard Drinks/Week Comments Yes 20 (1 standard drink = 0.6 oz pu re alcohol) Sex and Gender Information Value Date Recorded Sex Assigned at Male 12/01/2024 2:16 PM CDT Legal Sex Male 10:49 AM SUPERVISOR CLAIMS Gender Identity Not on file Sexual Orientation Not on file 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 [address] [place] [address] documented as of this encounter Visit Diagnoses Not on filedocumented in this encounter Care Teams Shipyard Painter Relationship Specialty Start Date End Date Keeley Parra PA [address] [facility] [address] [facility] [place] [address] PCP - General PHYSICIAN SUPERVISOR MULTIFOCAL LENS 08/16/23 12/11/24 Phyllis Ontiveros NP [address] [place], [place] [address] PCP - General Nurse Practitioner Family 12/12/24 documented as of this encounter
--- OUTSIDE RECORDS SUMMARY | 2025-04-08 12:28 | XMS_ITS | Clinical Summary ---
Author Organization [facility] Address [address] [place] [address] Care Team Providers Care Developer Programmer Analyst Name Role Phone Lyudmilahugo Ester Sheridan ROSARIO Primary Care Provider Dean Vásquez DO Unavailable [phone] Allergies No known active allergies Medications [...] (04/19/2021): Added automatically from request for surgery [id number] Surgical History Surgery Date Site/Laterality Comments HERNIA [...] on file Legal Sex Male 8:52 PM QUALITY CONTROL REPRESENTATIVE Gender Identity Male 05/30/2021 11:48 AM QUALITY CONTROL REPRESENTATIVE Sexual Orientation Straight 05/30/2021 11 :48 AM QUALITY CONTROL REPRESENTATIVE Last Filed Vital Signs Vital Sign Reading Time Taken Comments Blood Pressure 125/78 05/17/2021 11:06 AM QUALITY CONTROL REPRESENTATIVE Pulse 77 05/17/2021 11:06 AM QUALITY CONTROL REPRESENTATIVE Temperature 36.4 C (97.6 F) 05/17/2021 10:25 AM QUALITY CONTROL REPRESENTATIVE Respiratory Rate 18 05/17/2021 11:06 AM QUALITY CONTROL REPRESENTATIVE Oxygen Saturation 99% 05/17/2021 11:06 AM QUALITY CONTROL REPRESENTATIVE Inhaled Oxygen Concentration - - Weight 108.9 kg (240 lb) 03/02/2021 11:02 AM CDT Height 172.7 cm (5' 8) 03/02/2021 11:02 AM CDT Body Mass Index 36.49 03/02/2021 11:02 AM CDT Plan of Treatment Not on file Medical Devices Implanted Type Area Nurse Informaticist Device Identifier Shelf Expiration Date Model / Serial / Lot Right First Mtp Fusion Plate Implanted:Qty: 1 on 05/17/2021 at [facility] Right: Ankle Synthes I .230 / / Synthes .112 2.4mm 12mm Self Tap Lock Variable Angle Stardrive T8 Screw Bone - [id number] Implanted:Qty: 1 on 05/17/2021 at [facility] Right: Ankle Synthes I ..112 / / Synthes .116 2.4mm 16mm Self Tap Lock Variable Angle Stardrive T8 Screw Bone - [id number] Implanted:Qty: 1 on 05/17/2021 at [facility] Right: Ankle Synthes I .116 / / Synthes 120 2.4mm 20mm Self Tap Lock Variable Angle Stardrive T8 Screw Bone - [id number] Implanted:Qty: 1 on 05/17/2021 at [facility] Right: Ankle Synthes I 210.120 / / Synthes 118 2.4mm 18mm Self Tap Lock Variable Angle Stardrive T8 Screw Bone - [id number] Implanted:Qty: 3 on 05/17/2021 at [facility] Right: Ankle Synthes I 118 / / Explanted Type Area Nurse Informaticist Device Identifier Shelf Expiration Date Model / Serial / Lot Synthes Lcp 1.6mm 150mm 10mm Thread Compression Wire Fixation Nonsterile - [id number] Explanted:Qty: 1 on 05/17/2021 at [facility] Right: Ankle Synthes I 410 / / Description:For charge only. Insurance [facility] CLAIMS CLAIMS Care Teams Developer Programmer Analyst Relationship Specialty Start Date End Date Ester Nix PA [address] [place] [address] PCP - General Physician Websphere Commerce Consultant 02/03/21 Dean Vásquez DO [address] [facility] [place] [address] Consulting Physician Orthopedic Surgery 05/17/21
--- OUTSIDE RECORDS SUMMARY | 2025-04-08 12:28 | XMS_ITS | Clinical Summary ---
Author Organization [facility] Address [facility] [place] [address] Care Team Providers Care Anesthesiologist Assistant Name Role Phone WestonTurnerPhyllis R MADALYN Primary Care Provider [phone] Allergies No known active allergies Medications atorvastatin (LIPITOR) 40 MG tablet Take 1 tablet (40 mg total) by mouth daily. NEW DOSE 10/16/2023 OV 90 tablet 1 10/16/2023 Active ASPIRIN EC 81 MG tablet Take 1 tablet (81 mg total) by mouth daily. Active cetirizine (ZYRTEC) 10 MG tablet Take 1 tablet (10 mg total) by mouth daily. 10/03/2024 Active cyclobenzaprine (FLEXERIL) 10 MG tablet Take 0.5 tablets (5 mg total) by mouth 2 (two) times daily as needed. 11/23/2024 Active fluticasone propionate (FLONASE) 50 MCG/ACT nasal spray 1 spray by Nasal route daily. 10/03/2024 Active metFORMIN (GLUCOPHAGE) 1000 MG tablet Take 1 tablet (1,000 mg total) by mouth 2 (two) times daily. 10/03/2024 Active predniSONE 50 MG tablet Take 1 tablet (50 mg total) by mouth. 11/23/2024 Active furosemide (LASIX) 20 MG tablet Take 1 tablet (20 mg total) by mouth daily as needed (SWELLING). 30 tablet 3 11/24/2024 Active Telmisartan-HCT Z (MICARDIS HCT) 40-12.5 MG Tab Take 1 tablet by mouth daily. Active Active Problems Problem Noted Date Diagnosed Date Coronary artery disease 10/16/2023 Obesity 10/16/2023 Dizziness 07/30/2023 Obstructive sleep apnea syndrome 07/26/2019 Chest pain 07/11/2019 Dyspnea on exertion 07/11/2019 Heart murmur 07/11/2019 Hyperlipidemia, unspecified 07/11/2019 Essential (primary) hypertension 07/11/2019 Resolved Problems Problem Noted Date Diagnosed Date Resolved Date Tobacco user 10/16/2023 02/19/2024 Family History Medical History Relation Comments CABG Brother Amyloid B related angitis- A BRA, brain bleeding disorder Father CABG Father Hypertension Father MD Father dementia Father Diabetes Mother Hypertension Mother MD Mother Stent Cardiac Mother MD Paternal Grandfather Relation Status Comments Brother Alive Father Mother Alive Paternal Grandfather (Age 65) Sister 1 Alive Sister 2 Alive Social History Tobacco Use Types Packs/Day Years Used Date Smoking Tobacco: Former Cigarettes 1 15 Q uit: 08/28/2015 Smokeless Tobacco: Never Tobacco Cessation:Counseling Given: Not Answered Alcohol Use Standard Drinks/Week Comments Yes 20 (1 standard drink = 0.6 oz pu re alcohol) Sex and Gender Information Value Date Recorded Sex Assigned at Male 12/01/2024 2:16 PM CDT Legal Sex Male 10:49 AM BICYCLE RACER Gender Identity Not on file Sexual Orientation Not on file 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 [employer] Not on file Not on file Not o n file Last Filed Vital Signs Vital Sign Reading Time Taken Comments Blood Pressure 142/86 11/24/2024 2:20 PM CDT Pulse 76 11/24/2024 1:50 PM CDT Temperature - - Respiratory Rate - - Oxygen Saturation 96% 11/24/2024 1:50 PM CDT Inhaled Oxygen Concentration - - Weight 122 kg (269 lb) 11/24/2024 1:50 PM CDT Height 172.7 cm (5' 8) 11/24/2024 1:50 PM CDT Body Mass Index 40.9 11/24/2024 1:50 PM CDT Plan of Treatment Upcoming Encounters Date Type Department Care Team (Late st Contact Info) Description 07/27/2025 2:00 PM CDT Office Visit [facility], [address] [address] Shikha Huizar APRN [facility] [address] [place] [address] Health Maintenance Due Date Last Done Comments ASCVD Statin 1965 Colorectal Cancer Screening Colonoscopy (10 Years) 1964 Kidney Health Evaluation 1964 Annual Physical 08/08/1967 Diabetes: Retinopathy Eye Exam 1982 Hepatitis C 1982 Pneumococcal Vaccine: 50+ Years (1 of 2 - PCV) 08/08/1983 Hemoglobin A1C 02/03/2024 08/03/2023, 04/17/2023 RSV Immunization or 60+ Years (1 - Risk 60-74 years 1-dose series) 2024 COVID-19 Vaccine (3 - 2024- season) 2025 08/05/2020, 07/15/2020 Influenza Adult (#1) 2025 04/02/2023, 02/11/2022, 03/30/2021, Additional history exists Lipid Panel 10/01/2025 10/01/2024, 06/14, 01/08/2024, Additional history exists DTaP, Tdap and Td Vaccines (3 - Td or Tdap) 04/26/2031 04/26/2021, 12/16/2007, 09/21/1997, Additional history exists Hepatitis A Vaccines Aged Out 10/03/1995 No long er eligible based on patient's age to complete this topic Meningococcal Vaccine Aged Out 11/23/1997 No beba [...] Date/Time Associated Diagnosis Comments LIPID PANEL Routine 10/01/2024 HEMOGLOBIN, GLYCOSYLATED Routine 08/03/2023 from Last 3 Months or Most Recently Relevant to Health Maintenance Results * LIPID PANEL (10/01/2024) CHOLESTEROL 114 TRIGLYCERIDES 131 HDL 38 LDL (CALCULATED) 66 us Default History Genericprovider LABORATORY Final Result * HEMOGLOBIN, GLYCOSYLATED (08/03/2023) Pathologist [facility] HGB A1C 6.4 % 08/03/2023 us Default History Genericprovider LABORATORY Final Result from Last 3 Months or Most Recently Relevant to Health Maintenance [place] [address] Care Teams Anesthesiologist Assistant Relationship Specialty Start Date End Date Phyllis Ontiveros NP [address] [place], [place] [id number] PCP - General Nurse Practitioner Family 12/12/24
--- OUTSIDE RECORDS SUMMARY | 2025-04-08 12:30 | XMS_ITS | Data Portability ---
Author Organization [place] - [facility] OFFICE Address [address] [place] [address] Care Team Providers Care Museum Curator Name Role Phone JAYLEEN AVILES Primary Care Provider Unavailabl e Assessment No assessment recorded. Plan of Treatment Reminders Order Date Submit Date Provider Last Modified By Organization Details Last Modified Time Details Appointments None recorded. Lab None recorded. Referral None recorded. Procedures None recorded. Surgeries None recorded. Imaging US, echocardio gram, transthora cic, complete, w/ color flow 2019 020 [email or web address] Not available 0 09:22:51 Medication Orders atorvastat in 20 mg tablet 2019 020 INTERFACE [facility], [address] [place] [address], [id number], 0 22:25:05 atorvastat in 20 mg tablet 2019 020 INTERFACE [facility], [address] [place] [address], [address], 0 16:56:55 Patient TargetsNo targets recorded. Patient Instructions Encounter Date Encounter Id Patient Instructions Last Modified By Organization Details Last Modified Time 06/10/2019 [id number] Weight loss 20 pounds Exercise advised Low cholesterol diet advised Low sodium diet advised Not available 06/10/2019 16:54:26 Scribed by Verenice Sommer PA-C Not available 06/10/2019 16:54:33 07/14/2019 [id number] Weight loss 20 pounds Exercise advised Low cholesterol diet advised Low sodium diet advised. [email or web address] Not available 07/14/2019 22:24:25 07/29/2019 [id number] Exercise advised Low cholesterol diet advised Low sodium diet advised Not available 07/29/2019 10:29:29 Scribed by Verenice Sommer PA-C Not available 07/29/2019 10:30:33 Reason for Referral None Reported. Results Created Date Observation Date Name Description Value Unit Range Abnormal Flag Note LastModifiedBy Organization Detail LastModifiedTime 06/13/19 20 06/10/2019 elect david gil am No observ ation record ed. [email or web address] Not Available 2019 12:40:50 06/16/19 20 06/06/2019 XR, chest , 1 view No observ ation record ed. [email or web address] Not Available 06/25 18:07:08 06/16/19 20 06/03/2019 LDCT, chest , for lung cance r laura tangg No observ ation record ed. [email or web address] Not Available 06/25 18:07:08 06/30/19 20 06/27/2019 US, echoc ardio gram No observ ation record ed. [facility] [address] [facility] [address], [place], [address], 07/12/2019 07:51:01 07/16/19 20 06/27/2019 , echoc ardio gram No observ ation record ed. [email or web address] Not Available 2019 13:53:30 07/24/19 20 07/02/2019 tread mill nucle ar stres s test (PROC ) No observ ation record ed. [email or web address] Not Available 2019 16:19:35 08/22/19 20 06/24/2013 XR, lumba r spine No observ ation record ed. [email or web address] Not Available 2019 12:35:08 10/29/19 24 07/23/2019 paige cabezas ght - proce dure (PROC ) No observ ation record ed. [email or web address] Not Available 2023 09:26:43 Result Notes None recorded. Problems Name Problem SNOMED Code Status Onset Date Resolution Date Notes Provider Name and Address Organization Details Recorded Time Chest pain 10325673 Active 2019 Sita Mora [facility], [place] [facility] 0 07:45:38 Dyspnea on exertion 92016266 Active 2019 Sita Mora [facility] [place] [facility] 0 07:45:46 Family history of coronary arterioscleros is 414907773 Active 2019 Buckneradriel Mora [facility], [facility] 0 07:45:53 Essential hypertension 84669773 Active 2019 Buckneradriel Mora [facility], [place] [facility] 0 07:46:00 Hyperlipidemia 78497158 Active 2019 Buckneradriel Mora [facility], [place] [facility] 0 07:46:08 Heart murmur 55487676 Active 2019 Buckneradriel Mora [facility], [place] [facility] 0 07:46:15 Obstructive sleep apnea syndrome 74592756 Active 2019 Buckneradriel Mora [facility] 0 11:23:04 Problem Notes None recorded. Medical [...] (BMI) Body weight Heart rate Oxygen saturation Systolic And Diastolic Provider Name and Address Organization Details Last Updated DateTime 0 172.72 cm 40 kg/m2 085474. 79 g 76 /min 96 % 138/88 mm[Hg] KORTNEY TIDWELL [facility] 0 16:16:42 Date Recorded Body height Body mass index (BMI) Body weight Heart rate Oxygen saturation Systolic And Diastolic Provider Name and Address Organization Details Last Updated DateTime 0 172.72 cm 39.2 kg/m2 641955. 83 g 74 /min 98 % 128/80 mm[Hg] Verenice Sommer [place] [facility] 0 10:13:54 Social History None recorded. Functional Status None recorded. Mental Status None recorded. Family History Nothing Reported. Medical History Condition Response Hyperlipidemia Y Hypertension Y Sleep Apnea Y Past Encounters Encounter ID Performer Location Encounter Start Date Encounter Closed Date Diagnosis/Indication Diagnosis SNOMED-CT Code Diagnosis ICD10 Code Diagnosis IMO Codes Diagnosis Note [id number] Nicko Cannon MD [place] OFFICE [address] [place] [address] 06/10/2019 15:44:40 08/04/2019 11:54:38 Chest pain 71179331 R07.9 Treadmill Myoview Stress test, has high [place] Risk score. Has Known CAD, or CAD risk equivalent . To look for any ischemia. Dyspnea on exertion 6084 5006 R06.09 Will order echo to evaluate for structural disease. Family his tory of coronary arteriosclerosis 805391540 Z82.49 CT scan -screen for lung cancer, showed calcificat ion of left main and LAD. Essential hypertension 21443132 I10 Fair control Hyperlipidemia 78508509 E78.5 Needs to keep LDL less than 70, and HDL more than 40 Will get fasting lipids for follow up05/01/20 19 LDL 101Will increase Atorvastat in to 20mg daily. Heart murmur 43763256 R0 1.1 Will order echo to evaluate for structural disease. [id number] Nicko Cannon MD [place] [facility] [place] [address] 07/14/2019 15:49:56 07/14/2019 15:58:34 Chest pain 19430155 R07.9 Treadmill Myoview Stress test, was positive [...] proceed. Family his tory of coronary arteriosclerosis 795464176 Z82.49 CT scan -screen for lung cancer, showed calcificat ion of left main and LAD. Essential hypertension 63207679 I10 Fair control Hyperlipidemia 47730252 E78.5 Needs to keep LDL less than 70, and HDL more than 40 Will get fasting lipids for follow up05/01/20 19 LDL 101Will increase Atorvastat in to 20mg daily. Heart murmur 21111103 R0 1.1 with TR Obstructiv e sleep apnea syndrome 74377622 G47.33 Home sleep studyHe has leg swelling, fatigue, and snoring [id number] Nicko Cannon MD [place] OFFICE [address] [place] [address] 07/29/2019 09:40:08 07/30/2019 18:18:16 Chest pain 18668795 R07.9 LHC showed mild disease. Needs to keep LDL less than 70, and HDL more than 40 Symptoms resolved. Will get fasting lipids for follow up Dyspnea on exertion 6084 5006 R06.09 Recommend exercise. Family his tory of coronary arteriosclerosis 961607743 Z82.49 Essential hypertension 21680361 I10 Controlled . Hyperlipidemia 00312028 E78.5 Needs to keep LDL less than 70, and HDL more than 40 Will get fasting lipids for follow up05/01/20 19 LDL 101Recentl y increased Atorvastat in to 20mg daily. Heart murmur 79891986 R0 1.1 with TR Obstructiv e sleep apnea syndrome 54881050 G47.33 Home sleep study scheduled for 10/2019.He has leg swelling, fatigue, and snoring Health Concerns Section Related Observation LastModified by Organization Detai ls LastModified Time None Recorded Concern Status LastModified by Organization Details LastModified Time None Recorded Advance Directives Directive None Recorded Payers Insurance Date Sequence Insurance Name Policy Number Policy Davis Covered Member ID Davis Member ID Guarantor Name 02/01/2020 1 [facility] Adriel Centeno [id number] Adriel Kenny Notes Date Note Type Note [...] 2015. Brother with CABG age 51Mother had [place] s/p PCI age 60Father had [place] age 46, CABG age 58 Nicko Cannon MD [address] [place], [address], [facility] 08/04/2019 11:54:36 07/14/2019 text/html CC: chest pain [...] 2015. Brother with CABG age 51Mother had [place] s/p PCI age 60Father had WA age 46, CABG age 58 Nicko Cannon MD [address] [place], [address], [facility] 07/14/2019 22:25:06 07/29/2019 text/html [...] 2015. Brother with CABG age 51Mother had [place] s/p PCI age 60Father had [place] age 46, CABG age 58 Results from this visit, or from the past:07/16/2019 : Glucose 122,BUN 13,Creati 0.80,Na 140,K 4.2,Cl 101,CO2 29,Ca 10.0 CBC: WBC 6.1,RBC 4.38,HGB 13.8,HCT 40.8,PLT 247; PT 11.2 INR 1.1 Nicko Cannon MD [address] [place], [address], [place] [facility] 07/30/2019 18:18:15
--- NOTE | 2025-04-08 13:04 | ED_ITS ---
HPI - Ear Problem General Chief complaint: Ear Stated complaint: L Ear Time Seen by Provider: 04/08/25 12:21 Source: patient and RN notes reviewed Mode of arrival: ambulatory Limitations: no limitations History of Present Illness HPI Narrative: 59-year-old male with history of diabetes, hypertension, presents today with a one-week history of intermittent ?humming? in the left ear, that is now muffled. He developed some dizziness yesterday morning, that is worse with head movement, some mild nasal congestion last night. The dizziness resolved yesterday, but started again today, but is better today than yesterday. He has tried decongestants at home with some mild intermittent relief. Denies any additional symptoms to include headache, vision changes, chest pain, shortness of breath. Most recent A1c was 7.3% and takes Metformin. Related Data Home Medications ?Medication ?Instructions ?Recorded ?Confirmed ?Last Taken ?Type aspirin 81 mg tablet,delayed 81 mg PO DAILY 11/30/21 0 11/23/24 09/26/22 History release atorvastatin 20 mg tablet 20 mg PO DAILY 11/30/2111/1109/26/22 History telmisartan 40 1 tablet PO DAILY 11/30/21 0 11/23/24 09/26/22 History mg-hydrochlorothiazide 12.5 mg tablet cetirizine 10 mg tablet mg 11/23/24 Unknown History metformin 1,000 mg tablet mg 11/23/24 Unknown History meclizine 25 mg chewable tablet 12.5 mg PO DAILY 04/0804/08/25 Unknown History (Antivert) Allergies Allergy/AdvReac Type Severity Reaction Status Date / Time No Known Allergies Allergy Verified 04/08/25 12:22 [facility] Past Medical History Medical History (Updated 04/08/25 @ 13:07 by Natasha Dexter APRN, [place]) Diabetes Hypertension Family History Family History Other Diabetes mellitus Hypertension Social History Social History Smoking packs per day: 1 Smoking cigarettes per day: 20.0 Years smoked: 30 Smoking pack-years: 30.00 Smoking status: Former smoker Alcohol intake: current Alcohol use details: socially Substance use: never Substance use type: does not use Living arrangements: with family Spiritual care concerns: No Comments At time of signature, I have reviewed and agree with nursing past medical, surgical, social and family history unless otherwise noted. Please see nursing chart for further information. There is no relevant family history pertinent to the presenting complaint Exam Narrative: GENERAL: Well-appearing, well-nourished, and in no acute distress. HEAD: Normocephalic, atraumatic. EYES: EOMI. PERRL. No nystagmus. No redness or drainage. Conjunctivae normal. ENT: Mucous membranes pink and moist. Nares clear. No rhinorrhea. Right TM and canal normal. Left TM henderson and opaque without visualization of the bony landmarks. NECK: Normal AROM. Supple. No lymphadenopathy. CHEST: No respiratory distress. Clear to auscultation. HEART: Regular rate and rhythm. No murmur appreciated. Normal peripheral pulses. EXTREMITIES: Normal range of motion. No edema. SKIN: Warm, dry, no rash. Capillary refill normal. Normal skin turgor. NEURO: No focal deficits. Alert and oriented x3. Gait steady. PSYCH: Normal affect. No signs of depression or anxiety. Course Course Level of Care: Express Care Visit Vital Signs Vital signs: Vital Signs Temperature 97.3 F L 04/08/25 12:14 Pulse Rate 73 04/08/25 12:14 Respiratory Rate 18 04/08/25 12:14 Blood Pressure 156/85 H 04/08/25 12:14 Pulse Oximetry 99 04/08/25 12:14 Oxygen Delivery Room Air 04/08/25 12:14 Temperature 97.3 F L 04/08/25 12:14 Pulse Rate 73 04/08/25 12:14 Respiratory Rate 18 04/08/25 12:14 Blood Pressure 156/85 H 04/08/25 12:14 Pulse Oximetry 99 04/08/25 12:14 Oxygen Delivery Room Air 04/08/25 12:14 Reviewed Medical Decision Making MDM Narrative Medical decision making narrative: 59-year-old male with history of diabetes, hypertension, presents today with a one-week history of intermittent ?humming? in the left ear, that is now muffled. He developed some dizziness yesterday morning, that is worse with head movement, some mild nasal congestion last night. The dizziness resolved yesterday, but started again today, but is better today than yesterday. He has tried decongestants at home with some mild intermittent relief. Denies any additional symptoms to include headache, vision changes, chest pain, shortness of breath. Most recent A1c was 7.3% and takes Metformin. Upon exam, right ear normal. Left TM henderson and opaque without visualization of the bony landmarks. Patient will be treated Augmentin and prednisone for left otitis media. At this time the dizziness seems to be related to an ear issue instead of a neurological etiology. Recommend starting a decongestant such as Coricidin HBP and continuing Flonase as well. Patient agrees with plan. Vital signs stable with mildly elevated blood pressure. Anticipatory guidance and ED precautions given. Differential Diagnosis Differential Diagnosis: Otitis media, otitis externa, ruptured TM, serous otitis, eustachian tube dysfunction, cerumen impaction, URI, vertigo, Meniere's disease Vital Signs Vital Signs: Vital Signs Temperature 97.3 F L 04/08/25 12:14 Pulse Rate 73 04/08/25 12:14 Respiratory Rate 18 04/08/25 12:14 Blood Pressure 156/85 H 04/08/25 12:14 Pulse Oximetry 99 04/08/25 12:14 Oxygen Delivery Room Air 04/08/25 12:14 Temperature 97.3 F L 04/08/25 12:14 Pulse Rate 73 04/08/25 12:14 Respiratory Rate 18 04/08/25 12:14 Blood Pressure 156/85 H 04/08/25 12:14 Pulse Oximetry 99 04/08/25 12:14 Oxygen Delivery Room Air 04/08/25 12:14 Critical Care Time Critical Care Time Critical Care Time: No Discharge Plan Discharge Clinical Impression: Acute left otitis media Patient Disposition: Home Condition: Stable Instructions: Antibiotic Form, Ear Infection (GEN) Additional Instructions: Please take the amoxicillin and prednisone as prescribed until gone. Continue the Flonase as well. Continue decongestant such as Coricidin HBP as well. Follow-up with your PCP next week if symptoms are improving. Please go to the ER immediately if symptoms worsen Patient Language: Telugu Prescriptions: New prednisone 20 mg tablet 40 mg PO DAILY 4 Days Qty: 8 0RF amoxicillin 875 mg tablet 875 mg PO Q12H 7 Days Qty: 14 0RF No Action cetirizine 10 mg tablet metformin 1,000 mg tablet meclizine [Antivert] 25 mg tablet,chewable 12.5 mg PO DAILY telmisartan-hydrochlorothiazid 40-12.5 mg tablet 1 tablet PO DAILY atorvastatin 20 mg tablet 20 mg PO DAILY aspirin 81 mg tablet,delayed release (DR/EC) 81 mg PO DAILY fluticasone propionate [Flonase Allergy Relief] 50 mcg/actuation spray,suspension 2 spray NASAL DAILY Qty: 15.8 0RF Rx Instructions: administer into each nostril Follow-up/Referrals: UNKNOWN,DOCTOR [Primary Care Provider] Time of Disposition: 12:50
== END 2025-04-08 12:53 | disposition home or self-care (01) ==
PROVIDERS: Emergency Provider Nurse Practitioner
DX: H66.92 Otitis media, unspecified, left ear (principal); E11.9 Type 2 diabetes mellitus without complications; I10 Essential (primary) hypertension; Z79.899 Other long term (current) drug therapy; Z87.891 Personal history of nicotine dependence
CPT/HCPCS: 99213; G0463